=== PATIENT | female | born 1940 | race Caucasian/White ===

== ENCOUNTER → 2018-03-08 12:08 | Outpatient (CLI) | payer MEDICARE, SELFPAY | PROVIDERS: PCP Physician Assistant; Visit Provider Nurse Practitioner Gerontology | DX: M81.0 Age-related osteoporosis without current pathological fracture (principal); Z78.0 Asymptomatic menopausal state; Z85.3 Personal history of malignant neoplasm of breast; R29.890 Loss of height; E11.9 Type 2 diabetes mellitus without complications; Z82.62 Family history of osteoporosis | CPT/HCPCS: 77080 ==

== ENCOUNTER → 2018-06-15 10:08 | Outpatient (CLI) | payer MEDICARE, SELFPAY ==
--- NOTE | 2018-06-15 | DI.RAD.S_ITS ---
PROCEDURE: XR SHOULDER LT MIN 2V INDICATIONS: pain in left shoulder TECHNIQUE: 3 views of the shoulder were acquired. COMPARISON: [facility], CR, CHEST 2 VIEW, 08/28/2015, 9:47. [facility], CR, XR CHEST 2VW, 01/21/2016, 10:22. FINDINGS: Bones: No fractures or dislocations but there is a moderate degree of degenerative osteoporosis degree of such degeneration at the glenohumeral joint.at the acromioclavicular joint and a moderately severe degree of degeneration by chronic osteoarthritis at the glenohumeral joint. No suspicious bony lesions. Visualized ribs appear intact. Soft tissues: No suspicious soft tissue calcifications. IMPRESSION: No acute disease found. 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 No effusion or loose body is seen. 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 Dictated by: Davi Hu M.D. on 06/15/2018 at 11:08 Approved by: Davi Hu M.D. on 06/15/2018 at 11:10
== END ==
PROVIDERS: PCP Physician Assistant; Visit Provider Physician Assistant
DX: M25.512 Pain in left shoulder (principal); M19.012 Primary osteoarthritis, left shoulder
CPT/HCPCS: 73030

== ENCOUNTER → 2018-09-15 10:20 | Outpatient (CLI) | payer MEDICARE, SELFPAY ==
[2018-09-15 11:01] LABS: Add Manual Diff / Slide Review NO; Basophils Percent Auto 0.9 % (0-2); Eosinophils Percent Auto 4.2 % (2-4); Hematocrit 38.9 % (36-46); Hemoglobin 13.5 g/dL (12.0-16.0); Lymphocytes Percent Auto 12.2 % (25-40); Mean Corpuscular HGB Conc 34.6 % (30-36); Mean Corpuscular Hemoglobin 31.4 PG (26-34); Mean Corpuscular Volume 90.7 fL (80-100); Neutrophils Absolute Auto 5500 /uL (1500-7000); Neutrophils Percent Auto 74.7 % (50-75); Platelet Count 147 X10^3/uL (150-400); Red Blood Cell Count 4.29 X10^6/uL (4.0-5.2); Red Cell Distribution Width 14.6 % (11.6-14.8); White Blood Cell Count 7.3 X10^3/uL (4.5-11.0)
[2018-09-15 11:12] LABS: Alanine Aminotransferase 29 IU/L (9-52); Albumin 4.8 g/dL (3.5-5.0); Albumin Globulin Ratio 1.7 (1.0-2.8); Alkaline Phosphatase 69 U/L (38-126); Aspartate Aminotransferase 28 IU/L (14-36); BUN Creatinine Ratio 31.1 (6-22); Bilirubin Total 0.8 mg/dL (0.2-1.3); Blood Urea Nitrogen 28 mg/dL (7-17); Calcium 10.1 mg/dL (8.4-10.2); Carbon Dioxide 26 mmol/L (22-32); Chloride 98 mmol/L (98-107); Estimated Glomerular Filt Rate > 60.0 mL/min (>60); Globulin 2.9 g/dL (1.7-4.1); Glucose 256 mg/dL (80-110); HEMOLYSIS < 15 (0-50); Potassium 4.6 mmol/L (3.4-5.1); Sodium 138 mmol/L (137-145); Total Protein 7.7 g/dL (6.3-8.2)
== END ==
PROVIDERS: PCP Physician Assistant; Visit Provider Nurse Practitioner Gerontology
DX: C50.911 Malignant neoplasm of unspecified site of right female breast (principal); C50.912 Malignant neoplasm of unspecified site of left female breast
CPT/HCPCS: 36415; 80053; 85025

== ENCOUNTER → 2018-09-23 07:45 | Outpatient (CLI) | payer MEDICARE, SELFPAY ==
[2018-09-23 09:37] LABS: Alanine Aminotransferase 34 IU/L (9-52); Albumin 4.6 g/dL (3.5-5.0); Albumin Globulin Ratio 1.9 (1.0-2.8); Alkaline Phosphatase 52 U/L (38-126); Aspartate Aminotransferase 29 IU/L (14-36); BUN Creatinine Ratio 26.7 (6-22); Bilirubin Total 1.1 mg/dL (0.2-1.3); Blood Urea Nitrogen 24 mg/dL (7-17); Calcium 9.9 mg/dL (8.4-10.2); Carbon Dioxide 28 mmol/L (22-32); Chloride 102 mmol/L (98-107); Estimated Glomerular Filt Rate > 60.0 mL/min (>60); Globulin 2.4 g/dL (1.7-4.1); Glucose 183 mg/dL (80-110); HEMOLYSIS < 15 (0-50); Magnesium 1.8 mg/dL (1.6-2.3); Potassium 4.4 mmol/L (3.4-5.1); Sodium 141 mmol/L (137-145)
[2018-09-27 14:32] LABS: Lipoprofile NMR SEE SEPERATE REPORT
== END ==
PROVIDERS: Family Provider Physician Assistant; PCP Physician Assistant; Visit Provider Specialist
DX: I48.2 Chronic atrial fibrillation (principal); E78.5 Hyperlipidemia, unspecified
CPT/HCPCS: 36415; 80053; 83704; 83735

== ENCOUNTER → 2019-10-04 09:34 | Outpatient (CLI) | payer MEDICARE, SELFPAY ==
[2019-10-04 10:21] LABS: Add Manual Diff / Slide Review NO; Basophils Absolute Auto 100 /uL (0-100); Basophils Percent Auto 1.3 % (0-2); Eosinophils Absolute Auto 400 /uL (0-450); Eosinophils Percent Auto 7.9 % (2-4); Hematocrit 36.4 % (36-46); Hemoglobin 12.1 g/dL (12.0-16.0); Lymphocytes Absolute Auto 800 /uL (1100-4500); Lymphocytes Percent Auto 16.5 % (25-40); Mean Corpuscular HGB Conc 33.4 % (30-36); Mean Corpuscular Hemoglobin 29.5 PG (26-34); Mean Corpuscular Volume 88.4 fL (80-100); Monocytes Absolute Auto 400 /uL (0-900); Monocytes Percent Auto 9.3 % (3-14); Neutrophils Absolute Auto 3100 /uL (1500-7000); Platelet Count 134 X10^3/uL (150-400); Red Blood Cell Count 4.11 X10^6/uL (4.0-5.2); White Blood Cell Count 4.8 X10^3/uL (4.5-11.0)
[2019-10-04 10:33] LABS: Alanine Aminotransferase 19 IU/L (<35); Albumin 4.6 g/dL (3.5-5.0); Albumin Globulin Ratio 1.6 (1.0-2.8); Alkaline Phosphatase 82 U/L (38-126); Aspartate Aminotransferase 29 IU/L (14-36); Bilirubin Total 0.7 mg/dL (0.2-1.3); Blood Urea Nitrogen 28 mg/dL (7-17); Carbon Dioxide 24 mmol/L (22-32); Chloride 100 mmol/L (98-107); Estimated Glomerular Filt Rate > 60.0 mL/min (>60); Globulin 2.8 g/dL (1.7-4.1); Glucose 293 mg/dL (80-110); HEMOLYSIS < 15 (0-50); Potassium 4.4 mmol/L (3.4-5.1); Sodium 138 mmol/L (137-145); Total Protein 7.4 g/dL (6.3-8.2)
== END ==
PROVIDERS: Internal Medicine Hematology & Oncology; PCP Internal Medicine; Visit Provider Internal Medicine
DX: C50.919 Malignant neoplasm of unspecified site of unspecified female breast (principal)
CPT/HCPCS: 36415; 80053; 85025

== ENCOUNTER → 2019-11-06 07:18 | Outpatient (CLI) | payer MEDICARE, SELFPAY ==
[2019-11-06 08:41] LABS: Alanine Aminotransferase 21 IU/L (<35); Albumin 4.6 g/dL (3.5-5.0); Albumin Globulin Ratio 1.6 (1.0-2.8); Alkaline Phosphatase 80 U/L (38-126); Aspartate Aminotransferase 30 IU/L (14-36); BUN Creatinine Ratio 27.8 (6-22); Bilirubin Total 0.7 mg/dL (0.2-1.3); Blood Urea Nitrogen 25 mg/dL (7-17); Carbon Dioxide 27 mmol/L (22-32); Chloride 104 mmol/L (98-107); Estimated Glomerular Filt Rate > 60.0 mL/min (>60); Globulin 2.8 g/dL (1.7-4.1); Glucose 169 mg/dL (80-110); HEMOLYSIS < 15 (0-50); Magnesium 1.7 mg/dL (1.6-2.3); Potassium 4.5 mmol/L (3.4-5.1); Sodium 142 mmol/L (137-145); Total Protein 7.4 g/dL (6.3-8.2)
[2019-11-08 10:06] LABS: Lipoprofile NMR SEE SEPERATE REPORT
== END ==
PROVIDERS: PCP Internal Medicine; Referring Provider Specialist; Visit Provider Specialist
DX: E78.2 Mixed hyperlipidemia (principal); I48.20 Chronic atrial fibrillation, unspecified
CPT/HCPCS: 36415; 80053; 83704; 83735

== ENCOUNTER → 2020-03-21 09:22 | Outpatient (CLI) | payer MEDICARE, SELFPAY ==
[2020-03-21 09:39] LABS: Add Manual Diff / Slide Review NO; Basophils Absolute Auto 100 /uL (0-100); Basophils Percent Auto 1.2 % (0-2); Eosinophils Absolute Auto 400 /uL (0-450); Eosinophils Percent Auto 7.4 % (2-4); Hematocrit 37.3 % (36-46); Hemoglobin 12.6 g/dL (12.0-16.0); Lymphocytes Absolute Auto 1000 /uL (1100-4500); Mean Corpuscular HGB Conc 33.6 % (30-36); Mean Corpuscular Hemoglobin 31.4 PG (26-34); Mean Corpuscular Volume 93.2 fL (80-100); Monocytes Absolute Auto 500 /uL (0-900); Neutrophils Absolute Auto 3700 /uL (1500-7000); Neutrophils Percent Auto 65.4 % (50-75); Platelet Count 151 X10^3/uL (150-400); Red Blood Cell Count 4.01 X10^6/uL (4.0-5.2); Red Cell Distribution Width 13.9 % (11.6-14.8); White Blood Cell Count 5.7 X10^3/uL (4.5-11.0)
[2020-03-21 10:05] LABS: Alanine Aminotransferase 25 IU/L (<35); Albumin 4.7 g/dL (3.5-5.0); Albumin Globulin Ratio 1.9 (1.0-2.8); Alkaline Phosphatase 82 U/L (38-126); Aspartate Aminotransferase 36 IU/L (14-36); BUN Creatinine Ratio 24.7 (6-22); Bilirubin Total 0.9 mg/dL (0.2-1.3); Blood Urea Nitrogen 22 mg/dL (7-17); Calcium 10.4 mg/dL (8.4-10.2); Carbon Dioxide 27 mmol/L (22-32); Chloride 99 mmol/L (98-107); Estimated Glomerular Filt Rate > 60.0 mL/min (>60); Globulin 2.5 g/dL (1.7-4.1); Glucose 286 mg/dL (80-110); HEMOLYSIS < 15 (0-50); Sodium 136 mmol/L (137-145); Total Protein 7.2 g/dL (6.3-8.2)
== END ==
PROVIDERS: PCP Internal Medicine; Referring Provider Internal Medicine Hematology & Oncology; Visit Provider Internal Medicine Hematology & Oncology
DX: C50.919 Malignant neoplasm of unspecified site of unspecified female breast (principal)
CPT/HCPCS: 36415; 80053; 85025

== ENCOUNTER → 2020-08-12 07:48 | Outpatient (CLI) | payer MEDICARE, SELFPAY ==
[2020-08-12 09:08] LABS: Alanine Aminotransferase 19 IU/L (<35); Albumin 4.1 g/dL (3.5-5.0); Albumin Globulin Ratio 1.6 (1.0-2.8); Alkaline Phosphatase 70 U/L (38-126); Aspartate Aminotransferase 29 IU/L (14-36); BUN Creatinine Ratio 28.1 (6-22); Bilirubin Total 0.8 mg/dL (0.2-1.3); Blood Urea Nitrogen 25 mg/dL (7-17); Calcium 9.5 mg/dL (8.4-10.2); Carbon Dioxide 28 mmol/L (22-32); Chloride 103 mmol/L (98-107); Estimated Glomerular Filt Rate > 60.0 mL/min (>60); Globulin 2.5 g/dL (1.7-4.1); Glucose 151 mg/dL (80-110); HEMOLYSIS < 15 (0-50); Magnesium 1.9 mg/dL (1.6-2.3); Potassium 4.2 mmol/L (3.4-5.1); Sodium 135 mmol/L (137-145); Total Protein 6.6 g/dL (6.3-8.2)
[2020-08-20 14:01] LABS: LDL Particle 1154
[2020-08-20 14:02] LABS: LDL-Cholsterol 82
[2020-08-20 14:03] LABS: Cholesterol, Total 148; HDL-Cholesterol 48; Triglycerides 98
[2020-08-20 14:04] LABS: HDL-Particle (Total) 25.9
[2020-08-20 14:05] LABS: LDL Size 21.1; Small LDL- Particle 482
== END ==
PROVIDERS: PCP Internal Medicine; Referring Provider Specialist; Visit Provider Specialist
DX: E78.2 Mixed hyperlipidemia (principal); I48.20 Chronic atrial fibrillation, unspecified; I10 Essential (primary) hypertension
CPT/HCPCS: 36415; 80053; 80061; 83704; 83735

== ENCOUNTER → 2020-09-04 10:32 | Outpatient (CLI) | payer MEDICARE, SELFPAY ==
[2020-09-04 11:17] LABS: Add Manual Diff / Slide Review NO; Basophils Absolute Auto 100 /uL (0-100); Basophils Percent Auto 1.2 % (0-2); Eosinophils Absolute Auto 500 /uL (0-450); Eosinophils Percent Auto 9.1 % (2-4); Hematocrit 36.2 % (36-46); Lymphocytes Absolute Auto 1000 /uL (1100-4500); Lymphocytes Percent Auto 17.6 % (25-40); Mean Corpuscular HGB Conc 33.3 % (30-36); Mean Corpuscular Hemoglobin 30.1 PG (26-34); Mean Corpuscular Volume 90.4 fL (80-100); Monocytes Absolute Auto 600 /uL (0-900); Monocytes Percent Auto 11.1 % (3-14); Neutrophils Absolute Auto 3300 /uL (1500-7000); Platelet Count 160 X10^3/uL (150-400); White Blood Cell Count 5.5 X10^3/uL (4.5-11.0)
[2020-09-04 12:21] LABS: Alanine Aminotransferase 17 IU/L (<35); Albumin 4.3 g/dL (3.5-5.0); Albumin Globulin Ratio 1.8 (1.0-2.8); Alkaline Phosphatase 80 U/L (38-126); Aspartate Aminotransferase 27 IU/L (14-36); BUN Creatinine Ratio 33.7 (6-22); Bilirubin Total 0.6 mg/dL (0.2-1.3); Blood Urea Nitrogen 31 mg/dL (7-17); Calcium 9.8 mg/dL (8.4-10.2); Carbon Dioxide 30 mmol/L (22-32); Chloride 99 mmol/L (98-107); Estimated Glomerular Filt Rate 58.7 mL/min (>60); Globulin 2.4 g/dL (1.7-4.1); Glucose 260 mg/dL (80-110); HEMOLYSIS < 15 (0-50); Potassium 4.5 mmol/L (3.4-5.1); Sodium 135 mmol/L (137-145); Total Protein 6.7 g/dL (6.3-8.2)
[2020-09-04 12:22] LABS: BUN Creatinine Ratio 34.8 (6-22); Blood Urea Nitrogen 31 mg/dL (7-17); Calcium 9.7 mg/dL (8.4-10.2); Carbon Dioxide 29 mmol/L (22-32); Chloride 99 mmol/L (98-107); Estimated Glomerular Filt Rate > 60.0 mL/min (>60); Glucose 258 mg/dL (80-110); HEMOLYSIS < 15 (0-50); Magnesium 1.7 mg/dL (1.6-2.3); Potassium 4.5 mmol/L (3.4-5.1); Sodium 135 mmol/L (137-145)
== END ==
PROVIDERS: Internal Medicine; PCP Internal Medicine; Referring Provider Specialist; Visit Provider Specialist
DX: I10 Essential (primary) hypertension (principal); E78.00 Pure hypercholesterolemia, unspecified; I48.21 Permanent atrial fibrillation; C50.911 Malignant neoplasm of unspecified site of right female breast; C50.912 Malignant neoplasm of unspecified site of left female breast
CPT/HCPCS: 36415; 80048; 80053; 83735; 85025

== ENCOUNTER → 2020-12-06 13:03 | Outpatient (ROUT) | payer MEDICARE, SELFPAY ==
[2020-12-06 13:27] LABS: PTT Partial Thromboplastin Tim 64 SECONDS (26.4-36.2)
[2020-12-06 13:42] LABS: Prothrombin Time 104.6 SECONDS (10.1-12.7)
[2020-12-06 13:58] LABS: INR 9.3 (0.9-1.3)
== END ==
PROVIDERS: PCP Internal Medicine; Visit Provider Student in an Organized Health Care Education/Training Program
DX: I48.20 Chronic atrial fibrillation, unspecified (principal)
CPT/HCPCS: 85610; 85730

== ENCOUNTER → 2020-12-27 15:05 | Outpatient (ROUT) | payer MEDICARE, SELFPAY ==
[2020-12-27 15:36] LABS: Prothrombin Time 124.3 SECONDS (10.1-12.7)
[2020-12-27 15:48] LABS: INR 11.1 (0.9-1.3)
== END ==
PROVIDERS: PCP Internal Medicine; Visit Provider Student in an Organized Health Care Education/Training Program
DX: I48.20 Chronic atrial fibrillation, unspecified (principal)
CPT/HCPCS: 85610

== ENCOUNTER 2020-12-27 16:48 | Observation (INO) | payer MEDICARE, SELFPAY ==
[2020-12-27 16:54] VITALS: BP 168/74; PULSE 60; RESP 17; TEMP 36.7; O2SAT 95
--- NOTE | 2020-12-27 17:07 | DI.CT.S_ITS ---
PROCEDURE: CT HEAD/BRAIN WO CON INDICATIONS: INR 11 TECHNIQUE: Noncontrast 4.5 mm thick angled axial sections acquired from the foramen magnum to the vertex, with coronal and sagittal reformats. For radiation dose reduction, the following was used: automated exposure control, adjustment of mA and/or kV according to patient size. COMPARISON: None. FINDINGS: Image quality: Excellent. CSF spaces: Basal cisterns are patent. No extra-axial fluid collections. The ventricles are symmetric in size and shape. Brain: No intracranial bleeds or masses. There is cerebral volume loss for age, with resultant ventricular and sulcal prominence. There are periventricular and deep white matter chronic small vessel ischemic changes. There is intracranial internal carotid artery atherosclerosis. Skull and face: Calvarium and visualized facial bones appear intact, without suspicious lesions. Sinuses: Visualized sinuses and mastoids are clear. IMPRESSION: No acute intracranial process. Dictated by: Jaswinder Jones M.D. on 12/27/2020 at 17:55 Approved by: Jaswinder Jones M.D. on 12/27/2020 at 17:57
[2020-12-27 17:27] LABS: Add Manual Diff / Slide Review NO; Basophils Absolute Auto 100 /uL (0-100); Basophils Percent Auto 1.2 % (0-2); Eosinophils Absolute Auto 300 /uL (0-450); Eosinophils Percent Auto 4.2 % (2-4); Hematocrit 29.6 % (36-46); Hemoglobin 9.9 g/dL (12.0-16.0); Lymphocytes Absolute Auto 1000 /uL (1100-4500); Lymphocytes Percent Auto 14.1 % (25-40); Mean Corpuscular HGB Conc 33.3 % (30-36); Mean Corpuscular Hemoglobin 29.5 PG (26-34); Mean Corpuscular Volume 88.5 fL (80-100); Monocytes Absolute Auto 600 /uL (0-900); Monocytes Percent Auto 8.2 % (3-14); Neutrophils Absolute Auto 5000 /uL (1500-7000); Neutrophils Percent Auto 72.3 % (50-75); Platelet Count 192 X10^3/uL (150-400); Red Blood Cell Count 3.34 X10^6/uL (4.0-5.2); Red Cell Distribution Width 16.1 % (11.6-14.8); White Blood Cell Count 6.9 X10^3/uL (4.5-11.0)
--- NOTE | 2020-12-27 17:35 | ED.RECABL ---
HPI - Recheck/Abnormal Lab/Rx General Chief Complaint: Recheck/Abnormal Lab/Rx Stated Complaint: INR NUMBERS ARE HIGH Time Seen by Provider: 12/27/20 17:35 Source: patient Mode of arrival: Ambulatory Limitations: no limitations History of Present Illness HPI narrative: This is an 80 year female who is sent to the emergency department for elevated INR. Patient takes warfarin for atrial fibrillation she has a pacemaker but does not have any artificial valves. Patient had an INR checked lately beginning of December, they were told to take more dark leafy greens but unclear if they were instructed to stop her warfarin. She was hospitalized recently for acute hypoxic respiratory failure and is currently using 2 L nasal cannula intermittently. She does have a history of atrial fibrillation, hypertension, dyslipidemia, diabetes and uses insulin as well as chronic memory issues which have been slowly progressive. Patient does not have any headache, no altered mental status today, no chest pain, no shortness of breath, no spontaneous bleeding, and no abdominal pain, no black or bloody stools, no hematuria or spontaneous bruising or petechiae that the patient or have noted. They had a regular follow-up today with their primary care physician it was noted there INR was 8, they were sent home and told to stop there Coumadin for the next 2 days and rhythm re-contacted and told it was higher than 8 and to come to the emergency department. Related Data Home Medications Medication Instructions Recorded Confirmed Januvia 100 mg PO DAILY #0 08/20/16 12/27/20 furosemide 20 mg PO DAILY #0 08/20/16 12/27/20 warfarin [Jantoven] 5 mg PO QDAY #0 08/20/16 12/27/20 amlodipine [Norvasc] 10 mg PO QDAY #1 02/17/17 12/27/20 atorvastatin [Lipitor] 20 mg PO QDAY #0 02/17/17 12/27/20 insulin glargine [Lantus U-100 63 unit SUB-Q BID 03/18/18 12/27/20 Insulin] metformin 500 mg PO BID 03/18/18 12/27/20 doxylamine succinate 25 mg PO PRN PRN 12/27/20 12/27/20 losartan 50 mg PO BID 12/27/20 12/27/20 magnesium oxide-Mg AA chelate 400 cap PO BID 12/27/20 12/27/20 [Magnesium (oxide/AA chelate)] metoprolol succinate 50 mg PO DAILY 12/27/20 12/27/20 sennosides [senna] 8.6 mg PO BEDTIME 12/27/20 12/27/20 sertraline 50 mg PO DAILY 12/27/20 12/27/20 spironolactone 25 mg PO DAILY 12/27/20 12/27/20 Previous Rx's Medication Instructions Recorded alendronate [Fosamax] 70 mg PO QWEEK #12 tab 07/17/20 anastrozole 1 mg PO DAILY #30 tab 07/17/20 Allergies Allergy/AdvReac Type Severity Reaction Status Date / Time MYESHA Inhibitors Allergy Unknown UNK. Verified 12/27/20 16:56 [MYESHA INHIBITORS] Review of Systems Review of Systems ROS Unobtainable: All systems reviewed & are unremarkable except as noted in HPI and below Patient History Social History Smoking Status: Never smoker Smoking Status: Never smoker alcohol intake frequency: other Substance Use Type: does not use Exam Narrative Exam Narrative: GEN: well nourished, well appearing female, alert and oriented x 3, patient appears to be in mild distress. HEENT: Atraumatic, pupils are equal round reactive to light, extraocular movements are intact, nares are clear. HEART: Regular rate and rhythm without murmur, clicks, rubs. LUNGS:Lungs clear to auscultation, no wheezes, rales, crackles, chest moves symmetrically ABD:bowel sounds normal, soft, non-tender, no guarding, rebound, rigidity, no masses noted, no hepatosplenomegaly :No CVA tenderness MSCL: Non-tender, full range of motion NEURO:CN 2-12 intact, sensation normal SKIN: No rash, erythema, ecchymosis or petechiae noted. Initial Vital Signs Initial Vital Signs: Vital Signs Temperature 98.1 F 12/27/20 16:54 Pulse Rate 60 12/27/20 16:54 Respiratory Rate 17 12/27/20 16:54 Blood Pressure 168/74 H 12/27/20 16:54 Pulse Oximetry 95 12/27/20 16:54 Course Orders Ordered: ED Orders 12/27/20 17:07 CT head/brain wo con Stat 12/27/20 17:18 Complete Blood Count AUTO DIFF Stat Comprehensive Metabolic Panel Stat Partial Thromboplastin Time Stat Prothrombin Time INR Stat 12/27/20 18:27 COVID19 -Nasal swab/Pre-Proc Stat Discontinued Medications Phytonadione 10 mg/ Dextrose 51 mls @ 102 mls/hr IV NOW ONE Stop: 12/27/20 17:55 Last Admin: 12/27/20 18:07 Dose: 102 mls/hr Documented by: Vital Signs Vital signs: Vital Signs - 8 hr 12/27/20 16:54 Temperature 98.1 F Pulse Rate 60 Respiratory Rate 17 Blood Pressure 168/74 H Pulse Oximetry 95 MDM - Recheck/Abnormal Lab/Rx Lab Data Attestation: I reviewed the patient's lab results. Result diagrams: 12/27/20 17:18 12/27/20 17:18 Labs: Lab Results 12/27/20 12/27/20 12/27/20 Range/Units 17:18 17:18 17:18 WBC 6.9 (4.5-11.0) X10^3/uL RBC 3.34 L (4.0-5.2) X10^6/uL Hgb 9.9 L (12.0-16.0) g/dL Hct 29.6 L (36-46) % MCV 88.5 (80-100) fL MCH 29.5 (26-34) PG MCHC 33.3 (30-36) % RDW 16.1 H (11.6-14.8) % Plt Count 192 (150-400) X10^3/uL Neut % (Auto) 72.3 (50-75) % Lymph % (Auto) 14.1 L (25-40) % White % (Auto) 8.2 (3-14) % Eos % (Auto) 4.2 H (2-4) % Baso % (Auto) 1.2 (0-2) % Neut # (Auto) 5000 (4911-3888) /uL Lymph # (Auto) 1000 L (5100-1801) /uL White # (Auto) 600 (0-900) /uL Eos # (Auto) 300 (0-450) /uL Baso # (Auto) 100 (0-100) /uL PT 134.2 H D (10.1-12.7) SECONDS INR 12.0 H* (0.9-1.3) APTT 77 H* D (26.4-36.2) SECONDS Sodium 136 L (137-145) mmol/L Potassium 4.7 (3.4-5.1) mmol/L Chloride 100 (98-107) mmol/L Carbon Dioxide 25 (22-32) mmol/L BUN 26 H (7-17) mg/dL Creatinine 1.14 H (0.52-1.04) mg/dL Estimated GFR 45.9 L (>60) mL/min BUN/Creatinine Ratio 22.8 H (6-22) Glucose 175 H (80-110) mg/dL Calcium 9.3 (8.4-10.2) mg/dL Total Bilirubin 0.7 (0.2-1.3) mg/dL AST 35 (14-36) IU/L ALT 23 (<35) IU/L Alkaline Phosphatase 135 H (38-126) U/L Total Protein 6.8 (6.3-8.2) g/dL Albumin 4.3 (3.5-5.0) g/dL Globulin 2.5 (1.7-4.1) g/dL Albumin/Globulin Ratio 1.7 (1.0-2.8) Imaging Data CT scan - head: Radiologist's Impression: Rhoda Davidson 80 F [address] Scan ReportSigned Patient: Rhoda Davidson AMR#: [id number]: 1940Acct:[id number]/Sex: 80 / FDate of Service: 12/27/20Loc: EDAccession Number: [id number] Procedure: CT head/brain wo con Ordering Provider: Tran Nowak D.O. PROCEDURE: CT HEAD/BRAIN WO CON INDICATIONS: INR 11 TECHNIQUE: Noncontrast 4.5 mm thick angled axial sections acquired from the foramen magnum to the vertex, with coronal and sagittal reformats. For radiation dose reduction, the following was used: automated exposure control, adjustment of mA and/or kV according to patient size. COMPARISON: None. FINDINGS: Image quality: Excellent. CSF spaces: Basal cisterns are patent. No extra-axial fluid collections. The ventricles are symmetric in size and shape. Brain: No intracranial bleeds or masses. There is cerebral volume loss for age, with resultant ventricular and sulcal prominence. There are periventricular and deep white matter chronic small vessel ischemic changes. There is intracranial internal carotid artery atherosclerosis. Skull and face: Calvarium and visualized facial bones appear intact, without suspicious lesions. Sinuses: Visualized sinuses and mastoids are clear. IMPRESSION: No acute intracranial process. Dictated by: Jaswinder Jones M.D. on 12/27/2020 at 17:55 Approved by: Jaswinder Jones M.D. on 12/27/2020 at 17:57 [facility] Narrative Medical decision making narrative: This is a pleasant 80-year-old female who comes in for elevated INR. On repeat here in the department it is 12. Her hemoglobin is 9.9 she has a prior from August of 2020 which is dropped but unclear if this is a acute change or chronic. Patient has not appreciated any changes with her stool. Patient labs otherwise show a mild bump in her creatinine from August of 2020 and she has a negative head CT which was obtained due to her elevated INR although she has not had any recent trauma but is high risk for spontaneous bleed. Patient does have some chronic memory issues she has not had any acute changes in her mental status no obvious signs of spontaneous bleeding. Patient accepted by Dr. Iniguez who kindly accepts for observation. Patient has had 10mg Vitamin K in the department. Will hold on FFP and Kcentra only if patient develops life threatening bleeding. Discharge Plan Departure Patient Disposition: Home Clinical Impression: Elevated INR, History of atrial fibrillation Prescriptions: No Action warfarin [Jantoven] 10 MG tablet 5 mg PO QDAY Qty: 0 RF: 0 Januvia 100 mg tablet 100 mg PO DAILY Qty: 0 RF: 0 furosemide 20 MG tablet 20 mg PO DAILY Qty: 0 RF: 0 amlodipine [Norvasc] 5 MG tablet 10 mg PO QDAY Qty: 1 RF: 0 atorvastatin [Lipitor] 20 MG tablet 20 mg PO QDAY Qty: 0 RF: 0 Lantus U-100 Insulin 100 unit/mL Solution 63 unit SUB-Q BID RF: 0 metformin 1,000 mg Tablet 500 mg PO BID RF: 0 anastrozole 1 mg Tablet 1 mg PO DAILY Qty: 30 RF: 2 alendronate [Fosamax] 70 mg Tablet 70 mg PO QWEEK Qty: 12 RF: 2 losartan 50 mg Tablet 50 mg PO BID RF: 0 metoprolol succinate 50 mg tablet extended release 24 hr 50 mg PO DAILY RF: 0 spironolactone 25 mg tablet 25 mg PO DAILY RF: 0 doxylamine succinate 25 mg Tablet 25 mg PO PRN PRN (Reason: Sleep) RF: 0 sertraline 50 mg Tablet 50 mg PO DAILY RF: 0 Magnesium (oxide/AA chelate) 300 mg Capsule 400 cap PO BID RF: 0 senna 8.6 mg Capsule 8.6 mg PO BEDTIME RF: 0 Referrals: Ting Moya MD [Primary Care Provider] -
[2020-12-27 17:41] LABS: Alanine Aminotransferase 23 IU/L (<35); Albumin 4.3 g/dL (3.5-5.0); Albumin Globulin Ratio 1.7 (1.0-2.8); Alkaline Phosphatase 135 U/L (38-126); Aspartate Aminotransferase 35 IU/L (14-36); BUN Creatinine Ratio 22.8 (6-22); Bilirubin Total 0.7 mg/dL (0.2-1.3); Blood Urea Nitrogen 26 mg/dL (7-17); Calcium 9.3 mg/dL (8.4-10.2); Carbon Dioxide 25 mmol/L (22-32); Chloride 100 mmol/L (98-107); Estimated Glomerular Filt Rate 45.9 mL/min (>60); Globulin 2.5 g/dL (1.7-4.1); Glucose 175 mg/dL (80-110); HEMOLYSIS 20 (0-50); Potassium 4.7 mmol/L (3.4-5.1); Sodium 136 mmol/L (137-145); Total Protein 6.8 g/dL (6.3-8.2)
[2020-12-27 17:42] LABS: Prothrombin Time 134.2 SECONDS (10.1-12.7)
[2020-12-27 17:47] LABS: PTT Partial Thromboplastin Tim 77 SECONDS (26.4-36.2)
[2020-12-27] MEDS: PHYTONADIONE (VIT K1) 10 MG in DEXTROSE 5 % IN WATER 50 ML 102 ML IV (18:07)
--- NOTE | 2020-12-27 18:53 | P.HP_ITS ---
History of Present Illness History of Present Illness Date Patient Seen: 12/27/20 Time Patient Seen: 18:21 Chief complaint: INR NUMBERS ARE HIGH Narrative: Ms. Davidson is a 80W PMH of pulmonary hypertension with chronic respiratory failure on 2L, CHF, breast cancer, diabetes on insulin, hypertension who comes in today because of an elevated INR. Patient is with her and slightly unsure about timeline of events. But as best as they can recall she was recently hospitalized for CHF exacerbation and discharged on 12/16/20. Prior to this she believes she had a high INR. She can not recall the level or what was done, she believes no changes to her medications were made. Looking in our system she had an INR of 9.3 on 12/06/20. After being discharge she continued to take her normal amount of coumadin which is 5mg five days a week, and 7.5 mg two days a week. Today she had an INR scheduled and it was elevated so she was sent to the hospital. She does not believe she has mistaken any doses. She does not have any noted bleeding, no vomiting, bloody or black stools, headaches, hematuria, bruising. In the ER, workup was done and her vitals were normal aside from hypertension. Labs notable for hemoglobin 9.9. INR 12. Sodium 136, creatinine 1.14. She was given a dose of IV vitamin K and admitted for observation and further treatment. Patient History Family & Social History Safety & Behavioral: Feels Safe in Current Yes Environment Been Physically Hurt or No Threatened By a Person Tobacco & Substance use: Smoking Status Never smoker alcohol intake frequency other Substance Use Type does not use Meds Home Medications and Allergies Home Medications Medication Instructions Recorded Confirmed Type Januvia 100 mg PO DAILY #0 08/20/16 12/27/20 History furosemide 20 mg PO DAILY #0 08/20/16 12/27/20 History warfarin [Jantoven] 5 mg PO QDAY #0 08/20/16 12/27/20 History amlodipine [Norvasc] 10 mg PO QDAY #1 02/17/17 12/27/20 History atorvastatin [Lipitor] 20 mg PO QDAY #0 02/17/17 12/27/20 History insulin glargine [Lantus U-100 63 unit SUB-Q BID 03/18/18 12/27/20 History Insulin] metformin 500 mg PO BID 03/18/18 12/27/20 History alendronate [Fosamax] 70 mg PO QWEEK #12 tab 07/17/20 12/27/20 Rx anastrozole 1 mg PO DAILY #30 tab 07/17/20 12/27/20 Rx doxylamine succinate 25 mg PO PRN PRN 12/27/20 12/27/20 History losartan 50 mg PO BID 12/27/20 12/27/20 History magnesium oxide-Mg AA chelate 400 cap PO BID 12/27/20 12/27/20 History [Magnesium (oxide/AA chelate)] metoprolol succinate 50 mg PO DAILY 12/27/20 12/27/20 History sennosides [senna] 8.6 mg PO BEDTIME 12/27/20 12/27/20 History sertraline 50 mg PO DAILY 12/27/20 12/27/20 History spironolactone 25 mg PO DAILY 12/27/20 12/27/20 History Allergies Allergy/AdvReac Type Severity Reaction Status Date / Time MYESHA Inhibitors Allergy Unknown UNK. Verified 12/27/20 16:56 [MYESHA INHIBITORS] Review of Systems Review of Systems Narrative: 14 systems reviewed and negative aside from what is noted in HPI Exam Vital Signs (past 8 hours): - 12/27/20 16:54 Temperature 98.1 F Pulse Rate 60 Respiratory Rate 17 Blood Pressure 168/74 H Pulse Oximetry 95 Oxygen Delivery Method Room Air Narrative Exam Narrative: GEN: no acute distress HEENT: moist mucous membranes, no JVD CV: irregular, normal rate, no murmurs appreciated PULM: clear bilaterally ABD: soft, nontender, no organomegaly, nondistended EXT: 1+ pitting edema NEURO: AAOx3, moving all extremities PSYCH: pleasant mood Objective Labs Result Diagrams: 12/27/20 17:18 12/27/20 17:18 Labs: Laboratory Results - last 24 hr 12/27/20 12/27/20 12/27/20 17:18 17:18 17:18 WBC 6.9 RBC 3.34 L Hgb 9.9 L Hct 29.6 L MCV 88.5 MCH 29.5 MCHC 33.3 RDW 16.1 H Plt Count 192 Neut % (Auto) 72.3 Lymph % (Auto) 14.1 L [place] % (Auto) 8.2 Eos % (Auto) 4.2 H Baso % (Auto) 1.2 Neut # (Auto) 5000 Lymph # (Auto) 1000 L [place] # (Auto) 600 Eos # (Auto) 300 Baso # (Auto) 100 PT 134.2 H D INR 12.0 H* APTT 77 H* D Sodium 136 L Potassium 4.7 Chloride 100 Carbon Dioxide 25 BUN 26 H Creatinine 1.14 H Estimated GFR 45.9 L BUN/Creatinine Ratio 22.8 H Glucose 175 H Calcium 9.3 Total Bilirubin 0.7 AST 35 ALT 23 Alkaline Phosphatase 135 H Total Protein 6.8 Albumin 4.3 Globulin 2.5 Albumin/Globulin Ratio 1.7 Assessment & Plan Assessment & Plan narrative: Ms. Davidson is a 80W with PMH of pulmonary hypertension with chronic respiratory failure on 2L, CHF, breast cancer, diabetes on insulin, hypertension who comes in today because of an elevated INR 1. Coagulopathy, acute -patient is confused as to what dose of coumadin she's taking -should have had adjustment earlier this month with elevated level -unclear why she is so high now -given multiple elevations, likely would benefit from DOAC -reversing INR with vitamin K 10mg IV tonight -monitor for any evidence of bleeding, at that point may need K-centra 2. Anemia, mild -last hemoglobin from 4 months ago was 12, today 9.9 -no evidence of any bleed -low suspiscion for bleed, more likely has depressed hemoglobin production from recent illness -trend hemoglobin closely 3. DUANE, mild -baseline creatinine appears 0.89, today at 1.14 -will trend closely -possibly in setting of overdiuresis or in setting of recent illness -hold diuretics tonight as patient appears respiratory comfortable 2. Pulmonary Hypertension with CHF with chronic respiratory failure on home O2 -not in acute respiratory failure currently -will hold on diuresis tonight -likely can restart tomorrow 3. Atrial fibrillation, chronic -currently rate controlled -can continue metoprolol at home dose -reversing coumadin 4. Breast cancer, chronic -continue anastrazole 5. Type 2 Diabetes on insulin, chronic -continue on ACHS dosing tonight -restart home dose long acting in AM 6. Hypertension -continue home medications of losartan and amlodipine 7. Depression -continue sertraline IVF: none DVT ppx: none, patient coagulopathic Diet: Diabetic Code status, Full proxy is partner Adelfo Time Spent With Patient Time with patient: 15-24 minutes Quality MIPS - Admit I confirm the patient?s Advance Care Plan is present, Code status is documented, Surrogate decision maker is in patient?s record [If Yes, STOP here]: Yes
[2020-12-27 19:03] VITALS: BMI 23.3
[2020-12-27 19:05] VITALS: BP 120/53; PULSE 60; RESP 18; TEMP 36.4; O2SAT 91
[2020-12-27 19:31] LABS: COVID19 -Nasal RAPID Negative (Negative)
[2020-12-27] MEDS: diphenhydrAMINE 25 MG TABLET PO (21:13)
[2020-12-27] MEDS: ACETAMINOPHEN 325 MG TABLET 650 MG PO (22:05)
[2020-12-27 23:00] VITALS: O2SAT 98
[2020-12-27 23:50] VITALS: BP 130/57; PULSE 60; RESP 14; TEMP 37; O2SAT 98
[2020-12-28 03:45] VITALS: BP 143/75; PULSE 62; RESP 18; TEMP 36.4; O2SAT 94
[2020-12-28 06:43] LABS: Add Manual Diff / Slide Review NO; Basophils Absolute Auto 100 /uL (0-100); Eosinophils Absolute Auto 200 /uL (0-450); Eosinophils Percent Auto 3.4 % (2-4); Hematocrit 27.8 % (36-46); Hemoglobin 9.2 g/dL (12.0-16.0); Lymphocytes Absolute Auto 800 /uL (1100-4500); Lymphocytes Percent Auto 14.2 % (25-40); Mean Corpuscular HGB Conc 32.9 % (30-36); Mean Corpuscular Hemoglobin 29.3 PG (26-34); Monocytes Absolute Auto 500 /uL (0-900); Neutrophils Absolute Auto 4000 /uL (1500-7000); Neutrophils Percent Auto 72.4 % (50-75); Platelet Count 160 X10^3/uL (150-400); Red Blood Cell Count 3.13 X10^6/uL (4.0-5.2); Red Cell Distribution Width 15.9 % (11.6-14.8); White Blood Cell Count 5.6 X10^3/uL (4.5-11.0)
[2020-12-28 06:47] LABS: INR 1.7 (0.9-1.3); Prothrombin Time 19.5 SECONDS (10.1-12.7)
[2020-12-28 06:55] LABS: Blood Urea Nitrogen 21 mg/dL (7-17); Calcium 8.9 mg/dL (8.4-10.2); Carbon Dioxide 26 mmol/L (22-32); Chloride 102 mmol/L (98-107); Estimated Glomerular Filt Rate 53.3 mL/min (>60); Glucose 157 mg/dL (80-110); HEMOLYSIS < 15 (0-50); Potassium 4.6 mmol/L (3.4-5.1); Sodium 134 mmol/L (137-145)
[2020-12-28 07:00] VITALS: O2SAT 93
[2020-12-28 08:00] VITALS: BP 144/64; PULSE 61; RESP 18; TEMP 36.4; O2SAT 93
[2020-12-28] MEDS: INSULIN LISPRO 100 UNIT/ML 3ML VIAL SUBCUT (09:05)
[2020-12-28] MEDS: FUROSEMIDE 20 MG TABLET PO (09:08)
[2020-12-28] MEDS: SPIRONOLACTONE 25 MG TABLET PO (09:08)
[2020-12-28] MEDS: SERTRALINE 50 MG TABLET PO (09:08)
[2020-12-28 09:09] VITALS: BP 144/64; PULSE 61
[2020-12-28] MEDS: AMLODIPINE 5 MG TABLET 10 MG PO (09:09)
[2020-12-28] MEDS: LOSARTAN 50 MG TABLET PO (09:09)
[2020-12-28] MEDS: ATORVASTATIN 20 MG TABLET PO (09:09)
[2020-12-28] MEDS: METOPROLOL ER 50 MG TABLET PO (09:09)
[2020-12-28] MEDS: APIXABAN 5 MG TABLET PO (09:09)
[2020-12-28] MEDS: ANASTROZOLE 1 MG TABLET PO (09:10)
[2020-12-28] MEDS: SODIUM CHLORIDE 0.9% FLUSH 10 ML IV (09:10)
--- NOTE | 2020-12-28 10:28 | CM.DANOTE ---
Patient is an 80 year old female who was admitted on 12/27/20 for INR high. Pt has MCR and AARP for insurance and her PCP is Dr. Tign Moya in [place] and her Oncologist is Dr. Kam. EMR was reviewed. Per MD, pt with hx of breast cancer, diabetes, hypertension and has oxygen at home at baseline. Per RN, pt's INR levels have stabilized. Per MD, pt's sig other to bring in home med list and MD will help clarify the medication recommendation as seems some confusion for pt and Sig Other on medications which likely contributed to pt's admission. Pt likely stable for d/c home later today and no identified barriers to discharge. SW met bedside with pt and explained role and she confirms that she lives in [place] with her Sig Other/Life Partner who is quite supportive and involved and available to assist at d/c. Pt is quite active at baseline and has home oxygen through [facility] but currently tolerating room air and only uses oxygen occasionally since her cardiology needs recently at [facility]. Pt confirms that her son is now her DPOA Dashawn and he lives in [place]. Pt's adult Dtr Manisha recently and pt has struggled some with her grief and feels that her Dtr's contributed some to her recent cardiology issues. SW discussed the range of grief and the way that it can impact a person medically and emotionally. Pt denies any need for outpt resources for grief at this time. Pt denies any hx of HH or SNF and preference is home with Sig Other when stable. Plan: SW to follow for likely plan of pt d/c home later today via Sig Other POV and outpt follow up. MANE Colvin Discharge Planning/Care Management CM Discharge Assessment Start: 12/28/20 10:26 Freq: Status: Active Protocol: Document 12/28/20 10:26 BF (Rec: 12/28/20 10:28 BF [id number]) Discharge Planning Assessment Assigned Business Executive MANE Roger DPOA/Assigned Designee Name son Dashawn in [place] Contact Information [phone] Advance Directives? Yes: POLST Advance Directives on File No History Provided By Patient,Medical Record Has Patient been admitted in last 30 No days? Prior Living Arrangements House Household Members significant other Type of transporation used prior to Drives own vehicle admit Independent with ADL's Yes Is patient alert and oriented? Yes Caregiver for Another No Barriers to Discharge No Discharge Plan Home Community Services Oxygen Therapy Transportation Arrangement Sig Other is available to provide transport at d/c Referrals Initiated None needed Whiteboard Updated in Patient Room with Yes name and ext. # of Business Executive Review Status In Process Please Provide Date Initial DC 12/28/20 Assessment Was Performed Next Review Type Continued Stay Review
--- NOTE | 2020-12-28 10:59 | PC.NURSE ---
Patient discharge teaching done. Patient was educated about new medication Eliquis, diet, follow up w/ primary care provider, ss of adverse reaction. Patient was also educated about new dose of Lantus per Dr. Iniguez's provider order. Patient and acknowledged understanding of all discharge teaching. Patient's belongings retrieved from the safe, all belongings were intact. Patient left facility with all belongings. Patient's prescriptions were e-sent to pharmacy.
--- NOTE | 2020-12-28 15:43 | P.DS_ITS ---
History of Present Illness History of Present Illness Chief complaint: INR NUMBERS ARE HIGH Narrative: Ms. Davidson is a 80W PMH of pulmonary hypertension with chronic respiratory failure on 2L, CHF, breast cancer, diabetes on insulin, hypertension who comes in today because of an elevated INR. Patient is with her and slightly unsure about timeline of events. But as best as they can recall she was recently hospitalized for CHF exacerbation and discharged on 12/16/20. Prior to this she believes she had a high INR. She can not recall the level or what was done, she believes no changes to her medications were made. Looking in our system she had an INR of 9.3 on 12/06/20. After being discharge she continued to take her normal amount of coumadin which is 5mg five days a week, and 7.5 mg two days a week. Today she had an INR scheduled and it was elevated so she was sent to the hospital. She does not believe she has mistaken any doses. She does not have any noted bleeding, no vomiting, bloody or black stools, headaches, hematuria, bruising. In the ER, workup was done and her vitals were normal aside from hypertension. Labs notable for hemoglobin 9.9. INR 12. Sodium 136, creatinine 1.14. She was given a dose of IV vitamin K and admitted for observation and further treatment. Discharge Providers Provider Date of admission: 12/27/20 18:44 Discharge Date: 12/28/20 Primary care physician: Ting Moya MD Discharge provider: Judah Iniguez MD Summary Hospital Course Discharge Diagnosis: 1. Acute coagulopathy 2. Mild anemia 3. DUANE 4. Pulmonary hypertension with CHF with chronic respiratory failure on home O2 5. Atrial fibrillation 6. Breast cancer 7. Type 2 Diabetes on insulin 8. Hypertension 9. Depression Hospital Course: Ms. Davidson presented initially after being recommended to come into the emergency room for an INR of 12.0. She had previously had elevated INR over 9, 3 weeks ago, but according to her no changes were made to her medications. She was noted initially to have a mild DUANE with creatinine of 1.14 from baseline of 0.89, she was mildly anemic with hemoglobin of 9.9 from last noted of 12. She was monitored due to concern for possible bleed; however she had no evidence of any bleed here in the hospital. Her creatinine improved to 1.00 on discharge. She did get vitamin K and INR improved to 1.7. She was rec ommended to start on apixaban instead of warfarin given multiple recent extremely elevated INRs. The rest of her medical issues in the hospital were stable. Code status: Full. proxy is partner Adelfo Status at Discharge Cognitive/behavioral status at discharge: oriented Functional status at discharge: independent ambulation Overall status at discharge: patient is back to baseline Time Spent with Patient Time spent: Less than 30 minutes Exam Vital Signs (past 8 hours): - 12/28/20 08:00 12/28/20 09:09 Temperature 97.6 F Pulse Rate 61 61 Respiratory Rate 18 Blood Pressure 144/64 H 144/64 H Pulse Oximetry 93 Oxygen Delivery Method Room Air Oxygen Flow Rate 0 Narrative Exam Narrative: GEN: no acute distress HEENT: moist mucous membranes, no JVD CV: irregular, normal rate, no murmurs appreciated PULM: clear bilaterally ABD: soft, nontender, no organomegaly, nondistended EXT: 1+ pitting edema NEURO: AAOx3, moving all extremities PSYCH: pleasant mood Objective Labs Result Diagrams: 12/28/20 06:15 12/28/20 06:15 Labs: Laboratory Results - last 24 hr 12/27/20 12/27/20 12/27/20 17:18 17:18 17:18 WBC 6.9 RBC 3.34 L Hgb 9.9 L Hct 29.6 L MCV 88.5 MCH 29.5 MCHC 33.3 RDW 16.1 H Plt Count 192 Neut % (Auto) 72.3 Lymph % (Auto) 14.1 L [place] % (Auto) 8.2 Eos % (Auto) 4.2 H Baso % (Auto) 1.2 Neut # (Auto) 5000 Lymph # (Auto) 1000 L [place] # (Auto) 600 Eos # (Auto) 300 Baso # (Auto) 100 PT 134.2 H D INR 12.0 H* APTT 77 H* D Sodium 136 L Potassium 4.7 Chloride 100 Carbon Dioxide 25 BUN 26 H Creatinine 1.14 H Estimated GFR 45.9 L BUN/Creatinine Ratio 22.8 H Glucose 175 H Calcium 9.3 Total Bilirubin 0.7 AST 35 ALT 23 Alkaline Phosphatase 135 H Total Protein 6.8 Albumin 4.3 Globulin 2.5 Albumin/Globulin Ratio 1.7 SARS-CoV-2 (PCR) 12/27/20 12/28/20 12/28/20 18:48 06:15 06:15 WBC 5.6 RBC 3.13 L Hgb 9.2 L Hct 27.8 L MCV 89.0 MCH 29.3 MCHC 32.9 RDW 15.9 H Plt Count 160 Neut % (Auto) 72.4 Lymph % (Auto) 14.2 L [place] % (Auto) 9.0 Eos % (Auto) 3.4 Baso % (Auto) 1.0 Neut # (Auto) 4000 Lymph # (Auto) 800 L [place] # (Auto) 500 Eos # (Auto) 200 Baso # (Auto) 100 PT 19.5 H D INR 1.7 H APTT Sodium Potassium Chloride Carbon Dioxide BUN Creatinine Estimated GFR BUN/Creatinine Ratio Glucose Calcium Total Bilirubin AST ALT Alkaline Phosphatase Total Protein Albumin Globulin Albumin/Globulin Ratio SARS-CoV-2 (PCR) Negative 12/28/20 06:15 WBC RBC Hgb Hct MCV MCH MCHC RDW Plt Count Neut % (Auto) Lymph % (Auto) [place] % (Auto) Eos % (Auto) Baso % (Auto) Neut # (Auto) Lymph # (Auto) [place] # (Auto) Eos # (Auto) Baso # (Auto) PT INR APTT Sodium 134 L Potassium 4.6 Chloride 102 Carbon Dioxide 26 BUN 21 H Creatinine 1.00 Estimated GFR 53.3 L BUN/Creatinine Ratio 21.0 Glucose 157 H Calcium 8.9 Total Bilirubin AST ALT Alkaline Phosphatase Total Protein Albumin Globulin Albumin/Globulin Ratio SARS-CoV-2 (PCR) [facility] Social History household members: significant other Smoking Status: Never smoker Discharge Plan Discharge Plan Patient Disposition: Home Provider Discharge Comment: Ms. Davidson came in with very high INR at 12. She had no bleeding. She had her INR reversed with vitamin K, and on discharge it was 1.7. She has had high INR in the past. Because of this she was recommended to start on eliquis as a blood thinner instead and she agreed. Discharge orders & Medications Prescriptions: New Eliquis 5 mg Tablet 5 mg PO BID Qty: 60 RF: 0 Lantus Solostar U-100 Insulin 100 unit/mL (3 mL) insulin pen 7 unit SUBCUT QAM Qty: 3 RF: 0 Continued Januvia 100 mg tablet 100 mg PO DAILY Qty: 0 RF: 0 furosemide 20 MG tablet 20 mg PO DAILY Qty: 0 RF: 0 amlodipine [Norvasc] 5 MG tablet 10 mg PO QDAY Qty: 1 RF: 0 atorvastatin [Lipitor] 20 MG tablet 20 mg PO QDAY Qty: 0 RF: 0 metformin 1,000 mg Tablet 500 mg PO BID RF: 0 anastrozole 1 mg Tablet 1 mg PO DAILY Qty: 30 RF: 2 alendronate [Fosamax] 70 mg Tablet 70 mg PO QWEEK Qty: 12 RF: 2 losartan 50 mg Tablet 50 mg PO BID RF: 0 metoprolol succinate 50 mg tablet extended release 24 hr 50 mg PO DAILY RF: 0 spironolactone 25 mg tablet 25 mg PO DAILY RF: 0 doxylamine succinate 25 mg Tablet 25 mg PO PRN PRN (Reason: Sleep) RF: 0 sertraline 50 mg Tablet 50 mg PO DAILY RF: 0 Magnesium (oxide/AA chelate) 300 mg Capsule 400 cap PO BID RF: 0 senna 8.6 mg Capsule 8.6 mg PO BEDTIME RF: 0 Discontinued warfarin [Jantoven] 10 MG tablet 5 mg PO QDAY Qty: 0 RF: 0 Lantus U-100 Insulin 100 unit/mL Solution 63 unit SUB-Q BID RF: 0 Follow up/Referrals: Ting Moya MD [Primary Care Provider] - Diet/Activity/Treatments Diet: Diet as Tolerated Visit Report/Discharge Packet Instructions: Apixaban Discharge Data Primary Care Provider: Ting Moya Attending Provider: Judah Iniguez VTE Deep Vein Thrombosis/Pulmonary Embolism Present on Admission: No
== END 2020-12-28 11:05 | disposition home or self-care (01) ==
LOC: ED 18:26 → AC 18:45
PROVIDERS: Admitting Provider Internal Medicine; Emergency Provider Emergency Medicine; PCP Internal Medicine; Referring Provider Emergency Medicine; Visit Provider Internal Medicine
DX: D68.9 Coagulation defect, unspecified (principal); J96.10 Chronic respiratory failure, unspecified whether with hypoxia or hypercapnia; I11.0 Hypertensive heart disease with heart failure; I50.9 Heart failure, unspecified; I27.20 Pulmonary hypertension, unspecified; N17.9 Acute kidney failure, unspecified; D64.9 Anemia, unspecified; I48.20 Chronic atrial fibrillation, unspecified; E11.9 Type 2 diabetes mellitus without complications; E78.5 Hyperlipidemia, unspecified; F32.9 Major depressive disorder, single episode, unspecified; Z79.4 Long term (current) use of insulin; Z95.0 Presence of cardiac pacemaker; Z79.01 Long term (current) use of anticoagulants; Z20.822 Contact with and (suspected) exposure to COVID-19; R41.3 Other amnesia
CPT/HCPCS: 36415; 70450; 80048; 80053; 82962; 85025; 85610; 85730; 87635; 96365; 96372; 99284; C9803; G0378; J1815; J3430

== ENCOUNTER → 2021-01-27 11:28 | Outpatient (CLI) | payer MEDICARE, SELFPAY ==
[2021-01-27 13:02] LABS: Alanine Aminotransferase 16 IU/L (<35); Albumin 4.6 g/dL (3.5-5.0); Albumin Globulin Ratio 1.8 (1.0-2.8); Alkaline Phosphatase 106 U/L (38-126); Aspartate Aminotransferase 29 IU/L (14-36); BUN Creatinine Ratio 28.8 (6-22); Bilirubin Total 0.5 mg/dL (0.2-1.3); Blood Urea Nitrogen 40 mg/dL (7-17); Calcium 10.4 mg/dL (8.4-10.2); Carbon Dioxide 26 mmol/L (22-32); Chloride 95 mmol/L (98-107); Estimated Glomerular Filt Rate 36.5 mL/min (>60); Globulin 2.6 g/dL (1.7-4.1); Glucose 246 mg/dL (80-110); HEMOLYSIS < 15 (0-50); Magnesium 1.9 mg/dL (1.6-2.3); Potassium 5.2 mmol/L (3.4-5.1); Sodium 131 mmol/L (137-145); Total Protein 7.2 g/dL (6.3-8.2)
[2021-01-29 07:51] LABS: Cholesterol, Total 120 mg/dL (100-199); HDL-Cholesterol 37 mg/dL (>39); HDL-Particle (Total) 24.5 umol/L (>=30.5); LDL Particle 769 nmol/L (<1000); LDL Size 20.5 nm (>20.5); LDL-Cholsterol 61 mg/dL (0-99); LP-IR Score 44 (<=45); Small LDL- Particle 333 nmol/L (<=527); Triglycerides 123 mg/dL (0-149)
== END ==
PROVIDERS: PCP Internal Medicine; Referring Provider Specialist; Visit Provider Specialist
DX: E78.2 Mixed hyperlipidemia (principal); I48.20 Chronic atrial fibrillation, unspecified; I10 Essential (primary) hypertension
CPT/HCPCS: 36415; 80053; 80061; 83704; 83735

== ENCOUNTER → 2021-06-03 12:05 | Outpatient (CLI) | payer MEDICARE, SELFPAY ==
--- NOTE | 2021-06-03 | DI.RAD.S_ITS ---
PROCEDURE: XR DEXA AXIAL SKELETON INDICATIONS: Unspecified menopausal and perimenopausal disorder COMPARISON: [facility], CR, XR DEXA AXIAL SKELETON, 03/08/2018, 13:09. FINDINGS: This blank DEXA report has been sent in error by the PACS system. The correct and complete report will be forthcoming in 1-2 days. Thank you for your patience and understanding. Dictated by: Mikaela Bryan MD, PhD on 06/03/2021 at 13:08 Approved by: Mikaela Bryan MD, PhD on 06/03/2021 at 13:08
== END ==
PROVIDERS: PCP Student in an Organized Health Care Education/Training Program; Referring Provider Student in an Organized Health Care Education/Training Program; Visit Provider Student in an Organized Health Care Education/Training Program
DX: M81.0 Age-related osteoporosis without current pathological fracture (principal); Z78.0 Asymptomatic menopausal state; E11.9 Type 2 diabetes mellitus without complications; Z85.3 Personal history of malignant neoplasm of breast; Z82.62 Family history of osteoporosis
CPT/HCPCS: 77080

== ENCOUNTER → 2021-08-15 08:56 | Outpatient (CLI) | payer MEDICARE, SELFPAY ==
[2021-08-15 09:48] LABS: BUN Creatinine Ratio 26.9 (6-22); Blood Urea Nitrogen 29 mg/dL (7-17); Calcium 9.6 mg/dL (8.4-10.2); Carbon Dioxide 27 mmol/L (22-32); Chloride 100 mmol/L (98-107); Cholesterol 125 mg/dL (140-199); Estimated Glomerular Filt Rate 48.7 mL/min (>60); Glucose 189 mg/dL (80-110); HDL Cholesterol 50 mg/dL (40-60); HEMOLYSIS < 15 (0-50); LDL Cholesterol Calculated 56 mg/dL (<100); Magnesium 1.9 mg/dL (1.6-2.3); Potassium 4.5 mmol/L (3.4-5.1); Sodium 138 mmol/L (137-145); Triglycerides 94 mg/dL (35-150)
== END ==
PROVIDERS: PCP Student in an Organized Health Care Education/Training Program; Referring Provider Physician Assistant Medical; Visit Provider Specialist
DX: I10 Essential (primary) hypertension (principal); E78.00 Pure hypercholesterolemia, unspecified
CPT/HCPCS: 36415; 80048; 80061; 83735

== ENCOUNTER → 2021-09-08 11:25 | Outpatient (CLI) | payer MEDICARE, SELFPAY ==
[2021-09-08 13:26] LABS: BUN Creatinine Ratio 19.6 (6-22); Blood Urea Nitrogen 22 mg/dL (7-17); Calcium 9.4 mg/dL (8.4-10.2); Carbon Dioxide 27 mmol/L (22-32); Chloride 101 mmol/L (98-107); Estimated Glomerular Filt Rate 46.7 mL/min (>60); Glucose 269 mg/dL (80-110); HEMOLYSIS < 15 (0-50); Magnesium 1.9 mg/dL (1.6-2.3); Potassium 5.1 mmol/L (3.4-5.1); Sodium 136 mmol/L (137-145)
== END ==
PROVIDERS: PCP Student in an Organized Health Care Education/Training Program; Referring Provider Physician Assistant Medical; Visit Provider Specialist
DX: I10 Essential (primary) hypertension (principal); I48.20 Chronic atrial fibrillation, unspecified
CPT/HCPCS: 36415; 80048; 83735

== ENCOUNTER → 2021-12-12 08:13 | Outpatient (CLI) | payer MEDICARE, SELFPAY ==
[2021-12-12 09:27] LABS: Alanine Aminotransferase 17 IU/L (<35); Albumin 4.6 g/dL (3.5-5.0); Albumin Globulin Ratio 2.1 (1.0-2.8); Alkaline Phosphatase 60 U/L (38-126); Aspartate Aminotransferase 26 IU/L (14-36); BUN Creatinine Ratio 25.4 (6-22); Bilirubin Total 0.8 mg/dL (0.2-1.3); Blood Urea Nitrogen 35 mg/dL (7-17); Calcium 9.9 mg/dL (8.4-10.2); Carbon Dioxide 28 mmol/L (22-32); Chloride 99 mmol/L (98-107); Estimated Glomerular Filt Rate 36.7 mL/min (>60); Globulin 2.2 g/dL (1.7-4.1); Glucose 186 mg/dL (80-110); HEMOLYSIS < 15 (0-50); Magnesium 2.2 mg/dL (1.6-2.3); Potassium 4.6 mmol/L (3.4-5.1); Sodium 138 mmol/L (137-145); Total Protein 6.8 g/dL (6.3-8.2)
== END ==
PROVIDERS: PCP Student in an Organized Health Care Education/Training Program; Referring Provider Specialist; Visit Provider Specialist
DX: I48.20 Chronic atrial fibrillation, unspecified (principal); I50.812 Chronic right heart failure
CPT/HCPCS: 36415; 80053; 83735

== ENCOUNTER → 2022-01-23 08:08 | Outpatient (CLI) | payer MEDICARE, SELFPAY ==
[2022-01-23 09:25] LABS: Alanine Aminotransferase 17 IU/L (<35); Albumin 4.8 g/dL (3.5-5.0); Albumin Globulin Ratio 1.8 (1.0-2.8); Alkaline Phosphatase 63 U/L (38-126); Aspartate Aminotransferase 29 IU/L (14-36); BUN Creatinine Ratio 22.8 (6-22); Bilirubin Total 0.9 mg/dL (0.2-1.3); Blood Urea Nitrogen 31 mg/dL (7-17); Calcium 9.6 mg/dL (8.4-10.2); Carbon Dioxide 31 mmol/L (22-32); Chloride 101 mmol/L (98-107); Estimated Glomerular Filt Rate 39 mL/min (>60); Globulin 2.6 g/dL (1.7-4.1); Glucose 200 mg/dL (80-110); HEMOLYSIS < 15 (0-50); Magnesium 2.2 mg/dL (1.6-2.3); Potassium 4.6 mmol/L (3.4-5.1); Sodium 136 mmol/L (137-145); Total Protein 7.4 g/dL (6.3-8.2)
--- NOTE | 2022-01-23 14:35 | DI.ECHO.S_ITS ---
[facility] +---------+ : : [address] [place] : : : : [id number] : : : : Phone: [phone]+ Echocardiogram Report + + :Name: NELSON TRAMMELL Study Date: 01/23/2022 Height: 66 in : :[facility] ReadingLocation: Weight: 130 lb : : Gender: Female BSA: 1.7 m2 : :: 1940 Age: 81 yrs BP: 147/82 mmHg: :Reason For Study: Pulmonary - Hypertension : :Ordering Physician: HARINDER, : :SAVITA Performed By: Giuseppe Kitchen : :Referring: SAVITA PIZANO : + + Interpretation Summary Left ventricular systolic function remains normal with an estimated ejection fraction of 60 to 70% without any focal wall motion abnormality although there may be very subtle diastolic septal flattening, consistent with a right ventricular overload condition. Left ventricular size and wall thickness remain normal. Diastolic function is unable to be assessed because of the underlying atrial fibrillation. There has been no significant change since the previous study. The right ventricle is mildly enlarged with mildly reduced systolic function but appears slightly smaller and slightly more dynamic compared to the previous study. Right ventricular systolic pressure is estimated at 58 mmHg with a CVP of 8 mmHg, compared to 87 mmHg and 15 mmHg, respectively, on the previous exam. There is severe biatrial enlargement that is likely unchanged from the previous study. There is mild to moderate mitral regurgitation and moderate tricuspid regurgitation that appear less prominent compared to the previous study. There is no other significant valvular abnormality. The patient was in atrial fibrillation at 70 to 100 bpm which is faster compared to the previous exam. Procedure: A two-dimensional transthoracic echocardiogram with color flow and Doppler was performed. The study quality was technically adequate. Comparison is made with the echocardiogram of 12/10/2020. The patient was in atrial fibrillation with heart rates between 70-100 bpm during the exam. Left Ventricle: The left ventricle is normal in size and wall thickness. Left ventricular systolic function appears normal without focal wall motion abnormalities. Left ventricular ejection fraction is estimated to be 60 to 70%. Diastolic function could not be accurately assessed due to unobtainable data. Right Ventricle: The right ventricle is mildly dilated. Right ventricular systolic function is mildly reduced. This is slightly smaller and slightly more dynamic compared to the previous study. Atria: Both atria are severely dilated. This is likely unchanged compared to the previous study. The interatrial septum grossly appears intact with no obvious evidence for an atrial septal defect. Mitral Valve: There is mild mitral annular calcification. The mitral valve leaflets appear mildly thickened, but open well. There is mild to moderate mitral regurgitation. This is less prominent compared to the previous study. Aortic Valve: There is mild aortic valve sclerosis. The aortic valve opens well. There is no aortic valve stenosis. No aortic regurgitation is present. Tricuspid Valve: The tricuspid valve is normal in structure and function. There is moderate tricuspid regurgitation. This is less prominent compared to the previous study. The right ventricular systolic pressure is estimated to be at least 58 mmHg based on an estimated right atrial pressure of 8 mm Hg. Both values are likely lower compared to the previous study. Pulmonic Valve: The pulmonic valve is normal in structure and function. There is no pulmonic valvular regurgitation. Great Vessels: The aortic root is normal size. The dimensions of the ascending aorta are normal. The IVC is dilated (diameter is greater than 2.1 cm) yet it collapses greater than 50% with a sniff. This suggests a right atrial pressure of 8 mm Hg. Pericardium/ Pleura There is no pericardial effusion. There is no pleural effusion. MMode/2D Measurements & Calculations LVIDd: 4.1 cm LVOT diam: 2.0 cm LVIDs: 2.8 cm Ao root diam: 2.9 cm FS: 32.0 % asc Aorta Diam: 3.1 cm IVSd: 1.1 cm LVPWd: 1.3 cm LV kidd. diameter/BSA (cm/m^2): 2.4 LV sys. diameter/BSA (cm/m^2): 1.7 LA A2 area: 32.1 cm2 RA long axis: 7.5 cm LA A4 area: 33.9 cm2 RA area: 36.5 cm2 LA length (vol): 7.6 cm RA vol: 151.9 ml LA vol: 122.0 ml RA : 91.2 ml/m2 LA vol index: 73.2 ml/m2 IVC diam: 2.5 cm TAPSE: 1.7 cm Doppler Measurements & Calculations Ao V2 max: 133.3 cm/sec LVOT Max Leonardo: 77.6 cm/sec Ao V2 mean: 95.3 cm/sec LV V1 max P.4 mmHg Ao max P.1 mmHg LV V1 VTI: 15.3 cm Ao mean P.0 mmHg MATEUSZ(I,D): 2.0 cm2 Ao V2 VTI: 24.5 cm MATEUSZ(V,D): 1.8 cm2 sev ratio: 0.62 MATEUSZ indexed to BSA (cm^2/m^2): 1.2 Lat Peak E' Leonardo: 9.0 cm/sec TR max leonardo: 352.1 cm/sec TR max P.6 mmHg MR VTI: 150.2 cm SV(LVOT): 48.5 ml Reading Physician:01:26 PM
== END ==
PROVIDERS: PCP Student in an Organized Health Care Education/Training Program; Referring Provider Specialist; Visit Provider Specialist
DX: I27.20 Pulmonary hypertension, unspecified (principal); I08.3 Combined rheumatic disorders of mitral, aortic and tricuspid valves; I48.20 Chronic atrial fibrillation, unspecified; I50.812 Chronic right heart failure
CPT/HCPCS: 36415; 80053; 83735; 93306

== ENCOUNTER → 2022-04-24 08:20 | Outpatient (CLI) | payer MEDICARE, SELFPAY ==
[2022-04-24 10:45] LABS: Albumin 4.4 g/dL (3.5-5.0); BUN Creatinine Ratio 27.3 (6-22); Blood Urea Nitrogen 38 mg/dL (7-17); Carbon Dioxide 32 mmol/L (22-32); Chloride 95 mmol/L (98-107); Estimated Glomerular Filt Rate 38 mL/min (>60); Glucose 157 mg/dL (80-110); HEMOLYSIS < 15 (0-50); Phosphorous 4.5 mg/dL (2.8-4.1); Potassium 4.4 mmol/L (3.4-5.1); Sodium 134 mmol/L (137-145)
[2022-04-24 10:59] LABS: Free T4, Direct Thyroxine 1.74 ng/dL (0.78-2.19)
[2022-04-24 11:12] LABS: Thyroid Stimulating Hormone 0.649 uIU/mL (0.47-4.68)
[2022-04-24 13:00] LABS: Creatinine Urine Random 51.2 mg/dL
[2022-04-24 13:01] LABS: Microalbumi Creatinin Ratio Ur 29.2 ug/mg CR (<30); Microalbumin Urine Random 1.5 mg/dL (0-1.6)
== END ==
PROVIDERS: PCP Student in an Organized Health Care Education/Training Program; Referring Provider Student in an Organized Health Care Education/Training Program; Visit Provider Student in an Organized Health Care Education/Training Program
DX: E11.69 Type 2 diabetes mellitus with other specified complication (principal)
CPT/HCPCS: 36415; 80069; 82043; 82570; 84439; 84443

== ENCOUNTER → 2022-08-10 10:54 | Outpatient (CLI) | payer MEDICARE, SELFPAY ==
[2022-08-10 12:16] LABS: Alanine Aminotransferase 18 IU/L (<35); Albumin 4.5 g/dL (3.5-5.0); Albumin Globulin Ratio 1.6 (1.0-2.8); Alkaline Phosphatase 93 U/L (38-126); Aspartate Aminotransferase 19 IU/L (14-36); BUN Creatinine Ratio 19.3 (6-22); Bilirubin Total 0.9 mg/dL (0.2-1.3); Blood Urea Nitrogen 28 mg/dL (7-17); Calcium 9.5 mg/dL (8.4-10.2); Carbon Dioxide 25 mmol/L (22-32); Chloride 96 mmol/L (98-107); Cholesterol 131 mg/dL (140-199); Estimated Glomerular Filt Rate 36 mL/min (>60); Globulin 2.8 g/dL (1.7-4.1); Glucose 374 mg/dL (80-110); HDL Cholesterol 39 mg/dL (40-60); HEMOLYSIS < 15 (0-50); LDL Cholesterol Calculated 58 mg/dL (<100); Magnesium 2.3 mg/dL (1.6-2.3); Potassium 4.4 mmol/L (3.4-5.1); Sodium 133 mmol/L (137-145); Total Protein 7.3 g/dL (6.3-8.2); Triglycerides 170 mg/dL (35-150)
== END ==
PROVIDERS: PCP Student in an Organized Health Care Education/Training Program; Referring Provider Specialist; Visit Provider Specialist
DX: I10 Essential (primary) hypertension (principal); E78.00 Pure hypercholesterolemia, unspecified
CPT/HCPCS: 36415; 80053; 80061; 83735

== ENCOUNTER 2022-09-19 10:23 | Emergency (ER) | payer MEDICARE, SELFPAY ==
[2022-09-19] VITALS (18 sets, daily range): BP systolic 127–185; BP diastolic 62–138; PULSE 60–61; RESP 18; TEMP 36.4; O2SAT 95–99; BMI 22.6
--- NOTE | 2022-09-19 10:54 | DI.CT.S_ITS ---
PROCEDURE: CT CERVICAL SPINE WO CON INDICATIONS: fall with injury TECHNIQUE: Noncontrast 3 mm thick sections acquired from the skull base to the T4 level. Sagittal and coronal reformats were then constructed. For radiation dose reduction, the following was used: automated exposure control, adjustment of mA and/or kV according to patient size. COMPARISON: [facility], CT, CT HEAD/BRAIN WO CON, 09/19/2022, 11:24. [facility], CT, CT LUMBAR SPINE WO CON, 09/19/2022, 11:24. FINDINGS: Image quality: This examination is limited by involuntary motion artifact. Bones: No fractures or dislocations. Visualized superior ribs are intact. Focal degenerative change is seen involving the C1-C2 interface anteriorly. Moderate disc space narrowing can be seen at C4-C5 and C5-C6. At C6-C7, there is moderate to severe disc space narrowing, with associated endplate irregularity and sclerosis. Endplate osteophyte formation can be seen, primarily anteriorly. Soft tissues: Prevertebral soft tissues are normal in thickness. No paravertebral hematomas. No apical pneumothoraces. Dense atherosclerotic calcification can be seen. IMPRESSION: Motion limited study demonstrating no findings of acute fracture. Degenerative changes are seen, which are worst at C6-C7. Dictated by: Mikey Faye M.D. on 09/19/2022 at 11:23 Approved by: Mikey Faye M.D. on 09/19/2022 at 11:24
--- NOTE | 2022-09-19 10:54 | DI.CT.S_ITS ---
PROCEDURE: CT LUMBAR SPINE WO CON INDICATIONS: fall with pain TECHNIQUE: Noncontrast 3 mm thick sections acquired from the T12 level to the sacrum. Sagittal and coronal reformats were constructed. For radiation dose reduction, the following was used: automated exposure control. COMPARISON: [facility], CT, CT CERVICAL SPINE WO CON, 09/19/2022, 11:24. [facility], CT, CT HEAD/BRAIN WO CON, 09/19/2022, 11:24. FINDINGS: Image quality: This examination is limited by involuntary motion artifact. Bones: No acute appearing vertebral body compression fractures. There is a significant fracture of the L3 level, which demonstrates a remote appearance. There is approximately 70% loss of height centrally and on the right side. Posteriorly posterior displacement of fracture fragments can be seen, 5 mm. No suspicious lytic or blastic bony lesions. No pars defects. Moderate dextroconvex lumbar scoliosis is seen. No focal AP alignment abnormality is seen. T12-L1: Vacuum disc phenomenon is seen at this level. No significant neural foraminal or central canal narrowing can be seen. L1-L2: No significant abnormality is seen. L2-L3: There is at least moderate loss of disc height on the left side. Remodeling changes are seen, with partially bridging osteophytes on the left. Moderate disc bulge is seen. At least moderate facet hypertrophy can be seen. There is at least moderate bilateral neural foraminal narrowing seen, left worse than right. Severe central canal narrowing is seen. L3-L4: The disc height is well preserved. Moderate generalized disc bulge is seen. Mild to moderate facet hypertrophy can be seen. At least moderate bilateral neural foraminal narrowing can be seen. Moderate to severe central canal narrowing is seen. L4-L5: At least moderate loss of disc height is seen on the right side. Partially bridging endplate osteophytes are seen on the right. Moderate generalized disc bulge is seen. Moderate central canal narrowing is seen. L5-S1: The disc height is well preserved. Mild to moderate disc bulge is seen. Moderate facet joint hypertrophy is seen. There is at least moderate left-sided and moderate right-sided neural foraminal narrowing. Mild central canal narrowing is seen. Soft tissues: No retroperitoneal masses or hematomas. Visualized aorta is normal in caliber. Dense arterial atherosclerotic calcification can be seen throughout. IMPRESSION: No acute fracture can be seen. There is a remote L3 fracture seen, with approximately 70% loss of height on the right side. Posteriorly directed fracture fragments are seen at L3, with associated severe central canal narrowing. Milder degenerative changes are seen elsewhere. Moderate dextroconvex lumbar scoliosis. Dictated by: Mikey Faye M.D. on 09/19/2022 at 11:15 Approved by: Mikey Faye M.D. on 09/19/2022 at 11:21
--- NOTE | 2022-09-19 10:55 | DI.CT.S_ITS ---
PROCEDURE: CT HEAD/BRAIN WO CON INDICATIONS: fall, distracting injury, eliquis TECHNIQUE: Noncontrast 4.5 mm thick angled axial sections acquired from the foramen magnum to the vertex, with coronal and sagittal reformats. For radiation dose reduction, the following was used: automated exposure control, adjustment of mA and/or kV according to patient size. COMPARISON: [facility], CT, CT CERVICAL SPINE WO CON, 09/19/2022, 11:24. [facility], CT, CT LUMBAR SPINE WO CON, 09/19/2022, 11:24. [facility], CT, CT HEAD/BRAIN WO CON, 12/27/2020, 17:22. FINDINGS: Image quality: Excellent. CSF spaces: Basal cisterns are patent. No extra-axial fluid collections. The ventricles are symmetric in size and shape. Brain: No intracranial bleeds or masses. There is cerebral volume loss for age, with resultant ventricular and sulcal prominence. There are periventricular and deep white matter chronic small vessel ischemic changes. There is intracranial internal carotid artery atherosclerosis. Skull and face: Calvarium and visualized facial bones appear intact, without suspicious lesions. Sinuses: Visualized sinuses and mastoids are clear. IMPRESSION: No acute intracranial hemorrhage is seen. No acute intracranial process is seen. Dictated by: Mikey Faye M.D. on 09/19/2022 at 11:22 Approved by: Mikey Faye M.D. on 09/19/2022 at 11:22
[2022-09-19 11:28] LABS: Add Manual Diff / Slide Review NO; Basophils Absolute Auto 100 /uL (0-100); Eosinophils Absolute Auto 100 /uL (0-450); Eosinophils Percent Auto 1.4 % (2-4); Hematocrit 27.5 % (36-46); Hemoglobin 9.3 g/dL (12.0-16.0); Lymphocytes Absolute Auto 800 /uL (1100-4500); Mean Corpuscular HGB Conc 33.7 % (30-36); Mean Corpuscular Hemoglobin 30.3 PG (26-34); Mean Corpuscular Volume 89.7 fL (80-100); Monocytes Absolute Auto 600 /uL (0-900); Monocytes Percent Auto 7.3 % (3-14); Neutrophils Absolute Auto 6600 /uL (1500-7000); Neutrophils Percent Auto 80.3 % (50-75); Platelet Count 218 X10^3/uL (150-400); Red Blood Cell Count 3.07 X10^6/uL (4.0-5.2); Red Cell Distribution Width 14.7 % (11.6-14.8); White Blood Cell Count 8.2 X10^3/uL (4.5-11.0)
[2022-09-19 11:34] LABS: INR 1.3 (0.9-1.3)
--- NOTE | 2022-09-19 11:37 | ED.FALL ---
HPI - Fall General Chief Complaint: Fall Stated Complaint: fall, low back injury Time Seen by Provider: 09/19/22 10:29 Source: patient and family Mode of arrival: Ambulatory History of Present Illness HPI Narrative: 82-year-old female nonsmoker with history of early dementia, AFib on anticoagulation, osteoporosis and breast cancer presents with her in the chief complaint of a ground level fall resulting in severe back pain. She had been in her normal state of health and frequently gets up to take a shower in the middle of the night to help her sleep. She was doing so this morning and states she had a brief episode of dizziness and fell backwards onto her lower back and has pain in the center of her back. Her pain is worse when she moves and improves with rest. She denies any radiation of the pain, she denies any numbness, tingling or weakness of her lower extremities. She denies any difficulty controlling bowel or bladder. She denies any head neck pain or injury. She has no chest pain or shortness of breath. She is activated as a modified trauma given fall with injury greater than 65 as well as use of anticoagulation. Related Data Home Medications Medication Instructions Recorded Confirmed furosemide 20 mg tablet 20 mg PO DAILY ##0 08/20/16 12/27/20 sitagliptin phosphate 100 mg 100 mg PO DAILY ##0 08/20/16 12/27/20 tablet (Januvia) amlodipine 5 mg tablet (Norvasc) 10 mg PO QDAY ##1 02/17/17 12/27/20 atorvastatin 20 mg tablet (Lipitor) 40 mg PO QDAY ##0 02/17/17 03/26/21 metformin 1,000 mg tablet 500 mg PO BID 03/18/18 12/27/20 doxylamine succinate 25 mg tablet 25 mg PO PRN PRN Sleep 12/27/20 12/27/20 losartan 50 mg tablet 50 mg PO BID 12/27/20 12/27/20 magnesium oxide-magnesium amino 400 cap PO BID 12/27/20 12/27/20 acid chelate 300 mg capsule (Magnesium (oxide/AA chelate)) metoprolol succinate 50 mg 50 mg PO DAILY 12/27/20 12/27/20 tablet,extended release 24 hr sennosides 8.6 mg capsule (senna) 8.6 mg PO BEDTIME 12/27/20 12/27/20 sertraline 50 mg tablet 50 mg PO DAILY 12/27/20 12/27/20 spironolactone 25 mg tablet 25 mg PO DAILY 12/27/20 12/27/20 insulin glargine 100 unit/mL (3 13 unit SUBCUT QAM 03/26/21 mL) subcutaneous pen (Lantus Solostar U-100 Insulin) Previous Rx's Medication Instructions Recorded alendronate 70 mg tablet (Fosamax) 70 mg PO QWEEK osteoporosis #12 07/17/20 tabs anastrozole 1 mg tablet 1 mg PO DAILY breast cancer #30 07/17/20 tabs apixaban 5 mg tablet (Eliquis) 5 mg PO BID #60 tabs 12/28/20 Allergies Allergy/AdvReac Type Severity Reaction Status Date / Time MYESHA Inhibitors Allergy Unknown UNK. Verified 09/19/22 10:47 [MYESHA INHIBITORS] Review of Systems Review of Systems Narrative: GENERAL: Denies chills, fatigue, malaise, fever, sweats. HEENT: Denies sinus pain, ear pain, sore throat, difficulty swallowing, dizziness. RESPIRATORY: Denies dyspnea, cough, wheezing, hemoptysis, sputum. CARDIOVASCULAR: Denies chest pain, palpitations, orthopnea, edema, GASTROINTESTINAL: Denies nausea, vomiting, abdominal pain, diarrhea, constipation, melena. : Denies dysuria, frequency, incontinence, hematuria, urinary retention. MUSCULOSKELETAL: See HPI SKIN: Denies rash, skin lesions, or other NEUROLOGIC: Denies weakness, headache, numbness, change in speech, confusion, seizures, incoordination. PSYCHIATRIC: No concerning psychosocial issues. 12 point review of systems is negative except for those stated above Patient History Social History household members: significant other Smoking Status: Never smoker Smoking Status: Never smoker alcohol intake frequency: a few times a week Alcohol type: hard liquor Substance Use Type: does not use Exam Narrative Exam Narrative: GENERAL: [82] year old patient appears stated age. Well-developed patient, in mild distress. GCS 14 (slight confusion) at baseline per HEAD: Atraumatic. Normocephalic. EYES: Pupils equal round and reactive. Extraocular motions intact. No scleral icterus. No injection or drainage. ENT: Nose without bleeding, purulent drainage. Throat without erythema, tonsillar hypertrophy or exudate. Airway patent. NECK: Trachea midline. Non tender CARDIOVASCULAR: Regular rate and rhythm without murmurs, gallops, or rubs. RESPIRATORY: Clear to auscultation. Breath sounds equal bilaterally. No wheezes, rales, or rhonchi. GASTROINTESTINAL: Abdomen soft, non-tender, nondistended. EXTREMITIES: No edema or joint tenderness. BACK: Low back midline tenderness, no obvious abrasions, contusions or hematoma. No saddle anesthesia. Bilateral lower extremities 5/5 strength, no sensory deficit, reflexes bilaterally 1+ NEURO: Cranial nerves 2-12 grossly intact SKIN: No rash or erythema of visible areas Initial Vital Signs Initial Vital Signs: Vital Signs Temperature 97.6 F 09/19/22 10:47 Pulse Rate 60 09/19/22 10:47 Respiratory Rate 18 09/19/22 10:47 Blood Pressure 136/64 09/19/22 10:47 Pulse Oximetry 97 09/19/22 10:47 Oxygen Delivery Method 09/19/22 10:47 Course Orders Ordered: Discontinued Medications Acetaminophen (Acetaminophen 325 Mg Tablet) 650 mg PO NOW ONE Stop: 09/19/22 12:23 Last Admin: 09/19/22 12:35 Dose: 650 mg Documented By: NR Consultations Consultation #1: Call to on-call Orthopedics to review CT. Recommend discussing with [facility] SPine Time: 12:46 Consultation #2: discussed with [facility] Spine. No obvious neurosurgical indication. Recommends standing L-spine and if stable, referral to local orthopedics for TLSO and ongoing management Vital Signs Vital signs: Vital Signs - 8 hr 09/19/22 10:47 09/19/22 10:50 09/19/22 11:54 Temperature 97.6 F Pulse Rate 60 60 Respiratory Rate 18 Blood Pressure 136/64 130/63 Pulse Oximetry 97 98 Oxygen Delivery Method Room Air 09/19/22 11:54 09/19/22 12:00 09/19/22 12:00 Temperature Pulse Rate 60 60 Respiratory Rate Blood Pressure 127/62 Pulse Oximetry 96 97 Oxygen Delivery Method 09/19/22 12:30 09/19/22 13:00 09/19/22 13:30 Temperature Pulse Rate 60 60 60 Respiratory Rate Blood Pressure Pulse Oximetry 97 98 98 Oxygen Delivery Method 09/19/22 14:00 09/19/22 14:30 09/19/22 15:04 Temperature Pulse Rate 61 60 60 Respiratory Rate Blood Pressure Pulse Oximetry 96 98 98 Oxygen Delivery Method 09/19/22 15:04 Temperature Pulse Rate Respiratory Rate Blood Pressure 185/85 H Pulse Oximetry Oxygen Delivery Method - Fall Lab Data Result diagrams: 09/19/22 11:16 09/19/22 11:16 Labs: Lab Results 09/19/22 09/19/22 09/19/22 Range/Units 11:16 11:16 11:16 WBC 8.2 (4.5-11.0) X10^3/uL RBC 3.07 L (4.0-5.2) X10^6/uL Hgb 9.3 L (12.0-16.0) g/dL Hct 27.5 L (36-46) % MCV 89.7 (80-100) fL MCH 30.3 (26-34) PG MCHC 33.7 (30-36) % RDW 14.7 (11.6-14.8) % Plt Count 218 (150-400) X10^3/uL Neut % (Auto) 80.3 H (50-75) % Lymph % (Auto) 10.0 L (25-40) % [place] % (Auto) 7.3 (3-14) % Eos % (Auto) 1.4 L (2-4) % Baso % (Auto) 1.0 (0-2) % Neut # (Auto) 6600 (5707-8139) /uL Lymph # (Auto) 800 L (3794-3938) /uL [place] # (Auto) 600 (0-900) /uL Eos # (Auto) 100 (0-450) /uL Baso # (Auto) 100 (0-100) /uL PT 15.0 H (10.1-12.7) SECONDS INR 1.3 (0.9-1.3) Sodium 130 L (137-145) mmol/L Potassium 4.6 (3.4-5.1) mmol/L Chloride 96 L (98-107) mmol/L Carbon Dioxide 22 (22-32) mmol/L BUN 36 H (7-17) mg/dL Creatinine 1.24 H (0.52-1.04) mg/dL Estimated GFR 43 L (>60) mL/min BUN/Creatinine Ratio 29.0 H (6-22) Glucose 168 H (80-110) mg/dL Lactate (0.7-2.1) mmol/L Calcium 8.8 (8.4-10.2) mg/dL Magnesium 2.2 (1.6-2.3) mg/dL Total Creatine Kinase 117 (30-135) U/L CK-MB (CK-2) 2.19 (<2.37) ng/mL CK-MB (CK-2) Rel Index 1.9 (1.5-5.0) % Troponin I 0.025 (0.01-0.034) ng/mL NT-Pro-B Natriuret Pep 4380 H (<450) pg/mL Urine RBC (0-5/HPF) Urine WBC (0-5/HPF) Urine Bacteria (None) Ur Culture Indicated? SARS-CoV-2 (PCR) (Negative) 09/19/22 09/19/22 09/19/22 Range/Units 11:16 11:16 15:17 WBC (4.5-11.0) X10^3/uL RBC (4.0-5.2) X10^6/uL Hgb (12.0-16.0) g/dL Hct (36-46) % MCV (80-100) fL MCH (26-34) PG MCHC (30-36) % RDW (11.6-14.8) % Plt Count (150-400) X10^3/uL Neut % (Auto) (50-75) % Lymph % (Auto) (25-40) % [place] % (Auto) (3-14) % Eos % (Auto) (2-4) % Baso % (Auto) (0-2) % Neut # (Auto) (0854-1992) /uL Lymph # (Auto) (0702-9943) /uL [place] # (Auto) (0-900) /uL Eos # (Auto) (0-450) /uL Baso # (Auto) (0-100) /uL PT (10.1-12.7) SECONDS INR (0.9-1.3) Sodium (137-145) mmol/L Potassium (3.4-5.1) mmol/L Chloride (98-107) mmol/L Carbon Dioxide (22-32) mmol/L BUN (7-17) mg/dL Creatinine (0.52-1.04) mg/dL Estimated GFR (>60) mL/min BUN/Creatinine Ratio (6-22) Glucose (80-110) mg/dL Lactate 1.4 (0.7-2.1) mmol/L Calcium (8.4-10.2) mg/dL Magnesium (1.6-2.3) mg/dL Total Creatine Kinase (30-135) U/L CK-MB (CK-2) (<2.37) ng/mL CK-MB (CK-2) Rel Index (1.5-5.0) % Troponin I (0.01-0.034) ng/mL NT-Pro-B Natriuret Pep (<450) pg/mL Urine RBC None seen (0-5/HPF) Urine WBC None seen (0-5/HPF) Urine Bacteria None seen (None) Ur Culture Indicated? Cult not indicated SARS-CoV-2 (PCR) Negative (Negative) Point of Care Testing Glucose POC 145 Urine Dip Bedside Urine Glucose 1000 mg/dl Bedside Urine Bilirubin - Negative Bedside Urine Ketone - Negative Urine Specific [place] 1.015 Bedside Urine Occult Blood +/- Bedside Urine pH 6.0 Bedside Urine Protein - Negative Bedside Urine Urobilinogen - Negative Bedside Urine Nitrite - Negative Bedside Urine Leukocytes - Negative Esterase Imaging Data CT scan - head: Radiologist's Impression: [place] [address] CT Scan Report Signed Patient: Rhoda Davidson MR#: [id number] : 1940 Acct:[id number] Age/Sex: 82 / F Date of Service: 09/19/22 Loc: ED Accession Number: [id number] ?? Procedure: CT head/brain wo con Ordering Provider: Mando Moeller D.O. PROCEDURE:? CT HEAD/BRAIN WO CON ? INDICATIONS:? fall, distracting injury, eliquis ? TECHNIQUE:? Noncontrast 4.5 mm thick angled axial sections acquired from the foramen magnum to the vertex, with coronal and sagittal reformats.? For radiation dose reduction, the following was used:? automated exposure control, adjustment of mA and/or kV according to patient size.? ? COMPARISON:? [facility], CT, CT CERVICAL SPINE WO CON, 09/19/2022, 11:24.? [facility], CT, CT LUMBAR SPINE WO CON, 09/19/2022, 11:24.? [facility], CT, CT HEAD/BRAIN WO CON, 12/27/2020, 17:22. ? FINDINGS:? Image quality:? Excellent.? ? CSF spaces:? Basal cisterns are patent.? No extra-axial fluid collections.? The ventricles are symmetric in size and shape.? ? Brain:? No intracranial bleeds or masses.? There is cerebral volume loss for age, with resultant ventricular and sulcal prominence.? There are periventricular and deep white matter chronic small vessel ischemic changes.? There is intracranial internal carotid artery atherosclerosis.? ? Skull and face:? Calvarium and visualized facial bones appear intact, without suspicious lesions.? ? Sinuses:? Visualized sinuses and mastoids are clear.? ? ? IMPRESSION:? No acute intracranial hemorrhage is seen.? ? No acute intracranial process is seen.? ? ? Dictated by: Mikey Faye M.D. on 09/19/2022 at 11:22 ? ? Approved by: Mikey Faye M.D. on 09/19/2022 at 11:22 ? CT - cervical spine: Radiologist's Impression: [place] [address] CT Scan Report Signed Patient: Rhoda Davidson MR#: [id number] : 1940 Acct:[id number] Age/Sex: 82 / F Date of Service: 09/19/22 Loc: ED Accession Number: [id number] ?? Procedure: CT cervical spine wo con Ordering Provider: Mando Moeller D.O. PROCEDURE:? CT CERVICAL SPINE WO CON ? INDICATIONS:? fall with injury ? TECHNIQUE:? Noncontrast 3 mm thick sections acquired from the skull base to the T4 level.? Sagittal and coronal reformats were then constructed.? For radiation dose reduction, the following was used:? automated exposure control, adjustment of mA and/or kV according to patient size.? ? COMPARISON:? [facility], CT, CT HEAD/BRAIN WO CON, 09/19/2022, 11:24.? [facility], CT, CT LUMBAR SPINE WO CON, 09/19/2022, 11:24. ? FINDINGS:? Image quality:? This examination is limited by involuntary motion artifact.? ? Bones:? No fractures or dislocations.? Visualized superior ribs are intact.? ? Focal degenerative change is seen involving the C1-C2 interface anteriorly.? Moderate disc space narrowing can be seen at C4-C5 and C5-C6. ? At C6-C7, there is moderate to severe disc space narrowing, with associated endplate irregularity and sclerosis.? Endplate osteophyte formation can be seen, primarily anteriorly. ? Soft tissues:? Prevertebral soft tissues are normal in thickness.? No paravertebral hematomas.? No apical pneumothoraces.? Dense atherosclerotic calcification can be seen. ? ? IMPRESSION:? Motion limited study demonstrating no findings of acute fracture. ? Degenerative changes are seen, which are worst at C6-C7. ? ? ? Dictated by: Mikey Faye M.D. on 09/19/2022 at 11:23 ? ? Approved by: Mikey Faye M.D. on 09/19/2022 at 11:24 ? L spine: Radiologist's Impression: [place] [address] CT Scan Report Signed Patient: Rhoda Davidson MR#: [id number] : 1940 Acct:[id number] Age/Sex: 82 / F Date of Service: 09/19/22 Loc: ED Accession Number: [id number] ?? Procedure: CT lumbar spine wo con Ordering Provider: Mando Moeller D.O. PROCEDURE:? CT LUMBAR SPINE WO CON ? INDICATIONS:? fall with pain ? TECHNIQUE:? Noncontrast 3 mm thick sections acquired from the T12 level to the sacrum.? Sagittal and coronal reformats were constructed.? For radiation dose reduction, the following was used:? automated exposure control.? ? COMPARISON:? [facility], CT, CT CERVICAL SPINE WO CON, 09/19/2022, 11:24.? [facility], CT, CT HEAD/BRAIN WO CON, 09/19/2022, 11:24. ? FINDINGS:? Image quality:? This examination is limited by involuntary motion artifact.? ? Bones:? No acute appearing vertebral body compression fractures.? There is a significant fracture of the L3 level, which demonstrates a remote appearance.? There is approximately 70% loss of height centrally and on the right side.? Posteriorly posterior displacement of fracture fragments can be seen, 5 mm. ? No suspicious lytic or blastic bony lesions.? No pars defects.? ? Moderate dextroconvex lumbar scoliosis is seen. No focal AP alignment abnormality is seen.? ? T12-L1:? Vacuum disc phenomenon is seen at this level.? No significant neural foraminal or central canal narrowing can be seen.? ? L1-L2:? No significant abnormality is seen. ? L2-L3:? There is at least moderate loss of disc height on the left side.? Remodeling changes are seen, with partially bridging osteophytes on the left.? Moderate disc bulge is seen.? At least moderate facet hypertrophy can be seen.? There is at least moderate bilateral neural foraminal narrowing seen, left worse than right.? Severe central canal narrowing is seen. ? L3-L4:? The disc height is well preserved. Moderate generalized disc bulge is seen.? Mild to moderate facet hypertrophy can be seen.? At least moderate bilateral neural foraminal narrowing can be seen.? Moderate to severe central canal narrowing is seen. ? L4-L5:? At least moderate loss of disc height is seen on the right side.? Partially bridging endplate osteophytes are seen on the right. Moderate generalized disc bulge is seen. Moderate central canal narrowing is seen.? ? L5-S1:? The disc height is well preserved.? Mild to moderate disc bulge is seen. Moderate facet joint hypertrophy is seen.? There is at least moderate left-sided and moderate right-sided neural foraminal narrowing. Mild central canal narrowing is seen.? ? Soft tissues:? No retroperitoneal masses or hematomas.? Visualized aorta is normal in caliber.? Dense arterial atherosclerotic calcification can be seen throughout. ? ? IMPRESSION:? No acute fracture can be seen. ? There is a remote L3 fracture seen, with approximately 70% loss of height on the right side. ? Posteriorly directed fracture fragments are seen at L3, with associated severe central canal narrowing.? ? Milder degenerative changes are seen elsewhere. ? Moderate dextroconvex lumbar scoliosis.? ? Dictated by: Mikey Faye M.D. on 09/19/2022 at 11:15 ? ? MDM Narrative Medical decision making narrative: [82-year-old female with fall, activated as modified trauma given age greater than 65 with suspected injury, also use of Eliquis though she denies hitting her head] Multiple etiologies for patient's symptoms considered including, but not limited to: [Intracranial hemorrhage, lumbar fracture versus other] Prior Charts reviewed: Multiple prior notes assessed Labs reviewed and interpreted by myself: No significant lab abnormalities noted Imaging reviewed: CTs of head and C-spine as well as L-spine. L-spine findings suggestive of L3 fracture with retropulsion though strong suspicion that these findings are old. Additional upright L-spine obtained which shows no interval change or suspicion of instability Consultations: Local orthopedics has noted above as well as [facility] spine as noted above Patient's symptoms improved over duration of stay with above-stated therapies. Findings and discharge diagnosis discussed with patient/family followed by verbalization of understanding Return precautions discussed with patient/family whom verbalize understanding of diagnosis and plan Discharge Plan Departure Patient Disposition: Home Clinical Impression: Back pain Instructions: How to Prevent Falls Activity Restrictions/Additional Instructions: *You have been diagnosed with [back pain, imaging shows a lumbar fracture that appears to be old.] *What to do: *Please continue to take your regular medications as directed. *Please follow up with [facility]. Please call them Wednesday morning (keeping in mind it is a holiday and they may not be open until Wednesday), let them know you were seen in the emergency department and we would like you to be seen in follow-up *If you do not have a primary care provider please contact the [facility] Resource line at [phone]. They will ask some questions about your medical history and help get you set up with a doctor in the community. *Return to Emergency Department if you should have any new, worsening or concerning symptoms, such as [fever greater than 101 F, shaking chills, worsening pain, persistent vomiting, weakness, trouble controlling bowel or bladder, or other bothersome symptoms] Prescriptions: No Action Januvia 100 mg tablet 100 mg PO DAILY Qty: 0 furosemide 20 MG tablet 20 mg PO DAILY Qty: 0 amlodipine [Norvasc] 5 MG tablet 10 mg PO QDAY Qty: 1 atorvastatin [Lipitor] 20 MG tablet 40 mg PO QDAY Qty: 0 metformin 1,000 mg Tablet 500 mg PO BID anastrozole 1 mg Tablet 1 mg PO DAILY Qty: 30 2RF alendronate [Fosamax] 70 mg Tablet 70 mg PO QWEEK Qty: 12 2RF Rx Instructions: 1 tab by mouth once weekly on empty stomach. Do not sit or lie down for 30 mins after taking. Lantus Solostar U-100 Insulin 100 unit/mL (3 mL) insulin pen 13 unit SUBCUT QAM losartan 50 mg Tablet 50 mg PO BID metoprolol succinate 50 mg tablet extended release 24 hr 50 mg PO DAILY spironolactone 25 mg tablet 25 mg PO DAILY doxylamine succinate 25 mg Tablet 25 mg PO PRN PRN (Reason: Sleep) sertraline 50 mg Tablet 50 mg PO DAILY Magnesium (oxide/AA chelate) 300 mg Capsule 400 cap PO BID senna 8.6 mg Capsule 8.6 mg PO BEDTIME Rx Instructions: every 48 hours Eliquis 5 mg Tablet 5 mg PO BID Qty: 60 0RF Referrals: Zuleima Keating PA-C [Primary Care Provider] - Jaylyn Rader MD [Physician] - Stand Alone Forms: Patient Portal/API
[2022-09-19 11:48] LABS: Blood Urea Nitrogen 36 mg/dL (7-17); Calcium 8.8 mg/dL (8.4-10.2); Carbon Dioxide 22 mmol/L (22-32); Chloride 96 mmol/L (98-107); Creatine Kinase 117 U/L (30-135); Estimated Glomerular Filt Rate 43 mL/min (>60); Glucose 168 mg/dL (80-110); HEMOLYSIS < 15 (0-50); Lactate (Lactic Acid) 1.4 mmol/L (0.7-2.1); Magnesium 2.2 mg/dL (1.6-2.3); Potassium 4.6 mmol/L (3.4-5.1); Sodium 130 mmol/L (137-145)
[2022-09-19 12:00] LABS: NT-proBNP (BNP-Adult 18+) 4380 pg/mL (<450); Troponin I 0.025 ng/mL (0.01-0.034)
[2022-09-19 12:03] LABS: CKMB % Relative Index 1.9 % (1.5-5.0); Creatine Kinase MB 2.19 ng/mL (<2.37)
[2022-09-19 12:19] LABS: Bacteria Urine None Seen; Culture Indicated Urine Cult Not Indicated; RBC Urine None Seen (0-5/HPF); WBC Urine None Seen (0-5/HPF)
[2022-09-19] MEDS: ACETAMINOPHEN 325 MG TABLET 650 MG PO (12:35)
[2022-09-19 15:54] LABS: COVID19 -Nasal RAPID Negative (Negative)
--- NOTE | 2022-09-19 17:26 | DI.RAD.S_ITS ---
PROCEDURE: XR LUMBAR SPINE 2-3V INDICATIONS: standing, per [facility] neurosurgery TECHNIQUE: 3 views of the lumbar spine were acquired. COMPARISON: [facility], CR, XR CHEST 1 VIEW, 12/09/2020, 19:30. [facility], CT, CT ANGIO CHEST PE, 12/13/2020, 13:01. [facility], CT, CT LUMBAR SPINE WO CON, 09/19/2022, 11:24. FINDINGS: Bones: 5 [id number] vertebrae are present. There is mild rightward curvature of upper lumbar spine with apex at L2 level and compensatory leftward curvature of lower lumbar spine with apex at L4 level. Age indeterminate anterior wedge compression deformity at L3 level is again seen with up to 70% loss of L3 vertebral body height on the right side unchanged from earlier CT study. No new lumbar vertebral body compression fractures. Chronic appearing anterior wedge compression deformity at T10 level is seen with up to 50% loss of T10 vertebral body anteriorly. Degenerative endplate changes are noted throughout lumbar spine. No suspicious bony lesions. Soft tissues: Overlying bowel gas pattern is normal. No suspicious soft tissue calcifications. IMPRESSION: 1. Age indeterminate anterior wedge compression deformity at L3 level similar in appearance compared to earlier study. No further loss of disc height. No new lumbar vertebral body compression fracture. Mild scoliosis as above. Degenerative disc disease throughout lumbar spine. 2. Chronic appearing anterior wedge compression deformity at T10 level with up to 50% loss of T10 vertebral body height. Dictated by: Peterson Tong M.D. on 09/19/2022 at 17:57 Approved by: Peterson Tong M.D. on 09/19/2022 at 18:00
== END 2022-09-19 18:38 | disposition home or self-care (01) ==
PROVIDERS: Emergency Provider Emergency Medicine; PCP Student in an Organized Health Care Education/Training Program
DX: M54.50 Low back pain, unspecified (principal); R42 Dizziness and giddiness; W18.30XA Fall on same level, unspecified, initial encounter; Z79.01 Long term (current) use of anticoagulants
CPT/HCPCS: 36415; 70450; 72100; 72125; 72131; 80048; 81003; 81015; 82550; 82553; 82962; 83605; 83735; 83880; 84484; 85025; 85610; 87635; 99284; C9803

== ENCOUNTER 2022-09-23 11:32 | Inpatient (IN) | payer MEDICARE, SELFPAY ==
[2022-09-23] VITALS (12 sets, daily range): BP systolic 131–155; BP diastolic 56–70; PULSE 57–60; RESP 16–26; TEMP 35.6–36.4; O2SAT 94–100; BMI 22.6; BMI 24.0
--- NOTE | 2022-09-23 11:48 | DI.CT.S_ITS ---
PROCEDURE: CT HEAD/BRAIN WO CON INDICATIONS: fall/hit head on thinners TECHNIQUE: Noncontrast 4.5 mm thick angled axial sections acquired from the foramen magnum to the vertex, with coronal and sagittal reformats. For radiation dose reduction, the following was used: automated exposure control, adjustment of mA and/or kV according to patient size. COMPARISON: [facility], CT, CT HEAD/BRAIN WO CON, 09/19/2022, 11:24. FINDINGS: Image quality: Excellent. CSF spaces: Basal cisterns are patent. No extra-axial fluid collections. The ventricles are symmetric in size and shape. Brain: No intracranial bleeds or masses. There is cerebral volume loss for age, with resultant ventricular and sulcal prominence. There are periventricular and deep white matter chronic small vessel ischemic changes. There is intracranial internal carotid artery atherosclerosis. Skull and face: Calvarium and visualized facial bones appear intact, without suspicious lesions. Sinuses: Visualized sinuses and mastoids are clear. IMPRESSION: No evidence of acute intracranial hemorrhage. No evidence of acute intracranial process. Dictated by: Jose Dangelo M.D. on 09/23/2022 at 12:26 Approved by: Jose Dangelo M.D. on 09/23/2022 at 12:29
--- NOTE | 2022-09-23 11:48 | DI.CT.S_ITS ---
PROCEDURE: CT CERVICAL SPINE WO CON INDICATIONS: fall/hit head on thinners TECHNIQUE: Noncontrast 3 mm thick sections acquired from the skull base to the T4 level. Sagittal and coronal reformats were then constructed. For radiation dose reduction, the following was used: automated exposure control, adjustment of mA and/or kV according to patient size. COMPARISON: [facility], CT, CT CERVICAL SPINE WO CON, 09/19/2022, 11:24. FINDINGS: Image quality: Excellent. Bones: Minimally displaced type 2 dens fracture. No other fractures or dislocations cervical spondylitic change. Multilevel facet arthropathy. Severe disc height loss and posterior osteophyte and uncovertebral joint hypertrophy at C6-C7. Visualized superior ribs are intact. Soft tissues: Prevertebral soft tissues are normal in thickness. No paravertebral hematomas. No apical pneumothoraces. IMPRESSION: Minimally displaced oblique type 2 dens fracture, unstable. Comment: Findings were discussed with Dr. Monroy on 09/23/2022 at 1235 hours. Dictated by: Jose Dangelo M.D. on 09/23/2022 at 12:30 Approved by: Jose Dangelo M.D. on 09/23/2022 at 12:42
--- NOTE | 2022-09-23 11:48 | DI.RAD.S_ITS ---
PROCEDURE: XR CHEST 2V INDICATIONS: fall/hit head on thinners TECHNIQUE: 2 views of the chest were acquired. COMPARISON: [facility], CR, XR CHEST 2 VIEWS, 11/16/2020, 8:57. [facility], CR, XR CHEST 1 VIEW, 12/09/2020, 19:30. FINDINGS: Surgical changes and devices: None. Lungs and pleura: Lungs are clear. No pleural effusions or pneumothorax. Mediastinum: Mediastinal contours are normal. Heart size is normal. Bones and chest wall: Lateral view demonstrates new anterior wedging and height loss at what is thought to represent T10 vertebral body. There is also at least 1 displaced rib fracture demonstrated on the lateral view. No pneumothorax or pleural effusion. Cardiomegaly. IMPRESSION: Age-indeterminate lower thoracic vertebral body anterior wedging and age-indeterminate right posterolateral displaced rib fracture. CT chest recommended. Dictated by: David Winston M.D. on 09/23/2022 at 12:41 Approved by: David Winston M.D. on 09/23/2022 at 12:43
[2022-09-23 12:07] LABS: Add Manual Diff / Slide Review NO; Basophils Absolute Auto 100 /uL (0-100); Basophils Percent Auto 0.7 % (0-2); Eosinophils Absolute Auto 0 /uL (0-450); Eosinophils Percent Auto 0.5 % (2-4); Hematocrit 27.9 % (36-46); Hemoglobin 9.3 g/dL (12.0-16.0); Lymphocytes Absolute Auto 600 /uL (1100-4500); Lymphocytes Percent Auto 6.4 % (25-40); Mean Corpuscular HGB Conc 33.4 % (30-36); Mean Corpuscular Hemoglobin 29.5 PG (26-34); Mean Corpuscular Volume 88.4 fL (80-100); Monocytes Absolute Auto 700 /uL (0-900); Monocytes Percent Auto 6.8 % (3-14); Neutrophils Absolute Auto 8100 /uL (1500-7000); Neutrophils Percent Auto 85.6 % (50-75); Platelet Count 258 X10^3/uL (150-400); Red Blood Cell Count 3.16 X10^6/uL (4.0-5.2); Red Cell Distribution Width 14.9 % (11.6-14.8); White Blood Cell Count 9.5 X10^3/uL (4.5-11.0)
--- NOTE | 2022-09-23 12:14 | ED.FALL ---
HPI - Fall General Chief Complaint: Fall Stated Complaint: fell on Wednesday and hit head, dizzy, pain in neck Time Seen by Provider: 09/23/22 12:04 Source: patient and family Mode of arrival: Wheelchair History of Present Illness HPI Narrative: Patient is an 82-year-old female history of early dementia, atrial fibrillation on Eliquis history of osteoporosis and breast cancer presents with life partner after her 2nd fall this week. Partner states that he heard her calling out for help he went in found that she had fallen into the shower. She reports that she was a little dizzy and lightheaded. No loss of consciousness nausea vomiting she did fall and hit her neck. No numbness tingling or weakness. Previously on 09/19/2022 she presented to the ED with similar complaints of dizziness and fall. She currently he denies any other pain or injury from her recent fall. Related Data Home Medications Medication Instructions Recorded Confirmed furosemide 20 mg tablet 20 mg PO DAILY ##0 08/20/16 12/27/20 sitagliptin phosphate 100 mg 100 mg PO DAILY ##0 08/20/16 12/27/20 tablet (Januvia) amlodipine 5 mg tablet (Norvasc) 10 mg PO QDAY ##1 02/17/17 12/27/20 atorvastatin 20 mg tablet (Lipitor) 40 mg PO QDAY ##0 02/17/17 03/26/21 metformin 1,000 mg tablet 500 mg PO BID 03/18/18 12/27/20 doxylamine succinate 25 mg tablet 25 mg PO PRN PRN Sleep 12/27/20 12/27/20 losartan 50 mg tablet 50 mg PO BID 12/27/20 12/27/20 magnesium oxide-magnesium amino 400 cap PO BID 12/27/20 12/27/20 acid chelate 300 mg capsule (Magnesium (oxide/AA chelate)) metoprolol succinate 50 mg 50 mg PO DAILY 12/27/20 12/27/20 tablet,extended release 24 hr sennosides 8.6 mg capsule (senna) 8.6 mg PO BEDTIME 12/27/20 12/27/20 sertraline 50 mg tablet 50 mg PO DAILY 12/27/20 12/27/20 spironolactone 25 mg tablet 25 mg PO DAILY 12/27/20 12/27/20 insulin glargine 100 unit/mL (3 13 unit SUBCUT QAM 03/26/21 mL) subcutaneous pen (Lantus Solostar U-100 Insulin) Previous Rx's Medication Instructions Recorded alendronate 70 mg tablet (Fosamax) 70 mg PO QWEEK osteoporosis #12 07/17/20 tabs anastrozole 1 mg tablet 1 mg PO DAILY breast cancer #30 07/17/20 tabs apixaban 5 mg tablet (Eliquis) 5 mg PO BID #60 tabs 12/28/20 Allergies Allergy/AdvReac Type Severity Reaction Status Date / Time MYESHA Inhibitors Allergy Unknown UNK. Verified 09/23/22 11:37 [MYESHA INHIBITORS] Review of Systems Review of Systems ROS Unobtainable: All systems reviewed & are unremarkable except as noted in HPI and below Patient History Social History household members: significant other Smoking Status: Never smoker Smoking Status: Never smoker alcohol intake frequency: a few times a week Alcohol type: hard liquor Substance Use Type: does not use Exam Initial Vital Signs Initial Vital Signs: Vital Signs Temperature 97.5 F L 09/23/22 11:37 Pulse Rate 60 09/23/22 11:37 Respiratory Rate 16 09/23/22 11:37 Blood Pressure 131/63 09/23/22 11:37 Pulse Oximetry 100 09/23/22 11:37 Oxygen Delivery Method 09/23/22 11:37 GENERAL: Alert pleasant 82-year-old female appears slightly jaundiced HEENT: Head atraumatic,EOMI, pupils reactive, face symmetric, moist mucous membranes NECK: No significant tenderness full range of motion CARDIOVASCULAR: Regular rate and rhythm without murmurs, rubs or gallops. RESPIRATORY: Breath sounds equal bilaterally, no wheezes rales or rhonchi. ABDOMEN: Soft, nontender. Normoactive bowel sounds all 4 quadrants. No guarding or rebound. : No CVA tenderness EXTREMITIES: Normal range of motion, no clubbing. +2 pitting edema. Neurovascularly intact NEUROLOGICAL: Alert and oriented x4.Normal gait and speech. Pulverizer Operator strength equal bilaterally SKIN: Warm, dry, no laceration, no petechiae, no rashes or lesions. Course Orders Ordered: ED Orders 09/23/22 11:48 CT cervical spine wo con Stat CT head/brain wo con Stat Chest [XR chest 2V] Stat 09/23/22 11:49 EKG-12 Lead Stat 09/23/22 11:59 Complete Blood Count AUTO DIFF Stat Comprehensive Metabolic Panel Stat Lipase Stat Magnesium Stat Partial Thromboplastin Time Stat Prothrombin Time INR Stat Troponin & CK Cardiac Panel Stat 09/23/22 13:04 COVID19 -Nasal RAPID/Pre-Proc Stat 09/23/22 15:31 Urinalysis and Microscopic Stat 09/23/22 17:21 Consult to Occupational Therapy Evaluate & Treat Consult to Physical Therapy Evaluate & Treat Education, smoking cessation ONGOING 09/23/22 18:18 Basic Metabolic Panel Q8H 09/24/22 01:21 Basic Metabolic Panel Q8H Acetaminophen (Acetaminophen 325 Mg Tablet) 650 mg PO Q6H [facility] Last Admin: 09/23/22 18:15 Dose: 650 mg Documented By: Admin: 09/23/22 17:43 Dose: 650 mg Documented By: LIZZY Bisacodyl (Bisacodyl 5 Mg Tablet) 10 mg PO DAILY PRN PRN Reason: Constipation Furosemide (Furosemide 40 Mg/4 Ml Vial) 40 mg IV Q12H [facility] Last Admin: 09/23/22 17:43 Dose: 40 mg Documented By: LIZZY Sodium Chloride (Normal Saline 0.9%) 1,000 mls @ 50 mls/hr IV CONT [facility] Last Admin: 09/23/22 18:44 Dose: 50 mls/hr Documented By: LIZZY Naloxone HCl (Naloxone 0.4 Mg/Ml Vial) 0.2 mg IV Q2MIN PRN PRN Reason: Opiate Reversal Sennosides (Sennosides 8.6 Mg Tablet) 17.2 mg PO BEDTIME [facility] Vital Signs Vital signs: Vital Signs - 8 hr 09/23/22 11:37 Temperature 97.5 F L Pulse Rate 60 Respiratory Rate 16 Blood Pressure 131/63 Pulse Oximetry 100 Oxygen Delivery Method Room Air MDM - Fall Lab Data Result diagrams: 09/23/22 11:59 09/23/22 18:18 Labs: Lab Results 09/23/22 09/23/22 09/23/22 Range/Units 11:59 11:59 11:59 WBC 9.5 (4.5-11.0) X10^3/uL RBC 3.16 L (4.0-5.2) X10^6/uL Hgb 9.3 L (12.0-16.0) g/dL Hct 27.9 L (36-46) % MCV 88.4 (80-100) fL MCH 29.5 (26-34) PG MCHC 33.4 (30-36) % RDW 14.9 H (11.6-14.8) % Plt Count 258 (150-400) X10^3/uL Neut % (Auto) 85.6 H (50-75) % Lymph % (Auto) 6.4 L (25-40) % [place] % (Auto) 6.8 (3-14) % Eos % (Auto) 0.5 L (2-4) % Baso % (Auto) 0.7 (0-2) % Neut # (Auto) 8100 H (6287-4367) /uL Lymph # (Auto) 600 L (0946-5370) /uL [place] # (Auto) 700 (0-900) /uL Eos # (Auto) 0 (0-450) /uL Baso # (Auto) 100 (0-100) /uL PT 17.0 H (10.1-12.7) SECONDS INR 1.5 H (0.9-1.3) APTT 35 (26-36) SECONDS Sodium 122 L (137-145) mmol/L Potassium 4.8 (3.4-5.1) mmol/L Chloride 89 L (98-107) mmol/L Carbon Dioxide 19 L (22-32) mmol/L BUN 32 H (7-17) mg/dL Creatinine 1.18 H (0.52-1.04) mg/dL Estimated GFR 46 L (>60) mL/min BUN/Creatinine Ratio 27.1 H (6-22) Glucose 156 H (80-110) mg/dL Calcium 8.3 L (8.4-10.2) mg/dL Magnesium 2.3 (1.6-2.3) mg/dL Total Bilirubin 1.7 H (0.2-1.3) mg/dL AST 48 H (14-36) IU/L ALT 38 H (<35) IU/L Alkaline Phosphatase 111 (38-126) U/L Total Creatine Kinase 268 H (30-135) U/L CK-MB (CK-2) 3.91 H (<2.37) ng/mL CK-MB (CK-2) Rel Index 1.5 (1.5-5.0) % Troponin I 0.013 (0.01-0.034) ng/mL Total Protein 7.4 (6.3-8.2) g/dL Lipase 275 (23-300) U/L SARS-CoV-2 (PCR) (Negative) 09/23/22 Range/Units 13:04 WBC (4.5-11.0) X10^3/uL RBC (4.0-5.2) X10^6/uL Hgb (12.0-16.0) g/dL Hct (36-46) % MCV (80-100) fL MCH (26-34) PG MCHC (30-36) % RDW (11.6-14.8) % Plt Count (150-400) X10^3/uL Neut % (Auto) (50-75) % Lymph % (Auto) (25-40) % [place] % (Auto) (3-14) % Eos % (Auto) (2-4) % Baso % (Auto) (0-2) % Neut # (Auto) (7286-3686) /uL Lymph # (Auto) (6409-8438) /uL [place] # (Auto) (0-900) /uL Eos # (Auto) (0-450) /uL Baso # (Auto) (0-100) /uL PT (10.1-12.7) SECONDS INR (0.9-1.3) APTT (26-36) SECONDS Sodium (137-145) mmol/L Potassium (3.4-5.1) mmol/L Chloride (98-107) mmol/L Carbon Dioxide (22-32) mmol/L BUN (7-17) mg/dL Creatinine (0.52-1.04) mg/dL Estimated GFR (>60) mL/min BUN/Creatinine Ratio (6-22) Glucose (80-110) mg/dL Calcium (8.4-10.2) mg/dL Magnesium (1.6-2.3) mg/dL Total Bilirubin (0.2-1.3) mg/dL AST (14-36) IU/L ALT (<35) IU/L Alkaline Phosphatase (38-126) U/L Total Creatine Kinase (30-135) U/L CK-MB (CK-2) (<2.37) ng/mL CK-MB (CK-2) Rel Index (1.5-5.0) % Troponin I (0.01-0.034) ng/mL Total Protein (6.3-8.2) g/dL Lipase (23-300) U/L SARS-CoV-2 (PCR) Negative (Negative) Imaging Data Chest x-ray: Radiologist's Impression: Age indeterminate lower thoracic vertebral body anterior wedging and age indeterminate right posterolateral displaced rib fracture. CT chest recommended CT scan - head: Radiologist's Impression: No evidence of acute intracranial hemorrhage. No evidence of acute intracranial process CT - cervical spine: Radiologist's Impression: Minimally displaced oblique type 2 dens fracture unstable ECG Data Interpretation: Paced rhythm rate [address] changes significantly improved from previous EKG in 2015 [facility] Narrative Medical decision making narrative: Patient is an 82-year-old female history of atrial fibrillation on Eliquis presenting for the 2nd time this week after ground level fall. She reports that she does not normally fall. Today she is found to be slightly hyponatremic with a sodium of 122 previously it was 130. Other electrolyte show carbon dioxide of 19 previously 22. Creatinine remained stable at 1.18 previously 1.24. Other electrolytes are relatively stable chloride is slightly low at 89. No evidence of sepsis or infection. CT does show unstable dens fracture. Her strength is equal and she is otherwise neurologically intact. Dr. Tong consulted he reviewed CT himself. Agrees with [place] collar and follow-up in 2 weeks follow up Patient has had 2 falls in 1 week on Eliquis. She is not likely a candidate for Eliquis any longer. High-risk of falling and bleeding. Dr. Li hospitalist updated on patient's symptoms test results [facility] * differential diagnosis includes but not limited to: Electrolyte abnormality infection intracranial hemorrhage CVA cervical abnormality * Prior records reviewed: Previous ED visit September 19 * My lab interpretation: Sodium 120 you see above discussion * My imaging interpretation: Positive dens fracture see above * Clinical Decision Rules/Scores evaluated: None * Independent discussions with: Orthopedics and hospitalist * Social Considerations: Early dementia /partner questionable early dementia as well * Shared Decision Making: Partner and patient *Disposition: see below, along with detailed discharge instructions that have been reviewed with patient as well as indications for ED re-evaluation and additional outpatient follow up Discharge Plan Departure Patient Disposition: Admitted as Observation Clinical Impression: Closed dens fracture, Acute hyponatremia Admit Date/Time: 09/23/22 14:42 Admit Provider: Ezra Li
[2022-09-23 12:16] LABS: INR 1.5 (0.9-1.3)
[2022-09-23 12:19] LABS: PTT Partial Thromboplastin Tim 35 SECONDS (26-36)
[2022-09-23 12:22] LABS: Alanine Aminotransferase 38 IU/L (<35); Alkaline Phosphatase 111 U/L (38-126); Aspartate Aminotransferase 48 IU/L (14-36); BUN Creatinine Ratio 27.1 (6-22); Bilirubin Total 1.7 mg/dL (0.2-1.3); Blood Urea Nitrogen 32 mg/dL (7-17); Calcium 8.3 mg/dL (8.4-10.2); Carbon Dioxide 19 mmol/L (22-32); Chloride 89 mmol/L (98-107); Creatine Kinase 268 U/L (30-135); Estimated Glomerular Filt Rate 46 mL/min (>60); Glucose 156 mg/dL (80-110); HEMOLYSIS < 15 (0-50); Lipase 275 U/L (23-300); Magnesium 2.3 mg/dL (1.6-2.3); Potassium 4.8 mmol/L (3.4-5.1); Sodium 122 mmol/L (137-145); Total Protein 7.4 g/dL (6.3-8.2)
[2022-09-23 12:33] LABS: Troponin I 0.013 ng/mL (0.01-0.034)
[2022-09-23 12:37] LABS: CKMB % Relative Index 1.5 % (1.5-5.0); Creatine Kinase MB 3.91 ng/mL (<2.37)
[2022-09-23 13:50] LABS: COVID19 -Nasal RAPID Negative (Negative)
--- NOTE | 2022-09-23 14:14 | PM.HP.1 ---
History of Present Illness History of Present Illness Date Patient Seen: 09/23/22 Time Patient Seen: 15:00 Chief complaint: fell on Wednesday and hit head, dizzy, pain in neck Narrative: The patient is an 82-year-old female with a history of dementia, chronic atrial fibrillation on chronic Eliquis, osteoporosis, and breast cancer. She presents to the emergency department today because of pain that relates to a fall last Wednesday. Patient has had increased frequency of falls, in fact falling last Wednesday and then Wednesday. The patient has had significant pain over the last 3 days acquiring maximum dose Tylenol throughout the day. Because of persistent and worsening pain the patient presented to the emergency department. The patient does have a significant cognitive. She is unable to describe to me exactly where and what has been hurting. I did ask her partner if he had an understanding of where her pain is and has been. He is also struggled understanding what exactly has been hurting. In any case cervical spine was evaluated today and revealed an odontoid fracture which is minimally displaced. The patient also appears to be grossly edematous with a sodium of 120 orthopedic spine surgery who recommended noninvasive approach with an [place] cervical collar and close outpatient follow-up with Orthopedics. The patient denies a history of low-sodium, or chronic marked edema. There is also no clear history of heart failure, renal failure or liver disease. The patient is followed for left-sided stage I invasive carcinoma and right-sided stage III invasive ductal carcinoma. The patient has a history of post resection radiation therapy in 2016. The patient denies any orthopnea,, hemoptysis, chest pain, pleuritic chest pain. He also denies fevers, chills. Patient History Comment: Past medical history is notable for: -permanent atrial fibrillation -bilateral breast cancer -dementia -osteoporosis Family & Social History Social History: household members significant other Safety & Behavioral: Feels Safe in Current Yes Environment Been Physically Hurt or No Threatened By a Person Tobacco & Substance use: Smoking Status Never smoker alcohol intake frequency a few times a week Substance Use Type does not use Meds Home Medications and Allergies Home Medications Medication Instructions Recorded Confirmed Type furosemide 20 mg tablet 20 mg PO DAILY ##0 08/20/16 12/27/20 History sitagliptin phosphate 100 mg 100 mg PO DAILY ##0 08/20/16 12/27/20 History tablet (Januvia) amlodipine 5 mg tablet (Norvasc) 10 mg PO QDAY ##1 02/17/17 12/27/20 History atorvastatin 20 mg tablet (Lipitor) 40 mg PO QDAY ##0 02/17/17 03/26/21 History metformin 1,000 mg tablet 500 mg PO BID 03/18/18 12/27/20 History alendronate 70 mg tablet (Fosamax) 70 mg PO QWEEK osteoporosis #12 07/17/20 12/27/20 Rx tabs anastrozole 1 mg tablet 1 mg PO DAILY breast cancer #30 07/17/20 12/27/20 Rx tabs doxylamine succinate 25 mg tablet 25 mg PO PRN PRN Sleep 12/27/20 12/27/20 History losartan 50 mg tablet 50 mg PO BID 12/27/20 12/27/20 History magnesium oxide-magnesium amino 400 cap PO BID 12/27/20 12/27/20 History acid chelate 300 mg capsule (Magnesium (oxide/AA chelate)) metoprolol succinate 50 mg 50 mg PO DAILY 12/27/20 12/27/20 History tablet,extended release 24 hr sennosides 8.6 mg capsule (senna) 8.6 mg PO BEDTIME 12/27/20 12/27/20 History sertraline 50 mg tablet 50 mg PO DAILY 12/27/20 12/27/20 History spironolactone 25 mg tablet 25 mg PO DAILY 12/27/20 12/27/20 History apixaban 5 mg tablet (Eliquis) 5 mg PO BID #60 tabs 12/28/20 Rx insulin glargine 100 unit/mL (3 13 unit SUBCUT QAM 03/26/21 History mL) subcutaneous pen (Lantus Solostar U-100 Insulin) Allergies Allergy/AdvReac Type Severity Reaction Status Date / Time MYESHA Inhibitors Allergy Unknown UNK. Verified 09/23/22 11:37 [MYESHA INHIBITORS] Review of Systems Review of Systems Narrative: The patient denies recent diarrhea or some blood per rectum or melena. Today she denies any chest pain, pain with deep inspiration, abdominal pain, nausea, or headache. He also does not specifically endorse midline. Eyes Comments: No visual changes Exam Vital Signs (past 8 hours): - 09/23/22 11:37 Temperature 97.5 F L Pulse Rate 60 Respiratory Rate 16 Blood Pressure 131/63 Pulse Oximetry 100 Oxygen Delivery Method Room Air Oxygen Delivery Method Room Air Const General: cooperative, healthy appearing and comfortable Nutritional Appearance: average body habitus Orientation: alert, awake and not oriented x3 Limitations: mental status not altered Other: She has an [place] cervical collar in place. [facility] Head: normal to inspection, normocephalic and atraumatic Ears: hearing grossly normal bilaterally Nose: external nose normal Face and sinus: normal facial exam Mouth: oral mucosae normal Eyes General: appearance normal, both eyes and all related structures Alignment and Position: alignment normal and position normal Conjunctivae: conjunctivae normal Sclera: sclerae normal Neck Neck: normal visual inspection, No full ROM and No midline deformity Chest Chest: normal inspection of the chest Resp Effort & Inspection: normal respiratory effort and able to speak in complete sentences Auscultation: clear to auscultation bilaterally Cardio Rate: regular rate Rhythm: abnormal rhythm Heart Sounds: S1 normal and S2 normal Pulses: radial pulses present GI Inspection: normal to inspection Palpation: soft and no hepatosplenomegaly Auscultation: normal bowel sounds Skin General: no rashes or lesions noted Neuro General: patient alert, patient awake, not oriented x3, oriented (person and place) and CN's II-XI intact bilaterally Cognition: abnormal cognition Speech: speech normal Extrem General: normal to inspection and full ROM Right upper extremity: normal to inspection and full ROM Left upper extremity: normal to inspection and full ROM Right lower extremity: normal to inspection and full ROM Left lower extremity: normal to inspection and full ROM Psych Appearance: grossly normal and well kempt Speech and Movement: speech and movement normal Mood: congruent mood Attitude: cooperative Objective Labs Result Diagrams: 09/23/22 11:59 09/23/22 11:59 Labs: Laboratory Results - last 24 hr 09/23/22 09/23/22 09/23/22 11:59 11:59 11:59 WBC 9.5 RBC 3.16 L Hgb 9.3 L Hct 27.9 L MCV 88.4 MCH 29.5 MCHC 33.4 RDW 14.9 H Plt Count 258 Neut % (Auto) 85.6 H Lymph % (Auto) 6.4 L [place] % (Auto) 6.8 Eos % (Auto) 0.5 L Baso % (Auto) 0.7 Neut # (Auto) 8100 H Lymph # (Auto) 600 L [place] # (Auto) 700 Eos # (Auto) 0 Baso # (Auto) 100 PT 17.0 H INR 1.5 H APTT 35 Sodium 122 L Potassium 4.8 Chloride 89 L Carbon Dioxide 19 L BUN 32 H Creatinine 1.18 H Estimated GFR 46 L BUN/Creatinine Ratio 27.1 H Glucose 156 H Calcium 8.3 L Magnesium 2.3 Total Bilirubin 1.7 H AST 48 H ALT 38 H Alkaline Phosphatase 111 Total Creatine Kinase 268 H CK-MB (CK-2) 3.91 H CK-MB (CK-2) Rel Index 1.5 Troponin I 0.013 Total Protein 7.4 Lipase 275 SARS-CoV-2 (PCR) 09/23/22 13:04 WBC RBC Hgb Hct MCV MCH MCHC RDW Plt Count Neut % (Auto) Lymph % (Auto) [place] % (Auto) Eos % (Auto) Baso % (Auto) Neut # (Auto) Lymph # (Auto) [place] # (Auto) Eos # (Auto) Baso # (Auto) PT INR APTT Sodium Potassium Chloride Carbon Dioxide BUN Creatinine Estimated GFR BUN/Creatinine Ratio Glucose Calcium Magnesium Total Bilirubin AST ALT Alkaline Phosphatase Total Creatine Kinase CK-MB (CK-2) CK-MB (CK-2) Rel Index Troponin I Total Protein Lipase SARS-CoV-2 (PCR) Negative Assessment & Plan Assessment and plan (1) Closed dens fracture: Status: Acute (2) Back pain: Status: Acute (3) History of atrial fibrillation: Status: Acute (4) Elevated INR: Status: Acute (5) Osteoporosis: Status: Acute (6) Bilateral breast cancer: Status: Acute Assessment & Plan narrative: This patient was admitted after 2 ground level falls over the last several days. She is on chronic anticoagulation that was probably not a great candidate for anticoagulation with increased frequency of falls. Problems: 1. Hyponatremia, hypervolemic. Present on admission and active -diurese and follow Na. Also obtain a cardiac echo to assess LV function. 2. Anasarca, present on admission and active -plan as above 3. Odontoid fracture, present on admission and active -case was discussed with Dr. Tong of Orthopedics and emergency physician. Recommendations were for and a nonoperative approach with an [place] brace. Will arrange for outpatient follow-up 1-2 weeks after initially read. 4. Chronic atrial fibrillation which is rate controlled since on admission and stable -continue current medic tapped well. Anticoagulation at this time. Chronic stable medical problems include: -bilateral breast cancer with a history of dissection and radiation therapy. -dementia The patient is full resuscitation, did her significant other. The patient's son is power of ip technology transactions attorney for healthcare decisions. Rupture further clarify level of care questions. Patient will have mechanical device, risk score is 1. New inpatient status with an anticipated length of stay of over 2 midnights for correction of anasarca and severe hyponatremia. Time Spent With Patient Critical Care time: I spent a total of [] minutes of critical care time on this patient's care today; this time is exclusive of procedural time.
[2022-09-23] MEDS: FUROSEMIDE 40 MG/4 ML VIAL IV (17:43)
[2022-09-23] MEDS: ACETAMINOPHEN 325 MG TABLET 650 MG PO ×2 (17:43→23:37)
[2022-09-23 18:39] LABS: BUN Creatinine Ratio 27.3 (6-22); Blood Urea Nitrogen 30 mg/dL (7-17); Calcium 8.5 mg/dL (8.4-10.2); Carbon Dioxide 18 mmol/L (22-32); Chloride 89 mmol/L (98-107); Estimated Glomerular Filt Rate 50 mL/min (>60); Glucose 87 mg/dL (80-110); HEMOLYSIS < 15 (0-50); Potassium 4.4 mmol/L (3.4-5.1); Sodium 123 mmol/L (137-145)
[2022-09-23] MEDS: SODIUM CHLORIDE 0.9% 1,000 ML 50 ML IV (18:44)
--- NOTE | 2022-09-23 19:52 | PC.NURSE ---
Pt arrived to room 217 at 1715, A&OX3, settled and oriented to room. Admission assessment completed. She is able to eat 50% of dinner. She is placed on telemetry.NS running at 50ml/hr. Call light in place, bed alarm on
[2022-09-23] MEDS: MELATONIN 3 MG TABLET PO (20:32)
[2022-09-23 22:43] LABS: Appearance Urine UA CLEAR; Bilirubin Urine UA NEGATIVE (NEGATIVE); Color Urine UA YELLOW; Glucose Urine UA 1+ g/dL (Negative); Ketones Urine UA NEGATIVE (NEGATIVE); Leukocyte Esterase Urine UA TRACE (NEGATIVE); Nitrite Urine UA NEGATIVE (Negative); Occult Blood Urine UA NEGATIVE (Negative); Protein Urine UA NEGATIVE (Negative); Urobilinogen Urine UA 0.2 E.U./dL (0.2)
[2022-09-23 22:57] LABS: RBC Urine None Seen (0-5/HPF); Squamous Epithelial Cell Urine 0-1 /HPF (0-5/HPF); WBC Urine 0-1/HPF (0-5/HPF)
[2022-09-23 22:58] LABS: Bacteria Urine None Seen; Culture Indicated Urine Specimen Cultured
[2022-09-24 01:38] LABS: BUN Creatinine Ratio 25.7 (6-22); Blood Urea Nitrogen 28 mg/dL (7-17); Calcium 7.7 mg/dL (8.4-10.2); Carbon Dioxide 17 mmol/L (22-32); Chloride 89 mmol/L (98-107); Estimated Glomerular Filt Rate 51 mL/min (>60); Glucose 119 mg/dL (80-110); HEMOLYSIS < 15 (0-50); Potassium 4.3 mmol/L (3.4-5.1)
[2022-09-24 02:06] LABS: Sodium 119 mmol/L (137-145)
--- NOTE | 2022-09-24 02:11 | DI.ECHO.S_ITS ---
[facility] +[facility]+ : : [address] [place] : : : : [id number] : : : : Phone: [phone] Echocardiogram Report + + :Name: NELSON TRAMMELL Study Date: 09/24/2022 Height: 66 in : :[facility] ReadingLocation: Weight: 148 lb : : Gender: Female BSA: 1.8 m2 : :: 1940 Age: 82 yrs BP: 140/67 mmHg: :Reason For Study: CONGESTIVE HEART FAILURE : :Ordering Physician: JOHNNY, : :GABRIEL Performed By: Soo Dickens : :Referring: GABRIEL TURNER : + + Interpretation Summary 1) Mildly increased left ventricular thickness (concentric) with normal size, and normal systolic function (EF 60-65%). 2) The interventricular septum is flattened, consistent with a right ventricular pressure/volume condition. 3) Moderately enlarged right ventricle with moderately reduced function. 4) There is severe biatrial enlargement with interatrial septum bowing to the left, suggesting elevated right atrial pressures. 5) There is moderate tricuspid regurgitation. 6) The right ventricular systolic pressure is estimated to be at least 73 mmHg based on an estimated right atrial pressure of 15 mm Hg. 7) There is a trivial pericardial effusion noted. 8) Compared to the Echo done 01/23/2022, systolic pulmonary artery pressure has increased from 58mmHg to 73mmHg on this study. Procedure: A two-dimensional transthoracic echocardiogram with color flow and Doppler was performed. The study quality was technically adequate. Comparison is made with the echocardiogram of 01/23/2022. The patient was in atrial fibrillation with heart rates between 82-96 bpm during the exam. Left Ventricle: The left ventricle is normal in size. There is mild concentric left ventricular hypertrophy. The ejection fraction is estimated to be 60-65%. The interventricular septum is flattened, consistent with a right ventricular pressure/volume condition. Diastolic function could not be accurately assessed due to atrial fibrillation. Right Ventricle: The right ventricle is moderately dilated. Right ventricular systolic function is moderately reduced. Atria: There is severe biatrial enlargement. There is no Doppler evidence for an interatrial shunt. Mitral Valve: There is mild mitral annular calcification. There is a flat closure plane of the the mitral valve leaflets. The mitral valve leaflets appear moderately thickened, but open well. There is mild to moderate mitral regurgitation. Aortic Valve: The aortic valve is trileaflet. The aortic valve opens well. There is no aortic valve stenosis. No aortic regurgitation is present. Tricuspid Valve: The tricuspid valve leaflets are thin and pliable. There is moderate tricuspid regurgitation. The right ventricular systolic pressure is estimated to be at least 73 mmHg based on an estimated right atrial pressure of 15 mm Hg. Pulmonic Valve: The pulmonic valve leaflets are thin and pliable; valve motion is normal. There is trace pulmonic regurgitation. Great Vessels: The aortic root is normal size. The dimensions of the ascending aorta are normal. The IVC is dilated (diameter is greater than 2.1 cm) and it collapses less than 50% with a sniff. This suggests a high right atrial pressure of 15 mm Hg. Pericardium/ Pleura There is a trivial pericardial effusion noted. There is no pleural effusion. MMode/2D Measurements & Calculations LVIDd: 4.1 cm LVOT diam: 2.0 cm LVIDs: 2.6 cm Ao root diam: 3.0 cm FS: 36.0 % asc Aorta Diam: 3.1 cm EPSS: 1.2 cm IVSd: 1.2 cm LVPWd: 1.2 cm LV kidd. diameter/BSA (cm/m^2): 2.3 LV sys. diameter/BSA (cm/m^2): 1.5 LA A2 area: 38.5 cm2 RA long axis: 8.1 cm LA A4 area: 31.5 cm2 RA area: 39.4 cm2 LA length (vol): 8.0 cm RA vol: 162.7 ml LA vol: 128.3 ml RA : 92.5 ml/m2 LA vol index: 72.9 ml/m2 IVC diam: 2.5 cm RVD1 (basal): 4.0 cm RVD2 (mid): 3.5 cm TAPSE: 1.3 cm Doppler Measurements & Calculations Ao V2 max: 149.1 cm/sec LVOT Max Leonardo: 90.1 cm/sec Ao V2 mean: 106.4 cm/sec LV V1 max P.3 mmHg Ao max P.0 mmHg LV V1 VTI: 15.3 cm Ao mean P.1 mmHg MATEUSZ(I,D): 1.9 cm2 Ao V2 VTI: 26.4 cm MATEUSZ(V,D): 2.0 cm2 sev ratio: 0.58 MATEUSZ indexed to BSA (cm^2/m^2): 1.1 MV E max leonardo: 143.7 cm/sec TR max leonardo: 400.3 cm/sec MV A max leonardo: 2.6 cm/sec TR max P.9 mmHg MV E/A: 54.5 PA V2 max: 87.9 cm/sec Med Peak E' Leonardo: 6.0 cm/sec PA V2 mean: 62.9 cm/sec E/E' med: 23.9 PA mean P.7 mmHg Lat Peak E' Leonardo: 8.3 cm/sec PA pr(Accel): 59.7 mmHg E/E' lat: 17.3 E/e' average: 20.6 MV dec time: 0.17 sec SV(LVOT): 50.1 ml Reading Physician:01:42 PM
[2022-09-24 03:22] VITALS: BP 140/67; PULSE 60; RESP 17; TEMP 35.9; O2SAT 95
[2022-09-24 05:20] LABS: BUN Creatinine Ratio 26.2 (6-22); Blood Urea Nitrogen 27 mg/dL (7-17); Calcium 7.6 mg/dL (8.4-10.2); Carbon Dioxide 19 mmol/L (22-32); Chloride 88 mmol/L (98-107); Estimated Glomerular Filt Rate 54 mL/min (>60); Glucose 101 mg/dL (80-110); HEMOLYSIS < 15 (0-50); Sodium 120 mmol/L (137-145)
[2022-09-24] MEDS: ACETAMINOPHEN 325 MG TABLET 650 MG PO ×3 (05:28→17:42)
[2022-09-24] MEDS: FUROSEMIDE 60 MG in SODIUM CHLORIDE 0.9% 50 ML 112 MG IV ×2 (06:26→18:30)
[2022-09-24 07:00] VITALS: BP 137/59; PULSE 61; RESP 17; TEMP 35.9; O2SAT 92
--- NOTE | 2022-09-24 07:11 | PM.PN.1 ---
Subjective Subjective Interval history: No new complaints. Denies neck pain, arm or leg weakness. No chest pain or dyspnea. Exam Vital Signs (past 8 hours): - 09/23/22 23:30 09/24/22 03:22 Temperature 97.3 F L 96.7 F L Pulse Rate 60 60 Respiratory Rate 16 17 Blood Pressure 144/66 H 140/67 Pulse Oximetry 95 95 Oxygen Flow Rate 0 0 Oxygen Delivery Method Room Air Oxygen Flow Rate 0 Const General: cooperative, healthy appearing and comfortable Orientation: alert and awake [facility] Head: normal to inspection Ears: hearing grossly normal bilaterally Eyes General: appearance normal, both eyes and all related structures Neck Neck: normal visual inspection, No midline deformity and No JVD Resp Effort & Inspection: normal respiratory effort Auscultation: clear to auscultation bilaterally Cardio Rate: regular rate Rhythm: regular rhythm Heart Sounds: S1 normal and S2 normal Pulses: radial pulses present GI Palpation: soft, no hepatosplenomegaly, No guarding and No hepatomegaly Skin General: no rashes or lesions noted Neuro Cranial Nerves: CN's II-XI intact bilaterally Cognition: abnormal cognition Speech: speech normal Motor: strength 5/5 throughout Extrem Other: Bilateral leg edema, 2+ Psych Appearance: well kempt Speech and Movement: speech and movement normal Mood: anxious mood Thought Process: other (chronically impaired) Objective Labs Result Diagrams: 09/23/22 11:59 09/24/22 04:35 Labs: Laboratory Results - last 24 hr 09/23/22 09/23/22 09/23/22 11:59 11:59 11:59 WBC 9.5 RBC 3.16 L Hgb 9.3 L Hct 27.9 L MCV 88.4 MCH 29.5 MCHC 33.4 RDW 14.9 H Plt Count 258 Neut % (Auto) 85.6 H Lymph % (Auto) 6.4 L [place] % (Auto) 6.8 Eos % (Auto) 0.5 L Baso % (Auto) 0.7 Neut # (Auto) 8100 H Lymph # (Auto) 600 L [place] # (Auto) 700 Eos # (Auto) 0 Baso # (Auto) 100 PT 17.0 H INR 1.5 H APTT 35 Sodium 122 L Potassium 4.8 Chloride 89 L Carbon Dioxide 19 L BUN 32 H Creatinine 1.18 H Estimated GFR 46 L BUN/Creatinine Ratio 27.1 H Glucose 156 H Calcium 8.3 L Magnesium 2.3 Total Bilirubin 1.7 H AST 48 H ALT 38 H Alkaline Phosphatase 111 Total Creatine Kinase 268 H CK-MB (CK-2) 3.91 H CK-MB (CK-2) Rel Index 1.5 Troponin I 0.013 Total Protein 7.4 Lipase 275 Urine Color Urine Appearance Urine pH Ur Specific [place] Urine Protein Urine Glucose (UA) Urine Ketones Urine Occult Blood Urine Nitrate Urine Bilirubin Urine Urobilinogen Ur Leukocyte Esterase Urine RBC Urine WBC Ur Squamous Epith Cells Urine Bacteria Ur Culture Indicated? SARS-CoV-2 (PCR) 09/23/22 09/23/22 09/23/22 13:04 18:18 21:40 WBC RBC Hgb Hct MCV MCH MCHC RDW Plt Count Neut % (Auto) Lymph % (Auto) [place] % (Auto) Eos % (Auto) Baso % (Auto) Neut # (Auto) Lymph # (Auto) [place] # (Auto) Eos # (Auto) Baso # (Auto) PT INR APTT Sodium 123 L Potassium 4.4 Chloride 89 L Carbon Dioxide 18 L BUN 30 H Creatinine 1.10 H Estimated GFR 50 L BUN/Creatinine Ratio 27.3 H Glucose 87 Calcium 8.5 Magnesium Total Bilirubin AST ALT Alkaline Phosphatase Total Creatine Kinase CK-MB (CK-2) CK-MB (CK-2) Rel Index Troponin I Total Protein Lipase Urine Color Yellow Urine Appearance Clear Urine pH 6.0 Ur Specific [place] 1.010 Urine Protein Negative Urine Glucose (UA) 1+ H Urine Ketones Negative Urine Occult Blood Negative Urine Nitrate Negative Urine Bilirubin Negative Urine Urobilinogen 0.2 Ur Leukocyte Esterase Trace H Urine RBC None seen Urine WBC 0-1/hpf Ur Squamous Epith Cells 0-1 /hpf Urine Bacteria None seen Ur Culture Indicated? Specimen cultured SARS-CoV-2 (PCR) Negative 09/24/22 09/24/22 01:18 04:35 WBC RBC Hgb Hct MCV MCH MCHC RDW Plt Count Neut % (Auto) Lymph % (Auto) [place] % (Auto) Eos % (Auto) Baso % (Auto) Neut # (Auto) Lymph # (Auto) [place] # (Auto) Eos # (Auto) Baso # (Auto) PT INR APTT Sodium 119 L* 120 L Potassium 4.3 4.0 Chloride 89 L 88 L Carbon Dioxide 17 L 19 L BUN 28 H 27 H Creatinine 1.09 H 1.03 Estimated GFR 51 L 54 L BUN/Creatinine Ratio 25.7 H 26.2 H Glucose 119 H 101 Calcium 7.7 L 7.6 L Magnesium Total Bilirubin AST ALT Alkaline Phosphatase Total Creatine Kinase CK-MB (CK-2) CK-MB (CK-2) Rel Index Troponin I Total Protein Lipase Urine Color Urine Appearance Urine pH Ur Specific [place] Urine Protein Urine Glucose (UA) Urine Ketones Urine Occult Blood Urine Nitrate Urine Bilirubin Urine Urobilinogen Ur Leukocyte Esterase Urine RBC Urine WBC Ur Squamous Epith Cells Urine Bacteria Ur Culture Indicated? SARS-CoV-2 (PCR) [facility] Social History household members: significant other Smoking Status: Never smoker alcohol intake: current Assessment & Plan Assessment & Plan narrative: 1. Hyponatremia, hypervolemic.? Present on admission and active -Sodium worse over 12 hours, increased dose of lasix and follow. -diurese and follow Na.? Also obtain a cardiac echo to assess LV function. -add Ur Na and Osm 2. Anasarca, present on admission and active -plan as above, diuresis. 3. Odontoid fracture, present on admission and active -case was discussed with Dr. Tong of Orthopedics and emergency physician.? Recommendations were for and a nonoperative approach with an [place] brace.? Will arrange for outpatient follow-up 1-2 weeks after initially read. 4. Chronic atrial fibrillation which is rate controlled since on admission and stable -continue current medic tapped well.? Anticoagulation resumed at this time. 5. DM2, present on admission and active. -SSI. Chronic stable medical problems include (present on admission): -bilateral breast cancer with a history of resection and radiation therapy. -dementia The patient is full resuscitation, did her significant other.? The patient's son is power of fruit pitter for healthcare decisions.? Rupture further clarify level of care questions. Patient will have mechanical device, risk score is 1.
[2022-09-24 09:50] VITALS: BP 137/59; PULSE 61
[2022-09-24] MEDS: SERTRALINE 50 MG TABLET PO (09:50)
[2022-09-24] MEDS: METOPROLOL ER 50 MG TABLET PO (09:50)
--- NOTE | 2022-09-24 10:21 | PM.CN ---
History of Present Illness Consult details Date Patient Seen: 09/24/22 Time Patient Seen: 13:47 Chief complaint: fell on Wednesday and hit head, dizzy, pain in neck Narrative: 82 yo female w/ h/o atrial fibrillation on chronic anticoagulation, s/p multiple falls this week. H/o dementia, osteoporosis, breast cancer. Dr Fischer consulted d/t odontoid dens fracture seen on CT yesterday; pt placed in [place] collar. On my visit today, she had just finished urinating and reports no trouble with voiding. Pain well-controlled. Answers questions and follows commands appropriately. Meds Home Medications and Allergies Home Medications Medication Instructions Recorded Confirmed Type furosemide 20 mg tablet 20 mg PO DAILY ##0 08/20/16 12/27/20 History sitagliptin phosphate 100 mg 100 mg PO DAILY ##0 08/20/16 12/27/20 History tablet (Januvia) amlodipine 5 mg tablet (Norvasc) 10 mg PO QDAY ##1 02/17/17 12/27/20 History atorvastatin 20 mg tablet (Lipitor) 40 mg PO QDAY ##0 02/17/17 03/26/21 History metformin 1,000 mg tablet 500 mg PO BID 03/18/18 12/27/20 History alendronate 70 mg tablet (Fosamax) 70 mg PO QWEEK osteoporosis #12 07/17/20 12/27/20 Rx tabs anastrozole 1 mg tablet 1 mg PO DAILY breast cancer #30 07/17/20 12/27/20 Rx tabs doxylamine succinate 25 mg tablet 25 mg PO PRN PRN Sleep 12/27/20 12/27/20 History losartan 50 mg tablet 50 mg PO BID 12/27/20 12/27/20 History magnesium oxide-magnesium amino 400 cap PO BID 12/27/20 12/27/20 History acid chelate 300 mg capsule (Magnesium (oxide/AA chelate)) metoprolol succinate 50 mg 50 mg PO DAILY 12/27/20 12/27/20 History tablet,extended release 24 hr sennosides 8.6 mg capsule (senna) 8.6 mg PO BEDTIME 12/27/20 12/27/20 History sertraline 50 mg tablet 50 mg PO DAILY 12/27/20 12/27/20 History spironolactone 25 mg tablet 25 mg PO DAILY 12/27/20 12/27/20 History apixaban 5 mg tablet (Eliquis) 5 mg PO BID #60 tabs 12/28/20 Rx insulin glargine 100 unit/mL (3 13 unit SUBCUT QAM 03/26/21 History mL) subcutaneous pen (Lantus Solostar U-100 Insulin) Allergies Allergy/AdvReac Type Severity Reaction Status Date / Time MYESHA Inhibitors Allergy Unknown UNK. Verified 09/23/22 11:37 [MYESHA INHIBITORS] Exam Vital Signs (past 8 hours): - 09/24/22 03:22 09/24/22 07:00 Temperature 96.7 F L 96.7 F L Pulse Rate 60 61 Respiratory Rate 17 17 Blood Pressure 140/67 137/59 L Pulse Oximetry 95 92 Oxygen Flow Rate 0 0 Oxygen Delivery Method Room Air Oxygen Flow Rate 0 Narrative Exam Narrative: Pt comfortable on room air. 5/5 strength in upper and lower extremities, sensation to light touch intact. [place] collar in place and appears to be fitting appropriately. Dens fracture read on 09/23/2022 CT is also visible on 09/19/2022 CT; there does not appear to be any significant shift between images. Objective Labs Result Diagrams: 09/23/22 11:59 09/24/22 04:35 Labs: Laboratory Results - last 24 hr 09/23/22 09/23/22 09/23/22 11:59 11:59 11:59 WBC 9.5 RBC 3.16 L Hgb 9.3 L Hct 27.9 L MCV 88.4 MCH 29.5 MCHC 33.4 RDW 14.9 H Plt Count 258 Neut % (Auto) 85.6 H Lymph % (Auto) 6.4 L [place] % (Auto) 6.8 Eos % (Auto) 0.5 L Baso % (Auto) 0.7 Neut # (Auto) 8100 H Lymph # (Auto) 600 L [place] # (Auto) 700 Eos # (Auto) 0 Baso # (Auto) 100 PT 17.0 H INR 1.5 H APTT 35 Sodium 122 L Potassium 4.8 Chloride 89 L Carbon Dioxide 19 L BUN 32 H Creatinine 1.18 H Estimated GFR 46 L BUN/Creatinine Ratio 27.1 H Glucose 156 H Calcium 8.3 L Magnesium 2.3 Total Bilirubin 1.7 H AST 48 H ALT 38 H Alkaline Phosphatase 111 Total Creatine Kinase 268 H CK-MB (CK-2) 3.91 H CK-MB (CK-2) Rel Index 1.5 Troponin I 0.013 Total Protein 7.4 Lipase 275 Urine Color Urine Appearance Urine pH Ur Specific [place] Urine Protein Urine Glucose (UA) Urine Ketones Urine Occult Blood Urine Nitrate Urine Bilirubin Urine Urobilinogen Ur Leukocyte Esterase Urine RBC Urine WBC Ur Squamous Epith Cells Urine Bacteria Ur Culture Indicated? SARS-CoV-2 (PCR) 09/23/22 09/23/22 09/23/22 13:04 18:18 21:40 WBC RBC Hgb Hct MCV MCH MCHC RDW Plt Count Neut % (Auto) Lymph % (Auto) [place] % (Auto) Eos % (Auto) Baso % (Auto) Neut # (Auto) Lymph # (Auto) [place] # (Auto) Eos # (Auto) Baso # (Auto) PT INR APTT Sodium 123 L Potassium 4.4 Chloride 89 L Carbon Dioxide 18 L BUN 30 H Creatinine 1.10 H Estimated GFR 50 L BUN/Creatinine Ratio 27.3 H Glucose 87 Calcium 8.5 Magnesium Total Bilirubin AST ALT Alkaline Phosphatase Total Creatine Kinase CK-MB (CK-2) CK-MB (CK-2) Rel Index Troponin I Total Protein Lipase Urine Color Yellow Urine Appearance Clear Urine pH 6.0 Ur Specific [place] 1.010 Urine Protein Negative Urine Glucose (UA) 1+ H Urine Ketones Negative Urine Occult Blood Negative Urine Nitrate Negative Urine Bilirubin Negative Urine Urobilinogen 0.2 Ur Leukocyte Esterase Trace H Urine RBC None seen Urine WBC 0-1/hpf Ur Squamous Epith Cells 0-1 /hpf Urine Bacteria None seen Ur Culture Indicated? Specimen cultured SARS-CoV-2 (PCR) Negative 09/24/22 09/24/22 01:18 04:35 WBC RBC Hgb Hct MCV MCH MCHC RDW Plt Count Neut % (Auto) Lymph % (Auto) [place] % (Auto) Eos % (Auto) Baso % (Auto) Neut # (Auto) Lymph # (Auto) [place] # (Auto) Eos # (Auto) Baso # (Auto) PT INR APTT Sodium 119 L* 120 L Potassium 4.3 4.0 Chloride 89 L 88 L Carbon Dioxide 17 L 19 L BUN 28 H 27 H Creatinine 1.09 H 1.03 Estimated GFR 51 L 54 L BUN/Creatinine Ratio 25.7 H 26.2 H Glucose 119 H 101 Calcium 7.7 L 7.6 L Magnesium Total Bilirubin AST ALT Alkaline Phosphatase Total Creatine Kinase CK-MB (CK-2) CK-MB (CK-2) Rel Index Troponin I Total Protein Lipase Urine Color Urine Appearance Urine pH Ur Specific [place] Urine Protein Urine Glucose (UA) Urine Ketones Urine Occult Blood Urine Nitrate Urine Bilirubin Urine Urobilinogen Ur Leukocyte Esterase Urine RBC Urine WBC Ur Squamous Epith Cells Urine Bacteria Ur Culture Indicated? SARS-CoV-2 (PCR) PFSH Social History household members: significant other Tobacco & Substance Use Smoking Status: Never smoker alcohol intake: current Assessment & Plan Assessment and plan (1) Closed dens fracture: Status: Acute Plan: Case reviewed w/ Dr Fischer; he recommends keeping pt in [place] collar at all times (including sleeping and bathing) and following up in ortho clinic for repeat imaging. Anticipate 12 weeks total in hard cervical collar with follow up imaging at regular intervals. If there is significant shift of the fracture or inadequate healing, she may require referral to neurosurgery for surgical fixation. Will follow up as outpatient; please reconsult orthopedic surgery as needed. Time Spent With Patient Critical Care time: I spent a total of [] minutes of critical care time on this patient's care today; this time is exclusive of procedural time.
--- NOTE | 2022-09-24 10:22 | OT.IP.EVAL ---
Current Diagnoses Malignant neoplasm of unspecified site of right female breast (09/23/22) Malignant neoplasm of unspecified site of left female breast (09/23/22) Dorsalgia, unspecified (09/23/22) Age-related osteoporosis without current pathological fracture (09/23/22) Abnormal coagulation profile (09/23/22) Unspecified displaced fracture of second cervical vertebra, initial encounter for closed fracture (09/23/22) Personal history of other diseases of the circulatory system (09/23/22) Occupational Therapy Inpatient Evaluation/Re-Eval M1 PT/OT-IP Prior Functional Status Start: 09/24/22 14:12 Freq: NEEDED Status: Active Protocol: Document 09/24/22 11:25 AB (Rec: 09/24/22 14:25 [id number]) Medical Review Prior Functional Status Medical History Reviewed Yes Communication able to answer questions but usually asks her partner for information Mobility and Gait pt's partner stated that pt was independent with all mobilities and ambulation without AD but uses a SPC for outdoor mobility. Pt since her fall has had to help lift the pt up to stand. Social History Household Members significant other Living Arrangements House Number of Floors (Floors) One Floor Number of Stairs To Enter/Railing? no steps to enter Home Environment High Toilet,Walk in Shower Home Equipment Front Wheel Walker,Four Wheel Walker,Straight Cane,Shower Seat without Backrest,Hand Held Shower,Grab Bars Near Toilet,Grab Bars In Shower M2 OT-IP Current Condition Start: 09/24/22 14:20 Freq: Status: Active Protocol: Document 09/24/22 09:48 [facility] (Rec: 09/24/22 18:14 [facility] [id number]) Occupational Therapy Current Condition Current Condition Evaluation Date 09/24/22 Treatment Diagnosis Closed dens FX Diagnosis Onset Date 09/23/22 Post Operative Precautions Cervical Spine Precautions Rigid Collar,No Heavy Lifting, Log Roll Other Precautions Pt to have the [place] collar for 2 weeks. M3 OT- IP Subjective and Pain Start: 09/24/22 14:20 Freq: Status: Active Protocol: Document 09/24/22 09:48 [facility] (Rec: 09/24/22 18:14 [facility] [id number]) OT- Subjective Occupational Therapy Visit Type Type Initial Evaluation Visit Start Time 09:48 Visit Stop Time 10:22 Total Visit Minutes 34 Occupational Therapy Visit Comments Patient Comments Pt sitting at the edge of the bed and wanting to use the BSC . Patient/Caregiver Goals To go home, but pt's Life Partner realizes that may be best to go to skilled rehab first. M4 OT- IP ADL's Start: 09/24/22 14:20 Freq: Status: Active Protocol: Document 09/24/22 09:48 [facility] (Rec: 09/24/22 18:14 [facility] [id number]) OT [id number] Comments OT Self-Feeding Comments Not at meal time. OT ADL-Grooming Comments OT Grooming Comments Not performed. OT ADL-Oral Care Comments Oral Care Comments NOt performed. OT ADL-Dressing General Eval Lower Body Dressing Ability Maximum Assistance OT ADL-Toileting General Evaluation Toileting Ability Maximum Assistance Areas Needing Assistance Manage Clothing Comments OT Toileting Comments Pt needing assist to help stand to FWW and to [place]/doff her brief over her hips. OT ADL-Bathing Comments OT Bathing Comments Sponge bathing more appropriate at this time. M5 OT- IP IADL's Start: 09/24/22 14:20 Freq: Status: Active Protocol: Document 09/24/22 09:48 [facility] (Rec: 09/24/22 18:14 [facility] [id number]) OT-Instrumental Activities of Daily Living Deficits IADL Deficits Identified Deficits Home Safety Awareness Home Safety Comments Pt decreased safety awareness and if going home will need 24 /7 assist for all needs. Pt having difficulty with her STM as well. Medication Management Medication Management Comments Pt will need assist. Money Management Money Management Comments Pt will need assist. Meal Preparation Meal Preparation Comments Pt will need assist. Personal Insurance Advisor Personal Insurance Advisor Comments Pt will need assist. 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 Pt is a bit impulsive at times due to being forgetful. OT- Vision and Hearing OT- Vision Assessment Visual Acuity Glasses All The Time M7 OT- IP Mobility and Balance Start: 09/24/22 14:20 Freq: Status: Active Protocol: Document 09/24/22 09:48 [facility] (Rec: 09/24/22 18:14 [facility] [id number]) OT- Bed Mobility Assessment Sit to Supine Sit to Supine Assist Maximum Assistance OT-Transfer Assessment Sit to and From Stand Sit to and from Stand Maximum Assistance Transfers Transfer Ability Maximum Assistance Technique Transfer Destination Bed,Bedside Commode Devices Transfer Assistive Devices Gait Belt,Front Wheeled Walker Comments Mobility Comments MAX A x1 to stand to FWW and assist for balance and to help guide the FWW for the transfer as pt very unsteady on her feet. OT- Gait Assessment Comments Gait Ability Comments Transfer only at this time. OT- Balance Assessment Sitting Balance and Reactions Static Sitting Balance Ability Good Dynamic Sitting Balance Ability Fair Standing Balance and Reactions Static Standing Balance Ability Poor Dynamic Standing Balance Ability Poor M8 OT- IP Objective Assessments Start: 09/24/22 14:20 Freq: Status: Active Protocol: Document 09/24/22 09:48 [facility] (Rec: 09/24/22 18:14 [facility] [id number]) OT Gross Range of Motion Upper Extremity Range of Motion Assessment Bilaterally Impaired OT Strength Upper Extremity Strength Assessment Bilaterally Impaired Shoulder 3- Elbow 4- OT- Coordination Assessment Comments Coordination Comments Increased time for finger to nose M9 OT- IP Assessment and Plan Start: 09/24/22 14:20 Freq: Status: Active Protocol: Document 09/24/22 09:48 [facility] (Rec: 09/24/22 18:14 [facility] [id number]) OT Summary Assessment and Plan Potential Rehabilitation Potential Good Analytic Complexity at Evaluation Moderate Summary OT Impairments Pain,Strength,Balance, Functional Cognition, Functional Mobility,Self- Feeding,Grooming,Dressing, Toileting,Bathing,Toilet Transfers,Shower Transfers, Activity Tolerance Progress Towards Goals Slow Progress due to Pain,Slow Progress due to Medical Issues,Slow Progress due to Activity Tolerance,Slow Progress due to Cognition Assessment Summary Pt MOD complexity and main barriers are decreased balance ,strength and needing extensive assist for ADL and mobility needs as very unsteady on her feet and has history of rotator cuff issues for her arms and not able to lift her arm up functionally for ADl needs above her head. Pt will greatly benefit from skilled rehab when medically stable. Goals Self-Feeding Goal Independent Grooming Goal Independent Dressing Goal Minimal Assistance Toileting Goal Minimal Assistance Bathing Goal Minimal Assistance Toilet Transfer Goal Standby Assistance Shower Transfer Goal Minimal Assistance Days to Meet Goals 15 Frequency of Treatment Frequency Of Treatment Once a Day Treatment Plan OT Treatment Plan ADL Training,Functional Cognition Training,Functional Mobility,Patient/Family Education,Discharge Planning Other Treatment Recommendations and Next LB dressing equipment Treatment Focus Discharge Recommendations OT Discharge Recommendations SNF Rehab Transportation Needs at Discharge Wheelchair/Cabulance
[2022-09-24 11:00] VITALS: BP 145/73; PULSE 75; RESP 16; TEMP 36.2; O2SAT 96
--- NOTE | 2022-09-24 11:25 | PT.IIE ---
Current Diagnoses Malignant neoplasm of unspecified site of right female breast (09/23/22) Malignant neoplasm of unspecified site of left female breast (09/23/22) Dorsalgia, unspecified (09/23/22) Age-related osteoporosis without current pathological fracture (09/23/22) Abnormal coagulation profile (09/23/22) Unspecified displaced fracture of second cervical vertebra, initial encounter for closed fracture (09/23/22) Personal history of other diseases of the circulatory system (09/23/22) Physical Therapy Inpatient Evaluation/Re-Eval M1 PT/OT-IP Prior Functional Status Start: 09/24/22 14:12 Freq: NEEDED Status: Active Protocol: Document 09/24/22 11:25 AB (Rec: 09/24/22 14:25 AB [id number]) Medical Review Prior Functional Status Medical History Reviewed Yes Communication able to answer questions but usually asks her partner for information Mobility and Gait pt's partner stated that pt was independent with all mobilities and ambualtion without AD but uses a SPC for outdoor mobility Social History Household Members significant other Living Arrangements House Number of Floors (Floors) One Floor Number of Stairs To Enter/Railing? no steps to enter Home Environment High Toilet,Walk in Shower Home Equipment Front Wheel Walker,Four Wheel Walker,Straight Cane,Shower Seat without Backrest,Hand Held Shower,Grab Bars Near Toilet,Grab Bars In Shower M2 PT-IP Current Condition Start: 09/24/22 14:12 Freq: NEEDED Status: Active Protocol: Document 09/24/22 11:25 AB (Rec: 09/24/22 14:25 AB [id number]) Physical Therapy Current Condition Current Condition Evaluation Date 09/24/22 Treatment Diagnosis s/p fall; Dens fx; hyponatremia; difficulty in walking Onset Date 09/23/22 M3 PT-IP Subjective Start: 09/24/22 14:12 Freq: NEEDED Status: Active Protocol: Document 09/24/22 11:25 AB (Rec: 09/24/22 14:25 AB [id number]) Subjective Physical Therapy Visit Type Type Initial Evaluation Visit Start Time 11:25 Visit Stop Time 12:05 Total Visit Minutes 40 Number of GRATING MACHINE OPERATOR Visits 0 Physical Therapy Visit Comments Patient Comments agreeable to do PT M4 PT-IP Mobility and Gait Start: 09/24/22 14:12 Freq: NEEDED Status: Active Protocol: Document 09/24/22 11:25 AB (Rec: 09/24/22 14:25 AB [id number]) PT-Bed Mobility Assessment Rolling Level of Assist Maximal Assistance Supine to Sit Supine to Sit Maximum Assistance Sit to Supine Sit to Supine Maximum Assistance PT-Transfer Assessment Sit to and From Stand Sit to and from Stand Maximum Assistance,1 Person Assistance,Use of Upper Extremities Equipment Transfer Assistive Device Gait Belt,Front Wheeled Walker Orthotic/Prosthetic Devices or Brace: Yes Comments Mobility Comments pt with [place]pen collar on. educated on cervical precautions. pt's partner in room with pt. BP ins upine: 145/73. pt completed log roll supine to sit max A and max cues. able to sit on EOB CGA. c/o dizziness and LE spasms/cramps . BP in sittin/88. checked again: 140/63. completed sit to stand max A and max cues. BP in standin/64. continues to c/o dizziness. BP checked after ~ 1 min standin/62. pt able to take a few steps using FWW max A ~ 1-2 steps forward max A and max cues with unsteady shuffling gait. instructed pt to step backwards to the bed and completed max A and max cues. completed log roll sit to supine max A and max cues. positioned pt in bed. call light and table placed within reach. BP in supine: 128/67. Gait Assessment Gait Distance (Feet) 2 Able to Maintain Weight Bearing Status Yes During Gait Assistive Devices Assistive Device Gait Belt,Front Wheeled Walker Orthotic/Prosthetic Devices or Brace: Yes Gait Deviations General Gait Pattern Decreased Stride Length, Decreased Feet Clearance, Flexed Trunk,Step-to Gait Factors Limiting Gait Function Factors Limiting Gait Function Decreased Activity Tolerance, Decreased Sensation,Decreased Strength,Difficulty Following Directions,Incoordination, Limited Range of Motion,Pain, Poor Balance,Poor Safety Awareness,Respiratory Distress PT-Balance Assessment Sitting Balance and Reactions Static Sitting Balance Ability Fair Dynamic Sitting Balance Ability Fair Standing Balance and Reactions Static Standing Balance Ability Poor Dynamic Standing Balance Ability Poor Device Used FWW M5 PT-IP Objective Assessments Start: 09/24/22 14:12 Freq: NEEDED Status: Active Protocol: Document 09/24/22 11:25 AB (Rec: 09/24/22 14:25 AB [id number]) Orientation Orientation/Cognition Level of Alertness Alert Orientation Name,Place,Situation Language Function Ability Hard of Hearing Safety Awareness Decreased Safety Awareness Memory Description 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,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 Gross Range of Motion Lower Extremity ROM Assessment Within Functional Limits Strength Lower Extremity Strength Assessment Bilaterally Impaired Hip 3+/5 Knee 3+/5 Sensation Assessment Sensation Sensation Description Numbness Comments Sensation Comments B feet neuropathy Muscle Tone Muscle Tone WNL Yes M6 PT-IP Treatment Start: 09/24/22 14:12 Freq: NEEDED Status: Active Protocol: Document 09/24/22 11:25 AB (Rec: 09/24/22 14:25 AB [id number]) Physical Therapy Treatment Education Education Provided Precautions,Safety M7 PT-IP Assessment and Plan Start: 09/24/22 14:12 Freq: NEEDED Status: Active Protocol: Document 09/24/22 11:25 AB (Rec: 09/24/22 14:25 AB [id number]) PT Summary Assessment and Plan Potential Rehabilitation Potential Fair Status of Condition at Evaluation Evolving Summary Impairments Pain,ROM,Strength,Balance, Coordination,Sensation,Tone, Cognition,Bed Mobility, Transfers,Gait,Activity Tolerance Assessment Summary pt requiring max A with mobility using FWW and only able to take a few steps. pt with c/o dizziness with upright activities affecting mobility. pt needs to be more independent than current level to safety go home. pt will require SNF rehab to improve strength and function. Goals Bed Mobility Goal Minimal Assistance Transfer Goal Minimal Assistance,Front Wheeled Walker Gait Goal Minimal Assistance,Front Wheel Walker Gait Distance 50 Days to Meet Goals 10 Frequency of Treatment Frequency Of Treatment Once a Day Treatment Plan Physical Therapy Treatment Plan Bed Mobility Training,Transfer Training,Gait Training, Therapeutic Exercise,Balance Retraining,Post Op Education, Discharge Planning,Hot or Cold Pack,Neuromuscular Re-ed, Coordination Retraining,Manual Therapy Precautions Cervical Spine Precautions Rigid Collar,No Heavy Lifting, Log Roll Other Precautions falls Recommendations To Nursing Amount of Assist Needed 1 Person Assist Discharge Recommendations PT Discharge Recommendations SNF Rehab Transportation Needs at Discharge Wheelchair/Cabulance
[2022-09-24] MEDS: INSULIN LISPRO 100 UNIT/ML 3ML VIAL SUBCUT ×2 (12:43→17:41)
[2022-09-24] MEDS: SODIUM CHLORIDE 0.9% 1,000 ML 50 ML IV (17:40)
[2022-09-24] MEDS: OXYCODONE IR 5 MG TABLET PO (19:02)
[2022-09-24 19:56] LABS: BUN Creatinine Ratio 22.9 (6-22); Blood Urea Nitrogen 24 mg/dL (7-17); Calcium 8.1 mg/dL (8.4-10.2); Carbon Dioxide 19 mmol/L (22-32); Chloride 86 mmol/L (98-107); Estimated Glomerular Filt Rate 53 mL/min (>60); Glucose 200 mg/dL (80-110); HEMOLYSIS < 15 (0-50); Potassium 4.2 mmol/L (3.4-5.1)
[2022-09-24 20:03] LABS: Sodium 117 mmol/L (137-145)
[2022-09-24] MEDS: MELATONIN 3 MG TABLET PO (21:14)
[2022-09-24] MEDS: ATORVASTATIN 20 MG TABLET 40 MG PO (21:14)
[2022-09-24] MEDS: SENNOSIDES 8.6 MG TABLET 17.2 MG PO (21:14)
[2022-09-24] MEDS: SODIUM CHLORIDE 0.9% 1,000 ML 100 ML IV (21:14)
[2022-09-24 21:29] VITALS: BP 135/61; PULSE 60; RESP 17; TEMP 36.3; O2SAT 93
[2022-09-24 21:46] LABS: Sodium Urine Random 33 mmol/L (30-90)
[2022-09-25] VITALS (8 sets, daily range): BP systolic 120–157; BP diastolic 66–79; PULSE 60–83; RESP 15–18; TEMP 35.9–37; O2SAT 94–96
[2022-09-25] MEDS: ACETAMINOPHEN 325 MG TABLET 650 MG PO ×4 (04:26→23:40)
[2022-09-25 05:41] LABS: BUN Creatinine Ratio 24.4 (6-22); Blood Urea Nitrogen 22 mg/dL (7-17); Calcium 7.8 mg/dL (8.4-10.2); Carbon Dioxide 19 mmol/L (22-32); Chloride 85 mmol/L (98-107); Estimated Glomerular Filt Rate > 60 mL/min (>60); Glucose 157 mg/dL (80-110); HEMOLYSIS < 15 (0-50); Potassium 3.7 mmol/L (3.4-5.1)
[2022-09-25] MEDS: FUROSEMIDE 60 MG in SODIUM CHLORIDE 0.9% 50 ML 112 MG IV (05:45)
[2022-09-25 06:01] LABS: Sodium 118 mmol/L (137-145)
[2022-09-25] MEDS: METOPROLOL ER 50 MG TABLET PO (09:32)
[2022-09-25] MEDS: SERTRALINE 50 MG TABLET PO (09:32)
[2022-09-25] MEDS: SODIUM CHLORIDE 0.9% 1,000 ML 100 ML IV (09:38)
[2022-09-25] MEDS: INSULIN LISPRO 100 UNIT/ML 3ML VIAL SUBCUT ×3 (09:39→21:58)
--- NOTE | 2022-09-25 13:50 | OT.IP.TRT ---
Current Diagnoses Malignant neoplasm of unspecified site of right female breast (09/23/22) Malignant neoplasm of unspecified site of left female breast (09/23/22) Dorsalgia, unspecified (09/23/22) Age-related osteoporosis without current pathological fracture (09/23/22) Abnormal coagulation profile (09/23/22) Unspecified displaced fracture of second cervical vertebra, initial encounter for closed fracture (09/23/22) Personal history of other diseases of the circulatory system (09/23/22) Occupational Therapy Treatment Note M2 OT-IP Current Condition Start: 09/24/22 14:20 Freq: Status: Active Protocol: Document 09/24/22 09:48 [facility] (Rec: 09/24/22 18:14 [facility] [id number]) Occupational Therapy Current Condition Current Condition Evaluation Date 09/24/22 Treatment Diagnosis Closed dens FX Diagnosis Onset Date 09/23/22 Post Operative Precautions Cervical Spine Precautions Rigid Collar,No Heavy Lifting, Log Roll Other Precautions Pt to have the [place] collar for 2 weeks. M3 OT- IP Subjective and Pain Start: 09/24/22 14:20 Freq: Status: Active Protocol: Document 09/25/22 08:47 [facility] (Rec: 09/25/22 13:50 [facility] [id number]) OT- Subjective Occupational Therapy Visit Type Type Treatment Note Visit Start Time 08:47 Visit Stop Time 09:20 Total Visit Minutes 33 Notes Ortho notes now states [place] collar on at all times including sleeping and showering x 12 wks. Occupational Therapy Visit Comments Patient Comments Pt willing to get to the recliner to eat. Patient/Caregiver Goals TO go home. OT Pain Assessment Pain When Pain Assessed At Rest Pain Present Pain Present Denied Pain M4 OT- IP ADL's Start: 09/24/22 14:20 Freq: Status: Active Protocol: Document 09/25/22 08:47 [facility] (Rec: 09/25/22 13:50 [facility] [id number]) OT [id number]-Xhilarc General Evaluation Self-Feeding Ability Independent Areas Needing Assistance Cutting Food,Opening Containers Comments OT Self-Feeding Comments Educated pt to be sure to eat when upright. Pt needing some assist to cut the food into smaller pieces. OT ADL-Grooming Comments OT Grooming Comments Pt able to wash her face and hands after set-up. OT ADL-Oral Care Comments Oral Care Comments NOt performed. OT ADL-Dressing General Eval Lower Body Dressing Ability Maximum Assistance OT ADL-Toileting Comments OT Toileting Comments Not performed. OT ADL-Bathing Comments OT Bathing Comments If willing pt can try to get to the shower with FWW as now moving much better today. M5 OT- IP IADL's Start: 09/24/22 14:20 Freq: Status: Active Protocol: Document 09/24/22 09:48 [facility] (Rec: 09/24/22 18:14 [facility] [id number]) OT-Instrumental Activities of Daily Living Deficits IADL Deficits Identified Deficits Home Safety Awareness Home Safety Comments Pt decreased safety awareness and if going home will need / asisst for all needs. Pt having difficulty with her STM as well. Medication Management Medication Management Comments Pt will need assist. Money Management Money Management Comments Pt will need assist. Meal Preparation Meal Preparation Comments Pt will need assist. Jukebox Route Driver Jukebox Route Driver Comments Pt will need assist. M6 OT- IP Functional Cognition Start: 09/24/22 14:20 Freq: Status: Active Protocol: Document 09/25/22 08:47 [facility] (Rec: 09/25/22 13:50 [facility] [id number]) Cognitive Factors Limiting Selfcare Function Cognitive Comments Cognitive Assessment Comments Pt able to follow conversation much better today , but still having difficulty with short term memory. Emphasized for pt to follow log rolling, but pt does not remember. M7 OT- IP Mobility and Balance Start: 09/24/22 14:20 Freq: Status: Active Protocol: Document 09/25/22 08:47 [facility] (Rec: 09/25/22 13:50 [facility] [id number]) OT- Bed Mobility Assessment Supine to Sit Supine to Sit Assist Moderate Assistance OT-Transfer Assessment Sit to and From Stand Sit to and from Stand Contact Guard Assistance Transfers Transfer Ability Contact Guard Assistance Technique Transfer Destination Bed,Chair Devices Transfer Assistive Devices Gait Belt,Front Wheeled Walker Comments Mobility Comments MODA to help get her trunk upright and CGA to stand to FWW and walk to the recliner. Much improved today and more stable on her feet. OT- Balance Assessment Sitting Balance and Reactions Static Sitting Balance Ability Normal Dynamic Sitting Balance Ability Good Standing Balance and Reactions Static Standing Balance Ability Good Dynamic Standing Balance Ability Fair M8 OT- IP Objective Assessments Start: 09/24/22 14:20 Freq: Status: Active Protocol: Document 09/24/22 09:48 [facility] (Rec: 09/24/22 18:14 [facility] [id number]) OT Gross Range of Motion Upper Extremity Range of Motion Assessment Bilaterally Impaired OT Strength Upper Extremity Strength Assessment Bilaterally Impaired Shoulder 3- Elbow 4- OT- Coordination Assessment Comments Coordination Comments Increased time for finger to nose M9 OT- IP Assessment and Plan Start: 09/24/22 14:20 Freq: Status: Active Protocol: Document 09/25/22 08:47 [facility] (Rec: 09/25/22 13:50 [facility] [id number]) OT Summary Assessment and Plan Potential Rehabilitation Potential Good Analytic Complexity at Evaluation Moderate Summary OT Impairments Pain,Strength,Balance, Functional Cognition, Functional Mobility,Self- Feeding,Grooming,Dressing, Toileting,Bathing,Toilet Transfers,Shower Transfers, Activity Tolerance Progress Towards Goals Progressing Toward Goals,Slow Progress due to Cognition Assessment Summary Pt much improved today and able to stand with CGA versus MAX A yesterday. Pt still needing cues for safety to do log rolling for bed mobility needs and that she is suppose to wear the [place] collar at all times. Pending her Life Partner's ability to assist, pt to go home when medically stable with 24/7 assist and home health. Goals Self-Feeding Goal Independent Grooming Goal Independent Toileting Goal Minimal Assistance Bathing Goal Minimal Assistance Toilet Transfer Goal Standby Assistance Shower Transfer Goal Minimal Assistance Days to Meet Goals 5 Frequency of Treatment Frequency Of Treatment Once a Day Treatment Plan OT Treatment Plan ADL Training,Functional Cognition Training,Functional Mobility,Patient/Family Education,Discharge Planning Other Treatment Recommendations and Next LB dressing/shower Treatment Focus Discharge Recommendations OT Discharge Recommendations Home with 24/7 Assist Available,Home Health Transportation Needs at Discharge Private Vehicle
--- NOTE | 2022-09-25 14:13 | CM.DANOTE ---
Initial DCP Assessment Note Pt is a 82 yo female, resident of [place] [facility]: history of dementia, chronic atrial fibrillation on chronic Eliquis, osteoporosis, and breast cancer. She presents to the emergency department today because of pain that relates to a fall last Wednesday. Patient has had increased frequency of falls, in fact falling last Wednesday and then Wednesday. Ortho consulted and patient placed in a hard cervical collar which has been recommended for a total of 12 weeks. PCP: Zuleima Keating Payer: MCR/AARP Met w/patient and SO yesterday and today, introduced self and role. Patient lives w/ SO and can complete most ADLs indp at her baseline. Patient's son Dashawn lives near and can assist as needed per SO. Therapies initially recommending SNF however patient appears to be much improved today so discussed home w/ HH at bedside and both patient and SO agreeable to plan, discharge earliest tomorrow . Reviewed [facility] choice list for agencies serving [place] and patient/SO request [facility] and order completed and SAVANNA Stiles, [facility] kindly agreed [facility] Plan: Anticipate DC home w/ SO and real mello services, close outpatient follow up RN/PT/OT/STEEL ERECTING PUSHER/MANE ordered MANE Montelongo Discharge Planning/Care Management Discharge Assessment Start: 09/24/22 12:16 Freq: Status: Active Protocol: Document 09/25/22 13:55 SOHAM (Rec: 09/25/22 14:13 SOHAM [id number]) Discharge Planning Assessment Assigned Clean In Places Operator MANE Rodriges DPOA/Assigned Designee Name Darrell Callaway Contact Information [phone] Advance Directives? Yes: POLST Advance Directives on File No History Provided By Patient,Significant Other, Medical Record Prior Living Arrangements House Household Members significant other Type of transporation used prior to Relies on Others admit Independent with ADL's Yes: Cane for outdoor mobility Is patient alert and oriented? Yes: Mild dementia Needs Assistance With Bathing,Managing Medications, Home Chores / Shopping Patient/Family Preference Home with Home Health Barriers to Discharge No Comment Anticipate return home w/S.O., son and real services Discharge Plan Home with Home Health Community Services Home Health Nurse Transportation Arrangement Sig Other is available to provide transport at d/c Referrals Initiated Home Health Additional Comment [facility] Medicare Choice List Provided Yes Medicare choice list reviewed on patient,family electronic tablet with SNF/HH Preference [facility] Has Agency SNF been contacted Yes Comment SAVANNA Stiles, has kindly agreed to fax this referral to [facility] today, discharge likely in the next 24-48 hrs Whiteboard Updated in Patient Room with Yes name and ext. # of Clean In Places Operator
--- NOTE | 2022-09-25 15:19 | PT.IPTN ---
Current Diagnoses Malignant neoplasm of unspecified site of right female breast (09/23/22) Malignant neoplasm of unspecified site of left female breast (09/23/22) Dorsalgia, unspecified (09/23/22) Age-related osteoporosis without current pathological fracture (09/23/22) Abnormal coagulation profile (09/23/22) Unspecified displaced fracture of second cervical vertebra, initial encounter for closed fracture (09/23/22) Personal history of other diseases of the circulatory system (09/23/22) Physical Therapy Treatment Note M2 PT-IP Current Condition Start: 09/24/22 14:12 Freq: NEEDED Status: Active Protocol: Document 09/24/22 11:25 AB (Rec: 09/24/22 14:25 AB [id number]) Physical Therapy Current Condition Current Condition Evaluation Date 09/24/22 Treatment Diagnosis s/p fall; Dens fx; hyponatremia; difficulty in walking Onset Date 09/23/22 M3 PT-IP Subjective Start: 09/24/22 14:12 Freq: NEEDED Status: Active Protocol: Document 09/25/22 14:46 MICHI (Rec: 09/25/22 15:19 MICHI [id number]) Subjective Physical Therapy Visit Type Type Treatment Note Visit Start Time 13:44 Visit Stop Time 14:08 Total Visit Minutes 24 Notes Pts in room watching treatment. Pt sitting on BS. Number of MECHANICAL SYSTEMS ENGINEER Visits 1 Physical Therapy Visit Comments Patient Comments agreeable to do PT M4 PT-IP Mobility and Gait Start: 09/24/22 14:12 Freq: NEEDED Status: Active Protocol: Document 09/25/22 14:46 MICHI (Rec: 09/25/22 15:19 MICHI [id number]) PT-Bed Mobility Assessment Rolling Type of Rolling Bilateral Sit to Supine Sit to Supine Standby Assistance,Head of Bed Elevated PT-Transfer Assessment Sit to and From Stand Sit to and from Stand Contact Guard Assistance,1 Person Assistance,Use of Upper Extremities Equipment Transfer Assistive Device Gait Belt,Front Wheeled Walker Orthotic/Prosthetic Devices or Brace: Yes Transfers Transfer Destination Bed Transfer Technique Stand Step Pivot Transfer Ability Level of Assist Contact Guard Assistance,1 Person Assistance,Use of Upper Extremities Comments Mobility Comments Reminded pt of cervical precautions and she stated she understood. Pt was assisted by nursing to [facility]. When finished, pt performed independent pericare. Stood from [facility] pushing with UEs to standing in front of FWW CGA. Pt instructed to stand closer to FWW. She did not want to attempt to ambulate in the room but agreed to do standing marching. Pt completed 4x 30 marching/standing rest break. Pt able to lift knees to top of FWW throughout marching sets. No aparant fatigue. Pt then stated it was enough then requested to go back to bed. Pt step-pivot to bed and able to sit>sidelying keeping neck in neutral and properly aligning torso with LEs while swinging them onto the bed. Pt needed no assist with getting back into bed. Once lying semi-reclined, bed was lowered to ~15 degrees of incline and pt completed bed exercises as stated below. Pt states she does these exercises every night before she goes to bed. Once exercises were completed HOB was elevated more and pt was left in room with all needs within reach and in room. Gait Assessment Gait Distance (Feet) 2 Able to Maintain Weight Bearing Status Yes During Gait Assistive Devices Assistive Device Gait Belt,Front Wheeled Walker Orthotic/Prosthetic Devices or Brace: Yes Gait Deviations General Gait Pattern Decreased Stride Length, Decreased Feet Clearance, Flexed Trunk,Step-to Gait Factors Limiting Gait Function Factors Limiting Gait Function Decreased Activity Tolerance, Decreased Sensation,Decreased Strength,Difficulty Following Directions,Incoordination, Limited Range of Motion,Pain, Poor Balance,Poor Safety Awareness Comments Gait Comments see above PT-Balance Assessment Sitting Balance and Reactions Static Sitting Balance Ability Good Dynamic Sitting Balance Ability Good Standing Balance and Reactions Static Standing Balance Ability Fair Dynamic Standing Balance Ability Fair M5 PT-IP Objective Assessments Start: 09/24/22 14:12 Freq: NEEDED Status: Active Protocol: Document 09/24/22 11:25 AB (Rec: 09/24/22 14:25 AB [id number]) Orientation Orientation/Cognition Level of Alertness Alert Orientation Name,Place,Situation Language Function Ability Hard of Hearing Safety Awareness Decreased Safety Awareness Memory Description 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,Information Assurance Analyst Impaired Gross Range of Motion Lower Extremity ROM Assessment Within Functional Limits Strength Lower Extremity Strength Assessment Bilaterally Impaired Hip 3+/5 Knee 3+/5 Sensation Assessment Sensation Sensation Description Numbness Comments Sensation Comments B feet neuropathy Muscle Tone Muscle Tone WNL Yes M6 PT-IP Treatment Start: 09/24/22 14:12 Freq: NEEDED Status: Active Protocol: Document 09/25/22 14:46 LJ (Rec: 09/25/22 15:19 MICHI [id number]) Physical Therapy Treatment Exercises Exercises Gluteal Sets,Heel Slides, Straight Leg Raises,Supine Hip Abduction Education Education Provided Precautions,Safety Other Treatments Other Treatment Performed bridges x10 clamshell x10 B above exercises x10 each M7 PT-IP Assessment and Plan Start: 09/24/22 14:12 Freq: NEEDED Status: Active Protocol: Document 09/25/22 14:46 MICHI (Rec: 09/25/22 15:19 [id number]) PT Summary Assessment and Plan Potential Rehabilitation Potential Fair Status of Condition at Evaluation Evolving Summary Impairments Pain,ROM,Strength,Balance, Coordination,Sensation,Tone, Cognition,Bed Mobility, Transfers,Gait,Activity Tolerance Assessment Summary Pt requiring less assist with standing balance and exercises as well as bed mobility. She showed no increased respiratory rate with exercises and most likely would have been able to complete more. observing exercises and encouraging to continue. Continue to assess progress to determine DC plan. Goals Bed Mobility Goal Minimal Assistance Transfer Goal Minimal Assistance,Front Wheeled Walker Gait Goal Minimal Assistance,Front Wheel Walker Gait Distance 50 Days to Meet Goals 10 Frequency of Treatment Frequency Of Treatment Once a Day Treatment Plan Physical Therapy Treatment Plan Bed Mobility Training,Transfer Training,Gait Training, Therapeutic Exercise,Balance Retraining,Post Op Education, Discharge Planning,Hot or Cold Pack,Neuromuscular Re-ed, Coordination Retraining,Manual Therapy Precautions Cervical Spine Precautions Rigid Collar,No Heavy Lifting, Log Roll Other Precautions falls Recommendations To Nursing Amount of Assist Needed 1 Person Assist Discharge Recommendations PT Discharge Recommendations Home with 29/03 Assist Available,Home Health,SNF Rehab Transportation Needs at Discharge Wheelchair/Cabulance
--- NOTE | 2022-09-25 15:48 | PM.PN.1 ---
Subjective Subjective Date Patient Seen: 09/25/22 Interval history: No new complaints. Denies neck pain, arm or leg weakness. No chest pain or dyspnea. Exam Vital Signs (past 8 hours): - 09/25/22 09:32 09/25/22 10:00 09/25/22 14:00 Temperature 96.6 F L 96.6 F L Pulse Rate 61 70 60 Respiratory Rate 18 16 Blood Pressure 131/73 151/68 H 120/69 Pulse Oximetry 94 94 Oxygen Flow Rate 0 0 Oxygen Delivery Method Room Air Oxygen Flow Rate 0 Narrative Exam Narrative: GEN: no acute distress HEENT: moist mucous membranes, no JVD. Cervical collar in place. CV: RRR PULM: clear bilaterally ABD: soft, nontender, no organomegaly, nondistended EXT: trace bilateral LE edema NEURO: AAOx3, moving all extremities PSYCH: pleasant mood Objective Labs Result Diagrams: 09/23/22 11:59 09/25/22 05:02 Labs: Laboratory Results - last 24 hr 09/24/22 09/24/22 09/25/22 18:10 19:20 05:02 Sodium 117 L* 118 L* Potassium 4.2 3.7 Chloride 86 L 85 L Carbon Dioxide 19 L 19 L BUN 24 H 22 H Creatinine 1.05 H 0.90 Estimated GFR 53 L > 60 BUN/Creatinine Ratio 22.9 H 24.4 H Glucose 200 H 157 H Calcium 8.1 L 7.8 L Ur Random Sodium 33 PFSH Social History household members: significant other Smoking Status: Never smoker alcohol intake: current Assessment & Plan Assessment & Plan narrative: 1. Hyponatremia, hypervolemic or possibly mixed volume status.? Present on admission and active -Sodium remains worse, diuresis was increased yesterday without significant improvement. -will hold lasix tonight, continue to follow sodium. She is asymptomatic despite Na of 118, though a bit weak. -reassess with urine sodium tomorrow AM depending on sodium trend. -her current volume status after diuresis is currently unclear. 2. Anasarca, present on admission and improved - diuresis as noted above, will hold given improvement on exam. 3. Odontoid fracture, present on admission and active -case was discussed with orthopedics, whom have signed off at this time.? Recommendations were for and a nonoperative approach with an [place] brace.? Outpatient follow up recommended. 4. Chronic atrial fibrillation which is rate controlled since on admission and stable -continue current medications.? Anticoagulation resumed at this time. 5. DM2, present on admission and active. -Scontinue sliding scale insulin . Chronic stable medical problems include (present on admission): -bilateral breast cancer with a history of resection and radiation therapy. -dementia The patient is full resuscitation, surrogate is her her significant other However, The patient's son is power of biomass technician for healthcare decisions. DVT: on AC Time Spent With Patient Critical Care time: I spent a total of [] minutes of critical care time on this patient's care today; this time is exclusive of procedural time.
[2022-09-25 16:38] LABS: Albumin 4.4 g/dL (3.5-5.0); Albumin Globulin Ratio 1.5 (1.0-2.8)
[2022-09-25 19:26] LABS: BUN Creatinine Ratio 28.7 (6-22); Blood Urea Nitrogen 25 mg/dL (7-17); Calcium 7.9 mg/dL (8.4-10.2); Carbon Dioxide 20 mmol/L (22-32); Chloride 84 mmol/L (98-107); Estimated Glomerular Filt Rate > 60 mL/min (>60); Glucose 176 mg/dL (80-110); HEMOLYSIS < 15 (0-50)
[2022-09-25 19:38] LABS: Sodium 118 mmol/L (137-145)
[2022-09-25] MEDS: MELATONIN 3 MG TABLET PO (21:58)
[2022-09-25] MEDS: SENNOSIDES 8.6 MG TABLET 17.2 MG PO (21:58)
[2022-09-25] MEDS: APIXABAN 5 MG TABLET PO (21:58)
[2022-09-25] MEDS: ATORVASTATIN 20 MG TABLET 40 MG PO (21:58)
[2022-09-26] MEDS: OXYCODONE IR 5 MG TABLET PO (02:16)
[2022-09-26 04:43] LABS: Add Manual Diff / Slide Review NO; Basophils Absolute Auto 0 /uL (0-100); Basophils Percent Auto 0.4 % (0-2); Eosinophils Absolute Auto 100 /uL (0-450); Eosinophils Percent Auto 1.3 % (2-4); Hematocrit 26.1 % (36-46); Hemoglobin 8.8 g/dL (12.0-16.0); Lymphocytes Absolute Auto 800 /uL (1100-4500); Lymphocytes Percent Auto 8.4 % (25-40); Mean Corpuscular HGB Conc 33.6 % (30-36); Mean Corpuscular Hemoglobin 29.2 PG (26-34); Mean Corpuscular Volume 86.8 fL (80-100); Monocytes Absolute Auto 800 /uL (0-900); Monocytes Percent Auto 8.9 % (3-14); Neutrophils Absolute Auto 7600 /uL (1500-7000); Platelet Count 204 X10^3/uL (150-400); Red Cell Distribution Width 14.9 % (11.6-14.8); White Blood Cell Count 9.3 X10^3/uL (4.5-11.0)
[2022-09-26 04:54] LABS: BUN Creatinine Ratio 29.7 (6-22); Blood Urea Nitrogen 22 mg/dL (7-17); Calcium 7.7 mg/dL (8.4-10.2); Carbon Dioxide 22 mmol/L (22-32); Chloride 86 mmol/L (98-107); Estimated Glomerular Filt Rate > 60 mL/min (>60); Glucose 115 mg/dL (80-110); HEMOLYSIS < 15 (0-50); Magnesium 1.8 mg/dL (1.6-2.3); Potassium 3.5 mmol/L (3.4-5.1)
[2022-09-26 05:00] LABS: Sodium 119 mmol/L (137-145)
[2022-09-26 07:00] VITALS: BP 165/55; PULSE 62; RESP 17; TEMP 36.1; O2SAT 93
[2022-09-26] MEDS: SERTRALINE 50 MG TABLET PO (10:00)
[2022-09-26] MEDS: POTASSIUM CHLORIDE 20 MEQ TAB PO (10:00)
[2022-09-26] MEDS: METOPROLOL ER 50 MG TABLET PO (10:00)
[2022-09-26] MEDS: APIXABAN 5 MG TABLET PO ×2 (10:00→20:27)
[2022-09-26 11:00] VITALS: BP 121/56; PULSE 59; RESP 16; TEMP 36.6; O2SAT 98
[2022-09-26 11:13] LABS: BUN Creatinine Ratio 29.3 (6-22); Blood Urea Nitrogen 22 mg/dL (7-17); Calcium 8.3 mg/dL (8.4-10.2); Carbon Dioxide 21 mmol/L (22-32); Chloride 86 mmol/L (98-107); Estimated Glomerular Filt Rate > 60 mL/min (>60); Glucose 127 mg/dL (80-110); HEMOLYSIS < 15 (0-50); Potassium 3.9 mmol/L (3.4-5.1); Sodium 121 mmol/L (137-145)
--- NOTE | 2022-09-26 11:15 | PT.IPTN ---
Current Diagnoses Malignant neoplasm of unspecified site of right female breast (09/23/22) Malignant neoplasm of unspecified site of left female breast (09/23/22) Dorsalgia, unspecified (09/23/22) Age-related osteoporosis without current pathological fracture (09/23/22) Abnormal coagulation profile (09/23/22) Unspecified displaced fracture of second cervical vertebra, initial encounter for closed fracture (09/23/22) Personal history of other diseases of the circulatory system (09/23/22) Physical Therapy Treatment Note M2 PT-IP Current Condition Start: 09/24/22 14:12 Freq: NEEDED Status: Active Protocol: Document 09/24/22 11:25 AB (Rec: 09/24/22 14:25 AB [id number]) Physical Therapy Current Condition Current Condition Evaluation Date 09/24/22 Treatment Diagnosis s/p fall; Dens fx; hyponatremia; difficulty in walking Onset Date 09/23/22 M3 PT-IP Subjective Start: 09/24/22 14:12 Freq: NEEDED Status: Active Protocol: Document 09/26/22 11:15 AB (Rec: 09/26/22 12:46 AB [id number]) Subjective Physical Therapy Visit Type Type Treatment Note Visit Start Time 11:15 Visit Stop Time 11:41 Total Visit Minutes 26 Number of DRILL PRESS OPERATOR HELPER Visits 0 Physical Therapy Visit Comments Patient Comments agreeable to do PT M4 PT-IP Mobility and Gait Start: 09/24/22 14:12 Freq: NEEDED Status: Active Protocol: Document 09/26/22 11:15 AB (Rec: 09/26/22 12:46 AB [id number]) PT-Bed Mobility Assessment Rolling Level of Assist Minimal Assistance,1 Person Assistance Supine to Sit Supine to Sit Minimal Assistance,Bedrails PT-Transfer Assessment Sit to and From Stand Sit to and from Stand Moderate Assistance,1 Person Assistance,Use of Upper Extremities Equipment Transfer Assistive Device Gait Belt,Front Wheeled Walker Orthotic/Prosthetic Devices or Brace: Yes Transfers Transfer Destination Bedside Commode Transfer Technique Stand Step Pivot Transfer Ability Level of Assist Moderate Assistance,1 Person Assistance,Use of Upper Extremities Comments Mobility Comments pt requesting to use the toilet. completed log roll supine to sit Fan and max cues. able to sit on EOB CGA. completed sit to stand mod A and cues and step transfer to bedside commode using FWW mod . pt able to maintain standing mod A while assisted with brief management. pt ambulated towars the chair ~ 12 ft using FWW mod A and cues. presents with unsteady gait with decrease LE elevation and step length. pt agreed to sit up on the chair and requested to wash up a little. NAC informed. set up table for pt to wash up. call light placed next to pt to call for assistance when ready. Left pt in room with spouse. Gait Assessment Gait Gait Assistance Required: Moderate Assistance Distance (Feet) 12 Able to Maintain Weight Bearing Status Yes During Gait Assistive Devices Assistive Device Gait Belt,Front Wheeled Walker Gait Deviations General Gait Pattern Ataxic,Decreased Stride Length ,Decreased Feet Clearance,Step -to Gait Factors Limiting Gait Function Factors Limiting Gait Function Decreased Activity Tolerance, Decreased Strength,Limited Range of Motion,Poor Balance, Poor Safety Awareness M5 PT-IP Objective Assessments Start: 09/24/22 14:12 Freq: NEEDED Status: Active Protocol: Document 09/24/22 11:25 AB (Rec: 09/24/22 14:25 AB [id number]) Orientation Orientation/Cognition Level of Alertness Alert Orientation Name,Place,Situation Language Function Ability Hard of Hearing Safety Awareness Decreased Safety Awareness Memory Description 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,Halfway Impaired Gross Range of Motion Lower Extremity ROM Assessment Within Functional Limits Strength Lower Extremity Strength Assessment Bilaterally Impaired Hip 3+/5 Knee 3+/5 Sensation Assessment Sensation Sensation Description Numbness Comments Sensation Comments B feet neuropathy Muscle Tone Muscle Tone WNL Yes M6 PT-IP Treatment Start: 09/24/22 14:12 Freq: NEEDED Status: Active Protocol: Document 09/26/22 11:15 AB (Rec: 09/26/22 12:46 AB [id number]) Physical Therapy Treatment Education Education Provided Precautions,Safety M7 PT-IP Assessment and Plan Start: 09/24/22 14:12 Freq: NEEDED Status: Active Protocol: Document 09/26/22 11:15 AB (Rec: 09/26/22 12:46 AB [id number]) PT Summary Assessment and Plan Potential Rehabilitation Potential Good Summary Impairments Pain,ROM,Strength,Balance, Coordination,Sensation,Tone, Cognition,Bed Mobility, Transfers,Gait,Activity Tolerance Progress Towards Goals Slow Progress due to Medical Issues,Slow Progress due to Activity Tolerance,Slow Progress - Other Assessment Summary pt requiring mod A for ambulation using FWW mod a and cues. pt continues to present with decrease activity tolerance affecting functional independence. pt will benefit from SNF rehab. Goals Bed Mobility Goal Standby Assistance Transfer Goal Standby Assistance,Front Wheeled Walker Gait Goal Standby Assistance,Front Wheel Walker Gait Distance 100 Days to Meet Goals 10 Frequency of Treatment Frequency Of Treatment Once a Day Treatment Plan Physical Therapy Treatment Plan Bed Mobility Training,Transfer Training,Gait Training, Therapeutic Exercise,Balance Retraining,Post Op Education, Discharge Planning,Hot or Cold Pack,Neuromuscular Re-ed, Coordination Retraining,Manual Therapy Precautions Cervical Spine Precautions Rigid Collar,No Heavy Lifting, Log Roll Other Precautions falls Recommendations To Nursing Amount of Assist Needed 1 Person Assist Discharge Recommendations PT Discharge Recommendations Home with 29/03 Assist Available,Home Health,SNF Rehab,Home vs SNF Transportation Needs at Discharge Wheelchair/Cabulance
--- NOTE | 2022-09-26 11:36 | PC.NURSE ---
Addendum entered by Shawna Robins R.N. 09/26/22 15:43: Patient on contact precautions for gram + cocci in her urine. Addendum entered by Shawna Robins R.N. 09/26/22 14:52: Patient had a bed bath, and is now back to bed. She gets up with one person assist to use the bathroom or the bsc. S.O.in room and visiting. Patients blood sugar 126,127. Denies pain when asked. Original Note: Assess- Patient is awake and more alert. She knows that she is in the hospital and that she has fallen twice at home. She has a neck brace on as she fx her C2. This does not seem to be any issue for her and she denies pain. Up to the commode with 1pa, she has voided twice and we will be collecting a urine specimen. Significant other in the room and visiting.
[2022-09-26 12:04] LABS: Appearance Urine UA SL CLOUDY; Bilirubin Urine UA NEGATIVE (NEGATIVE); Color Urine UA LT. YELLOW; Glucose Urine UA 3+ g/dL (Negative); Ketones Urine UA 1+ (NEGATIVE); Leukocyte Esterase Urine UA NEGATIVE (NEGATIVE); Nitrite Urine UA NEGATIVE (Negative); Occult Blood Urine UA 2+ (Negative); Protein Urine UA NEGATIVE (Negative); Urobilinogen Urine UA 0.2 E.U./dL (0.2)
[2022-09-26 12:15] LABS: Bacteria Urine Many (>30); Culture Indicated Urine Specimen Cultured; RBC Urine 10-30/HPF (0-5/HPF); Squamous Epithelial Cell Urine 0-1 /HPF (0-5/HPF); WBC Urine 10-30/HPF (0-5/HPF)
--- NOTE | 2022-09-26 12:15 | P.PN_ITS ---
Subjective Subjective Date Patient Seen: 09/26/22 Interval history: No new complaints. Denies neck pain, arm or leg weakness. No chest pain or dyspnea. Exam Vital Signs (past 8 hours): - 09/26/22 07:00 Temperature 97 F L Pulse Rate 62 Respiratory Rate 17 Blood Pressure 165/55 H Pulse Oximetry 93 Oxygen Flow Rate 0 Oxygen Delivery Method Room Air Oxygen Flow Rate 0 Narrative Exam Narrative: GEN: no acute distress HEENT: moist mucous membranes, no JVD. Cervical collar in place. CV: RRR PULM: clear bilaterally ABD: soft, nontender, no organomegaly, nondistended EXT: trace bilateral LE edema NEURO: AAOx3, moving all extremities PSYCH: pleasant mood Objective Labs Result Diagrams: 09/26/22 04:30 09/26/22 10:51 Labs: Laboratory Results - last 24 hr 09/23/22 09/25/22 09/26/22 11:59 19:00 04:30 WBC 9.3 RBC 3.00 L Hgb 8.8 L Hct 26.1 L MCV 86.8 MCH 29.2 MCHC 33.6 RDW 14.9 H Plt Count 204 Neut % (Auto) 81.0 H Lymph % (Auto) 8.4 L [place] % (Auto) 8.9 Eos % (Auto) 1.3 L Baso % (Auto) 0.4 Neut # (Auto) 7600 H Lymph # (Auto) 800 L [place] # (Auto) 800 Eos # (Auto) 100 Baso # (Auto) 0 Sodium 118 L* Potassium 4.0 Chloride 84 L Carbon Dioxide 20 L BUN 25 H Creatinine 0.87 Estimated GFR > 60 BUN/Creatinine Ratio 28.7 H Glucose 176 H Calcium 7.9 L Magnesium Albumin 4.4 Globulin 3.0 Albumin/Globulin Ratio 1.5 Urine Color Urine Appearance Urine pH Ur Specific [place] Urine Protein Urine Glucose (UA) Urine Ketones Urine Occult Blood Urine Nitrate Urine Bilirubin Urine Urobilinogen Ur Leukocyte Esterase 09/26/22 09/26/22 09/26/22 04:30 10:51 12:01 WBC RBC Hgb Hct MCV MCH MCHC RDW Plt Count Neut % (Auto) Lymph % (Auto) [place] % (Auto) Eos % (Auto) Baso % (Auto) Neut # (Auto) Lymph # (Auto) [place] # (Auto) Eos # (Auto) Baso # (Auto) Sodium 119 L* 121 L Potassium 3.5 3.9 Chloride 86 L 86 L Carbon Dioxide 22 21 L BUN 22 H 22 H Creatinine 0.74 0.75 Estimated GFR > 60 > 60 BUN/Creatinine Ratio 29.7 H 29.3 H Glucose 115 H 127 H Calcium 7.7 L 8.3 L Magnesium 1.8 Albumin Globulin Albumin/Globulin Ratio Urine Color Lt. yellow Urine Appearance Sl cloudy Urine pH 8.0 Ur Specific [place] 1.010 Urine Protein Negative Urine Glucose (UA) 3+ H Urine Ketones 1+ H Urine Occult Blood 2+ H Urine Nitrate Negative Urine Bilirubin Negative Urine Urobilinogen 0.2 Ur Leukocyte Esterase Negative [facility] Social History household members: significant other Smoking Status: Never smoker alcohol intake: current Assessment & Plan Assessment & Plan narrative: 1. Hyponatremia, hypervolemic or possibly mixed volume status.? Present on admission and active -Sodium improving today after stopping diuresis and fluid administation. diuresis was increased without significant improvement. Fluids had no significant improvement. Stopped both therapies yesterday to reassess volume status. Repeat evaluation with urine sodium pending. UA with normal specific gravity. -sodium up to 121 after stopping fluids and diuretics. Favor possible SIADH, pending urine sodium at this time. -her current volume status after diuresis is currently unclear. 2. Anasarca, present on admission and improved - improved appearance after initial diuresis. Etiology unclear. 3. Odontoid fracture, present on admission and active -case was discussed with orthopedics, whom have signed off at this time.? Recommendations were for and a nonoperative approach with an [place] brace.? Out patient follow up recommended. 4. Chronic atrial fibrillation which is rate controlled since on admission and stable -continue current medications.? Anticoagulation resumed at this time. 5. DM2, present on admission and active. -Scontinue sliding scale insulin . 6. Asymptomatic bacteuria - follow up reflexed urine culture. Chronic stable medical problems include (present on admission): -bilateral breast cancer with a history of resection and radiation therapy. -dementia The patient is full resuscitation, surrogate is her her significant other However, The patient's son is power of managing attorney for healthcare decisions. Patient continues to require frequent monitoring of her BMP with hyponatremia. Continue telemetry as well. Probably will discharge home, timing in the next 2-3 days depending on progress with her hyponatremia. Patients updated labs, imaging, and documentation were reviewed. Discussed care and management with the patient and significant other at bedside today given mary lou cheatham's underlying cognitive impairment. DVT: on AC Time Spent With Patient Critical Care time: I spent a total of [] minutes of critical care time on this patient's care today; this time is exclusive of procedural time.
[2022-09-26 13:07] LABS: Sodium Urine Random 28 mmol/L (30-90)
[2022-09-26] MEDS: INSULIN LISPRO 100 UNIT/ML 3ML VIAL SUBCUT (17:09)
[2022-09-26 18:00] VITALS: BP 142/55; PULSE 62; RESP 16; TEMP 36; O2SAT 95
[2022-09-26] MEDS: ACETAMINOPHEN 325 MG TABLET 650 MG PO (18:03)
[2022-09-26 19:21] LABS: BUN Creatinine Ratio 25.3 (6-22); Blood Urea Nitrogen 23 mg/dL (7-17); Calcium 8.3 mg/dL (8.4-10.2); Carbon Dioxide 21 mmol/L (22-32); Chloride 87 mmol/L (98-107); Estimated Glomerular Filt Rate > 60 mL/min (>60); Glucose 168 mg/dL (80-110); HEMOLYSIS < 15 (0-50); Potassium 4.2 mmol/L (3.4-5.1)
[2022-09-26 19:25] LABS: Sodium 118 mmol/L (137-145)
[2022-09-26 19:30] VITALS: BP 127/52; PULSE 60; RESP 18; TEMP 36.5; O2SAT 95
[2022-09-26] MEDS: SENNOSIDES 8.6 MG TABLET 17.2 MG PO (20:27)
[2022-09-26] MEDS: MELATONIN 3 MG TABLET PO (20:27)
[2022-09-26] MEDS: ATORVASTATIN 20 MG TABLET 40 MG PO (20:27)
[2022-09-26] MEDS: SODIUM CHLORIDE 1,000 MG TABLET 1000 MG PO (20:27)
[2022-09-27] VITALS (7 sets, daily range): BP systolic 132–154; BP diastolic 57–75; PULSE 60–66; RESP 15–18; TEMP 35.9–36.7; O2SAT 93–96
[2022-09-27] MEDS: ACETAMINOPHEN 325 MG TABLET 650 MG PO ×4 (05:10→23:54)
[2022-09-27 05:59] LABS: Add Manual Diff / Slide Review NO; Basophils Absolute Auto 0 /uL (0-100); Basophils Percent Auto 0.4 % (0-2); Eosinophils Absolute Auto 200 /uL (0-450); Eosinophils Percent Auto 1.8 % (2-4); Hemoglobin 9.2 g/dL (12.0-16.0); Lymphocytes Absolute Auto 800 /uL (1100-4500); Lymphocytes Percent Auto 8.4 % (25-40); Mean Corpuscular HGB Conc 34.1 % (30-36); Mean Corpuscular Hemoglobin 29.4 PG (26-34); Mean Corpuscular Volume 86.1 fL (80-100); Monocytes Absolute Auto 700 /uL (0-900); Monocytes Percent Auto 7.4 % (3-14); Neutrophils Absolute Auto 8100 /uL (1500-7000); Platelet Count 231 X10^3/uL (150-400); Red Blood Cell Count 3.14 X10^6/uL (4.0-5.2); White Blood Cell Count 9.9 X10^3/uL (4.5-11.0)
[2022-09-27 06:03] LABS: BUN Creatinine Ratio 28.8 (6-22); Blood Urea Nitrogen 23 mg/dL (7-17); Calcium 8.6 mg/dL (8.4-10.2); Carbon Dioxide 21 mmol/L (22-32); Chloride 88 mmol/L (98-107); Estimated Glomerular Filt Rate > 60 mL/min (>60); Glucose 137 mg/dL (80-110); HEMOLYSIS < 15 (0-50); Potassium 4.2 mmol/L (3.4-5.1); Sodium 121 mmol/L (137-145)
[2022-09-27] MEDS: INSULIN LISPRO 100 UNIT/ML 3ML VIAL SUBCUT ×3 (08:25→17:14)
[2022-09-27] MEDS: SERTRALINE 50 MG TABLET PO (08:56)
[2022-09-27] MEDS: SODIUM CHLORIDE 1,000 MG TABLET 1000 MG PO ×3 (08:56→21:36)
[2022-09-27] MEDS: METOPROLOL ER 50 MG TABLET PO (08:56)
[2022-09-27] MEDS: APIXABAN 5 MG TABLET PO ×2 (08:57→21:36)
--- NOTE | 2022-09-27 11:46 | PT.IPTN ---
Current Diagnoses Malignant neoplasm of unspecified site of right female breast (09/23/22) Malignant neoplasm of unspecified site of left female breast (09/23/22) Dorsalgia, unspecified (09/23/22) Age-related osteoporosis without current pathological fracture (09/23/22) Abnormal coagulation profile (09/23/22) Unspecified displaced fracture of second cervical vertebra, initial encounter for closed fracture (09/23/22) Personal history of other diseases of the circulatory system (09/23/22) Physical Therapy Treatment Note M2 PT-IP Current Condition Start: 09/24/22 14:12 Freq: NEEDED Status: Active Protocol: Document 09/24/22 11:25 AB (Rec: 09/24/22 14:25 AB [id number]) Physical Therapy Current Condition Current Condition Evaluation Date 09/24/22 Treatment Diagnosis s/p fall; Dens fx; hyponatremia; difficulty in walking Onset Date 09/23/22 M3 PT-IP Subjective Start: 09/24/22 14:12 Freq: NEEDED Status: Active Protocol: Document 09/27/22 11:46 AW (Rec: 09/27/22 11:57 AW [id number]) Subjective Physical Therapy Visit Type Type Treatment Note Visit Start Time 11:17 Visit Stop Time 11:46 Total Visit Minutes 29 Notes Pt's spouse was present throughout. States he thinks he will be able to help pt at home as long as she is walking functional distances Number of [employer] PROFESSIONAL Visits 0 Physical Therapy Visit Comments Patient Comments agreeable to do PT Therapy Pain Assessment Pain When Pain Assessed During Mobility Pain Present Pain Present Denied Pain M4 PT-IP Mobility and Gait Start: 09/24/22 14:12 Freq: NEEDED Status: Active Protocol: Document 09/27/22 11:46 AW (Rec: 09/27/22 11:57 AW [id number]) PT-Bed Mobility Assessment Rolling Level of Assist Standby Assistance Supine to Sit Supine to Sit Minimal Assistance,Bedrails PT-Transfer Assessment Sit to and From Stand Sit to and from Stand Contact Guard Assistance, Minimal Assistance,1 Person Assistance,Use of Upper Extremities Equipment Transfer Assistive Device Gait Belt,Front Wheeled Walker Orthotic/Prosthetic Devices or Brace: Yes Transfers Transfer Destination Chair,Toilet Transfer Technique ambulated with FWW Transfer Ability Level of Assist Minimal Assistance,1 Person Assistance,Use of Upper Extremities Comments Mobility Comments Pt was lying in bed as PT arrived. She rolled to her left SBA and needed min A for SL to sit. She sat EOB with UE support and needed CGA to stand. She walked 15 feet into the bathroom and needed min A and cues for safe transfer to the toilet. She needed assist to manage her briefs but performed pericare independently. Min A to stand from the toilet with cues to use the grab bar. Pt had lateral LOB in initial standing. Min A to recover. Pt verbalized awareness that she is having balance problems. She walked with FWW to the sink CGA. She stood with CGA balance support for oral care and washing her face with washcloth (setup assist required). Pt agreed to walk further. She needed assist and cues to back up from the sink with FWW and then CGA to walk 100 feet with FWW. On return to the room, she sat on the chair where she was left with call light and tray table in reach. Her spouse remained in [facility] Gait Assessment Gait Gait Assistance Required: Contact Guard Assist,Minimum Assistance,1 Person Assist Distance (Feet) 100 Assistive Devices Assistive Device Gait Belt,Front Wheeled Walker Orthotic/Prosthetic Devices or Brace: Yes Gait Deviations General Gait Pattern Decreased Stride Length, Decreased Feet Clearance, Flexed Trunk Factors Limiting Gait Function Factors Limiting Gait Function Decreased Activity Tolerance, Decreased Strength,Limited Range of Motion,Poor Balance, Poor Safety Awareness Comments Gait Comments See mobility comments. PT-Balance Assessment Sitting Balance and Reactions Static Sitting Balance Ability Good Dynamic Sitting Balance Ability Good Standing Balance and Reactions Static Standing Balance Ability Fair Dynamic Standing Balance Ability Fair Device Used FWW M5 PT-IP Objective Assessments Start: 09/24/22 14:12 Freq: NEEDED Status: Active Protocol: Document 09/24/22 11:25 AB (Rec: 09/24/22 14:25 AB [id number]) Orientation Orientation/Cognition Level of Alertness Alert Orientation Name,Place,Situation Language Function Ability Hard of Hearing Safety Awareness Decreased Safety Awareness Memory Description 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,Mcc Impaired Gross Range of Motion Lower Extremity ROM Assessment Within Functional Limits Strength Lower Extremity Strength Assessment Bilaterally Impaired Hip 3+/5 Knee 3+/5 Sensation Assessment Sensation Sensation Description Numbness Comments Sensation Comments B feet neuropathy Muscle Tone Muscle Tone WNL Yes M6 PT-IP Treatment Start: 09/24/22 14:12 Freq: NEEDED Status: Active Protocol: Document 09/27/22 11:46 AW (Rec: 09/27/22 11:57 AW [id number]) Physical Therapy Treatment Education Education Provided Precautions,Safety Other Treatments Other Treatment Performed Educated pt and her spouse on need for CGA during mobility at all times. Spouse understood and agreed. M7 PT-IP Assessment and Plan Start: 09/24/22 14:12 Freq: NEEDED Status: Active Protocol: Document 09/27/22 11:46 AW (Rec: 09/27/22 11:57 AW [id number]) PT Summary Assessment and Plan Potential Rehabilitation Potential Good Summary Impairments Pain,ROM,Strength,Balance, Coordination,Sensation,Tone, Cognition,Bed Mobility, Transfers,Gait,Activity Tolerance Progress Towards Goals Progressing Toward Goals,Slow Progress due to Medical Issues ,Slow Progress - Other Assessment Summary Ca has improved activity tolerance today. She was able to ambulate 100 feet with FWW but did require CGA/min A at all times due to balance impairment. Discussed with pt' s spouse who feels he can provide appropriate level of assist at home as long as pt able to ambulate household distances. Will further train spouse at next session. Goals Bed Mobility Goal Standby Assistance Transfer Goal Standby Assistance,Front Wheeled Walker Gait Goal Standby Assistance,Front Wheel Walker Gait Distance 100 Days to Meet Goals 10 Frequency of Treatment Frequency Of Treatment Once a Day Treatment Plan Physical Therapy Treatment Plan Bed Mobility Training,Transfer Training,Gait Training, Therapeutic Exercise,Balance Retraining,Post Op Education, Discharge Planning,Hot or Cold Pack,Neuromuscular Re-ed, Coordination Retraining,Manual Therapy Precautions Cervical Spine Precautions Rigid Collar,No Heavy Lifting, Log Roll Other Precautions falls Recommendations To Nursing Amount of Assist Needed Standby Assistance Discharge Recommendations PT Discharge Recommendations Home with 29/03 Assist Available,Home Health,SNF Rehab,Home vs SNF Transportation Needs at Discharge Private Vehicle,Wheelchair/ Cabulance
--- NOTE | 2022-09-27 12:23 | P.PN_ITS ---
Subjective Subjective Date Patient Seen: 09/27/22 Interval history: No new complaints. Denies neck pain, arm or leg weakness. No chest pain or dyspnea. No fever chills nausea vomiting or diaphoresis. However generally the patient says that she does not feel like herself. She feels ill. Exam Vital Signs (past 8 hours): - 09/27/22 05:39 09/27/22 08:43 09/27/22 08:56 Temperature 97.6 F 96.8 F L Pulse Rate 60 60 60 Respiratory Rate 17 16 Blood Pressure 148/74 H 142/61 H 142/61 H Pulse Oximetry 96 96 Oxygen Delivery Method Oxygen Flow Rate 0 0 09/27/22 07:45 Temperature Pulse Rate Respiratory Rate Blood Pressure Pulse Oximetry Oxygen Delivery Method Room Air Oxygen Flow Rate Oxygen Delivery Method Room Air Oxygen Flow Rate 0 Narrative Exam Narrative: GEN: no acute distress HEENT: moist mucous membranes, no JVD. Cervical collar in place. CV: RRR PULM: clear bilaterally ABD: soft, nontender, no organomegaly, nondistended EXT: trace bilateral LE edema NEURO: AAOx3, moving all extremities PSYCH: pleasant mood Objective Labs Result Diagrams: 09/27/22 04:49 09/27/22 04:49 Labs: Laboratory Results - last 24 hr 09/26/22 09/26/22 09/27/22 12:01 17:00 04:49 WBC 9.9 RBC 3.14 L Hgb 9.2 L Hct 27.0 L MCV 86.1 MCH 29.4 MCHC 34.1 RDW 15.0 H Plt Count 231 Neut % (Auto) 82.0 H Lymph % (Auto) 8.4 L [place] % (Auto) 7.4 Eos % (Auto) 1.8 L Baso % (Auto) 0.4 Neut # (Auto) 8100 H Lymph # (Auto) 800 L [place] # (Auto) 700 Eos # (Auto) 200 Baso # (Auto) 0 Sodium 118 L* Potassium 4.2 Chloride 87 L Carbon Dioxide 21 L BUN 23 H Creatinine 0.91 Estimated GFR > 60 BUN/Creatinine Ratio 25.3 H Glucose 168 H Calcium 8.3 L Magnesium Ur Random Sodium 28 L 09/27/22 04:49 WBC RBC Hgb Hct MCV MCH MCHC RDW Plt Count Neut % (Auto) Lymph % (Auto) [place] % (Auto) Eos % (Auto) Baso % (Auto) Neut # (Auto) Lymph # (Auto) [place] # (Auto) Eos # (Auto) Baso # (Auto) Sodium 121 L Potassium 4.2 Chloride 88 L Carbon Dioxide 21 L BUN 23 H Creatinine 0.80 Estimated GFR > 60 BUN/Creatinine Ratio 28.8 H Glucose 137 H Calcium 8.6 Magnesium 2.0 Ur Random Sodium [facility] Social History household members: significant other Smoking Status: Never smoker alcohol intake: current Assessment & Plan Assessment & Plan narrative: 1. Hyponatremia, hypervolemic or possibly mixed volume status.? Present on admission and active -Sodium improving today after stopping diuresis and fluid administation. diuresis was increased without significant improvement. Fluids had no significant improvement. Stopped both therapies yesterday to reassess volume status. Repeat evaluation with urine sodium pending. UA with normal specific gravity. -sodium up to 121 after stopping fluids and diuretics. Favor possible SIADH, pending urine sodium at this time. Sodium dipped last night to 118 but backup 121 this morning, continue to follow -her current volume status after diuresis is currently unclear. Elevated BUN consistent with mild dehydration 2. Anasarca, present on admission and improved ?- improved appearance after initial diuresis. Etiology unclear. Will assess albumin. 3. Odontoid fracture, present on admission and active - orthopedics have signed off at this time.? Recommendations were for an nonoperative approach with an [place] brace.? Outpatient follow up recommended. 4. Chronic atrial fibrillation which is rate controlled since on admission and stable -continue current medications.? Anticoagulation resumed at this time. 5. DM2, present on admission and active. -Scontinue sliding scale insulin . 6. Bacteuria with now positive urine culture. ?- Positive for Streptococcus viridans. Ceftriaxone. Follow patient clinical ly. Chronic stable medical problems include (present on admission): -bilateral breast cancer with a history of resection and radiation therapy. -dementia The patient is full resuscitation, surrogate is her her significant other However, The patient's son is power of erisa attorney for healthcare decisions. Patient continues to require frequent monitoring of her BMP with hyponatremia. Continue telemetry as well. Probably will discharge home, timing in the next 2-3 days depending on progress with her hyponatremia and treatment of urinary tract infection. Patients updated labs, imaging, and documentation were reviewed. Discussed care and management with the patient and significant other at bedside today given patient's underlying cognitive impairment. DVT: on AC -apixaban. Code status:The patient is full resuscitation, has significant other.? The patient's son is power of erisa attorney for healthcare decisions. Time Spent With Patient Critical Care time: I spent a total of [] minutes of critical care time on this patient's care today; this time is exclusive of procedural time.
[2022-09-27] MEDS: cefTRIAXone 1,000 MG in SODIUM CHLORIDE 0.9% 100 ML 200 MG IV (14:49)
[2022-09-27] MEDS: BISACODYL 5 MG TABLET 10 MG PO (15:54)
[2022-09-27] MEDS: MELATONIN 3 MG TABLET PO (21:36)
[2022-09-27] MEDS: ATORVASTATIN 20 MG TABLET 40 MG PO (21:36)
[2022-09-27] MEDS: SENNOSIDES 8.6 MG TABLET 17.2 MG PO (21:36)
[2022-09-27] MEDS: SODIUM CHLORIDE 0.9% FLUSH 10 ML IV (21:37)
[2022-09-28] VITALS (8 sets, daily range): BP systolic 146–158; BP diastolic 59–67; PULSE 60–64; RESP 16–18; TEMP 35.9–36.6; O2SAT 94–99
[2022-09-28 05:49] LABS: Add Manual Diff / Slide Review NO; Basophils Absolute Auto 100 /uL (0-100); Basophils Percent Auto 0.6 % (0-2); Eosinophils Absolute Auto 200 /uL (0-450); Eosinophils Percent Auto 2.3 % (2-4); Hematocrit 28.1 % (36-46); Hemoglobin 9.7 g/dL (12.0-16.0); Lymphocytes Absolute Auto 800 /uL (1100-4500); Lymphocytes Percent Auto 9.4 % (25-40); Mean Corpuscular HGB Conc 34.6 % (30-36); Mean Corpuscular Hemoglobin 29.8 PG (26-34); Mean Corpuscular Volume 86.3 fL (80-100); Monocytes Absolute Auto 600 /uL (0-900); Monocytes Percent Auto 6.8 % (3-14); Neutrophils Absolute Auto 7100 /uL (1500-7000); Neutrophils Percent Auto 80.9 % (50-75); Platelet Count 224 X10^3/uL (150-400); Red Blood Cell Count 3.26 X10^6/uL (4.0-5.2); Red Cell Distribution Width 15.1 % (11.6-14.8); White Blood Cell Count 8.8 X10^3/uL (4.5-11.0)
[2022-09-28 06:01] LABS: Alanine Aminotransferase 44 IU/L (<35); Albumin 3.8 g/dL (3.5-5.0); Albumin Globulin Ratio 1.4 (1.0-2.8); Alkaline Phosphatase 136 U/L (38-126); Aspartate Aminotransferase 61 IU/L (14-36); BUN Creatinine Ratio 30.4 (6-22); Bilirubin Total 1.4 mg/dL (0.2-1.3); Blood Urea Nitrogen 21 mg/dL (7-17); C-Reactive Protein Quant 1.7 mg/dL (<1.0); Calcium 8.5 mg/dL (8.4-10.2); Carbon Dioxide 18 mmol/L (22-32); Chloride 88 mmol/L (98-107); Estimated Glomerular Filt Rate > 60 mL/min (>60); Globulin 2.8 g/dL (1.7-4.1); Glucose 117 mg/dL (80-110); HEMOLYSIS < 15 (0-50); Potassium 4.1 mmol/L (3.4-5.1); Total Protein 6.6 g/dL (6.3-8.2)
[2022-09-28 06:07] LABS: Sodium 118 mmol/L (137-145)
[2022-09-28 06:11] LABS: Magnesium 1.9 mg/dL (1.6-2.3)
[2022-09-28] MEDS: METOPROLOL ER 50 MG TABLET PO (09:36)
[2022-09-28] MEDS: APIXABAN 5 MG TABLET PO ×2 (09:36→20:26)
[2022-09-28] MEDS: SODIUM CHLORIDE 0.9% FLUSH 10 ML IV ×2 (09:37→20:28)
[2022-09-28] MEDS: SODIUM CHLORIDE 1,000 MG TABLET 2000 MG PO ×3 (09:37→20:26)
[2022-09-28] MEDS: SERTRALINE 50 MG TABLET PO (09:37)
[2022-09-28] MEDS: ACETAMINOPHEN 325 MG TABLET 650 MG PO ×2 (11:12→18:35)
--- NOTE | 2022-09-28 12:01 | OT.IPNOTE ---
Attempted to see pt for OT services. Pt just returned to bed after being up in the chair this AM. Pt requesting help with repositioning. Assisted with turning onto her side and pillow placement. Pt left supine in bed. Will check back to see if pt is up for therapy later.
[2022-09-28] MEDS: cefTRIAXone 1,000 MG in SODIUM CHLORIDE 0.9% 100 ML 200 MG IV (12:23)
[2022-09-28] MEDS: INSULIN LISPRO 100 UNIT/ML 3ML VIAL SUBCUT ×3 (12:26→20:37)
--- NOTE | 2022-09-28 12:39 | OT.IP.TRT ---
Current Diagnoses Malignant neoplasm of unspecified site of right female breast (09/23/22) Malignant neoplasm of unspecified site of left female breast (09/23/22) Dorsalgia, unspecified (09/23/22) Age-related osteoporosis without current pathological fracture (09/23/22) Abnormal coagulation profile (09/23/22) Unspecified displaced fracture of second cervical vertebra, initial encounter for closed fracture (09/23/22) Personal history of other diseases of the circulatory system (09/23/22) Occupational Therapy Treatment Note M2 OT-IP Current Condition Start: 09/24/22 14:20 Freq: Status: Active Protocol: Document 09/24/22 09:48 CCC (Rec: 09/24/22 18:14 CCC [id number]) Occupational Therapy Current Condition Current Condition Evaluation Date 09/24/22 Treatment Diagnosis Closed dens FX Diagnosis Onset Date 09/23/22 Post Operative Precautions Cervical Spine Precautions Rigid Collar,No Heavy Lifting, Log Roll Other Precautions Pt to have the [place] collar for 2 weeks. M3 OT- IP Subjective and Pain Start: 09/24/22 14:20 Freq: Status: Active Protocol: Document 09/28/22 12:39 CGR (Rec: 09/28/22 12:51 CGR [id number]) OT- Subjective Occupational Therapy Visit Type Type Progress Note Visit Start Time 12:27 Visit Stop Time 12:39 Total Visit Minutes 12 Notes Pt sitting on BSC when OT entered OT Pain Assessment Pain When Pain Assessed At Rest Pain Present Pain Present Pain Reported Location low back Intensity 7 Scale Used Numeric (0 - 10) Management Techniques Distraction,Modification of Treatment,Re-positioning, Timing of Activity with Medications M4 OT- IP ADL's Start: 09/24/22 14:20 Freq: Status: Active Protocol: Document 09/28/22 12:39 CGR (Rec: 09/28/22 12:51 CGR [id number]) OT [id number] General Evaluation Self-Feeding Ability Minimal Assistance Areas Needing Assistance Cutting Food Comments OT Self-Feeding Comments This insurance underwriter assisted pt with cutting up chicken. OT ADL-Grooming Comments OT Grooming Comments pt declined OT ADL-Oral Care Comments Oral Care Comments pt declined OT ADL-Dressing Comments OT Dressing Comments not performed OT ADL-Toileting General Evaluation Toileting Ability Maximum Assistance Areas Needing Assistance Manage Clothing,Perform Perineal Hygiene Comments OT Toileting Comments Pt performed front pericare and initially told this insurance underwriter that she had only urinated. However, upon standing pt had had a BM and needed assist with back pericare and pulling up breif. OT ADL-Bathing Comments OT Bathing Comments not performed. M5 OT- IP IADL's Start: 09/24/22 14:20 Freq: Status: Active Protocol: Document 09/24/22 09:48 [facility] (Rec: 09/24/22 18:14 [facility] [id number]) OT-Instrumental Activities of Daily Living Deficits IADL Deficits Identified Deficits Home Safety Awareness Home Safety Comments Pt decreased safety awareness and if going home will need 24 /7 asisst for all needs. Pt having difficulty with her STM as well. Medication Management Medication Management Comments Pt will need assist. Money Management Money Management Comments Pt will need assist. Meal Preparation Meal Preparation Comments Pt will need assist. Lens Edge Grinder Machine Lens Edge Grinder Machine Comments Pt will need assist. M6 OT- IP Functional Cognition Start: 09/24/22 14:20 Freq: Status: Active Protocol: Document 09/28/22 12:39 CGR (Rec: 09/28/22 12:51 CGR [id number]) Cognitive Factors Limiting Selfcare Function Cognitive Ability Level of Alertness Alert,Confusional State Patient Orientation Name Attention Span Ability Unable to Sustain Attention Ability to Follow Commands Able to Follow One Step Commands with Increased Time, Able to Follow One Step Commands with Repetition Cognitive Comments Cognitive Assessment Comments Pt appears to by slightly confused. Pt would benefit from formal cog assessment. M7 OT- IP Mobility and Balance Start: 09/24/22 14:20 Freq: Status: Active Protocol: Document 09/28/22 12:39 CGR (Rec: 09/28/22 12:51 CGR [id number]) OT-Transfer Assessment Sit to and From Stand Sit to and from Stand Minimal Assistance Transfers Transfer Ability Minimal Assistance Technique Transfer Destination Bedside Commode,Chair Transfer Technique Stand Step Pivot Devices Transfer Assistive Devices Gait Belt,Front Wheeled Walker Comments Mobility Comments Pt ambulated ~3 feet to the chair. Pt declined other activity as her lunch was present. OT- Balance Assessment Sitting Balance and Reactions Static Sitting Balance Ability Good M8 OT- IP Objective Assessments Start: 09/24/22 14:20 Freq: Status: Active Protocol: Document 09/24/22 09:48 [facility] (Rec: 09/24/22 18:14 CCC [id number]) OT Gross Range of Motion Upper Extremity Range of Motion Assessment Bilaterally Impaired OT Strength Upper Extremity Strength Assessment Bilaterally Impaired Shoulder 3- Elbow 4- OT- Coordination Assessment Comments Coordination Comments Increased time for finger to nose M9 OT- IP Assessment and Plan Start: 09/24/22 14:20 Freq: Status: Active Protocol: Document 09/28/22 12:39 CGR (Rec: 09/28/22 12:51 CGR [id number]) OT Summary Assessment and Plan Potential Rehabilitation Potential Good Analytic Complexity at Evaluation Moderate Summary OT Impairments Pain,Strength,Balance, Functional Cognition, Functional Mobility,Self- Feeding,Grooming,Dressing, Toileting,Bathing,Toilet Transfers,Shower Transfers, Activity Tolerance Progress Towards Goals Progressing Toward Goals,Slow Progress due to Cognition Assessment Summary Pt appears confused in todays session but performs all mobility with min a. Pt needed assist with toileting and then was set up for lunch. Pt left sitting up in chair, call button within reach and all needs at time met. Chair fall alarm armed. Goals Self-Feeding Goal Independent Grooming Goal Independent Toileting Goal Minimal Assistance Bathing Goal Minimal Assistance Toilet Transfer Goal Standby Assistance Shower Transfer Goal Minimal Assistance Days to Meet Goals 5 Frequency of Treatment Frequency Of Treatment Once a Day Treatment Plan OT Treatment Plan ADL Training,Functional Cognition Training,Functional Mobility,Patient/Family Education,Discharge Planning Other Treatment Recommendations and Next LB dressing/shower Treatment Focus Discharge Recommendations OT Discharge Recommendations Home with 29/03 Assist Available,Home Health Transportation Needs at Discharge Private Vehicle
[2022-09-28] MEDS: LIDOCAINE PATCH 1 EACH ADH..PATCH TOP (15:40)
--- NOTE | 2022-09-28 15:48 | PM.PN.1 ---
Subjective Subjective Date Patient Seen: 09/28/22 Interval history: No new complaints. Denies neck pain, arm or leg weakness. No chest pain or dyspnea.? No fever chills nausea vomiting or diaphoresis.? Patient feels better than yesterday and is eager to set up an Ensure and watch TV. Exam Vital Signs (past 8 hours): - 09/28/22 08:00 09/28/22 09:36 09/28/22 12:00 Temperature 96.8 F L 97 F L Pulse Rate 61 61 60 Respiratory Rate 16 16 Blood Pressure 149/59 H 149/59 H 149/59 H Pulse Oximetry 97 96 Oxygen Flow Rate 0 0 09/28/22 11:00 Temperature Pulse Rate 60 Respiratory Rate Blood Pressure 149/59 H Pulse Oximetry Oxygen Flow Rate Oxygen Delivery Method Room Air Oxygen Flow Rate 0 Narrative Exam Narrative: GEN: no acute distress HEENT: moist mucous membranes, no JVD. Cervical collar in place. Neck: Wearing hard collar CV: RRR PULM: clear bilaterally ABD: soft, nontender, no organomegaly, nondistended EXT: trace bilateral LE edema NEURO: AAOx3, moving all extremities PSYCH: pleasant mood Objective Labs Result Diagrams: 09/28/22 04:52 09/28/22 04:52 Labs: Laboratory Results - last 24 hr 09/28/22 09/28/22 09/28/22 04:52 04:52 04:52 WBC 8.8 RBC 3.26 L Hgb 9.7 L Hct 28.1 L MCV 86.3 MCH 29.8 MCHC 34.6 RDW 15.1 H Plt Count 224 Neut % (Auto) 80.9 H Lymph % (Auto) 9.4 L [place] % (Auto) 6.8 Eos % (Auto) 2.3 Baso % (Auto) 0.6 Neut # (Auto) 7100 H Lymph # (Auto) 800 L [place] # (Auto) 600 Eos # (Auto) 200 Baso # (Auto) 100 Sodium Cancelled 118 L* Potassium Cancelled 4.1 Chloride Cancelled 88 L Carbon Dioxide Cancelled 18 L BUN Cancelled 21 H Creatinine Cancelled 0.69 Estimated GFR Cancelled > 60 BUN/Creatinine Ratio Cancelled 30.4 H Glucose Cancelled 117 H Calcium Cancelled 8.5 Magnesium 1.9 Total Bilirubin 1.4 H AST 61 H ALT 44 H Alkaline Phosphatase 136 H C-Reactive Protein 1.7 H Total Protein 6.6 Albumin 3.8 Globulin 2.8 Albumin/Globulin Ratio 1.4 [facility] Social History household members: significant other Smoking Status: Never smoker alcohol intake: current Assessment & Plan Assessment & Plan narrative: 1. Hyponatremia, hypervolemic or possibly mixed volume status.? Present on admission and active -Fluids had no significant improvement. Repeat evaluation with urine sodium random was low at 28. UA with normal specific gravity. 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 Sodium seems to isolate between 118 and 121. We will increase the sodium chloride replacement to 2 g p.o. t.i.d. with meals. Continue to monitor sodium. - Elevated BUN consistent with mild dehydration which basically means that she is consistent with fluid restrictions. 2. Anasarca, present on admission and improved ?- improved appearance after initial diuresis. Etiology unclear.? Albumin is normal. 3. Odontoid fracture, present on admission and active - orthopedics have signed off at this time.? Recommendations were for an nonoperative approach with an [place] brace.? Outpatient follow up recommended. 4. Chronic atrial fibrillation which is rate controlled since on admission and stable -continue current medications.? Anticoagulation resumed at this time. 5. DM2, present on admission and active. -continue sliding scale insulin . 6. Bacteuria with now positive urine culture. ?- Positive for Streptococcus viridans.? Ceftriaxone.? Follow patient clinically. 7. Chronic stable medical problems include (present on admission): -bilateral breast cancer with a history of resection and radiation therapy. -dementia The patient is full resuscitation, surrogate is her her significant other However, The patient's son is power of trade mark attorney for healthcare decisions. Patient continues to require frequent monitoring of her BMP with hyponatremia. Continue telemetry as well. Probably will discharge home, timing in the next 2-3 days depending on progress with her hyponatremia and treatment of urinary tract infection. Patients updated labs, imaging, and documentation were reviewed. Discussed care and management with the patient and significant other at bedside today given patient's underlying cognitive impairment. DVT: on AC -apixaban. Code status:The patient is full resuscitation, has significant other.? The patient's son is power of trade mark attorney for healthcare decisions. Time Spent With Patient Critical Care time: I spent a total of [] minutes of critical care time on this patient's care today; this time is exclusive of procedural time.
--- NOTE | 2022-09-28 16:08 | PT-IP ANOTE ---
Checked on pt this afternoon. She was just returning from the toilet with RN. Pt politely refused further mobility, stating she was too fatigued for more activity. She agreed for PT to check again in the morning.
[2022-09-28 16:18] LABS: Osmolality Urine 480 mOsmol/kg (.)
[2022-09-28] MEDS: MELATONIN 3 MG TABLET PO (20:25)
[2022-09-28] MEDS: ATORVASTATIN 20 MG TABLET 40 MG PO (20:26)
[2022-09-28] MEDS: SENNOSIDES 8.6 MG TABLET 17.2 MG PO (20:26)
[2022-09-28] MEDS: OXYCODONE IR 5 MG TABLET PO (20:47)
[2022-09-29 00:29] VITALS: BP 135/65; PULSE 61; RESP 18; TEMP 36.3; O2SAT 97
[2022-09-29 04:36] VITALS: BP 133/61; PULSE 60; RESP 18; TEMP 36.4; O2SAT 95
[2022-09-29 05:33] LABS: Add Manual Diff / Slide Review NO; Basophils Absolute Auto 100 /uL (0-100); Basophils Percent Auto 0.7 % (0-2); Eosinophils Absolute Auto 200 /uL (0-450); Eosinophils Percent Auto 2.3 % (2-4); Hemoglobin 9.1 g/dL (12.0-16.0); Lymphocytes Absolute Auto 900 /uL (1100-4500); Lymphocytes Percent Auto 11.6 % (25-40); Mean Corpuscular Hemoglobin 30.1 PG (26-34); Monocytes Absolute Auto 700 /uL (0-900); Monocytes Percent Auto 8.5 % (3-14); Neutrophils Absolute Auto 6000 /uL (1500-7000); Neutrophils Percent Auto 76.9 % (50-75); Platelet Count 217 X10^3/uL (150-400); Red Blood Cell Count 3.03 X10^6/uL (4.0-5.2); Red Cell Distribution Width 15.7 % (11.6-14.8); White Blood Cell Count 7.8 X10^3/uL (4.5-11.0)
[2022-09-29 05:43] LABS: BUN Creatinine Ratio 26.5 (6-22); Blood Urea Nitrogen 18 mg/dL (7-17); Calcium 8.4 mg/dL (8.4-10.2); Carbon Dioxide 21 mmol/L (22-32); Chloride 91 mmol/L (98-107); Estimated Glomerular Filt Rate > 60 mL/min (>60); Glucose 128 mg/dL (80-110); HEMOLYSIS < 15 (0-50); Potassium 4.1 mmol/L (3.4-5.1); Sodium 122 mmol/L (137-145)
[2022-09-29 08:40] VITALS: BP 123/52; PULSE 60; RESP 16; TEMP 36.4; O2SAT 95
[2022-09-29] MEDS: METOPROLOL ER 50 MG TABLET PO (09:14)
[2022-09-29] MEDS: LIDOCAINE PATCH 1 EACH ADH..PATCH TOP (09:14)
[2022-09-29] MEDS: SODIUM CHLORIDE 1,000 MG TABLET 2000 MG PO ×3 (09:14→21:08)
[2022-09-29] MEDS: SERTRALINE 50 MG TABLET PO (09:14)
[2022-09-29] MEDS: APIXABAN 5 MG TABLET PO ×2 (09:14→21:05)
[2022-09-29] MEDS: OXYCODONE IR 5 MG TABLET PO ×2 (09:19→13:27)
[2022-09-29] MEDS: SODIUM CHLORIDE 0.9% FLUSH 10 ML IV ×2 (09:21→21:07)
--- NOTE | 2022-09-29 11:31 | PT.IPTN ---
Current Diagnoses Malignant neoplasm of unspecified site of right female breast (09/23/22) Malignant neoplasm of unspecified site of left female breast (09/23/22) Dorsalgia, unspecified (09/23/22) Age-related osteoporosis without current pathological fracture (09/23/22) Abnormal coagulation profile (09/23/22) Unspecified displaced fracture of second cervical vertebra, initial encounter for closed fracture (09/23/22) Personal history of other diseases of the circulatory system (09/23/22) Physical Therapy Treatment Note M2 PT-IP Current Condition Start: 09/24/22 14:12 Freq: NEEDED Status: Active Protocol: Document 09/24/22 11:25 AB (Rec: 09/24/22 14:25 AB [id number]) Physical Therapy Current Condition Current Condition Evaluation Date 09/24/22 Treatment Diagnosis s/p fall; Dens fx; hyponatremia; difficulty in walking Onset Date 09/23/22 M3 PT-IP Subjective Start: 09/24/22 14:12 Freq: NEEDED Status: Active Protocol: Document 09/29/22 11:31 AB (Rec: 09/29/22 13:12 AB [id number]) Subjective Physical Therapy Visit Type Type Treatment Note Visit Start Time 11:31 Visit Stop Time 11:55 Total Visit Minutes 24 Number of RESIDENTIAL HOUSEKEEPER Visits 0 Physical Therapy Visit Comments Patient Comments requested to use the toilet M4 PT-IP Mobility and Gait Start: 09/24/22 14:12 Freq: NEEDED Status: Active Protocol: Document 09/29/22 11:31 AB (Rec: 09/29/22 13:12 AB [id number]) PT-Transfer Assessment Sit to and From Stand Sit to and from Stand Maximum Assistance,1 Person Assistance,Use of Upper Extremities Equipment Transfer Assistive Device Gait Belt,Front Wheeled Walker Orthotic/Prosthetic Devices or Brace: Yes Transfers Transfer Destination Toilet Transfer Technique ambulated Transfer Ability Level of Assist Maximum Assistance,1 Person Assistance,Use of Upper Extremities Comments Mobility Comments Checked on pt x2. first attempt, pt unable to wake up. checked back on pt on 2nd attempt and able to open her eyes but with difficulty following directions. spouse in room with pt and stated that pt has to use the toilet and pt nodded her head. pt sitting on the chair. and completed sit to stand x 3 attempts requiring max A and max cues. ambulated to the toilet using FWW max A and max cues. mod to max A for standing balance using FWW while assisted with hygiene care and brief management. completed sit to stand from the toilet using grab bar max A and ambulated out of the toilet using FWW max A 30 ft and sat back on the chair. positioned on the chair. call light and table placed within reach. Gait Assessment Gait Gait Assistance Required: Maximum Assistance,1 Person Assist Distance (Feet) 30 Able to Maintain Weight Bearing Status Yes During Gait Assistive Devices Assistive Device Gait Belt,Front Wheeled Walker Orthotic/Prosthetic Devices or Brace: Yes Gait Deviations General Gait Pattern Ataxic,Decreased Stride Length ,Decreased Feet Clearance,Step -to Gait M5 PT-IP Objective Assessments Start: 09/24/22 14:12 Freq: NEEDED Status: Active Protocol: Document 09/24/22 11:25 AB (Rec: 09/24/22 14:25 AB [id number]) Orientation Orientation/Cognition Level of Alertness Alert Orientation Name,Place,Situation Language Function Ability Hard of Hearing Safety Awareness Decreased Safety Awareness Memory Description 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,Luster Applicator Impaired Gross Range of Motion Lower Extremity ROM Assessment Within Functional Limits Strength Lower Extremity Strength Assessment Bilaterally Impaired Hip 3+/5 Knee 3+/5 Sensation Assessment Sensation Sensation Description Numbness Comments Sensation Comments B feet neuropathy Muscle Tone Muscle Tone WNL Yes M6 PT-IP Treatment Start: 09/24/22 14:12 Freq: NEEDED Status: Active Protocol: Document 09/29/22 11:31 AB (Rec: 09/29/22 13:12 AB [id number]) Physical Therapy Treatment Education Education Provided Precautions,Safety M7 PT-IP Assessment and Plan Start: 09/24/22 14:12 Freq: NEEDED Status: Active Protocol: Document 09/29/22 11:31 AB (Rec: 09/29/22 13:12 AB [id number]) PT Summary Assessment and Plan Potential Rehabilitation Potential Fair Summary Impairments Pain,ROM,Strength,Balance, Coordination,Sensation,Tone, Cognition,Bed Mobility, Transfers,Gait,Activity Tolerance Progress Towards Goals Slow Progress due to Medical Issues,Slow Progress due to Activity Tolerance,Slow Progress - Other Assessment Summary pt requiring max A and max cues with all tasks today. pt is drowsy and needing max cues for directions and afety. pt was improving with mobility but today, needing more assistance likely due to level of alertness. pt continues to have decrease sodium level also affecting endurance. will continue to assess progress but at this time, pt will require SNF rehab to improve stregnth and functional independence. Goals Bed Mobility Goal Standby Assistance Transfer Goal Standby Assistance,Front Wheeled Walker Gait Goal Standby Assistance,Front Wheel Walker Gait Distance 100 Days to Meet Goals 10 Frequency of Treatment Frequency Of Treatment Once a Day Treatment Plan Physical Therapy Treatment Plan Bed Mobility Training,Transfer Training,Gait Training, Therapeutic Exercise,Balance Retraining,Discharge Planning, Hot or Cold Pack,Neuromuscular Re-ed,Coordination Retraining ,Manual Therapy Precautions Cervical Spine Precautions Rigid Collar,No Heavy Lifting, Log Roll Other Precautions falls Recommendations To Nursing Amount of Assist Needed 1 Person Assist Discharge Recommendations PT Discharge Recommendations Home with 29/03 Assist Available,Home Health,SNF Rehab,Home vs SNF Transportation Needs at Discharge Private Vehicle,Wheelchair/ Cabulance
[2022-09-29 12:01] VITALS: BP 124/56; PULSE 60; RESP 16; TEMP 35.9; O2SAT 98
--- NOTE | 2022-09-29 12:45 | OT.IP.TRT ---
Current Diagnoses Malignant neoplasm of unspecified site of right female breast (09/23/22) Malignant neoplasm of unspecified site of left female breast (09/23/22) Dorsalgia, unspecified (09/23/22) Age-related osteoporosis without current pathological fracture (09/23/22) Abnormal coagulation profile (09/23/22) Unspecified displaced fracture of second cervical vertebra, initial encounter for closed fracture (09/23/22) Personal history of other diseases of the circulatory system (09/23/22) Occupational Therapy Treatment Note M2 OT-IP Current Condition Start: 09/24/22 14:20 Freq: Status: Active Protocol: Document 09/24/22 09:48 [facility] (Rec: 09/24/22 18:14 [facility] [id number]) Occupational Therapy Current Condition Current Condition Evaluation Date 09/24/22 Treatment Diagnosis Closed dens FX Diagnosis Onset Date 09/23/22 Post Operative Precautions Cervical Spine Precautions Rigid Collar,No Heavy Lifting, Log Roll Other Precautions Pt to have the [place] collar for 2 weeks. M3 OT- IP Subjective and Pain Start: 09/24/22 14:20 Freq: Status: Active Protocol: Document 09/29/22 12:51 [facility] (Rec: 09/29/22 13:01 [facility] [id number]) OT- Subjective Occupational Therapy Visit Type Type Treatment Note Visit Start Time 12:01 Visit Stop Time 12:45 Total Visit Minutes 44 Occupational Therapy Visit Comments Patient Comments Pt needing encouragement and then agreed to get up for brush her teeth and use the bathroom. Pt's Life partner , Adelfo present for caregiver training. Patient/Caregiver Goals TO go home. OT Pain Assessment Pain When Pain Assessed At Rest Pain Present Pain Present Denied Pain M4 OT- IP ADL's Start: 09/24/22 14:20 Freq: Status: Active Protocol: Document 09/29/22 12:51 [facility] (Rec: 09/29/22 13:01 [facility] [id number]) OT [id number] Comments OT Self-Feeding Comments Not at meal time. OT ADL-Grooming General Evaluation Grooming Ability Standby Assistance Areas Needing Assistance Retrieving/Set-up of Grooming Items Comments OT Grooming Comments Able to so while standing at the sink with FWW. OT ADL-Oral Care General Eval Oral Care Ability Independent OT ADL-Dressing Comments OT Dressing Comments not performed OT ADL-Toileting General Evaluation Toileting Ability Maximum Assistance Areas Needing Assistance Manage Clothing,Perform Perineal Hygiene Comments OT Toileting Comments Pt needing assist for completeness to wipe and to help [place]/doff the brief. BSC recommended to help pt come to stand easier. OT ADL-Bathing Comments OT Bathing Comments not performed. Pt will benefit from a shower chair with armrests and home health bath aid. M5 OT- IP IADL's Start: 09/24/22 14:20 Freq: Status: Active Protocol: Document 09/24/22 09:48 [facility] (Rec: 09/24/22 18:14 [facility] [id number]) OT-Instrumental Activities of Daily Living Deficits IADL Deficits Identified Deficits Home Safety Awareness Home Safety Comments Pt decreased safety awareness and if going home will need assist for all needs. Pt having difficulty with her STM as well. Medication Management Medication Management Comments Pt will need assist. Money Management Money Management Comments Pt will need assist. Meal Preparation Meal Preparation Comments Pt will need assist. Meter Attendant Meter Attendant Comments Pt will need assist. M6 OT- IP Functional Cognition Start: 09/24/22 14:20 Freq: Status: Active Protocol: Document 09/29/22 12:51 [facility] (Rec: 09/29/22 13:01 [facility] [id number]) Cognitive Factors Limiting Selfcare Function Cognitive Ability Level of Alertness Alert,Confusional State Patient Orientation Name Attention Span Ability Capable of Focused Attention, Capable of Sustained Attention Ability to Follow Commands Able to Follow One Step Commands with Increased Time, Able to Follow One Step Commands with Repetition Memory Description 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 Cognitive Comments Cognitive Assessment Comments Pt able to follow commands and needing prompts to sequence through ADl needs. VC for hand placement to push up from seated surface when coming to stand. M7 OT- IP Mobility and Balance Start: 09/24/22 14:20 Freq: Status: Active Protocol: Document 09/29/22 12:51 [facility] (Rec: 09/29/22 13:01 [facility] [id number]) OT-Transfer Assessment Sit to and From Stand Sit to and from Stand Moderate Assistance,Maximum Assistance Transfers Transfer Ability Contact Guard Assistance Technique Transfer Destination Chair,Toilet Devices Transfer Assistive Devices Gait Belt,Front Wheeled Walker Comments Mobility Comments MOD/MAXA to stand from lower surfaces and Adelfo able to assist. Suggested to have higher surfaces at home so easier to come to stand. OT- Balance Assessment Sitting Balance and Reactions Static Sitting Balance Ability Good Dynamic Sitting Balance Ability Fair Standing Balance and Reactions Static Standing Balance Ability Fair Dynamic Standing Balance Ability Fair M8 OT- IP Objective Assessments Start: 09/24/22 14:20 Freq: Status: Active Protocol: Document 09/24/22 09:48 [facility] (Rec: 09/24/22 18:14 [facility] [id number]) OT Gross Range of Motion Upper Extremity Range of Motion Assessment Bilaterally Impaired OT Strength Upper Extremity Strength Assessment Bilaterally Impaired Shoulder 3- Elbow 4- OT- Coordination Assessment Comments Coordination Comments Increased time for finger to nose M9 OT- IP Assessment and Plan Start: 09/24/22 14:20 Freq: Status: Active Protocol: Document 09/29/22 12:51 [facility] (Rec: 09/29/22 13:01 [facility] [id number]) OT Summary Assessment and Plan Potential Rehabilitation Potential Good Analytic Complexity at Evaluation Moderate Summary OT Impairments Pain,Strength,Balance, Functional Cognition, Functional Mobility,Self- Feeding,Grooming,Dressing, Toileting,Bathing,Toilet Transfers,Shower Transfers, Activity Tolerance Progress Towards Goals Progressing Toward Goals,Slow Progress due to Cognition Assessment Summary Pt's LIfe Partner able to partake in Caregiver training for transfers and ADl needs. Pt will benefit from getting a wc, BSC, and shower chair with arms for home use. When medically stable pt to go home with 24/7 assist and home health. Goals Self-Feeding Goal Independent Dressing Goal Standby Assistance Toileting Goal Minimal Assistance Bathing Goal Moderate Assistance Toilet Transfer Goal Standby Assistance Shower Transfer Goal Minimal Assistance Days to Meet Goals 5 Frequency of Treatment Frequency Of Treatment Once a Day Treatment Plan OT Treatment Plan ADL Training,Functional Cognition Training,Functional Mobility,Patient/Family Education,Discharge Planning Other Treatment Recommendations and Next LB dressing/shower Treatment Focus Discharge Recommendations OT Discharge Recommendations Home with 24/7 Assist Available,Home Health Transportation Needs at Discharge Private Vehicle
[2022-09-29] MEDS: INSULIN LISPRO 100 UNIT/ML 3ML VIAL SUBCUT ×3 (13:24→21:06)
[2022-09-29] MEDS: cefTRIAXone 1,000 MG in SODIUM CHLORIDE 0.9% 100 ML 200 MG IV (13:26)
[2022-09-29] MEDS: ACETAMINOPHEN 325 MG TABLET 650 MG PO ×2 (13:27→17:23)
--- NOTE | 2022-09-29 14:03 | P.PN_ITS ---
Subjective Subjective Interval history: Patient feeling better and has not had have any new symptoms. Informed her that her urine is positive for bacteria and that we can transition her over to oral medication. Also informed her that her sodium level is increasing and that is something that still needs to be followed. To ensure stability, it would be reasonable that the patient stays in the hospital 1 more day to ensure her sodium either stays stable or increases on her current regimen. Exam Vital Signs (past 8 hours): - 09/29/22 08:40 09/29/22 07:45 09/29/22 12:01 Temperature 97.5 F L 96.7 F L Pulse Rate 60 60 Respiratory Rate 16 16 Blood Pressure 123/52 L 124/56 L Pulse Oximetry 95 98 Oxygen Delivery Method Room Air Oxygen Flow Rate 0 0 Oxygen Delivery Method Room Air Oxygen Flow Rate 0 Narrative Exam Narrative: GEN: no acute distress HEENT: moist mucous membranes, no JVD. Cervical collar in place. Neck:? Wearing hard collar CV: RRR PULM: clear bilaterally ABD: soft, nontender, no organomegaly, nondistended EXT: trace bilateral LE edema NEURO: AAOx3, moving all extremities PSYCH: pleasant mood Objective Labs 09/29/22 05:14 09/29/22 05:14 Labs: Laboratory Results - last 24 hr 09/27/22 09/29/22 09/29/22 08:30 05:14 05:14 WBC 7.8 RBC 3.03 L Hgb 9.1 L Hct 26.0 L MCV 86.0 MCH 30.1 MCHC 35.0 RDW 15.7 H Plt Count 217 Neut % (Auto) 76.9 H Lymph % (Auto) 11.6 L [place] % (Auto) 8.5 Eos % (Auto) 2.3 Baso % (Auto) 0.7 Neut # (Auto) 6000 Lymph # (Auto) 900 L [place] # (Auto) 700 Eos # (Auto) 200 Baso # (Auto) 100 Sodium 122 L Potassium 4.1 Chloride 91 L Carbon Dioxide 21 L BUN 18 H Creatinine 0.68 Estimated GFR > 60 BUN/Creatinine Ratio 26.5 H Glucose 128 H Calcium 8.4 Urine Osmolality 480 PFSH Social History household members: significant other Smoking Status: Never smoker alcohol intake: current Assessment & Plan Assessment & Plan narrative: 1. Hyponatremia, hypervolemic or possibly mixed volume status.? Present on admission and active -Fluids had no significant improvement. Repeat evaluation with urine sodium random was low at 28. UA with normal specific gravity. 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 Sodium seems to isolate between 118 and 121 initially.? With increase the sodium chloride replacement to 2 g p.o. t.i.d. with meals this has benefitted her sodium level.? Today is 122 however it was too low for discharge. Continue current replacement. Continue to monitor sodium. - Elevated BUN consistent with mild dehydration which basically means that she is consistent with fluid restrictions. 2. Anasarca, present on admission and improved ?- improved appearance after diuresis. Etiology unclear.? Albumin is normal. 3. Odontoid fracture, present on admission and active - orthopedics have signed off at this time.? Recommendations were for an nonoperative approach with an [place] brace.? Outpatient follow up recommended. 4. Chronic atrial fibrillation which is rate controlled since on admission and stable -continue current medications.? Anticoagulation resumed at this time. 5. DM2, present on admission and active. -continue sliding scale insulin . 6. Bacteuria with now positive urine culture. ?- Positive for Streptococcus viridans.? Ceftriaxone initially for 3 days and now has been transitioned to amoxicillin. Follow patient clinically. 7. Chronic stable medical problems include (present on admission): -bilateral breast cancer with a history of resection and radiation therapy. -dementia The patient is full resuscitation, surrogate is her her significant other However, The patient's son is power of manager of transportation for healthcare decisions. Patient continues to require frequent monitoring of her BMP with hyponatremia. Probably will discharge home, timing in the next day or so depending on progress with her hyponatremia and treatment of urinary tract infection. Patients updated labs, imaging, and documentation were reviewed. Discussed care and management with the patient and significant other at bedside today given patient's underlying cognitive impairment. DVT: on AC -apixaban. Code status:The patient is full resuscitation, has significant other.? The patient's son is power of manager of transportation for healthcare decisions. Time Spent With Patient Critical Care time: I spent a total of [] minutes of critical care time on this patient's care today; this time is exclusive of procedural time.
--- NOTE | 2022-09-29 15:28 | CM.DPC ---
CM Discharge Plan Continued 09/29/2022 Case discussed in rounds and per MD the patient is not medically stable for discharge at this time. [facility] staff called for update and informed that pt does not have an identified discharge date at this time. Plan: CM continues to follow closely. Angelika Solorzano, MANE, DIRECTOR OF OUTSIDE SALES
[2022-09-29 16:00] VITALS: BP 115/53; PULSE 60; RESP 17; TEMP 36.1; O2SAT 97
[2022-09-29 20:00] VITALS: BP 129/56; PULSE 60; RESP 17; TEMP 36.4; O2SAT 98
[2022-09-29] MEDS: ATORVASTATIN 20 MG TABLET 40 MG PO (21:05)
[2022-09-29] MEDS: MELATONIN 3 MG TABLET PO (21:06)
[2022-09-30] VITALS (7 sets, daily range): BP systolic 128–155; BP diastolic 49–68; PULSE 60–100; RESP 14–18; TEMP 35.7–36.7; O2SAT 95–98
--- NOTE | 2022-09-30 08:45 | DIET.CONS ---
Dietary Consultation Note Admission Date: 09/23/2022 14:42 Assessment: RD consulted to provide Fluid Restriction diet education for 82y pt with short term memory loss and hyponatremia (118). RD met with pt and spouse at bedside, pt unable to meaningfully participate. Provided education and worksheet on Fluid Restriction Diet at 1500mL level per hospitalist. Reviewed spacing fluids throughout day, measuring fluids and what foods also count as fluids. Pt spouse appreciative of education. All questions answered. Ht: 167.64 cm Wt: 67.5 kg BMI: 24.0 Last BM: 09/28/22 (09/28/22 19:15) MNA: 12 Gigi Score: 18 Diet: 09/23/22 Dinner Carbohydrate Consistent Diet Diet Modifications: Carbohydrate level: Medium (3 CHO) Bedtime snack: No Nutrition Percent Meal Consumed 100% 09/29/22 18:00 Percent Meal Consumed 50% 09/29/22 14:06 Percent Meal Consumed 75% 09/29/22 09:26 Labs: RBC 3.03 X10^6/uL (4.0-5.2) L 09/29/22 05:14 Hgb 9.1 g/dL (12.0-16.0) L 09/29/22 05:14 Hct 26.0 % (36-46) L 09/29/22 05:14 Creatinine 0.68 mg/dL (0.52-1.04) 09/29/22 05:14 Electronically Signed by: Bettye Smith 09/30/22 08:45 Clinical Dietitian [address] [address]
--- NOTE | 2022-09-30 09:06 | PM.PN.1 ---
Subjective Subjective Date Patient Seen: 09/30/22 Interval history: Patient sleepy today. Otherwise has no complaints. Requesting something less strong than oxycodone. at bedside and questions were answered. Exam Vital Signs (past 8 hours): - 09/30/22 05:38 09/30/22 08:02 Temperature 97.3 F L 97.7 F Pulse Rate 60 60 Respiratory Rate 18 16 Blood Pressure 155/60 H 155/68 H Pulse Oximetry 97 97 Oxygen Flow Rate 0 0 Oxygen Delivery Method Room Air Oxygen Flow Rate 0 Narrative Exam Narrative: GEN: no acute distress, sleepy HEENT: moist mucous membranes, no JVD. Cervical collar in place. Neck:? Wearing hard collar CV: RRR PULM: clear bilaterally ABD: soft, nontender, no organomegaly, nondistended EXT: trace bilateral LE edema NEURO: AAOx3, moving all extremities PSYCH: pleasant mood Objective Labs 09/29/22 05:14 09/29/22 05:14 [facility] Social History household members: significant other Smoking Status: Never smoker alcohol intake: current Assessment & Plan Assessment & Plan narrative: 1. Hyponatremia, hypervolemic or possibly mixed volume status.? Present on admission and active -Fluids had no significant improvement. Repeat evaluation with urine sodium random was low at 28. UA with normal specific gravity. 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 Sodium seems to isolate between 118 and 121 initially.? With increase the sodium chloride replacement to 2 g p.o. t.i.d. with meals this has benefitted her sodium level.? Today is 122 however it was too low for discharge. Continue current replacement. Continue to monitor sodium. - Elevated BUN consistent with mild dehydration which basically means that she is consistent with fluid restrictions. -still at 122 on 09/30 2. Anasarca, present on admission and improved ?- improved appearance after diuresis. Etiology unclear.? Albumin is normal. 3. Odontoid fracture, present on admission and active - orthopedics have signed off at this time.? Recommendations were for an nonoperative approach with an [place] brace for 3 months.? Outpatient follow up recommended. 4. Chronic atrial fibrillation which is rate controlled since on admission and stable -continue current medications.? Anticoagulation resumed at this time. 5. DM2, present on admission and active. -continue sliding scale insulin . 6. Bacteuria with now positive urine culture. ?- Positive for Streptococcus viridans.? Ceftriaxone initially for 3 days and now has been transitioned to amoxicillin. Follow patient clinically. 7. Chronic stable medical problems include (present on admission): -bilateral breast cancer with a history of resection and radiation therapy. -dementia DVT: on AC -apixaban. Code status:The patient is full resuscitation, has significant other.? The patient's son is power of marketing finance manager for healthcare decisions. Dispo: Home once sodium >125. Time Spent With Patient Critical Care time: I spent a total of [] minutes of critical care time on this patient's care today; this time is exclusive of procedural time.
[2022-09-30] MEDS: INSULIN LISPRO 100 UNIT/ML 3ML VIAL SUBCUT ×3 (09:14→16:55)
[2022-09-30] MEDS: AMOXICILLIN 250 MG CAPSULE 500 MG PO ×3 (09:15→21:32)
[2022-09-30] MEDS: LIDOCAINE PATCH 1 EACH ADH..PATCH TOP (09:15)
[2022-09-30] MEDS: SODIUM CHLORIDE 1,000 MG TABLET 2000 MG PO ×3 (09:15→21:30)
[2022-09-30] MEDS: METOPROLOL ER 50 MG TABLET PO (09:15)
[2022-09-30] MEDS: APIXABAN 5 MG TABLET PO ×2 (09:15→21:32)
[2022-09-30] MEDS: SERTRALINE 50 MG TABLET PO (09:15)
[2022-09-30] MEDS: SODIUM CHLORIDE 0.9% FLUSH 10 ML IV ×2 (09:16→21:43)
[2022-09-30 10:01] LABS: BUN Creatinine Ratio 18.8 (6-22); Blood Urea Nitrogen 15 mg/dL (7-17); Calcium 8.3 mg/dL (8.4-10.2); Carbon Dioxide 22 mmol/L (22-32); Chloride 91 mmol/L (98-107); Estimated Glomerular Filt Rate > 60 mL/min (>60); Glucose 180 mg/dL (80-110); HEMOLYSIS < 15 (0-50); Potassium 4.7 mmol/L (3.4-5.1); Sodium 122 mmol/L (137-145)
[2022-09-30] MEDS: AMLODIPINE 5 MG TABLET 10 MG PO (10:57)
[2022-09-30] MEDS: FUROSEMIDE 20 MG TABLET PO (10:58)
[2022-09-30] MEDS: SPIRONOLACTONE 25 MG TABLET PO (10:58)
[2022-09-30] MEDS: LOSARTAN 50 MG TABLET PO (10:58)
[2022-09-30] MEDS: INSULIN GLARGINE 100 UNIT/ML 3ML PEN 13 UNIT SUBCUT (11:00)
--- NOTE | 2022-09-30 11:31 | CM.DPNOTE ---
Discharge Planning Note: Met with patient in room, sitting up in bed with neck brace on. A/O, pleasant with some dementia. Noted that sodium this morning is still low which is a barrier for discharge. Plan: When medically cleared, return home with significant Other Adelfo and Usha JARQUIN. When discharge summary available, fax to Usha. Patricia Galindo RN/RYANP
--- NOTE | 2022-09-30 11:40 | PT.IPTN ---
Current Diagnoses Malignant neoplasm of unspecified site of right female breast (09/23/22) Malignant neoplasm of unspecified site of left female breast (09/23/22) Dorsalgia, unspecified (09/23/22) Age-related osteoporosis without current pathological fracture (09/23/22) Abnormal coagulation profile (09/23/22) Unspecified displaced fracture of second cervical vertebra, initial encounter for closed fracture (09/23/22) Personal history of other diseases of the circulatory system (09/23/22) Physical Therapy Treatment Note M2 PT-IP Current Condition Start: 09/24/22 14:12 Freq: NEEDED Status: Active Protocol: Document 09/24/22 11:25 AB (Rec: 09/24/22 14:25 AB [id number]) Physical Therapy Current Condition Current Condition Evaluation Date 09/24/22 Treatment Diagnosis s/p fall; Dens fx; hyponatremia; difficulty in walking Onset Date 09/23/22 M3 PT-IP Subjective Start: 09/24/22 14:12 Freq: NEEDED Status: Active Protocol: Document 09/30/22 11:17 MICHI (Rec: 09/30/22 11:40 LJ [id number]) Subjective Physical Therapy Visit Type Type Treatment Note Visit Start Time 10:45 Visit Stop Time 11:17 Total Visit Minutes 32 Notes Pt sitting on BSC with nursing in atttendance Number of LEAD PROJECT MANAGER Visits 1 Physical Therapy Visit Comments Patient Comments agreeable to do PT Therapy Pain Assessment Pain When Pain Assessed During Mobility Pain Present Pain Present Denied Pain M4 PT-IP Mobility and Gait Start: 09/24/22 14:12 Freq: NEEDED Status: Active Protocol: Document 09/30/22 11:17 MICHI (Rec: 09/30/22 11:40 LJ [id number]) PT-Transfer Assessment Sit to and From Stand Sit to and from Stand Minimal Assistance,1 Person Assistance,Use of Upper Extremities Equipment Transfer Assistive Device Gait Belt,Front Wheeled Walker Orthotic/Prosthetic Devices or Brace: Yes Transfers Transfer Destination Chair Transfer Technique ambulated Transfer Ability Level of Assist Minimal Assistance,1 Person Assistance,Use of Upper Extremities Comments Mobility Comments Pt sitting on BSC upon arrival . After nursing performed pericare, pt cued to push from arm rests on commode to assist in standing. Pt moves slowly and needs cueing for standing fully upright. Pt stood for several seconds due to reporting dizziness upon standing. Once pt stated she wasn't feeling dizzy anymore she ambulated to the sink and requested to brush her teeth. She was able to stand unassisted for several minutes brushing her teeth and not leaning on or holding onto the sink. No LOB or swaying. Pt then ambulated in the hallway ~100' CGA provided by with cues for posture and proximity to the FWW. Pt returned to room and sat in chair with cues to reach back to lower self down. Pt insttructed to scoot back in chair by lifting her bottom. She had difficulty pushing off chair but was able to lift bottom enough to scoot back. Unable to come to complete standing. Pt was given all needs within reach and chair alarm was placed on her. , Adelfo was in room with pt. Gait Assessment Gait Gait Assistance Required: Contact Guard Assist,1 Person Assist Distance (Feet) 100 Able to Maintain Weight Bearing Status Yes During Gait Assistive Devices Assistive Device Gait Belt,Front Wheeled Walker Orthotic/Prosthetic Devices or Brace: Yes Gait Deviations General Gait Pattern Decreased Stride Length, Decreased Feet Clearance, Flexed Trunk Factors Limiting Gait Function Factors Limiting Gait Function Decreased Activity Tolerance, Decreased Strength,Limited Range of Motion,Poor Balance, Poor Safety Awareness Comments Gait Comments See mobility comments. M5 PT-IP Objective Assessments Start: 09/24/22 14:12 Freq: NEEDED Status: Active Protocol: Document 09/24/22 11:25 AB (Rec: 09/24/22 14:25 AB [id number]) Orientation Orientation/Cognition Level of Alertness Alert Orientation Name,Place,Situation Language Function Ability Hard of Hearing Safety Awareness Decreased Safety Awareness Memory Description 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,Finisher Hand Impaired Gross Range of Motion Lower Extremity ROM Assessment Within Functional Limits Strength Lower Extremity Strength Assessment Bilaterally Impaired Hip 3+/5 Knee 3+/5 Sensation Assessment Sensation Sensation Description Numbness Comments Sensation Comments B feet neuropathy Muscle Tone Muscle Tone WNL Yes M6 PT-IP Treatment Start: 09/24/22 14:12 Freq: NEEDED Status: Active Protocol: Document 09/30/22 11:17 LJ (Rec: 09/30/22 11:40 LJ [id number]) Physical Therapy Treatment Education Education Provided Precautions,Safety M7 PT-IP Assessment and Plan Start: 09/24/22 14:12 Freq: NEEDED Status: Active Protocol: Document 09/30/22 11:17 LJ (Rec: 09/30/22 11:40 LJ [id number]) PT Summary Assessment and Plan Potential Rehabilitation Potential Fair Summary Impairments Pain,ROM,Strength,Balance, Coordination,Sensation,Tone, Cognition,Bed Mobility, Transfers,Gait,Activity Tolerance Progress Towards Goals Progressing Toward Goals Assessment Summary Pts mobility improved as demonstrated by less assist needed for transfers and gait training. Static standing balance at sink showed improvement with no assistance required for several minutes. Spouse is able to assist pt with ambulation providing CGA at all times. Pt is returning to baseline other than using FFWW according to . Will continue to assess but recomment home with 24/7 assist vs SNF at this time if medically stable. Goals Bed Mobility Goal Standby Assistance Transfer Goal Standby Assistance,Front Wheeled Walker Gait Goal Standby Assistance,Front Wheel Walker Gait Distance 100 Days to Meet Goals 10 Frequency of Treatment Frequency Of Treatment Once a Day Treatment Plan Physical Therapy Treatment Plan Bed Mobility Training,Transfer Training,Gait Training, Therapeutic Exercise,Balance Retraining,Discharge Planning, Hot or Cold Pack,Neuromuscular Re-ed,Coordination Retraining ,Manual Therapy Other Recommendations and Next Treatment progress gait distance as Focus tolerated Precautions Cervical Spine Precautions Rigid Collar,No Heavy Lifting, Log Roll Other Precautions falls Recommendations To Nursing Amount of Assist Needed 1 Person Assist Discharge Recommendations PT Discharge Recommendations Home with 24/7 Assist Available,Home Health,Home vs SNF Transportation Needs at Discharge Private Vehicle,Wheelchair/ Cabulance
[2022-09-30] MEDS: ACETAMINOPHEN 325 MG TABLET 650 MG PO ×2 (13:07→16:55)
--- NOTE | 2022-09-30 14:32 | OT.IP.TRT ---
Current Diagnoses Malignant neoplasm of unspecified site of right female breast (09/23/22) Malignant neoplasm of unspecified site of left female breast (09/23/22) Dorsalgia, unspecified (09/23/22) Age-related osteoporosis without current pathological fracture (09/23/22) Abnormal coagulation profile (09/23/22) Unspecified displaced fracture of second cervical vertebra, initial encounter for closed fracture (09/23/22) Personal history of other diseases of the circulatory system (09/23/22) Occupational Therapy Treatment Note M2 OT-IP Current Condition Start: 09/24/22 14:20 Freq: Status: Active Protocol: Document 09/24/22 09:48 [facility] (Rec: 09/24/22 18:14 [facility] [id number]) Occupational Therapy Current Condition Current Condition Evaluation Date 09/24/22 Treatment Diagnosis Closed dens FX Diagnosis Onset Date 09/23/22 Post Operative Precautions Cervical Spine Precautions Rigid Collar,No Heavy Lifting, Log Roll Other Precautions Pt to have the [place] collar for 2 weeks. M3 OT- IP Subjective and Pain Start: 09/24/22 14:20 Freq: Status: Active Protocol: Document 09/30/22 14:31 [facility] (Rec: 09/30/22 14:38 [facility] [id number]) OT- Subjective Occupational Therapy Visit Type Type Treatment Note Visit Start Time 14:03 Visit Stop Time 14:32 Total Visit Minutes 29 Occupational Therapy Visit Comments Patient Comments Pt wanting to use the bathroom but not wanting to shower today. Patient/Caregiver Goals TO go home. OT Pain Assessment Pain When Pain Assessed At Rest Pain Present Pain Present Denied Pain M4 OT- IP ADL's Start: 09/24/22 14:20 Freq: Status: Active Protocol: Document 09/30/22 14:31 [facility] (Rec: 09/30/22 14:38 [facility] [id number]) OT [id number] Comments OT Self-Feeding Comments Not at meal time. OT ADL-Grooming Comments OT Grooming Comments Able to so while standing at the sink with FWW. OT ADL-Dressing General Eval Lower Body Dressing Ability Moderate Assistance Comments OT Dressing Comments Pt's Life Partner able to assist pt for brief management needs. OT ADL-Toileting General Evaluation Toileting Ability Maximum Assistance Areas Needing Assistance Manage Clothing Comments OT Toileting Comments Pt able to wipe after unrinating and needing assist for brief management needs. OT ADL-Bathing Comments OT Bathing Comments Pt promised to shower tomorrow during OT session tomorrow. M5 OT- IP IADL's Start: 09/24/22 14:20 Freq: Status: Active Protocol: Document 09/24/22 09:48 [facility] (Rec: 09/24/22 18:14 [facility] [id number]) OT-Instrumental Activities of Daily Living Deficits IADL Deficits Identified Deficits Home Safety Awareness Home Safety Comments Pt decreased safety awareness and if going home will need 24 /7 asisst for all needs. Pt having difficulty with her STM as well. Medication Management Medication Management Comments Pt will need assist. Money Management Money Management Comments Pt will need assist. Meal Preparation Meal Preparation Comments Pt will need assist. Garment Sorter Garment Sorter Comments Pt will need assist. M6 OT- IP Functional Cognition Start: 09/24/22 14:20 Freq: Status: Active Protocol: Document 09/30/22 14:31 [facility] (Rec: 09/30/22 14:38 [facility] [id number]) Cognitive Factors Limiting Selfcare Function Cognitive Comments Cognitive Assessment Comments Pt needing safety cue to had the FWW in front of her and to make sure to push up with her hands on surfaces when coming to stand. M7 OT- IP Mobility and Balance Start: 09/24/22 14:20 Freq: Status: Active Protocol: Document 09/30/22 14:31 [facility] (Rec: 09/30/22 14:38 [facility] [id number]) OT-Transfer Assessment Sit to and From Stand Sit to and from Stand Moderate Assistance,Maximum Assistance Transfers Transfer Ability Contact Guard Assistance Technique Transfer Destination Chair,Toilet Devices Transfer Assistive Devices Gait Belt,Front Wheeled Walker Comments Mobility Comments Adelfo able to assist pt from BERRY to MAX A to stand and CGA with FWW. Adelfo able to show good safety for transfer needs . OT- Balance Assessment Sitting Balance and Reactions Static Sitting Balance Ability Good Dynamic Sitting Balance Ability Fair Standing Balance and Reactions Static Standing Balance Ability Fair Dynamic Standing Balance Ability Fair M8 OT- IP Objective Assessments Start: 09/24/22 14:20 Freq: Status: Active Protocol: Document 09/24/22 09:48 [facility] (Rec: 09/24/22 18:14 [facility] [id number]) OT Gross Range of Motion Upper Extremity Range of Motion Assessment Bilaterally Impaired OT Strength Upper Extremity Strength Assessment Bilaterally Impaired Shoulder 3- Elbow 4- OT- Coordination Assessment Comments Coordination Comments Increased time for finger to nose M9 OT- IP Assessment and Plan Start: 09/24/22 14:20 Freq: Status: Active Protocol: Document 09/30/22 14:31 [facility] (Rec: 09/30/22 14:38 [facility] [id number]) OT Summary Assessment and Plan Potential Rehabilitation Potential Good Analytic Complexity at Evaluation Moderate Summary OT Impairments Pain,Strength,Balance, Functional Cognition, Functional Mobility,Self- Feeding,Grooming,Dressing, Toileting,Bathing,Toilet Transfers,Shower Transfers, Activity Tolerance Progress Towards Goals Progressing Toward Goals,Slow Progress due to Cognition Assessment Summary Pt's caregiver able to assist pt to the toilet, sink and back to the recliner with FWW with good safety and understanding. Pt to go home with 24/7 assist and home health when medically stable. Goals Self-Feeding Goal Independent Dressing Goal Standby Assistance Toileting Goal Minimal Assistance Bathing Goal Moderate Assistance Toilet Transfer Goal Standby Assistance Shower Transfer Goal Minimal Assistance Days to Meet Goals 7 Frequency of Treatment Frequency Of Treatment Once a Day Treatment Plan OT Treatment Plan ADL Training,Functional Cognition Training,Functional Mobility,Patient/Family Education,Discharge Planning Other Treatment Recommendations and Next LB dressing/shower Treatment Focus Discharge Recommendations OT Discharge Recommendations Home with 24/7 Assist Available,Home Health Transportation Needs at Discharge Private Vehicle
[2022-09-30] MEDS: ATORVASTATIN 20 MG TABLET 40 MG PO (21:30)
[2022-09-30] MEDS: SENNOSIDES 8.6 MG TABLET 17.2 MG PO (21:31)
[2022-09-30] MEDS: MELATONIN 3 MG TABLET PO (21:31)
[2022-10-01 00:09] VITALS: BP 148/61; PULSE 60; RESP 14; TEMP 36; O2SAT 94
[2022-10-01 04:05] VITALS: BP 149/60; PULSE 63; RESP 17; TEMP 35.8; O2SAT 96
[2022-10-01 06:37] LABS: BUN Creatinine Ratio 21.4 (6-22); Blood Urea Nitrogen 15 mg/dL (7-17); Calcium 8.4 mg/dL (8.4-10.2); Carbon Dioxide 24 mmol/L (22-32); Chloride 94 mmol/L (98-107); Estimated Glomerular Filt Rate > 60 mL/min (>60); Glucose 130 mg/dL (80-110); HEMOLYSIS < 15 (0-50); Potassium 4.3 mmol/L (3.4-5.1); Sodium 124 mmol/L (137-145)
[2022-10-01 08:00] VITALS: BP 142/67; PULSE 55; RESP 16; TEMP 36.1; O2SAT 96
[2022-10-01] MEDS: INSULIN LISPRO 100 UNIT/ML 3ML VIAL SUBCUT ×2 (08:13→12:03)
--- NOTE | 2022-10-01 08:37 | PM.PN.1 ---
Exam Vital Signs (past 8 hours): - 10/01/22 04:05 10/01/22 08:00 Temperature 96.5 F L 96.9 F L Pulse Rate 63 55 L Respiratory Rate 17 16 Blood Pressure 149/60 H 142/67 H Pulse Oximetry 96 96 Oxygen Flow Rate 0 0 Oxygen Delivery Method Room Air Oxygen Flow Rate 0 Narrative Exam Narrative: GEN: no acute distress, sleepy HEENT: moist mucous membranes, no JVD. Cervical collar in place. Neck:? Wearing hard collar CV: RRR PULM: clear bilaterally ABD: soft, nontender, no organomegaly, nondistended EXT: trace bilateral LE edema NEURO: AAOx3, moving all extremities PSYCH: pleasant mood Objective Labs 09/29/22 05:14 10/01/22 06:11 Labs: Laboratory Results - last 24 hr 09/30/22 09/30/22 10/01/22 09:40 09:40 06:11 Sodium 122 L 124 L Potassium 4.7 4.3 Chloride 91 L 94 L Carbon Dioxide 22 24 BUN 15 15 Creatinine 0.80 0.70 Estimated GFR > 60 > 60 BUN/Creatinine Ratio 18.8 21.4 Glucose 180 H 130 H Hemoglobin A1c 8.0 H Calcium 8.3 L 8.4 PFSH Social History household members: significant other Smoking Status: Never smoker alcohol intake: current Assessment & Plan Assessment & Plan narrative: 1. Hyponatremia, hypervolemic or possibly mixed volume status.? Present on admission and active -Fluids had no significant improvement. Repeat evaluation with urine sodium random was low at 28. UA with normal specific gravity. 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 Sodium seems to isolate between 118 and 121 initially.? With increase the sodium chloride replacement to 2 g p.o. t.i.d. with meals this has benefitted her sodium level.? Today is 122 however it was too low for discharge. Continue current replacement. Continue to monitor sodium. - Elevated BUN consistent with mild dehydration which basically means that she is consistent with fluid restrictions. -still at 122 on 09/30 2. Anasarca, present on admission and improved ?- improved appearance after diuresis. Etiology unclear.? Albumin is normal. 3. Odontoid fracture, present on admission and active - orthopedics have signed off at this time.? Recommendations were for an nonoperative approach with an [place] brace for 3 months.? Outpatient follow up recommended. 4. Chronic atrial fibrillation which is rate controlled since on admission and stable -continue current medications.? Anticoagulation resumed at this time. 5. DM2, present on admission and active. -continue sliding scale insulin . 6. Bacteuria with now positive urine culture. ?- Positive for Streptococcus viridans.? Ceftriaxone initially for 3 days and now has been transitioned to amoxicillin. Follow patient clinically. 7. Chronic stable medical problems include (present on admission): -bilateral breast cancer with a history of resection and radiation therapy. -dementia DVT: on AC -apixaban. Code status:The patient is full resuscitation, has significant other.? The patient's son is power of traffic law attorney for healthcare decisions. Dispo: Home once sodium >125. Time Spent With Patient Critical Care time: I spent a total of [] minutes of critical care time on this patient's care today; this time is exclusive of procedural time.
--- NOTE | 2022-10-01 09:44 | PT.IPTN ---
Current Diagnoses Malignant neoplasm of unspecified site of right female breast (09/23/22) Malignant neoplasm of unspecified site of left female breast (09/23/22) Hypo-osmolality and hyponatremia (09/23/22) Dorsalgia, unspecified (09/23/22) Age-related osteoporosis without current pathological fracture (09/23/22) Abnormal coagulation profile (09/23/22) Unspecified displaced fracture of second cervical vertebra, initial encounter for closed fracture (09/23/22) Personal history of other diseases of the circulatory system (09/23/22) Physical Therapy Treatment Note M2 PT-IP Current Condition Start: 09/24/22 14:12 Freq: NEEDED Status: Discharge Protocol: Document 10/01/22 09:05 SP (Rec: 10/01/22 13:54 SP [id number]) Physical Therapy Current Condition Current Condition Evaluation Date 09/24/22 Treatment Diagnosis s/p fall; Dens fx; hyponatremia; difficulty in walking Onset Date 09/23/22 M3 PT-IP Subjective Start: 09/24/22 14:12 Freq: NEEDED Status: Discharge Protocol: Document 10/01/22 09:05 SP (Rec: 10/01/22 13:54 SP [id number]) Subjective Physical Therapy Visit Type Type Treatment Note Visit Start Time 09:05 Visit Stop Time 09:44 Total Visit Minutes 38 Notes Vitals: elevated supine: 135/69 HR 60 SaO2 98% on RA. Number of BUCKET WASH OPERATOR Visits 2 Physical Therapy Visit Comments Patient Comments Pt agreeable to do PT, has her hard collar donned. Therapy Pain Assessment Pain When Pain Assessed At Rest Pain Present Pain Present Denied Pain M4 PT-IP Mobility and Gait Start: 09/24/22 14:12 Freq: NEEDED Status: Discharge Protocol: Document 10/01/22 09:05 SP (Rec: 10/01/22 13:54 SP [id number]) PT-Bed Mobility Assessment Rolling Type of Rolling Log Rolling,Roll to Right Level of Assist Minimal Assistance,1 Person Assistance Supine to Sit Supine to Sit Minimal Assistance,1 Person Assistance,Bedrails Scooting Scooting to Edge of Bed Standby Assistance PT-Transfer Assessment Sit to and From Stand Sit to and from Stand Contact Guard Assistance,Use of Upper Extremities Equipment Transfer Assistive Device Gait Belt,Front Wheeled Walker Orthotic/Prosthetic Devices or Brace: Yes Transfers Transfer Destination Chair,Toilet Transfer Technique ambulated w/ FWW Transfer Ability Level of Assist Standby Assistance,Contact Guard Assistance,Use of Upper Extremities Comments Mobility Comments BUCKET WASH OPERATOR provided more pillow support under posterior head, education of Log roll to support neck and TA, understood. Pt completed LR R with cues for neck/TA and added trunk suport, R SL>sit Min A (pt states SO can provide her), scoot to EOB SBA . STS cued push from bed and downward pressure FWW CGA. Gait 3 laps in room 100 ft then returned to chair w/ FWW CG/close SBA, cued reach back and slow descent sit in chair safety CGA. Pt had call light and all needs in reach. Pt is ok to return home with SO to assist her. Recommending HHPT to progress strength and funcitonal endurance in standing mobility, agreeable. Gait Assessment Gait Gait Assistance Required: Standby Assistance,Contact Guard Assist Distance (Feet) 100 Able to Maintain Weight Bearing Status Yes During Gait Assistive Devices Assistive Device Gait Belt,Front Wheeled Walker Orthotic/Prosthetic Devices or Brace: Yes Gait Deviations General Gait Pattern Decreased Stride Length, Decreased Feet Clearance, Flexed Trunk Factors Limiting Gait Function Factors Limiting Gait Function Decreased Activity Tolerance, Decreased Strength,Limited Range of Motion,Pain,Poor Balance,Poor Safety Awareness Comments Gait Comments Occasional cues for proximity to FWW, tall posture, lessen UE WB on FWW needed. Stair Climbing Assessment Comments Stair Climbing Comments no stairs need to assess PT-Balance Assessment Sitting Balance and Reactions Static Sitting Balance Ability Normal Dynamic Sitting Balance Ability Good Standing Balance and Reactions Static Standing Balance Ability Good Dynamic Standing Balance Ability Fair Device Used FWW M5 PT-IP Objective Assessments Start: 09/24/22 14:12 Freq: NEEDED Status: Discharge Protocol: Document 09/24/22 11:25 AB (Rec: 09/24/22 14:25 AB [id number]) Orientation Orientation/Cognition Level of Alertness Alert Orientation Name,Place,Situation Language Function Ability Hard of Hearing Safety Awareness Decreased Safety Awareness Memory Description 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,Mcfp Impaired Gross Range of Motion Lower Extremity ROM Assessment Within Functional Limits Strength Lower Extremity Strength Assessment Bilaterally Impaired Hip 3+/5 Knee 3+/5 Sensation Assessment Sensation Sensation Description Numbness Comments Sensation Comments B feet neuropathy Muscle Tone Muscle Tone WNL Yes M6 PT-IP Treatment Start: 09/24/22 14:12 Freq: NEEDED Status: Discharge Protocol: Document 10/01/22 09:05 SP (Rec: 10/01/22 13:54 SP [id number]) Physical Therapy Treatment Exercises Exercises Ankle Pumps,Heel Slides Education Education Provided Precautions,Safety M7 PT-IP Assessment and Plan Start: 09/24/22 14:12 Freq: NEEDED Status: Discharge Protocol: Document 10/01/22 09:05 SP (Rec: 10/01/22 13:54 SP [id number]) PT Summary Assessment and Plan Potential Rehabilitation Potential Fair Status of Condition at Evaluation Evolving Summary Impairments Pain,ROM,Strength,Balance, Coordination,Sensation,Tone, Cognition,Bed Mobility, Transfers,Gait,Activity Tolerance Progress Towards Goals Progressing Toward Goals,Slow Progress due to Activity Tolerance Assessment Summary Pt required Min A for bed mobility, CG/SBA using fWW during transfers/gait, cues for taller posturing decrease posterior stress on back/neck. Recommending sBA of which SO can provided needed at home when medically cleared. HHPT for progress strength mobilitiy to PLOF. Goals Bed Mobility Goal Standby Assistance Transfer Goal Standby Assistance,Front Wheeled Walker Gait Goal Standby Assistance,Front Wheel Walker Gait Distance 100 Days to Meet Goals 10 Frequency of Treatment Frequency Of Treatment Once a Day Treatment Plan Physical Therapy Treatment Plan Bed Mobility Training,Transfer Training,Gait Training, Therapeutic Exercise,Balance Retraining,Discharge Planning, Hot or Cold Pack,Neuromuscular Re-ed,Coordination Retraining ,Manual Therapy Other Recommendations and Next Treatment progress gait distance w/ FWW/ Focus LRAD. Precautions Cervical Spine Precautions Rigid Collar,No Heavy Lifting, Log Roll Other Precautions falls Recommendations To Nursing Amount of Assist Needed Standby Assistance Discharge Recommendations PT Discharge Recommendations Home with Assistance,Home with 24/7 Assist Available,Home Health Transportation Needs at Discharge Private Vehicle
[2022-10-01 09:51] VITALS: BP 139/59; PULSE 60
[2022-10-01] MEDS: AMLODIPINE 5 MG TABLET 10 MG PO (09:51)
[2022-10-01] MEDS: AMOXICILLIN 250 MG CAPSULE 500 MG PO (09:51)
[2022-10-01] MEDS: SODIUM CHLORIDE 1,000 MG TABLET 2000 MG PO (09:51)
[2022-10-01] MEDS: FUROSEMIDE 20 MG TABLET PO (09:51)
[2022-10-01] MEDS: LOSARTAN 50 MG TABLET PO (09:51)
[2022-10-01 09:52] VITALS: BP 139/59; PULSE 60
[2022-10-01] MEDS: METOPROLOL ER 50 MG TABLET PO (09:52)
[2022-10-01] MEDS: SODIUM CHLORIDE 0.9% FLUSH 10 ML IV (09:53)
[2022-10-01] MEDS: SPIRONOLACTONE 25 MG TABLET PO (09:53)
[2022-10-01] MEDS: LIDOCAINE PATCH 1 EACH ADH..PATCH TOP (09:53)
[2022-10-01] MEDS: SERTRALINE 50 MG TABLET PO (09:53)
[2022-10-01] MEDS: APIXABAN 5 MG TABLET PO (09:53)
[2022-10-01] MEDS: INSULIN GLARGINE 100 UNIT/ML 3ML PEN 13 UNIT SUBCUT (09:54)
[2022-10-01 11:08] VITALS: BP 148/63; PULSE 62; RESP 16; TEMP 36.2; O2SAT 97
[2022-10-01] MEDS: ACETAMINOPHEN 325 MG TABLET 650 MG PO (12:00)
--- NOTE | 2022-10-01 15:47 | P.DS_ITS ---
History of Present Illness History of Present Illness Date Patient Seen: 10/01/22 Time Patient Seen: 15:00 Chief complaint: fell on Wednesday and hit head, dizzy, pain in neck Narrative: The patient is an 82-year-old female with a history of dementia, chronic atrial fibrillation on chronic Eliquis, osteoporosis, and breast cancer. She presents to the emergency department today because of pain that relates to a fall last Wednesday. Patient has had increased frequency of falls, in fact falling last Wednesday and then Wednesday. The patient has had significant pain over the last 3 days acquiring maximum dose Tylenol throughout the day. Because of persistent and worsening pain the patient presented to the emergency department. The patient does have a significant cognitive. She is unable to describe to me exactly where and what has been hurting. I did ask her partner if he had an understanding of where her pain is and has been. He is also struggled understan ding what exactly has been hurting. In any case cervical spine was evaluated today and revealed an odontoid fracture which is minimally displaced. The patient also appears to be grossly edematous with a sodium of 120 orthopedic spine surgery who recommended noninvasive approach with an [place] cervical collar and close outpatient follow-up with Orthopedics. The patient denies a history of low-sodium, or chronic marked edema. There is also no clear history of heart failure, renal failure or liver disease. The patient is followed for left-sided stage I invasive carcinoma and right-sided stage III invasive ductal carcinoma. The patient has a history of post resection radiation therapy in 2016. The patient denies any orthopnea,, hemoptysis, chest pain, pleuritic chest pain. He also denies fevers, chills. Discharge Providers Provider Date of admission: 09/23/22 14:42 Discharge Date: 10/01/22 Primary care physician: Zuleima Keating PA-C Consults: 09/23/22 17:21 Consult to Occupational Therapy Evaluate & Treat Comment: Physician Instructions: Evaluate and treat Consult to Physical Therapy Evaluate & Treat Comment: Physician Instructions: Evaluate and Treat 09/24/22 09:01 Consult to Physical Therapy Evaluate & Treat Comment: Physician Instructions: Evaluate and Treat 09/25/22 14:10 Consult to Home Health Routine Comment: Reason For Exam: Home health services upon discharge 09/29/22 10:21 Consult to Dietitian, Adult Routine Comment: Reason For Exam: Education- Fluid Restriction Discharge provider: Sourav Finney DO Summary Hospital Course Discharge Diagnosis: 1. Hyponatremia, hypervolemic or possibly mixed volume status.? Present on admission and active -Fluids had no significant improvement. Repeat evaluation with urine sodium random was low at 28. UA with normal specific gravity. 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 Sodium seems to isolate between 118 and 121 initially.? With increase the sodium chloride replacement to 2 g p.o. t.i.d. with meals this has benefitted her sodium level.? Today is 122 however it was too low for discharge. Continue current replacement. Continue to monitor sodium. - Elevated BUN consistent with mild dehydration which basically means that she is consistent with fluid restrictions. -still at 122 on 09/30 2. Anasarca, present on admission and improved ?- improved appearance after diuresis. Etiology unclear.? Albumin is normal. 3. Odontoid fracture, present on admission and active - orthopedics have signed off at this time.? Recommendations were for an nonoperative approach with an [place] brace for 3 months.? Outpatient follow up recommended. 4. Chronic atrial fibrillation which is rate controlled since on admission and stable -continue current medications.? Anticoagulation resumed at this time. 5. DM2, present on admission and active. -continue sliding scale insulin . 6. Bacteuria with now positive urine culture. ?- Positive for Streptococcus viridans.? Ceftriaxone initially for 3 days and now has been transitioned to amoxicillin. Follow patient clinically. 7. Chronic stable medical problems include (present on admission): -bilateral breast cancer with a history of resection and radiation therapy. -dementia Hospital Course: Admitted for hyponatremia down to 118 due to SIADH. Placed on water restriction and salt tabs with improvement to 124. Time Recorder educated patient on continued fluid restriction and salt tabs were prescribed and she will have outpatient BMP in a few days to assess for continued sodium improvement. Also had UTI and placed on amoxicillin which she finished course of. She will f/u with PCP for ongoing sodium management. Time Spent with Patient Time spent: Greater than 30 minutes Exam Vital Signs (past 8 hours): - 10/01/22 08:00 10/01/22 09:51 10/01/22 09:52 Temperature 96.9 F L Pulse Rate 55 L 60 60 Respiratory Rate 16 Blood Pressure 142/67 H 139/59 L 139/59 L Pulse Oximetry 96 Oxygen Flow Rate 0 10/01/22 11:08 Temperature 97.1 F L Pulse Rate 62 Respiratory Rate 16 Blood Pressure 148/63 H Pulse Oximetry 97 Oxygen Flow Rate 0 Oxygen Delivery Method Room Air Oxygen Flow Rate 0 Narrative Exam Narrative: GEN: no acute distress, sleepy HEENT: moist mucous membranes, no JVD. Cervical collar in place. Neck:? Wearing hard collar CV: RRR PULM: clear bilaterally ABD: soft, nontender, no organomegaly, nondistended EXT: trace bilateral LE edema NEURO: AAOx3, moving all extremities PSYCH: pleasant mood Objective Labs 09/29/22 05:14 10/01/22 06:11 Labs: Laboratory Results - last 24 hr 10/01/22 06:11 Sodium 124 L Potassium 4.3 Chloride 94 L Carbon Dioxide 24 BUN 15 Creatinine 0.70 Estimated GFR > 60 BUN/Creatinine Ratio 21.4 Glucose 130 H Calcium 8.4 PFSH Social History household members: significant other Smoking Status: Never smoker alcohol intake: current Discharge Plan Discharge Plan Patient Disposition: Home Health Service Provider Discharge Comment: You were admitted for low sodium of 118. This improved with water restriction and salt tablets to 124. Please continue the fluid restriction and salt tabs at home and get a blood test on 10/02 for your PCP to review for your appointment on 10/05. I've also stopped your lasix as this can worsen your low sodium. Discharge orders & Medications Prescriptions: New sodium chloride 1,000 mg Tablet,Soluble 2,000 mg PO TID 7 Days Qty: 42 0RF Continued Januvia 100 mg tablet 100 mg PO DAILY Qty: 0 amlodipine [Norvasc] 5 MG tablet 10 mg PO QDAY Qty: 1 atorvastatin [Lipitor] 20 MG tablet 40 mg PO QDAY Qty: 0 metformin 1,000 mg Tablet 500 mg PO BID anastrozole 1 mg Tablet 1 mg PO DAILY Qty: 30 2RF alendronate [Fosamax] 70 mg Tablet 70 mg PO QWEEK Qty: 12 2RF Rx Instructions: 1 tab by mouth once weekly on empty stomach. Do not sit or lie down for 30 mins after taking. insulin glargine [Lantus Solostar U-100 Insulin] 100 unit/mL (3 mL) insulin pen 13 unit SUBCUT QAM losartan 50 mg Tablet 50 mg PO BID metoprolol succinate 50 mg tablet extended release 24 hr 50 mg PO DAILY spironolactone 25 mg tablet 25 mg PO DAILY doxylamine succinate 25 mg Tablet 25 mg PO PRN PRN (Reason: Sleep) sertraline 50 mg Tablet 50 mg PO DAILY Magnesium (oxide/AA chelate) 300 mg Capsule 400 cap PO BID senna 8.6 mg Capsule 8.6 mg PO BEDTIME Rx Instructions: every 48 hours Eliquis 5 mg Tablet 5 mg PO BID Qty: 60 0RF Discontinued furosemide 20 MG tablet 20 mg PO DAILY Qty: 0 Follow up/Referrals: Zuleima Keating PA-C [Primary Care Provider] - 10/05/22 3:00 pm (Appt:10/05 @ 3:00 with Ryan santiago in [facility] please bring photo id ) Cristo Fischer MD [Physician] - (Please call to schedule a follow up appointment and XRs in 2 weeks) Diet/Activity/Treatments Other treatments: -[place] collar at all times (including sleeping and bathing) -Anticipate 12 weeks total in hard cervical collar with follow up imaging at regular intervals. If there is significant shift of the fracture or inadequate healing, she may require referral to neurosurgery for surgical fixation. -following up in ortho clinic for repeat imaging in 2 weeks. Visit Report/Discharge Packet Instructions: Neck Fracture, DI for Urinary Tract Infection (UTI), How to Prevent Falls Stand Alone Forms: Patient Portal/API, Stroke Signs & Symptoms Discharge Data Primary Care Provider: Zuleima Keating
--- NOTE | 2022-10-02 09:00 | CM.DPNOTE ---
Late entry: Lacey from [facility] requested DC summary. DC summary was still in draft on Monday 10/02. I faxed her most recent PN from 09/30. Lacey said this was sufficient since DC sum not available and they would be able to see the patient. Linsey Mcclure, SHAYLA Manager Science.
--- NOTE | 2022-10-02 09:14 | CM.DPNOTE ---
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 Therapy team had cleared patient for this plan yesterday No DC Summary available and Dr Finney not here today so last medical prog note was faxed. [facility] confirms w/Linsey Ricketts CMA that they have what they need from this prog note to begin services for patient. Plan: Discharge home w/[facility] and [facility] services through [facility] JW
== END 2022-10-01 13:00 | disposition home health service (06) | DRG 641 ==
LOC: ED 13:30 → AC 14:58
PROVIDERS: Internal Medicine; Neuromusculoskeletal Medicine, Sports Medicine; Student in an Organized Health Care Education/Training Program; Admitting Provider Hospitalist; Emergency Provider Emergency Medicine; PCP Student in an Organized Health Care Education/Training Program; Referring Provider Emergency Medicine; Visit Provider Hospitalist
DX: E87.1 Hypo-osmolality and hyponatremia (principal); S12.112A Nondisplaced Type II dens fracture, initial encounter for closed fracture; I48.20 Chronic atrial fibrillation, unspecified; R60.1 Generalized edema; R29.6 Repeated falls; F03.90 Unspecified dementia, unspecified severity, without behavioral disturbance, psychotic disturbance, mood disturbance, and anxiety; E11.9 Type 2 diabetes mellitus without complications; E87.70 Fluid overload, unspecified; R82.71 Bacteriuria; B95.4 Other streptococcus as the cause of diseases classified elsewhere; W18.30XA Fall on same level, unspecified, initial encounter; Z79.84 Long term (current) use of oral hypoglycemic drugs; Z85.3 Personal history of malignant neoplasm of breast; Z79.01 Long term (current) use of anticoagulants
CPT/HCPCS: 36415; 70450; 71046; 72125; 80048; 80053; 81001; 81003; 82550; 82553; 82962; 83036; 83690; 83735; 83935; 84300; 84484; 85025; 85610; 85730; 86140; 87077; 87086; 87635; 93005; 93306; 97110; 97116; 97163; 97166; 97530; 97535; 99284; C9803; J0696; J1815; J1940

== ENCOUNTER → 2022-10-03 11:07 | Outpatient (CLI) | payer MEDICARE, SELFPAY ==
[2022-09-23 18:46] VITALS: BMI 24.0
[2022-10-03 12:28] LABS: BUN Creatinine Ratio 20.8 (6-22); Blood Urea Nitrogen 15 mg/dL (7-17); Calcium 8.4 mg/dL (8.4-10.2); Carbon Dioxide 23 mmol/L (22-32); Chloride 91 mmol/L (98-107); Estimated Glomerular Filt Rate > 60 mL/min (>60); Glucose 139 mg/dL (80-110); HEMOLYSIS 31 (0-50); Sodium 124 mmol/L (137-145)
== END ==
PROVIDERS: PCP Student in an Organized Health Care Education/Training Program; Referring Provider Student in an Organized Health Care Education/Training Program; Visit Provider Student in an Organized Health Care Education/Training Program
DX: E87.1 Hypo-osmolality and hyponatremia (principal)
CPT/HCPCS: 36415; 80048

== ENCOUNTER 2022-10-17 15:46 | Inpatient (IN) | payer MEDICARE, SELFPAY ==
[2022-09-23 18:46] VITALS: BMI 24.0
[2022-10-17] VITALS (23 sets, daily range): BP systolic 127–149; BP diastolic 59–73; PULSE 59–61; RESP 16–64; TEMP 36.6–37.2; O2SAT 89–100; BMI 22.4
--- NOTE | 2022-10-17 16:00 | DI.RAD.S_ITS ---
PROCEDURE: XR CHEST 1V INDICATIONS: chest pain TECHNIQUE: One view of the chest was acquired. COMPARISON: [facility], CT, CT ANGIO CHEST PE, 12/13/2020, 13:01. [facility], CR, XR CHEST 2V, 09/23/2022, 12:14. FINDINGS: Surgical changes and devices: A leadless pacer can be seen. Right axillary clips are seen. Lungs and pleura: There is a moderate right-sided pleural effusion, with overlying opacity. No pneumothorax can be seen this semiupright study. Mediastinum: The cardiac contours are within normal limits. The aorta demonstrates calcification and tortuosity. Bones and chest wall: No suspicious bony lesions. Age-appropriate bony degenerative changes are seen. Overlying soft tissues appear unremarkable. IMPRESSION: Moderate right-sided pleural effusion with overlying atelectasis versus infiltrate. Postoperative and degenerative changes are seen. Dictated by: Mikey Faye M.D. on 10/17/2022 at 15:30 Approved by: Mikey Faye M.D. on 10/17/2022 at 15:32
--- NOTE | 2022-10-17 16:08 | PC.NURSE ---
EMS report pt has been in to see the doctor multiple times in last few days for lower back pain. reports change in mental status, pt is very confused. just started on oral sodium for low sodium
[2022-10-17 16:14] LABS: Add Manual Diff / Slide Review NO; Basophils Absolute Auto 100 /uL (0-100); Eosinophils Absolute Auto 100 /uL (0-450); Eosinophils Percent Auto 1.2 % (2-4); Hematocrit 26.7 % (36-46); Hemoglobin 8.8 g/dL (12.0-16.0); Lymphocytes Absolute Auto 700 /uL (1100-4500); Mean Corpuscular HGB Conc 32.8 % (30-36); Mean Corpuscular Hemoglobin 28.4 PG (26-34); Mean Corpuscular Volume 86.6 fL (80-100); Monocytes Absolute Auto 600 /uL (0-900); Monocytes Percent Auto 8.2 % (3-14); Neutrophils Absolute Auto 5600 /uL (1500-7000); Neutrophils Percent Auto 79.6 % (50-75); Platelet Count 257 X10^3/uL (150-400); Red Blood Cell Count 3.09 X10^6/uL (4.0-5.2); Red Cell Distribution Width 16.4 % (11.6-14.8)
[2022-10-17 16:18] LABS: INR 1.6 (0.9-1.3); Prothrombin Time 18.4 SECONDS (10.1-12.7)
[2022-10-17 16:20] LABS: PTT Partial Thromboplastin Tim 35 SECONDS (26-36)
[2022-10-17 16:22] LABS: Alanine Aminotransferase 21 IU/L (<35); Albumin 4.3 g/dL (3.5-5.0); Albumin Globulin Ratio 1.5 (1.0-2.8); Alkaline Phosphatase 147 U/L (38-126); Aspartate Aminotransferase 31 IU/L (14-36); Bilirubin Total 1.1 mg/dL (0.2-1.3); Blood Urea Nitrogen 18 mg/dL (7-17); Calcium 8.7 mg/dL (8.4-10.2); Carbon Dioxide 24 mmol/L (22-32); Chloride 93 mmol/L (98-107); Creatine Kinase 64 U/L (30-135); Estimated Glomerular Filt Rate 52 mL/min (>60); Globulin 2.8 g/dL (1.7-4.1); Glucose 128 mg/dL (80-110); HEMOLYSIS < 15 (0-50); Lipase 69 U/L (23-300); Magnesium 2.3 mg/dL (1.6-2.3); Sodium 130 mmol/L (137-145); Total Protein 7.1 g/dL (6.3-8.2)
[2022-10-17 16:34] LABS: Troponin I 0.019 ng/mL (0.01-0.034)
--- NOTE | 2022-10-17 16:54 | PC.NURSE ---
pt oxygen dropped to 88% during xray exam, pt placed on 2L NC
[2022-10-17] MEDS: SODIUM CHLORIDE 0.9% 1,000 ML 500 ML IV (17:21)
--- NOTE | 2022-10-17 17:50 | PC.NURSE ---
pt up to wheel chair with minimal assist. while sitting on toilet, pt suddenly began to c/o severe sharp pain in her right lower back. pt states it is not just when she urinates but it just hurts.
[2022-10-17 18:19] LABS: Amorphous Sediment Urine 1+; Bacteria Urine Few (2-10); Culture Indicated Urine Specimen Cultured; RBC Urine None Seen (0-5/HPF); Squamous Epithelial Cell Urine 5-10 /HPF (0-5/HPF); WBC Urine 5-10/HPF (0-5/HPF)
--- NOTE | 2022-10-17 18:48 | DI.CT.S_ITS ---
PROCEDURE: CT ANGIO CHEST ABDOMEN PELVIS INDICATIONS: hypoxia right arm swelling TECHNIQUE: Precontrast 5 mm thick sections acquired from the lung apices to the iliac crests. After the administration of intravenous contrast, 2.5 mm thick sections again acquired from the lung apices to the iliac crests. Maximum intensity projection (MIP) oblique sagittal and coronal reformats were then acquired. For radiation dose reduction, the following was used: automated exposure control. COMPARISON: [facility], CT, CT CERVICAL SPINE WO CON, 09/23/2022, 12:18. [facility], CT, CT LUMBAR SPINE WO CON, 09/19/2022, 11:24. [facility], CT, CT ANGIO CHEST PE, 12/13/2020, 13:01. FINDINGS: Image quality: Excellent. AORTA: No aortic dissection. No acute aortic syndrome. No aneurysm. Moderate to severe calcified atherosclerotic plaque. No central pulmonary embolism. CHEST: Lungs and pleura: Right lung is collapsed. Streaky consolidation in the right middle lobe likely atelectasis. Central airways are clear. Minimal opacity in the anterior right upper lobe. Large right pleural effusion. Trace left pleural effusion. No pneumothorax. Mediastinum: Heart size is enlarged. Right ventricular device. Three-vessel coronary artery calcifications. No pericardial effusion. [place] mediastinal lymph nodes are similar to 202. Central pulmonary arteries are normal in size. Esophagus is normal in caliber. No hiatal hernias. Bones and chest wall: 9th through 12th rib fractures with mild displacement. Sternal fracture. Minimal displacement. Not seen in 2020. No axillary adenopathy by size criteria. Thyroid gland is unremarkable . No suspicious bony lesions. ABDOMEN: Vasculature: Extensive plaque in the aorta. Celiac trunk and mesenteric arteries are patent. Renal arteries are also patent. Solid organs: Liver is normal in size and enhancement. Gallbladder is within normal limits. Biliary system is non dilated. Pancreas enhances normally. Spleen is normal in size and enhancement. No adrenal nodules. Both kidneys are normal in size and enhancement, without hydronephrosis. Small low-density left renal cysts. Peritoneum and bowel: No free fluid or air. Bowel loops are normal in caliber and wall thickness. Diverticulosis. The appendix is not dilated. Nodes and vessels: No retroperitoneal or mesenteric adenopathy by size criteria. Inferior vena cava is normal in morphology. Miscellaneous: No ventral hernias. Anasarca. PELVIS: Genitourinary: Bladder wall thickness is normal. Anteverted uterus. Miscellaneous: No inguinal hernias or adenopathy. No ventral hernias. Bones: No suspicious bony lesions. Severe shoulder DJD bilaterally. Fluid density near the glenohumeral joints is similar. This most likely represent bursal collections. L3 compression fracture. Minimal deformity of T10 and T12, new. Mild scoliosis. Bones appear osteopenic. IMPRESSION: 1. Large right pleural effusion. Right lower lobe is collapsed. Suspect atelectasis in the right middle lobe. No pneumothorax. 2. Cardiomegaly. 3. No aortic dissection. No central pulmonary embolism. 4. Sternal fracture. Right 9-12th rib fractures. T12 and T11 new compression fractures. Stable L3 compression fracture. 5. No free fluid in the abdomen or pelvis is seen. No pneumoperitoneum. Anasarca. Dictated by: Jam Chaudhry M.D. on 10/17/2022 at 19:40 Approved by: Jam Chaudhry M.D. on 10/17/2022 at 19:59
--- NOTE | 2022-10-17 18:48 | PC.NURSE ---
went in to evaluate patient and noticed that patient's left arm appeared bigger than right. asked pt and if her arm always is bigger or if this is new. both were unsure of when this started. pt undressed and placed in pt gown, arm is swollen all the way up to shoulder/axilla. right arm is warm to touch. bilateral lower edema notified provider immediately
[2022-10-17 18:57] LABS: D Dimer 1244 ng/ml (<500)
[2022-10-17 19:01] LABS: Lactate (Lactic Acid) 2.1 mmol/L (0.7-2.1)
[2022-10-17 19:10] LABS: NT-proBNP (BNP-Adult 18+) 6550 pg/mL (<450)
[2022-10-17 19:19] LABS: Procalcitonin 0.08 ng/mL (<0.5)
--- NOTE | 2022-10-17 19:20 | ED.AMS ---
HPI - Altered Mental Status General Chief Complaint: Altered Mental Status Stated Complaint: Fall Time Seen by Provider: 10/17/22 17:59 Source: patient and family Mode of arrival: EMS History of Present Illness HPI narrative: Patient is 82-year-old female history of dementia, atrial fibrillation not on Eliquis, osteoporosis presenting today with some decreasing mental status and right hip pain. She was admitted to the hospital September 23 through with hyponatremia sodium of 120 and dens fracture. She is home with her since the home health care. He noticed slight decline in mental status today. And then when she was on the commode he briefly and lightly touched her right lower lumbar back and she jumped it was quite painful. She has not had any further falls according to him, but she reports falling. She declines any further pain. She is having some shortness of breath. She denies nausea or vomiting. She denies any chest pain no abdominal pain. She is noted to be more swollen in her right arm and right leg but does have bilateral lower pitting edema which she says has been there. Related Data Home Medications Medication Instructions Recorded Confirmed sitagliptin phosphate 100 mg 100 mg PO DAILY ##0 08/20/16 10/17/22 tablet (Januvia) amlodipine 5 mg tablet (Norvasc) 10 mg PO QDAY ##1 02/17/17 10/17/22 atorvastatin 20 mg tablet (Lipitor) 40 mg PO QDAY ##0 02/17/17 10/17/22 metformin 1,000 mg tablet 500 mg PO BID 03/18/18 10/17/22 losartan 50 mg tablet 50 mg PO BID 12/27/20 10/17/22 magnesium oxide-magnesium amino 400 cap PO BID 12/27/20 10/17/22 acid chelate 300 mg capsule (Magnesium (oxide/AA chelate)) metoprolol succinate 50 mg 50 mg PO DAILY 12/27/20 10/17/22 tablet,extended release 24 hr sennosides 8.6 mg capsule (senna) 8.6 mg PO BEDTIME 12/27/20 10/17/22 sertraline 50 mg tablet 50 mg PO DAILY 12/27/20 10/17/22 spironolactone 25 mg tablet 25 mg PO DAILY 12/27/20 10/17/22 insulin glargine 100 unit/mL (3 13 unit SUBCUT QAM 03/26/21 10/17/22 mL) subcutaneous pen (Lantus Solostar U-100 Insulin) doxylamine succinate 25 mg tablet 25 mg PO BEDTIME PRN Sleep 10/17/22 10/17/22 ferrous sulfate 325 mg (65 mg 325 mg PO DAILY 10/17/22 10/17/22 iron) tablet (FeroSul) tramadol 50 mg tablet 50 mg PO BID PRN Back Pain 10/17/22 10/17/22 Previous Rx's Medication Instructions Recorded alendronate 70 mg tablet (Fosamax) 70 mg PO QWEEK osteoporosis #12 07/17/20 tabs Allergies Allergy/AdvReac Type Severity Reaction Status Date / Time MYESHA Inhibitors Allergy Unknown UNK. Verified 10/17/22 16:10 [MYESHA INHIBITORS] Review of Systems Review of Systems ROS Unobtainable: All systems reviewed & are unremarkable except as noted in HPI and below Patient History Medical History (Updated 10/17/22 @ 23:25 by DIRK Hayes) Chronic anticoagulation Chronic atrial fibrillation Chronic hyponatremia Chronic respiratory failure Dementia Depression Insulin dependent type 2 diabetes mellitus Iron deficiency anemia Pacemaker Pulmonary hypertension Surgical History (Updated 10/17/22 @ 23:25 by DIRK Hayes) History of permanent cardiac pacemaker placement Social History household members: significant other Smoking Status: Never smoker alcohol intake: current Smoking Status: Never smoker alcohol intake frequency: a few times a week Alcohol type: hard liquor Substance Use Type: does not use Exam Initial Vital Signs Initial Vital Signs: Vital Signs Pulse Rate 61 10/17/22 15:54 Pulse Oximetry 92 10/17/22 15:54 GENERAL: Alert pleasant mildly confused 82-year-old female and in no acute distress. HEENT: Head atraumatic,EOMI, pupils reactive, face symmetric, moist mucous membranes CARDIOVASCULAR: Regular rate and rhythm without murmurs, rubs or gallops. no sternal pain or contusion RESPIRATORY: Decreased breath sounds on right. no contusion pain or paradoxical movement ABDOMEN: Soft, nontender. Normoactive bowel sounds all 4 quadrants. No guarding or rebound. EXTREMITIES: Normal range of motion, no clubbing. Right leg significant swelling right arm has some swelling as well Neurovascularly intact. Pelvis is stable no iliac crest pain. Able to lift right leg up without any difficulty and left leg NEUROLOGICAL: Alert and oriented x4.Normal gait and speech. SKIN: Warm, dry, no laceration, no petechiae, no rashes or lesions. Course Orders Ordered: ED Orders 10/17/22 16:00 XR chest 1V Stat 10/17/22 16:03 BNP [NT-proBNP (BNP-Adult 18+)] Stat Complete Blood Count AUTO DIFF Stat Comprehensive Metabolic Panel Stat D Dimer Stat Lactate (Lactic Acid) Stat Lipase Stat Magnesium Stat Partial Thromboplastin Time Stat Procalcitonin Stat Prothrombin Time INR Stat Troponin & CK Cardiac Panel Stat 10/17/22 17:14 EKG-12 Lead Stat 10/17/22 17:51 Urine Culture Stat Urine Microscopic Stat 10/17/22 18:48 CT angio chest abdomen pelvis Stat 10/17/22 19:35 Respiratory Panel (Film Array) Stat 10/17/22 20:18 XR shoulder RT min 2V Stat 10/17/22 21:03 Education, smoking cessation ONGOING 10/18/22 05:00 Complete Blood Count AUTO DIFF DAILY 10/19/22 05:00 Complete Blood Count AUTO DIFF DAILY 10/20/22 05:00 Complete Blood Count AUTO DIFF DAILY 10/21/22 05:00 Complete Blood Count AUTO DIFF DAILY Acetaminophen (Acetaminophen 325 Mg Tablet) 650 mg PO Q6H PRN PRN Reason: Fever/Mild Pain (1-3) Albuterol/Ipratropium (Albuterol/Ipratropium 3 Ml Ampul) 3 ml INH [id number] PRN PRN Reason: Cough Amlodipine Besylate (Amlodipine 5 Mg Tablet) 10 mg PO DAILY [facility] Last Admin: 10/17/22 23:10 Dose: 10 mg Documented By: CT Anastrozole (Anastrozole 1 Mg Tablet) 1 mg PO DAILY [facility] Atorvastatin Calcium (Atorvastatin 20 Mg Tablet) 40 mg PO DAILY [facility] Last Admin: 10/17/22 23:11 Dose: 40 mg Documented By: CT Calcium Carbonate (Calcium Carbonate 500 Mg Tab) 1,000 mg PO Q4HR PRN PRN Reason: Dyspepsia Dextrose (Dextrose 50 % In Water 25 Gm/50 Ml Syringe) 25 gm IV PRN PRN PRN Reason: Hypoglycemia Diclofenac Sodium (Diclofenac 1% Gel 100 Gm) 1 applic TOP TID PRN PRN Reason: Pain, Mild (1-10 Ferrous Sulfate (Ferrous Sulfate 325 Mg Tablet) 325 mg PO DAILY [facility] Furosemide (Furosemide 20 Mg/2 Ml Vial) 20 mg IV DAILY [facility] Sodium Chloride (Normal Saline 0.9%) 1,000 mls @ 60 mls/hr IV CONT [facility] Last Admin: 10/17/22 23:10 Dose: 60 mls/hr Documented By: CT Ceftriaxone Sodium 2,000 mg/ (Sodium Chloride) 100 mls @ 200 mls/hr IV Q24H [facility] Insulin Glargine (Insulin Glargine 100 Unit/Ml 3ml Pen) 13 unit SUBCUT 0800 [facility] Insulin Human Lispro (Insulin Lispro 100 Unit/Ml 3ml Vial) 0 unit SUBCUT ACHS STARR; Protocol Lidocaine (Lidocaine Patch 1 Each Adh..Patch) 1 each TOP DAILY PRN PRN Reason: Pain, Mild (1-10 Losartan Potassium (Losartan 50 Mg Tablet) 50 mg PO BID [facility] Last Admin: 10/17/22 23:11 Dose: 50 mg Documented By: CT Metoprolol Succinate (Metoprolol Er 50 Mg Tablet) 50 mg PO DAILY [facility] Naloxone HCl (Naloxone 0.4 Mg/Ml Vial) 0.2 mg IV Q2MIN PRN PRN Reason: Opiate Reversal Non-Formulary Medication (Magnesium Oxide-Mg Aa Chelate [Magnesium (Oxide/Aa Chelate)]) 400 cap PO BID [facility] Last Admin: 10/17/22 23:15 Dose: Not Given Documented By: CT Non-Formulary Medication (Doxylamine Succinate) 25 mg PO BEDTIME PRN PRN Reason: Sleep Ondansetron HCl (Ondansetron 4 Mg/2 Ml Inj) 4 mg IV Q4HR PRN PRN Reason: Nausea And Vomiting Sennosides (Sennosides 8.6 Mg Tablet) 17.2 mg PO BEDTIME [facility] Sertraline HCl (Sertraline 50 Mg Tablet) 50 mg PO DAILY [facility] Tramadol HCl (Tramadol 50 Mg Tablet) 50 mg PO BID PRN PRN Reason: Back Pain Last Admin: 10/17/22 23:12 Dose: 50 mg Documented By: CT Discontinued Medications Ferrous Sulfate (Ferrous Sulfate 325 Mg Tablet) 325 mg PO DAILY [facility] Furosemide (Furosemide 40 Mg/4 Ml Vial) 40 mg IV NOW ONE Stop: 10/17/22 20:20 Last Admin: 10/17/22 20:59 Dose: 40 mg Documented By: ADOLFO Sodium Chloride (Normal Saline 0.9%) 1,000 mls @ 500 mls/hr IV BOLUS ONE Stop: 10/17/22 18:55 Last Infusion: 10/17/22 20:16 Dose: 0 mls/hr Documented By: Infusion: 10/17/22 20:02 Dose: 500 mls/hr Documented By: Infusion: 10/17/22 18:30 Dose: 0 mls/hr Documented By: Admin: 10/17/22 17:21 Dose: 500 mls/hr Documented By: PAULO Ceftriaxone Sodium 2,000 mg/ (Sodium Chloride) 100 mls @ 200 mls/hr IV NOW ONE Stop: 10/17/22 21:23 Last Admin: 10/17/22 23:10 Dose: 200 mls/hr Documented By: NETO Non-Formulary Medication (Doxylamine Succinate) 25 mg PO PRN PRN PRN Reason: Sleep Oxycodone HCl (Oxycodone Ir 5 Mg Tablet) 5 mg PO Q3H PRN PRN Reason: Pain, Moderate (4-6) Vital Signs Vital signs: Vital Signs - 8 hr 10/17/22 15:56 10/17/22 15:54 10/17/22 16:00 Temperature 98.9 F Pulse Rate 60 61 60 Respiratory Rate 18 Blood Pressure 138/65 Pulse Oximetry 99 92 93 Oxygen Delivery Method Room Air Oxygen Flow Rate 10/17/22 16:23 10/17/22 16:23 10/17/22 16:30 Temperature Pulse Rate 60 Respiratory Rate 35 H Blood Pressure 132/60 127/60 Pulse Oximetry 92 Oxygen Delivery Method Oxygen Flow Rate 10/17/22 16:30 10/17/22 17:00 10/17/22 17:00 Temperature Pulse Rate 60 60 Respiratory Rate 30 H 48 H Blood Pressure 141/67 H Pulse Oximetry 97 96 Oxygen Delivery Method Oxygen Flow Rate 10/17/22 17:30 10/17/22 17:30 10/17/22 17:48 Temperature Pulse Rate 60 61 Respiratory Rate 64 H Blood Pressure 146/73 H Pulse Oximetry 95 92 Oxygen Delivery Method Oxygen Flow Rate 10/17/22 17:49 10/17/22 17:49 10/17/22 18:00 Temperature Pulse Rate 60 Respiratory Rate 26 H Blood Pressure 140/67 148/60 H Pulse Oximetry 90 L Oxygen Delivery Method Oxygen Flow Rate 10/17/22 18:00 10/17/22 18:30 10/17/22 18:30 Temperature Pulse Rate 60 60 Respiratory Rate 44 H 44 H Blood Pressure 140/65 Pulse Oximetry 92 89 L Oxygen Delivery Method Oxygen Flow Rate 10/17/22 19:14 10/17/22 19:30 10/17/22 19:35 Temperature Pulse Rate 59 L 60 Respiratory Rate 20 16 Blood Pressure 148/69 H Pulse Oximetry 95 96 Oxygen Delivery Method Nasal Cannula Oxygen Flow Rate 2 10/17/22 19:35 10/17/22 20:00 10/17/22 20:01 Temperature Pulse Rate 60 60 Respiratory Rate 24 20 Blood Pressure 136/62 Pulse Oximetry 95 93 Oxygen Delivery Method Nasal Cannula Nasal Cannula Oxygen Flow Rate 1 1 10/17/22 20:01 10/17/22 20:30 10/17/22 20:30 Temperature Pulse Rate 60 60 Respiratory Rate 20 20 Blood Pressure 147/67 H Pulse Oximetry 93 95 Oxygen Delivery Method Nasal Cannula Nasal Cannula Oxygen Flow Rate 1 1 10/17/22 21:00 10/17/22 21:00 Temperature Pulse Rate 60 Respiratory Rate 18 Blood Pressure 148/68 H Pulse Oximetry 97 Oxygen Delivery Method Nasal Cannula Oxygen Flow Rate 1 MDM - Altered Mental Status Lab Data 10/17/22 16:03 10/17/22 16:03 Labs: Lab Results 10/17/22 10/17/22 10/17/22 Range/Units 16:03 16:03 16:03 WBC 7.0 (4.5-11.0) X10^3/uL RBC 3.09 L (4.0-5.2) X10^6/uL Hgb 8.8 L (12.0-16.0) g/dL Hct 26.7 L (36-46) % MCV 86.6 (80-100) fL MCH 28.4 (26-34) PG MCHC 32.8 (30-36) % RDW 16.4 H (11.6-14.8) % Plt Count 257 (150-400) X10^3/uL Neut % (Auto) 79.6 H (50-75) % Lymph % (Auto) 10.0 L (25-40) % [place] % (Auto) 8.2 (3-14) % Eos % (Auto) 1.2 L (2-4) % Baso % (Auto) 1.0 (0-2) % Neut # (Auto) 5600 (7778-9929) /uL Lymph # (Auto) 700 L (2312-6349) /uL [place] # (Auto) 600 (0-900) /uL Eos # (Auto) 100 (0-450) /uL Baso # (Auto) 100 (0-100) /uL PT 18.4 H (10.1-12.7) SECONDS INR 1.6 H (0.9-1.3) APTT 35 (26-36) SECONDS D-Dimer (<500) ng/ml Sodium 130 L (137-145) mmol/L Potassium 5.0 (3.4-5.1) mmol/L Chloride 93 L (98-107) mmol/L Carbon Dioxide 24 (22-32) mmol/L BUN 18 H (7-17) mg/dL Creatinine 1.06 H (0.52-1.04) mg/dL Estimated GFR 52 L (>60) mL/min BUN/Creatinine Ratio 17.0 (6-22) Glucose 128 H (80-110) mg/dL Lactate (0.7-2.1) mmol/L Calcium 8.7 (8.4-10.2) mg/dL Magnesium 2.3 (1.6-2.3) mg/dL Total Bilirubin 1.1 (0.2-1.3) mg/dL AST 31 (14-36) IU/L ALT 21 (<35) IU/L Alkaline Phosphatase 147 H (38-126) U/L Total Creatine Kinase 64 (30-135) U/L CK-MB (CK-2) TNP CK-MB (CK-2) Rel Index TNP Troponin I 0.019 (0.01-0.034) ng/mL NT-Pro-B Natriuret Pep (<450) pg/mL Total Protein 7.1 (6.3-8.2) g/dL Albumin 4.3 (3.5-5.0) g/dL Globulin 2.8 (1.7-4.1) g/dL Albumin/Globulin Ratio 1.5 (1.0-2.8) Lipase 69 (23-300) U/L Procalcitonin (<0.5) ng/mL TSH (0.47-4.68) uIU/mL Urine RBC (0-5/HPF) Urine WBC (0-5/HPF) Ur Squamous Epith Cells (0-5/HPF) Amorphous Sediment Urine Bacteria (None) Ur Culture Indicated? Chlamy pneumoniae PCR (Not Detect) Adenovirus (PCR) (Not Detect) B. pertussis DNA (PCR) (Not Detecte) B.parapertussis DNA PCR (Not Detecte) Coronavirus OC43 (PCR) (Not Detect) Coronavirus HKU1 (PCR) (Not Detect) Coronavirus 229E (PCR) (Not Detect) SARS-CoV-2 (PCR) (Not Detecte) Coronavirus NL63 (PCR) (Not Detect) Human Metapneumovir PCR (Not Detect) Influenza Type A (PCR) (Not Detect) Influenza Type B (PCR) (Not Detect) M. pneumoniae (PCR) (Not Detect) Parainfluenza 1 (PCR) (Not Detect) Parainfluenza 2 (PCR) (Not Detect) Parainfluenza 3 (PCR) (Not Detect) Parainfluenza 4 (PCR) (Not Detect) RSV (PCR) (Not Detect) Entero/Rhino (PCR) (Not Detect) 10/17/22 10/17/22 10/17/22 Range/Units 16:03 16:03 16:03 WBC (4.5-11.0) X10^3/uL RBC (4.0-5.2) X10^6/uL Hgb (12.0-16.0) g/dL Hct (36-46) % MCV (80-100) fL MCH (26-34) PG MCHC (30-36) % RDW (11.6-14.8) % Plt Count (150-400) X10^3/uL Neut % (Auto) (50-75) % Lymph % (Auto) (25-40) % [place] % (Auto) (3-14) % Eos % (Auto) (2-4) % Baso % (Auto) (0-2) % Neut # (Auto) (8432-3868) /uL Lymph # (Auto) (6637-7213) /uL [place] # (Auto) (0-900) /uL Eos # (Auto) (0-450) /uL Baso # (Auto) (0-100) /uL PT (10.1-12.7) SECONDS INR (0.9-1.3) APTT (26-36) SECONDS D-Dimer 1244 H (<500) ng/ml Sodium (137-145) mmol/L Potassium (3.4-5.1) mmol/L Chloride (98-107) mmol/L Carbon Dioxide (22-32) mmol/L BUN (7-17) mg/dL Creatinine (0.52-1.04) mg/dL Estimated GFR (>60) mL/min BUN/Creatinine Ratio (6-22) Glucose (80-110) mg/dL Lactate 2.1 (0.7-2.1) mmol/L Calcium (8.4-10.2) mg/dL Magnesium (1.6-2.3) mg/dL Total Bilirubin (0.2-1.3) mg/dL AST (14-36) IU/L ALT (<35) IU/L Alkaline Phosphatase (38-126) U/L Total Creatine Kinase (30-135) U/L CK-MB (CK-2) CK-MB (CK-2) Rel Index Troponin I (0.01-0.034) ng/mL NT-Pro-B Natriuret Pep 6550 H (<450) pg/mL Total Protein (6.3-8.2) g/dL Albumin (3.5-5.0) g/dL Globulin (1.7-4.1) g/dL Albumin/Globulin Ratio (1.0-2.8) Lipase (23-300) U/L Procalcitonin (<0.5) ng/mL TSH (0.47-4.68) uIU/mL Urine RBC (0-5/HPF) Urine WBC (0-5/HPF) Ur Squamous Epith Cells (0-5/HPF) Amorphous Sediment Urine Bacteria (None) Ur Culture Indicated? Chlamy pneumoniae PCR (Not Detect) Adenovirus (PCR) (Not Detect) B. pertussis DNA (PCR) (Not Detecte) B.parapertussis DNA PCR (Not Detecte) Coronavirus OC43 (PCR) (Not Detect) Coronavirus HKU1 (PCR) (Not Detect) Coronavirus 229E (PCR) (Not Detect) SARS-CoV-2 (PCR) (Not Detecte) Coronavirus NL63 (PCR) (Not Detect) Human Metapneumovir PCR (Not Detect) Influenza Type A (PCR) (Not Detect) Influenza Type B (PCR) (Not Detect) M. pneumoniae (PCR) (Not Detect) Parainfluenza 1 (PCR) (Not Detect) Parainfluenza 2 (PCR) (Not Detect) Parainfluenza 3 (PCR) (Not Detect) Parainfluenza 4 (PCR) (Not Detect) RSV (PCR) (Not Detect) Entero/Rhino (PCR) (Not Detect) 10/17/22 10/17/22 10/17/22 Range/Units 16:03 16:03 17:51 WBC (4.5-11.0) X10^3/uL RBC (4.0-5.2) X10^6/uL Hgb (12.0-16.0) g/dL Hct (36-46) % MCV (80-100) fL MCH (26-34) PG MCHC (30-36) % RDW (11.6-14.8) % Plt Count (150-400) X10^3/uL Neut % (Auto) (50-75) % Lymph % (Auto) (25-40) % [place] % (Auto) (3-14) % Eos % (Auto) (2-4) % Baso % (Auto) (0-2) % Neut # (Auto) (2217-0043) /uL Lymph # (Auto) (9815-0912) /uL [place] # (Auto) (0-900) /uL Eos # (Auto) (0-450) /uL Baso # (Auto) (0-100) /uL PT (10.1-12.7) SECONDS INR (0.9-1.3) APTT (26-36) SECONDS D-Dimer (<500) ng/ml Sodium (137-145) mmol/L Potassium (3.4-5.1) mmol/L Chloride (98-107) mmol/L Carbon Dioxide (22-32) mmol/L BUN (7-17) mg/dL Creatinine (0.52-1.04) mg/dL Estimated GFR (>60) mL/min BUN/Creatinine Ratio (6-22) Glucose (80-110) mg/dL Lactate (0.7-2.1) mmol/L Calcium (8.4-10.2) mg/dL Magnesium (1.6-2.3) mg/dL Total Bilirubin (0.2-1.3) mg/dL AST (14-36) IU/L ALT (<35) IU/L Alkaline Phosphatase (38-126) U/L Total Creatine Kinase (30-135) U/L CK-MB (CK-2) CK-MB (CK-2) Rel Index Troponin I (0.01-0.034) ng/mL NT-Pro-B Natriuret Pep (<450) pg/mL Total Protein (6.3-8.2) g/dL Albumin (3.5-5.0) g/dL Globulin (1.7-4.1) g/dL Albumin/Globulin Ratio (1.0-2.8) Lipase (23-300) U/L Procalcitonin 0.08 (<0.5) ng/mL TSH 1.72 (0.47-4.68) uIU/mL Urine RBC None seen (0-5/HPF) Urine WBC 5-10/hpf H (0-5/HPF) Ur Squamous Epith Cells 5-10 /hpf H (0-5/HPF) Amorphous Sediment 1+ Urine Bacteria Few (2-10) H (None) Ur Culture Indicated? Specimen cultured Chlamy pneumoniae PCR (Not Detect) Adenovirus (PCR) (Not Detect) B. pertussis DNA (PCR) (Not Detecte) B.parapertussis DNA PCR (Not Detecte) Coronavirus OC43 (PCR) (Not Detect) Coronavirus HKU1 (PCR) (Not Detect) Coronavirus 229E (PCR) (Not Detect) SARS-CoV-2 (PCR) (Not Detecte) Coronavirus NL63 (PCR) (Not Detect) Human Metapneumovir PCR (Not Detect) Influenza Type A (PCR) (Not Detect) Influenza Type B (PCR) (Not Detect) M. pneumoniae (PCR) (Not Detect) Parainfluenza 1 (PCR) (Not Detect) Parainfluenza 2 (PCR) (Not Detect) Parainfluenza 3 (PCR) (Not Detect) Parainfluenza 4 (PCR) (Not Detect) RSV (PCR) (Not Detect) Entero/Rhino (PCR) (Not Detect) 10/17/22 10/17/22 Range/Units 19:35 21:01 WBC (4.5-11.0) X10^3/uL RBC (4.0-5.2) X10^6/uL Hgb (12.0-16.0) g/dL Hct (36-46) % MCV (80-100) fL MCH (26-34) PG MCHC (30-36) % RDW (11.6-14.8) % Plt Count (150-400) X10^3/uL Neut % (Auto) (50-75) % Lymph % (Auto) (25-40) % [place] % (Auto) (3-14) % Eos % (Auto) (2-4) % Baso % (Auto) (0-2) % Neut # (Auto) (5556-8485) /uL Lymph # (Auto) (5811-2200) /uL [place] # (Auto) (0-900) /uL Eos # (Auto) (0-450) /uL Baso # (Auto) (0-100) /uL PT (10.1-12.7) SECONDS INR (0.9-1.3) APTT (26-36) SECONDS D-Dimer (<500) ng/ml Sodium (137-145) mmol/L Potassium (3.4-5.1) mmol/L Chloride (98-107) mmol/L Carbon Dioxide (22-32) mmol/L BUN (7-17) mg/dL Creatinine (0.52-1.04) mg/dL Estimated GFR (>60) mL/min BUN/Creatinine Ratio (6-22) Glucose (80-110) mg/dL Lactate 1.2 (0.7-2.1) mmol/L Calcium (8.4-10.2) mg/dL Magnesium (1.6-2.3) mg/dL Total Bilirubin (0.2-1.3) mg/dL AST (14-36) IU/L ALT (<35) IU/L Alkaline Phosphatase (38-126) U/L Total Creatine Kinase (30-135) U/L CK-MB (CK-2) CK-MB (CK-2) Rel Index Troponin I (0.01-0.034) ng/mL NT-Pro-B Natriuret Pep (<450) pg/mL Total Protein (6.3-8.2) g/dL Albumin (3.5-5.0) g/dL Globulin (1.7-4.1) g/dL Albumin/Globulin Ratio (1.0-2.8) Lipase (23-300) U/L Procalcitonin (<0.5) ng/mL TSH (0.47-4.68) uIU/mL Urine RBC (0-5/HPF) Urine WBC (0-5/HPF) Ur Squamous Epith Cells (0-5/HPF) Amorphous Sediment Urine Bacteria (None) Ur Culture Indicated? Chlamy pneumoniae PCR Not detected (Not Detect) Adenovirus (PCR) Not detected (Not Detect) B. pertussis DNA (PCR) Not detected (Not Detecte) B.parapertussis DNA PCR Not detected (Not Detecte) Coronavirus OC43 (PCR) Not detected (Not Detect) Coronavirus HKU1 (PCR) Not detected (Not Detect) Coronavirus 229E (PCR) Not detected (Not Detect) SARS-CoV-2 (PCR) Not detected (Not Detecte) Coronavirus NL63 (PCR) Not detected (Not Detect) Human Metapneumovir PCR Not detected (Not Detect) Influenza Type A (PCR) Not detected (Not Detect) Influenza Type B (PCR) Not detected (Not Detect) M. pneumoniae (PCR) Not detected (Not Detect) Parainfluenza 1 (PCR) Not detected (Not Detect) Parainfluenza 2 (PCR) Not detected (Not Detect) Parainfluenza 3 (PCR) Not detected (Not Detect) Parainfluenza 4 (PCR) Not detected (Not Detect) RSV (PCR) Not detected (Not Detect) Entero/Rhino (PCR) Not detected (Not Detect) Point of Care Testing Glucose POC 129 Urine Dip Bedside Urine Glucose 250 mg/dl Bedside Urine Bilirubin - Negative Bedside Urine Ketone - Negative Urine Specific [place] 1.015 Bedside Urine Occult Blood - Negative Bedside Urine pH 6.0 Bedside Urine Protein + 30 Bedside Urine Urobilinogen - Negative Bedside Urine Nitrite - Negative Bedside Urine Leukocytes - Negative Esterase Imaging Data Chest x-ray: Radiologist's Impression: nt: LetyRhoda Jennifer MR#: [id number] : 1940 Acct:[id number] Age/Sex: 82 / F Date of Service: 10/17/22 Loc: ED Accession Number: [id number] ?? Procedure: XR chest 1V Ordering Provider: Tran Nowak D.O. PROCEDURE:? XR CHEST 1V ? INDICATIONS:? chest pain ? TECHNIQUE:? One view of the chest was acquired.? ? COMPARISON:? [facility], CT, CT ANGIO CHEST PE, 12/13/2020, 13:01.? [facility], CR, XR CHEST 2V, 09/23/2022, 12:14. ? FINDINGS:? ? Surgical changes and devices:? A leadless pacer can be seen.? Right axillary clips are seen. ? Lungs and pleura:? There is a moderate right-sided pleural effusion, with overlying opacity.? No pneumothorax can be seen this semiupright study. ? Mediastinum:? The cardiac contours are within normal limits. The aorta demonstrates calcification and tortuosity. ? Bones and chest wall:? No suspicious bony lesions.? Age-appropriate bony degenerative changes are seen.? Overlying soft tissues appear unremarkable.? IMPRESSION:? Moderate right-sided pleural effusion with overlying atelectasis versus infiltrate. ? Postoperative and degenerative changes are seen.? ? ? Dictated by: Mikey Faye M.D. on 10/17/2022 at 15:30 ? ? Approved by: Mikey Faye M.D. on 10/17/2022 at 15:32 ? Extremity x-ray #1: Radiologist's Impression: Signed Patient: Rhoda Davidson MR#: [id number] : 1940 Acct:[id number] Age/Sex: 82 / F Date of Service: 10/17/22 Loc: ED Accession Number: [id number] ?? Procedure: XR shoulder RT min 2V Ordering Provider: Zuly Monroy D.O. PROCEDURE:? XR SHOULDER RT MIN 2V ? INDICATIONS:? pain fall ? TECHNIQUE:? 4 views of the shoulder were acquired.? ? COMPARISON:? [facility], CR, XR SHOULDER LT MIN 2V, 06/15/2018, 10:13. ? FINDINGS:? ? Bones:? 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 No suspicious bony lesions.? Visualized ribs appear intact.? ? Soft tissues:? No suspicious soft tissue calcifications.? Note is made of what appears to be a pleural effusion and compressive atelectasis right lower lobe. ? IMPRESSION:? No definite acute trauma at the right shoulder but there is degenerative osteoarthritic change that could obscure clear visualization of a small nondisplaced fracture.? Pleural effusion and atelectasis noted right mid and lower lung. ? ? Dictated by: Davi Hu M.D. on 10/17/2022 at 20:53 ? ? ECG Data Interpretation: Paced rhythm rate [address] changes similar to previous EKGs MDM Narrative Medical decision making narrative: Patient 82-year-old female presents today with right hip pain although she has not fallen not significantly tender she moves her leg very well. She is actually noted to be hypoxic with decreased breath sounds on right side. Chest x-ray does show significant lesion. BNP is elevated at 6500 along with D-dimer 1200. CT angio was ordered to rule out pulmonary embolism. CT does not show pulmonary embolism but shows significant pleural effusion with right-sided rib fractures 9 through 12 and sternal fracture. Patient shows no sign of fall or trauma to her thoracic area. She is not tender over her sternum or her ribs questionable if these are new or old although 1 CT they look fairly new. Was new onset rib fractures and large amount of fluid questionable pleural effusion versus hemothorax. She is anemic with a hemoglobin of 8.8 previously 9.1 and hematocrit of 26. This appears relatively stable. No active bleeding or blush seen on CT. She is no previous imaging she would a chest x-ray in July which did not show any abnormality. She has ongoing thoracic wedge fractures, which appear stable. She also has significant swelling in her right upper extremity which may be edema versus upper extremity DVT. Blood work is surprisingly reassuring. Sodium is better than it has been previously today it is 130. Potassium mildly elevated at 5.0 but this is stable from previous on October 01. Creatinine 1.0 previously 0.72. Will catheter placed in Lasix given for BNP greater than 6500. He is requiring longitude L of oxygen hemodynamically she is stable he is mildly confused but overall no respiratory distress. Patient has no leukocytosis elevated lactate fever procalcitonin or signs and symptoms consistent with an infectious process. Dr. Sifuentes surgery consulted for possible trauma. Patient multiple rib fractures and sternal fracture with questionable hemothorax. At this time she is happy to consult no emergent interventions Gwen Guzmán in ED to see and evaluate patient and accepts Discharge Plan Departure Patient Disposition: Admitted As Inpatient Clinical Impression: Multiple rib fractures, Sternal fracture, Pleural effusion, Congestive heart failure Admit Date/Time: 10/17/22 21:01 Admit Provider: Gwen Guzmán
--- NOTE | 2022-10-17 20:18 | DI.RAD.S_ITS ---
PROCEDURE: XR SHOULDER RT MIN 2V INDICATIONS: pain fall TECHNIQUE: 4 views of the shoulder were acquired. COMPARISON: [facility], CR, XR SHOULDER LT MIN 2V, 06/15/2018, 10:13. FINDINGS: Bones: No fractures or dislocations but there is degenerative osteoarthritic change at the AC joint and glenohumeral joints to the degree that a nondisplaced fracture might not be accurately detected. No suspicious bony lesions. Visualized ribs appear intact. Soft tissues: No suspicious soft tissue calcifications. Note is made of what appears to be a pleural effusion and compressive atelectasis right lower lobe. IMPRESSION: No definite acute trauma at the right shoulder but there is degenerative osteoarthritic change that could obscure clear visualization of a small nondisplaced fracture. Pleural effusion and atelectasis noted right mid and lower lung. Dictated by: Davi Hu M.D. on 10/17/2022 at 20:53 Approved by: Davi Hu M.D. on 10/17/2022 at 20:55
[2022-10-17 20:30] LABS: Adenovirus Not Detected (Not Detect); B. parapertussis Not Detected (Not Detecte); Bordetella pertussis Not Detected (Not Detecte); Chlamydophila pneumoniae Not Detected (Not Detect); Coronavirus 229E Not Detected (Not Detect); Coronavirus HKU1 Not Detected (Not Detect); Coronavirus NL 63 Not Detected (Not Detect); Coronavirus OC43 Not Detected (Not Detect); Human Metapneumovirus Not Detected (Not Detect); Human Rhinovirus/Enterovirus Not Detected (Not Detect); Influenza A Not Detected (Not Detect); Influenza B Not Detected (Not Detect); Mycoplasma pneumoniae Not Detected (Not Detect); Parainfluenza Virus 1 Not Detected (Not Detect); Parainfluenza Virus 2 Not Detected (Not Detect); Parainfluenza Virus 3 Not Detected (Not Detect); Parainfluenza Virus 4 Not Detected (Not Detect); Respiratory Syncytial Virus Not Detected (Not Detect); SARS- CoV-2 Not Detected (Not Detecte)
[2022-10-17 20:51] LABS: Reflexed Lactate in 2 Hours Y
[2022-10-17] MEDS: FUROSEMIDE 40 MG/4 ML VIAL IV (20:59)
[2022-10-17 21:20] LABS: Lactate 2HR (Lactic Acid Rflx) 1.2 mmol/L (0.7-2.1)
[2022-10-17 22:15] LABS: Thyroid Stimulating Hormone 1.72 uIU/mL (0.47-4.68)
[2022-10-17 22:24] LABS: Troponin I 0.022 ng/mL (0.01-0.034)
--- NOTE | 2022-10-17 22:45 | P.HP_ITS ---
History of Present Illness History of Present Illness Date Patient Seen: 10/17/22 Time Patient Seen: 21:30 Chief complaint: Fall Narrative: Rhoda Davidson is a 82-year-old female PMH of pulmonary hypertension with chronic respiratory failure on 2L home 02, CHF, breast cancer, osteoporosis, chronic hyponatremia, dementia, anemia, chronic atrial fibrillation, pacer on Eliquis, IDDM depression and insomnia who presented to the ED with spouse complaining of decreasing mental status, patient c/o acute lumbar pain at home to her spouse and right hip pain.? She was admitted to the hospital September 23- with Fall, Na+ 120, supratherapeutic INR, and dens fracture.? The spouse provided much of the HPI in the ED but Dr. Monroy found the spouse to be a poor historian and possibly cognitively impaired as he verbalized that the patient is not on home oxygen, unclear as to whether she is taking Eliquis was unable to reconcile any of her medications, and firmly stated that she had had no falls. When I interviewed patient for ED department she seemed equally confused disorientated unable to follow direction reflexion of her dementia, it is unclear if this is her baseline or altered mental status. upon physical exam the patient she denied any pain or discomfort, the patient was even being moved about and repositioned as x-ray was removing boards from underneath her and she verbalized no pain or discomfort. Neither the ED nor myself are able to obtain accurate HPI, ROS, medical hx/family hx, accurate medication reconciliation due to altered mental status/cognitive impairment/dementia of both the patient and her spouse. On admit 98.9, 140/65, 60, 16, 96% on 2l/NC-again from September adm it is documented patient has chronic respiratory failure and is on 2L/NC at home. Patient's Eliquis had been stopped initially on previous admit due to her frequent falls and injury but then had been restarted, patient's spouse was unclear as to whether she was still taking Eliquis. H&H 8.8/26.7 (last-Hgb 8.8- 9.7), no WBC or left shift, initial lactate 2.1, procalcitonin is negative, respiratory panel is negative. Sodium 130, chloride 93 BUN 18, creatinine 1.06, glucose 128, GFR 52, (last: Na+ 118-121, BIOMETRICS EXPERIMENTALIST 0.68-0.90, GFR>60). Initial troponin 0.019, EKG paced at a rate of 60 or T-wave. PT 18.4, INR 1.6, dimer 1244, C/Abd/P-CTA is negative for PE, Positive Large right pleural effusion.? Right lower lobe is collapsed, possible atelectasis in the right middle lobe.? Sternal fracture.? Right 9-12th rib fractures.? T12 and T11 new compression fractures. Stable L3 compression fracture. Rt Shoulder Xray:No definite acute trauma at the right shoulder but there is degenerative osteoarthritic change that could obscure clear visualization of a small nondisplaced fracture. Patient admitted for ground level fall, resulting in pathological sternum fracture, multiple rib fractures, and thoracic lumbar fractures, altered mental status versus dementia, DUANE. Patient History Medical History (Updated 10/17/22 @ 23:25 by LEIGH Hayes-JULIET) Chronic anticoagulation Chronic atrial fibrillation Chronic hyponatremia Chronic respiratory failure Dementia Depression Insulin dependent type 2 diabetes mellitus Iron deficiency anemia Pacemaker Pulmonary hypertension Surgical History (Updated 10/17/22 @ 23:25 by LEIGH Hayes-BC) History of permanent cardiac pacemaker placement Family & Social History Social History: household members significant other Prior Living Arrangements House Safety & Behavioral: Feels Safe in Current Yes Environment Been Physically Hurt or No Threatened By a Person Tobacco & Substance use: Smoking Status Never smoker alcohol intake current alcohol intake frequency a few times a week Substance Use Type does not use Meds Home Medications and Allergies Home Medications Medication Instructions Recorded Confirmed Type sitagliptin phosphate 100 mg 100 mg PO DAILY ##0 08/20/16 10/17/22 History tablet (Januvia) amlodipine 5 mg tablet (Norvasc) 10 mg PO QDAY ##1 02/17/17 10/17/22 History atorvastatin 20 mg tablet (Lipitor) 40 mg PO QDAY ##0 02/17/17 10/17/22 History metformin 1,000 mg tablet 500 mg PO BID 03/18/18 10/17/22 History alendronate 70 mg tablet (Fosamax) 70 mg PO QWEEK osteoporosis #12 07/17/20 10/17/22 Rx tabs losartan 50 mg tablet 50 mg PO BID 12/27/20 10/17/22 History magnesium oxide-magnesium amino 400 cap PO BID 12/27/20 10/17/22 History acid chelate 300 mg capsule (Magnesium (oxide/AA chelate)) metoprolol succinate 50 mg 50 mg PO DAILY 12/27/20 10/17/22 History tablet,extended release 24 hr sennosides 8.6 mg capsule (senna) 8.6 mg PO BEDTIME 12/27/20 10/17/22 History sertraline 50 mg tablet 50 mg PO DAILY 12/27/20 10/17/22 History spironolactone 25 mg tablet 25 mg PO DAILY 12/27/20 10/17/22 History insulin glargine 100 unit/mL (3 13 unit SUBCUT QAM 03/26/21 10/17/22 History mL) subcutaneous pen (Lantus Solostar U-100 Insulin) doxylamine succinate 25 mg tablet 25 mg PO BEDTIME PRN Sleep 10/17/22 10/17/22 History ferrous sulfate 325 mg (65 mg 325 mg PO DAILY 10/17/22 10/17/22 History iron) tablet (FeroSul) tramadol 50 mg tablet 50 mg PO BID PRN Back Pain 10/17/22 10/17/22 History Allergies Allergy/AdvReac Type Severity Reaction Status Date / Time MYESHA Inhibitors Allergy Unknown UNK. Verified 10/17/22 16:10 [MYESHA INHIBITORS] Review of Systems Review of Systems Narrative: Unable to obtain accurate ROS. Exam Vital Signs (past 8 hours): - 10/17/22 15:56 10/17/22 15:54 10/17/22 16:00 Temperature 98.9 F Pulse Rate 60 61 60 Respiratory Rate 18 Blood Pressure 138/65 Pulse Oximetry 99 92 93 Oxygen Delivery Method Room Air Oxygen Flow Rate 10/17/22 16:23 10/17/22 16:23 10/17/22 16:30 Temperature Pulse Rate 60 Respiratory Rate 35 H Blood Pressure 132/60 127/60 Pulse Oximetry 92 Oxygen Delivery Method Oxygen Flow Rate 10/17/22 16:30 10/17/22 17:00 10/17/22 17:00 Temperature Pulse Rate 60 60 Respiratory Rate 30 H 48 H Blood Pressure 141/67 H Pulse Oximetry 97 96 Oxygen Delivery Method Oxygen Flow Rate 10/17/22 17:30 10/17/22 17:30 10/17/22 17:48 Temperature Pulse Rate 60 61 Respiratory Rate 64 H Blood Pressure 146/73 H Pulse Oximetry 95 92 Oxygen Delivery Method Oxygen Flow Rate 10/17/22 17:49 10/17/22 17:49 10/17/22 18:00 Temperature Pulse Rate 60 Respiratory Rate 26 H Blood Pressure 140/67 148/60 H Pulse Oximetry 90 L Oxygen Delivery Method Oxygen Flow Rate 10/17/22 18:00 10/17/22 18:30 10/17/22 18:30 Temperature Pulse Rate 60 60 Respiratory Rate 44 H 44 H Blood Pressure 140/65 Pulse Oximetry 92 89 L Oxygen Delivery Method Oxygen Flow Rate 10/17/22 19:14 10/17/22 19:30 10/17/22 19:35 Temperature Pulse Rate 59 L 60 Respiratory Rate 20 16 Blood Pressure 148/69 H Pulse Oximetry 95 96 Oxygen Delivery Method Nasal Cannula Oxygen Flow Rate 2 10/17/22 19:35 10/17/22 20:00 10/17/22 20:01 Temperature Pulse Rate 60 60 Respiratory Rate 24 20 Blood Pressure 136/62 Pulse Oximetry 95 93 Oxygen Delivery Method Nasal Cannula Nasal Cannula Oxygen Flow Rate 1 1 10/17/22 20:01 10/17/22 20:30 10/17/22 20:30 Temperature Pulse Rate 60 60 Respiratory Rate 20 20 Blood Pressure 147/67 H Pulse Oximetry 93 95 Oxygen Delivery Method Nasal Cannula Nasal Cannula Oxygen Flow Rate 1 1 10/17/22 21:00 10/17/22 21:00 10/17/22 21:30 Temperature Pulse Rate 60 Respiratory Rate 18 Blood Pressure 148/68 H 147/67 H Pulse Oximetry 97 Oxygen Delivery Method Nasal Cannula Oxygen Flow Rate 1 10/17/22 21:30 10/17/22 22:00 10/17/22 22:00 Temperature Pulse Rate 60 60 Respiratory Rate 21 20 Blood Pressure 149/67 H Pulse Oximetry 96 96 Oxygen Delivery Method Nasal Cannula Nasal Cannula Oxygen Flow Rate 1 1 Oxygen Delivery Method Nasal Cannula Oxygen Flow Rate 1 Narrative Exam Narrative: General: Patient is a well-developed, well-nourished elderly female, confused, disorientated, unable to follow direction, demonstrates no pain and is in no distress at this time. HEENT: Normocephalic, atraumatic, extraocular muscles intact, oral pharynx is clear and mucous membranes are dry. Neck is supple and symmetric, trachea is midline, no adenopathy, no thyroid enlargement, nontender, no masses palpated. Negative for JVD Chest: Breathing without nasal flaring, retractions, tachypneic or labored. Lungs: Auscultation of all lung nguyen , decreased in rt lower lobe. Cardio: Paced bradycardia regular rate and rhythm. Abdomen: Soft nontender, negative for organomegaly, or masses. Bowel sounds are hypoactive present in all 4 quadrants without guarding or rebound, no CVA tenderness. Musculoskeletal: Nontender on physical exam. Muscle tone appear equal & appropriate for age, no deformity, crepitus, effusions, cyanosis, positive bilateral +2 pitting edema to lower extremities, noted moderate swelling of right upper arm, intact radial and pedal pulses are normal. Skin: Warm dry and intact without rashes, ulcerations or petechiae. Neuro: Alert and orientated to self and hospital, altered, sensation to touch intact, no gross deficits noted of cranial nerves. Psych: Patient has a well-kept appearance, confused, unable to follow direction, no hx recall, mental status attitude thought context and judgment are inappropriate for age, unsure if this is patient's dementia baseline. Objective Labs 10/17/22 16:03 10/17/22 16:03 Labs: Laboratory Results - last 24 hr 10/17/22 10/17/22 10/17/22 16:03 16:03 16:03 WBC 7.0 RBC 3.09 L Hgb 8.8 L Hct 26.7 L MCV 86.6 MCH 28.4 MCHC 32.8 RDW 16.4 H Plt Count 257 Neut % (Auto) 79.6 H Lymph % (Auto) 10.[address] [place] % (Auto) 8.2 Eos % (Auto) 1.2 L Baso % (Auto) 1.0 Neut # (Auto) 5600 Lymph # (Auto) [address] [place] # (Auto) 600 Eos # (Auto) 100 Baso # (Auto) 100 PT 18.4 H INR 1.6 H APTT 35 D-Dimer Sodium 130 L Potassium 5.0 Chloride 93 L Carbon Dioxide 24 BUN 18 H Creatinine 1.06 H Estimated GFR 52 L BUN/Creatinine Ratio 17.0 Glucose 128 H Lactate Calcium 8.7 Magnesium 2.3 Total Bilirubin 1.1 AST 31 ALT 21 Alkaline Phosphatase 147 H Total Creatine Kinase 64 CK-MB (CK-2) TNP CK-MB (CK-2) Rel Index TNP Troponin I 0.019 NT-Pro-B Natriuret Pep Total Protein 7.1 Albumin 4.3 Globulin 2.8 Albumin/Globulin Ratio 1.5 Lipase 69 Procalcitonin TSH Urine RBC Urine WBC Ur Squamous Epith Cells Amorphous Sediment Urine Bacteria Ur Culture Indicated? Chlamy pneumoniae PCR Adenovirus (PCR) B. pertussis DNA (PCR) B.parapertussis DNA PCR Coronavirus OC43 (PCR) Coronavirus HKU1 (PCR) Coronavirus 229E (PCR) SARS-CoV-2 (PCR) Coronavirus NL63 (PCR) Human Metapneumovir PCR Influenza Type A (PCR) Influenza Type B (PCR) M. pneumoniae (PCR) Parainfluenza 1 (PCR) Parainfluenza 2 (PCR) Parainfluenza 3 (PCR) Parainfluenza 4 (PCR) RSV (PCR) Entero/Rhino (PCR) 10/17/22 10/17/22 10/17/22 16:03 16:03 16:03 WBC RBC Hgb Hct MCV MCH MCHC RDW Plt Count Neut % (Auto) Lymph % (Auto) [place] % (Auto) Eos % (Auto) Baso % (Auto) Neut # (Auto) Lymph # (Auto) [place] # (Auto) Eos # (Auto) Baso # (Auto) PT INR APTT D-Dimer 1244 H Sodium Potassium Chloride Carbon Dioxide BUN Creatinine Estimated GFR BUN/Creatinine Ratio Glucose Lactate 2.1 Calcium Magnesium Total Bilirubin AST ALT Alkaline Phosphatase Total Creatine Kinase CK-MB (CK-2) CK-MB (CK-2) Rel Index Troponin I NT-Pro-B Natriuret Pep 6550 H Total Protein Albumin Globulin Albumin/Globulin Ratio Lipase Procalcitonin TSH Urine RBC Urine WBC Ur Squamous Epith Cells Amorphous Sediment Urine Bacteria Ur Culture Indicated? Chlamy pneumoniae PCR Adenovirus (PCR) B. pertussis DNA (PCR) B.parapertussis DNA PCR Coronavirus OC43 (PCR) Coronavirus HKU1 (PCR) Coronavirus 229E (PCR) SARS-CoV-2 (PCR) Coronavirus NL63 (PCR) Human Metapneumovir PCR Influenza Type A (PCR) Influenza Type B (PCR) M. pneumoniae (PCR) Parainfluenza 1 (PCR) Parainfluenza 2 (PCR) Parainfluenza 3 (PCR) Parainfluenza 4 (PCR) RSV (PCR) Entero/Rhino (PCR) 10/17/22 10/17/22 10/17/22 16:03 16:03 17:51 WBC RBC Hgb Hct MCV MCH MCHC RDW Plt Count Neut % (Auto) Lymph % (Auto) [place] % (Auto) Eos % (Auto) Baso % (Auto) Neut # (Auto) Lymph # (Auto) [place] # (Auto) Eos # (Auto) Baso # (Auto) PT INR APTT D-Dimer Sodium Potassium Chloride Carbon Dioxide BUN Creatinine Estimated GFR BUN/Creatinine Ratio Glucose Lactate Calcium Magnesium Total Bilirubin AST ALT Alkaline Phosphatase Total Creatine Kinase CK-MB (CK-2) CK-MB (CK-2) Rel Index Troponin I NT-Pro-B Natriuret Pep Total Protein Albumin Globulin Albumin/Globulin Ratio Lipase Procalcitonin 0.08 TSH 1.72 Urine RBC None seen Urine WBC 5-10/hpf H Ur Squamous Epith Cells 5-10 /hpf H Amorphous Sediment 1+ Urine Bacteria Few (2-10) H Ur Culture Indicated? Specimen cultured Chlamy pneumoniae PCR Adenovirus (PCR) B. pertussis DNA (PCR) B.parapertussis DNA PCR Coronavirus OC43 (PCR) Coronavirus HKU1 (PCR) Coronavirus 229E (PCR) SARS-CoV-2 (PCR) Coronavirus NL63 (PCR) Human Metapneumovir PCR Influenza Type A (PCR) Influenza Type B (PCR) M. pneumoniae (PCR) Parainfluenza 1 (PCR) Parainfluenza 2 (PCR) Parainfluenza 3 (PCR) Parainfluenza 4 (PCR) RSV (PCR) Entero/Rhino (PCR) 10/17/22 10/17/22 10/17/22 19:35 21:01 21:53 WBC RBC Hgb Hct MCV MCH MCHC RDW Plt Count Neut % (Auto) Lymph % (Auto) [place] % (Auto) Eos % (Auto) Baso % (Auto) Neut # (Auto) Lymph # (Auto) [place] # (Auto) Eos # (Auto) Baso # (Auto) PT INR APTT D-Dimer Sodium Potassium Chloride Carbon Dioxide BUN Creatinine Estimated GFR BUN/Creatinine Ratio Glucose Lactate 1.2 Calcium Magnesium Total Bilirubin AST ALT Alkaline Phosphatase Total Creatine Kinase CK-MB (CK-2) CK-MB (CK-2) Rel Index Troponin I 0.022 NT-Pro-B Natriuret Pep Total Protein Albumin Globulin Albumin/Globulin Ratio Lipase Procalcitonin TSH Urine RBC Urine WBC Ur Squamous Epith Cells Amorphous Sediment Urine Bacteria Ur Culture Indicated? Chlamy pneumoniae PCR Not detected Adenovirus (PCR) Not detected B. pertussis DNA (PCR) Not detected B.parapertussis DNA PCR Not detected Coronavirus OC43 (PCR) Not detected Coronavirus HKU1 (PCR) Not detected Coronavirus 229E (PCR) Not detected SARS-CoV-2 (PCR) Not detected Coronavirus NL63 (PCR) Not detected Human Metapneumovir PCR Not detected Influenza Type A (PCR) Not detected Influenza Type B (PCR) Not detected M. pneumoniae (PCR) Not detected Parainfluenza 1 (PCR) Not detected Parainfluenza 2 (PCR) Not detected Parainfluenza 3 (PCR) Not detected Parainfluenza 4 (PCR) Not detected RSV (PCR) Not detected Entero/Rhino (PCR) Not detected Assessment & Plan Assessment & Plan narrative: Rhoda Davidson is a 82-year-old female PMH of pulmonary hypertension with chronic respiratory failure on 2L home 02, CHF, breast cancer, osteoporosis, chronic hyponatremia, dementia, anemia, chronic atrial fibrillation, pacer on Eliquis, IDDM depression and insomnia who presented to the ED with spouse complaining of decreasing mental status, patient c/o acute lumbar pain at home to her spouse and right hip pain.? She was admitted to the hospital September 23- with Fall, Na+ 120, supratherapeutic INR, and dens fracture. Patient admitted for ground level fall, resulting in pathological sternum fracture, multiple rib fractures, and thoracic lumbar fractures, altered mental status versus dementia, DUANE, possible UTI. Patient requires hospital admissions for evaluation of her multiple fractures which likely will require conservative care but will be evaluated by Dr. Sifuentes, PT/OT/INSULATION CUTTER, monitoring for bleeding stopping patient's Eliquis also monitoring for developing pneumonia, pneumothorax, acute respiratory distress, gentle hydration for resolution of DUANE, possible UTI with IV antibiotics, with gentle diuresis for CHF, as well as monitoring sodium and H&H. Patient will likely require SNF or rehab placement on discharge. 1. Ground level fall resulting in pathological sternum fracture, multiple rib fractures, thoracic, and lumbar fractures, Right pleural effusion/right lower lobe collapse, acute on chronic, with a hx of frequent falls, present on admission -I suspect the patient has had continued ongoing multiple falls, that both her and her spouse suffer from cognitive impairment versus dementia. I am concerned as to the patient's safety in the home, frequent falls, medications noncompli ance,and failure to use oxygen. Ordered INSULATION CUTTER consult possible APS eval?/community resources -C/ABD/P CT:Large right pleural effusion.? Right lower lobe is collapsed.? Suspect atelectasis in the right middle lobe.? No pneumothorax, positive Cardiomegaly, No aortic dissection or central pulmonary embolism. Sternal fracture.? Right 9-12th rib fractures.? T12 and T11 new compression fractures. Stable L3 compression fracture. No free fluid in the abdomen or pelvis is seen.? No pneumoperitoneum.? Anasarca. -Rt Shoulder Xray:No definite acute trauma at the right shoulder but there is degenerative osteoarthritic change that could obscure clear visualization of a small nondisplaced fracture. -Dr. Sifuentes consult placed, Dr. Sifuentes was consulted in the ED she determined at that time that she would not place a chest tube for the collapsed right lower lobe. -pain management, ice, Voltaren, lidocaine patch -continue tramadol -PT, OT evaluation after Dr. Sifuentes consult -Stop Eliquis -No VTE prophylaxis 2. Altered mental status versus baseline dementia w/depression, acute versus acute on chronic, present on admission -continue sertraline -neuro checks -patient has a pacer unable to get an MRI, ordered head CT for tomorrow 3. DUANE, mild, acute, present on admission -BUN 18, creatinine 1.06, glucose 128, GFR 52, ( BIOMETRICS EXPERIMENTALIST 0.68-0.90, GFR>60). -gentle hydration NS at 60 cc/HR-patient does not appear fluid overloaded. -hold spironolactone-concern for frequent dehydration leading to DUANE in combination with UTI-Consider stopping 4. Possible UTI, acute, present on admission, with hx of urine Strep+Viridians (09/2022) -Rocephin 2 g Q 24 hours -UA positive, culture pending-alter antibiotics based on sensitivity -NS at 60 cc/HR -ED placed Will, maintain -procalcitonin negative, lactate 2.1,no WBC or left shift 5. Pulmonary Hypertension with CHF with chronic respiratory failure on home O2, chronic, with anasarca, chronic, present on admission-stable -not in acute respiratory failure currently -BNP 6550 -C/ABD/P CT:Large right pleural effusion.? Right lower lobe is collapsed. Sridhar ateral +2 pitting edema to lower extremities, decreased breath sounds in right lower lobe. -ED gave 40 IV Lasix, 20 IV daily - monitor for over diuresis -monitoring for increased oxygen demand, pneumo/hemothorax -Initial troponin 0.019, trend x3 -EKG paced at a rate of [address] or T-wave changes. -PT 18.4, INR 1.6- repeat in am Last admit supratherapeutic -continue amlodipine, losartan, metoprolol, hold spironolactone -respiratory consult, nebs as needed 6. Atrial fibrillation, chronic, rate controlled with pacemaker, chronic, present on admission-stable -EKG paced at a rate of sinus fam [address] or T-wave changes. -continue amlodipine, losartan, metoprolol 7 Anemia, mild, chronic, present on admission-stable -H&H 8.8/26.7 (last-Hgb 8.8-9.7) -no evidence of any bleed -trend hemoglobin closely- due to posssible Eliquis use 8. Insulin-dependent type 2 diabetes with hyperlipidemia, acute on chronic, present on admission- controlled -glucose on admit 128 -patient admitted under diabetic protocol monitor for hypoglycemia -last A1c 09/2022 8.0, we will repeat -continue Lantus, low-dose sliding scale -hold Januvia and metformin -continue Lipitor 9. 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 Insomnia, chronic, present on admission -continue Doxylamin 11. Malnutrition, mild, acute on chronic, present on admission -as evidence by BMI 22.4 -patient's malnutrition places them at high risk for medical and surgical complications in relation to acute illness/chronic illness. This increases the difficulty in complexity of medical management and increases the chances poor outcomes such as mortality and morbidity as well as impaired wound healing, and immune suppression. -dietary consult ordered to evaluate and implement steps to improve caloric intake and nutrition. 12. Back pain, chronic, present on admission -continue tramadol 13. Hyponatremia, chronic, present on admission-stable -likely SIADH -on admit sodium 130, baseline range 118-121 -NS@60cc/hr Code status:Full Surrogate decision maker: Lexa VENTURA COVID PCR:Negative DVT/VTE prophylaxis:NO VTE-bleeding risk, SCD's only Disposition: Patient admitted to acute care, expected length of stay greater than 2 midnights. I have utilized all available immediate resources to obtain, update, or review the patient's current medications. Exception-the patient is not eligible for medication reconciliation; the patient is in an emergent medical situation were delaying treatment would jeopardize the patient's health. I confirmed that the patient's advanced care plan is present, Code status is documented and/or surrogate decision maker is listed in the patient's medical record. I have personally reviewed patient's chart notes from PCP, specialists, diagnos tic imaging, and laboratory results. Time Spent With Patient Critical Care time: I spent a total of [] minutes of critical care time on this patient's care today; this time is exclusive of procedural time. Quality VTE Deep Vein Thrombosis/Pulmonary Embolism Present on Admission: No
[2022-10-17] MEDS: AMLODIPINE 5 MG TABLET 10 MG PO (23:10)
[2022-10-17] MEDS: cefTRIAXone 2,000 MG in SODIUM CHLORIDE 0.9% 100 ML 200 MG IV (23:10)
[2022-10-17] MEDS: SODIUM CHLORIDE 0.9% 1,000 ML 60 ML IV (23:10)
[2022-10-17] MEDS: ATORVASTATIN 20 MG TABLET 40 MG PO (23:11)
[2022-10-17] MEDS: LOSARTAN 50 MG TABLET PO (23:11)
[2022-10-17] MEDS: TRAMADOL 50 MG TABLET PO (23:12)
[2022-10-18] VITALS (8 sets, daily range): BP systolic 110–133; BP diastolic 45–63; PULSE 60; RESP 14–20; TEMP 36.1–36.8; O2SAT 90–98
--- NOTE | 2022-10-18 00:11 | DI.CT.S_ITS ---
PROCEDURE: CT HEAD/BRAIN WO CON INDICATIONS: Altered, fall, anti coag, possible head injury TECHNIQUE: Noncontrast 4.5 mm thick angled axial sections acquired from the foramen magnum to the vertex, with coronal and sagittal reformats. For radiation dose reduction, the following was used: automated exposure control, adjustment of mA and/or kV according to patient size. COMPARISON: [facility], CT, CT HEAD/BRAIN WO CON, 09/23/2022, 12:18. [facility], CT, CT HEAD/BRAIN WO CON, 09/19/2022, 11:24. FINDINGS: Image quality: Excellent. CSF spaces: Basal cisterns are patent. No extra-axial fluid collections. The ventricles are symmetric in size and shape. Brain: No intracranial bleeds or masses. There is cerebral volume loss for age, with resultant ventricular and sulcal prominence. There are periventricular and deep white matter chronic small vessel ischemic changes. There is intracranial internal carotid artery atherosclerosis. Skull and face: Calvarium and visualized facial bones appear intact, without suspicious lesions. Sinuses: Visualized sinuses and mastoids are clear. IMPRESSION: Age related microvascular atherosclerotic change is moderate in each hemisphere. No trauma found. Dictated by: Davi Hu M.D. on 10/18/2022 at 1:07 Approved by: Davi Hu M.D. on 10/18/2022 at 1:08
[2022-10-18 04:25] LABS: Add Manual Diff / Slide Review NO; Basophils Absolute Auto 100 /uL (0-100); Basophils Percent Auto 1.2 % (0-2); Eosinophils Absolute Auto 100 /uL (0-450); Eosinophils Percent Auto 1.7 % (2-4); Hematocrit 23.6 % (36-46); Lymphocytes Absolute Auto 900 /uL (1100-4500); Lymphocytes Percent Auto 13.6 % (25-40); Mean Corpuscular HGB Conc 33.9 % (30-36); Mean Corpuscular Hemoglobin 28.9 PG (26-34); Mean Corpuscular Volume 85.2 fL (80-100); Monocytes Absolute Auto 600 /uL (0-900); Monocytes Percent Auto 8.7 % (3-14); Neutrophils Absolute Auto 5000 /uL (1500-7000); Neutrophils Percent Auto 74.8 % (50-75); Platelet Count 237 X10^3/uL (150-400); Red Blood Cell Count 2.77 X10^6/uL (4.0-5.2); Red Cell Distribution Width 15.8 % (11.6-14.8); White Blood Cell Count 6.7 X10^3/uL (4.5-11.0)
[2022-10-18 04:29] LABS: Alanine Aminotransferase 19 IU/L (<35); Albumin 3.7 g/dL (3.5-5.0); Albumin Globulin Ratio 1.5 (1.0-2.8); Alkaline Phosphatase 134 U/L (38-126); Aspartate Aminotransferase 26 IU/L (14-36); BUN Creatinine Ratio 15.8 (6-22); Blood Urea Nitrogen 15 mg/dL (7-17); Carbon Dioxide 23 mmol/L (22-32); Chloride 95 mmol/L (98-107); Estimated Glomerular Filt Rate 60 mL/min (>60); Globulin 2.5 g/dL (1.7-4.1); Glucose 98 mg/dL (80-110); HEMOLYSIS < 15 (0-50); Magnesium 2.2 mg/dL (1.6-2.3); Potassium 4.2 mmol/L (3.4-5.1); Sodium 130 mmol/L (137-145); Total Protein 6.2 g/dL (6.3-8.2)
[2022-10-18 04:37] LABS: Hemoglobin A1C% w Est Avg Glu 7.2 % (4.0-6.0)
[2022-10-18 04:40] LABS: Troponin I 0.022 ng/mL (0.01-0.034)
--- NOTE | 2022-10-18 08:00 | DI.RAD.S_ITS ---
PROCEDURE: XR CHEST 2V INDICATIONS: pleural eff, risk of hemo/pneumothorax-rib/sterum fx TECHNIQUE: 2 views of the chest were acquired. COMPARISON: [facility], CT, CT ANGIO CHEST ABDOMEN PELVIS, 10/17/2022, 18:49. [facility], CR, XR CHEST 1V, 10/17/2022, 16:13. [facility], CR, XR CHEST 2V, 09/23/2022, 12:14. FINDINGS: Surgical changes and devices: None. Lungs and pleura: Lungs are again seen to be free of pneumonia within the left hemithorax, in is again noted. No pleural effusions or pneumothorax. Mediastinum: Mediastinal contours are normal. Heart size is normal. Bones and chest wall: No suspicious bony abnormalities. Soft tissues appear unremarkable. IMPRESSION: Persistent large right pleural effusion, global cardiomegaly again noted. Dictated by: Davi Hu M.D. on 10/18/2022 at 1:45 Approved by: Davi Hu M.D. on 10/18/2022 at 1:48
--- NOTE | 2022-10-18 08:01 | PC.NURSE ---
Addendum entered by Shawna Robins R.N. 10/18/22 18:35: Patient pulled out her paiz catheter. is aware. No new orders. Original Note: Patient is pleasantly confused, she will sit up and yell out and is easily redirected. She has 3+ edema to lower ankles and feet. Some bruising to arms and dry skin to legs. She denies pain and ls are clear upon auscultation.
[2022-10-18] MEDS: MAGNESIUM OXIDE 400 MG TABLET PO ×2 (08:10→21:23)
[2022-10-18] MEDS: SERTRALINE 50 MG TABLET PO (08:10)
[2022-10-18] MEDS: METOPROLOL ER 50 MG TABLET PO (08:10)
[2022-10-18] MEDS: ATORVASTATIN 20 MG TABLET 40 MG PO (08:10)
[2022-10-18] MEDS: AMLODIPINE 5 MG TABLET 10 MG PO (08:10)
[2022-10-18] MEDS: FERROUS SULFATE 325 MG TABLET PO (08:10)
[2022-10-18] MEDS: FUROSEMIDE 20 MG/2 ML VIAL IV (08:11)
--- NOTE | 2022-10-18 10:57 | CM.DANOTE ---
Addendum entered by MANE Colvin 10/18/22 11:15: ADD: Per Surgeon Consult, possible thoracentesis. Original Note: Patient is an 82 yo female who was a Readmit on 10/17/22 for GLF. Per MD, pt with history of dementia, chronic atrial fibrillation on chronic Eliquis, osteoporosis, and breast cancer. Patient has had increased frequency of falls, in fact falling last known when she was last admitted a couple weeks ago from 09/23/22-10/01/22. Ortho had been consulted and patient placed in a hard cervical collar which has been recommended for a total of 12 weeks. Pt progressed with PT and was able to go home with new [facility] referral and Sig Other Adelfo. Per MD, pt now with sternum fx, rib fx, and lumbar fx and awaiting Ortho Consult. PCP: Zuleima Keating Payer: MCR/AARP Patient lives w/ SO in [facility] and can complete most ADLs indp at her baseline. Patient's son Dashawn lives locally in [facility] and can assist as needed. Per RN and , pt has seemed more confused since admission through the ED this visit and Sig Other appears to also be a poor historian regarding pt's medications to alert staff to concern for care and med management at home, unclear if new confusion from both or baseline. PT/OT ordered but no therapies available for initial eval until tomorrow Wednesday10/19/22. CHARU met bedside with pt and explained role and inquired if pt remembers last admission a couple weeks ago and pt states she does not remember but was told by staff. CHARU inquired if [facility] started services with her in the home and she states they are currently working with her. CHARU updated pt that awaiting PT/OT eval tomorrow to determine if home a safe option and may need SNF rehab and inquired if Sig Other will be bedside and pt states Yes and also confirmed SW could call her son and keep him updated. CHARU called [facility] and they confirm they are open to services with pt and that their BILLBOARD ERECTOR HELPER met in the home with pt and sig other a couple days ago and noted SO seems to be taking good care of pt, they have a shellfish weigher and aware of some resources and no noted concerns with home visit. CHARU updated them that pt admitted and possible need for SNF and faxed H&P for review. Plan: SW to follow for further d/c discussion once Sig Other bedside to help evaluate if both pt and SO are having confusion and then likely discussion with son regarding d/c needs. PT/OT to help determine return home with [facility] vs SNF. Discharge Planning/Care Management CM Discharge Assessment Start: 10/18/22 10:53 Freq: Status: Active Protocol: Document 10/18/22 10:53 BF (Rec: 10/18/22 10:57 BF [id number]) Discharge Planning Assessment Assigned Full Time Paramedic MANE Roger DPOA/Assigned Designee Name Sig Other Adelfo and son Dashawn Contact Information [phone] Advance Directives? Yes: POLST Advance Directives on File No History Provided By Patient,Significant Other, Medical Record Has Patient been admitted in last 30 Yes days? Comment last admitted Sep 23-2022 this year after GLF and discharged home with Sig Other and [facility] Prior Living Arrangements House Household Members significant other Type of transporation used prior to Relies on Others admit Independent with ADL's Yes: somewhat Is patient alert and oriented? Yes: some short term memory issues Needs Assistance With Meal Prep,Managing Medications ,Home Chores / Shopping Caregiver for Another No Community Services used prior to Physical Therapy,Home Health admission: Nurse,Social Work Patient/Family Preference [facility],Home with Home Health Comment SNF vs [facility] pending PT/OT eval tomorrow Wednesday Barriers to Discharge No Discharge Plan [facility] Transportation Arrangement Sig Other is available to provide transport at d/c unless SNF needed Referrals Initiated Home Health Additional Comment Open with [facility] since initial referral a couple weeks ago Medicare Choice List Provided Yes Medicare choice list reviewed on patient electronic tablet with SNF/HH Preference Will need to discuss further with Sig Other and son as pt and maybe Sig Other currently seem confused Whiteboard Updated in Patient Room with Yes name and ext. # of Full Time Paramedic Review Status In Process Please Provide Date Initial DC 10/18/22 Assessment Was Performed Next Review Type Continued Stay Review
--- NOTE | 2022-10-18 10:58 | PM.CN ---
History of Present Illness Consult details Date Patient Seen: 10/18/22 Time Patient Seen: 10:58 Chief complaint: Fall Reason for consult: right pleural effusion after fall 4 weeks ago Requesting provider: Tarn Nowak Narrative: Frail 82 yo on anticoagulation, cardiac issues, dementia. Fell a month ago, anemia has not improved. Injuries included rib fractures, right pleural effusion, acute on chronic anemia, Dens fracture, sternal fracture. Complains of fatigue and right hip discomfort. Meds Home Medications and Allergies Home Medications Medication Instructions Recorded Confirmed Type sitagliptin phosphate 100 mg 100 mg PO DAILY ##0 08/20/16 10/17/22 History tablet (Januvia) amlodipine 5 mg tablet (Norvasc) 10 mg PO QDAY ##1 02/17/17 10/17/22 History atorvastatin 20 mg tablet (Lipitor) 40 mg PO QDAY ##0 02/17/17 10/17/22 History metformin 1,000 mg tablet 500 mg PO BID 03/18/18 10/17/22 History alendronate 70 mg tablet (Fosamax) 70 mg PO QWEEK osteoporosis #12 07/17/20 10/17/22 Rx tabs losartan 50 mg tablet 50 mg PO BID 12/27/20 10/17/22 History magnesium oxide-magnesium amino 400 cap PO BID 12/27/20 10/17/22 History acid chelate 300 mg capsule (Magnesium (oxide/AA chelate)) metoprolol succinate 50 mg 50 mg PO DAILY 12/27/20 10/17/22 History tablet,extended release 24 hr sennosides 8.6 mg capsule (senna) 8.6 mg PO BEDTIME 12/27/20 10/17/22 History sertraline 50 mg tablet 50 mg PO DAILY 12/27/20 10/17/22 History spironolactone 25 mg tablet 25 mg PO DAILY 12/27/20 10/17/22 History insulin glargine 100 unit/mL (3 13 unit SUBCUT QAM 03/26/21 10/17/22 History mL) subcutaneous pen (Lantus Solostar U-100 Insulin) doxylamine succinate 25 mg tablet 25 mg PO BEDTIME PRN Sleep 10/17/22 10/17/22 History ferrous sulfate 325 mg (65 mg 325 mg PO DAILY 10/17/22 10/17/22 History iron) tablet (FeroSul) tramadol 50 mg tablet 50 mg PO BID PRN Back Pain 10/17/22 10/17/22 History Allergies Allergy/AdvReac Type Severity Reaction Status Date / Time MYESHA Inhibitors Allergy Unknown UNK. Verified 10/17/22 16:10 [MYESHA INHIBITORS] Review of Systems Review of Systems ROS: Yes All systems reviewed with the patient and are negative except as otherwise documented Exam Vital Signs (past 8 hours): - 10/18/22 08:00 10/18/22 09:13 Temperature 96.9 F L Pulse Rate 60 Respiratory Rate 20 Blood Pressure 116/63 Pulse Oximetry 93 93 Oxygen Delivery Method Nasal Cannula Oxygen Flow Rate 2 1 Fraction of Inspired Oxygen 28 SaO2/FiO2 Ratio 350 Oxygen Delivery Method Nasal Cannula Oxygen Flow Rate 1 Const General: cooperative and frail appearing Nutritional Appearance: underweight Limitations: other limitations (memory limitations) [facility] Head: normocephalic and atraumatic Ears: hearing grossly impaired Nose: external nose normal Face and sinus: normal facial exam Eyes General: appearance normal, both eyes and all related structures Neck Neck: trachea midline Chest Chest: localized rib tenderness with anteroposterior compression (right sided) Resp Effort & Inspection: normal respiratory effort and able to speak in complete sentences Cardio Rate: regular rate Rhythm: abnormal rhythm GI Inspection: normal to inspection Palpation: soft Skin General: atrophy, dry skin and ecchymosis Neuro General: patient alert and patient awake Psych Appearance: grossly normal Judgment: limited Objective Labs 10/18/22 04:09 10/18/22 04:09 Labs: Laboratory Results - last 24 hr 10/17/22 10/17/22 10/17/22 16:03 16:03 16:03 WBC 7.0 RBC 3.09 L Hgb 8.8 L Hct 26.7 L MCV 86.6 MCH 28.4 MCHC 32.8 RDW 16.4 H Plt Count 257 Neut % (Auto) 79.6 H Lymph % (Auto) 10.0 L [place] % (Auto) 8.2 Eos % (Auto) 1.2 L Baso % (Auto) 1.0 Neut # (Auto) 5600 Lymph # (Auto) 700 L [place] # (Auto) 600 Eos # (Auto) 100 Baso # (Auto) 100 PT 18.4 H INR 1.6 H APTT 35 D-Dimer Sodium 130 L Potassium 5.0 Chloride 93 L Carbon Dioxide 24 BUN 18 H Creatinine 1.06 H Estimated GFR 52 L BUN/Creatinine Ratio 17.0 Glucose 128 H Hemoglobin A1c Lactate Calcium 8.7 Magnesium 2.3 Total Bilirubin 1.1 AST 31 ALT 21 Alkaline Phosphatase 147 H Total Creatine Kinase 64 CK-MB (CK-2) TNP CK-MB (CK-2) Rel Index TNP Troponin I 0.019 NT-Pro-B Natriuret Pep Total Protein 7.1 Albumin 4.3 Globulin 2.8 Albumin/Globulin Ratio 1.5 Lipase 69 Procalcitonin TSH Urine RBC Urine WBC Ur Squamous Epith Cells Amorphous Sediment Urine Bacteria Ur Culture Indicated? Chlamy pneumoniae PCR Adenovirus (PCR) B. pertussis DNA (PCR) B.parapertussis DNA PCR Coronavirus OC43 (PCR) Coronavirus HKU1 (PCR) Coronavirus 229E (PCR) SARS-CoV-2 (PCR) Coronavirus NL63 (PCR) Human Metapneumovir PCR Influenza Type A (PCR) Influenza Type B (PCR) M. pneumoniae (PCR) Parainfluenza 1 (PCR) Parainfluenza 2 (PCR) Parainfluenza 3 (PCR) Parainfluenza 4 (PCR) RSV (PCR) Entero/Rhino (PCR) 10/17/22 10/17/22 10/17/22 16:03 16:03 16:03 WBC RBC Hgb Hct MCV MCH MCHC RDW Plt Count Neut % (Auto) Lymph % (Auto) [place] % (Auto) Eos % (Auto) Baso % (Auto) Neut # (Auto) Lymph # (Auto) [place] # (Auto) Eos # (Auto) Baso # (Auto) PT INR APTT D-Dimer 1244 H Sodium Potassium Chloride Carbon Dioxide BUN Creatinine Estimated GFR BUN/Creatinine Ratio Glucose Hemoglobin A1c Lactate 2.1 Calcium Magnesium Total Bilirubin AST ALT Alkaline Phosphatase Total Creatine Kinase CK-MB (CK-2) CK-MB (CK-2) Rel Index Troponin I NT-Pro-B Natriuret Pep 6550 H Total Protein Albumin Globulin Albumin/Globulin Ratio Lipase Procalcitonin TSH Urine RBC Urine WBC Ur Squamous Epith Cells Amorphous Sediment Urine Bacteria Ur Culture Indicated? Chlamy pneumoniae PCR Adenovirus (PCR) B. pertussis DNA (PCR) B.parapertussis DNA PCR Coronavirus OC43 (PCR) Coronavirus HKU1 (PCR) Coronavirus 229E (PCR) SARS-CoV-2 (PCR) Coronavirus NL63 (PCR) Human Metapneumovir PCR Influenza Type A (PCR) Influenza Type B (PCR) M. pneumoniae (PCR) Parainfluenza 1 (PCR) Parainfluenza 2 (PCR) Parainfluenza 3 (PCR) Parainfluenza 4 (PCR) RSV (PCR) Entero/Rhino (PCR) 10/17/22 10/17/22 10/17/22 16:03 16:03 17:51 WBC RBC Hgb Hct MCV MCH MCHC RDW Plt Count Neut % (Auto) Lymph % (Auto) [place] % (Auto) Eos % (Auto) Baso % (Auto) Neut # (Auto) Lymph # (Auto) [place] # (Auto) Eos # (Auto) Baso # (Auto) PT INR APTT D-Dimer Sodium Potassium Chloride Carbon Dioxide BUN Creatinine Estimated GFR BUN/Creatinine Ratio Glucose Hemoglobin A1c Lactate Calcium Magnesium Total Bilirubin AST ALT Alkaline Phosphatase Total Creatine Kinase CK-MB (CK-2) CK-MB (CK-2) Rel Index Troponin I NT-Pro-B Natriuret Pep Total Protein Albumin Globulin Albumin/Globulin Ratio Lipase Procalcitonin 0.08 TSH 1.72 Urine RBC None seen Urine WBC 5-10/hpf H Ur Squamous Epith Cells 5-10 /hpf H Amorphous Sediment 1+ Urine Bacteria Few (2-10) H Ur Culture Indicated? Specimen cultured Chlamy pneumoniae PCR Adenovirus (PCR) B. pertussis DNA (PCR) B.parapertussis DNA PCR Coronavirus OC43 (PCR) Coronavirus HKU1 (PCR) Coronavirus 229E (PCR) SARS-CoV-2 (PCR) Coronavirus NL63 (PCR) Human Metapneumovir PCR Influenza Type A (PCR) Influenza Type B (PCR) M. pneumoniae (PCR) Parainfluenza 1 (PCR) Parainfluenza 2 (PCR) Parainfluenza 3 (PCR) Parainfluenza 4 (PCR) RSV (PCR) Entero/Rhino (PCR) 10/17/22 10/17/22 10/17/22 19:35 21:01 21:53 WBC RBC Hgb Hct MCV MCH MCHC RDW Plt Count Neut % (Auto) Lymph % (Auto) [place] % (Auto) Eos % (Auto) Baso % (Auto) Neut # (Auto) Lymph # (Auto) [place] # (Auto) Eos # (Auto) Baso # (Auto) PT INR APTT D-Dimer Sodium Potassium Chloride Carbon Dioxide BUN Creatinine Estimated GFR BUN/Creatinine Ratio Glucose Hemoglobin A1c Lactate 1.2 Calcium Magnesium Total Bilirubin AST ALT Alkaline Phosphatase Total Creatine Kinase CK-MB (CK-2) CK-MB (CK-2) Rel Index Troponin I 0.022 NT-Pro-B Natriuret Pep Total Protein Albumin Globulin Albumin/Globulin Ratio Lipase Procalcitonin TSH Urine RBC Urine WBC Ur Squamous Epith Cells Amorphous Sediment Urine Bacteria Ur Culture Indicated? Chlamy pneumoniae PCR Not detected Adenovirus (PCR) Not detected B. pertussis DNA (PCR) Not detected B.parapertussis DNA PCR Not detected Coronavirus OC43 (PCR) Not detected Coronavirus HKU1 (PCR) Not detected Coronavirus 229E (PCR) Not detected SARS-CoV-2 (PCR) Not detected Coronavirus NL63 (PCR) Not detected Human Metapneumovir PCR Not detected Influenza Type A (PCR) Not detected Influenza Type B (PCR) Not detected M. pneumoniae (PCR) Not detected Parainfluenza 1 (PCR) Not detected Parainfluenza 2 (PCR) Not detected Parainfluenza 3 (PCR) Not detected Parainfluenza 4 (PCR) Not detected RSV (PCR) Not detected Entero/Rhino (PCR) Not detected 10/18/22 10/18/22 10/18/22 04:09 04:09 04:09 WBC 6.7 RBC 2.77 L Hgb 8.0 L Hct 23.6 L MCV 85.2 MCH 28.9 MCHC 33.9 RDW 15.8 H Plt Count 237 Neut % (Auto) 74.8 Lymph % (Auto) 13.6 L [place] % (Auto) 8.7 Eos % (Auto) 1.7 L Baso % (Auto) 1.2 Neut # (Auto) 5000 Lymph # (Auto) 900 L [place] # (Auto) 600 Eos # (Auto) 100 Baso # (Auto) 100 PT INR APTT D-Dimer Sodium 130 L Potassium 4.2 Chloride 95 L Carbon Dioxide 23 BUN 15 Creatinine 0.95 Estimated GFR 60 BUN/Creatinine Ratio 15.8 Glucose 98 Hemoglobin A1c Lactate Calcium 8.0 L Magnesium 2.2 Total Bilirubin 1.0 AST 26 ALT 19 Alkaline Phosphatase 134 H Total Creatine Kinase CK-MB (CK-2) CK-MB (CK-2) Rel Index Troponin I 0.022 NT-Pro-B Natriuret Pep Total Protein 6.2 L Albumin 3.7 Globulin 2.5 Albumin/Globulin Ratio 1.5 Lipase Procalcitonin TSH Urine RBC Urine WBC Ur Squamous Epith Cells Amorphous Sediment Urine Bacteria Ur Culture Indicated? Chlamy pneumoniae PCR Adenovirus (PCR) B. pertussis DNA (PCR) B.parapertussis DNA PCR Coronavirus OC43 (PCR) Coronavirus HKU1 (PCR) Coronavirus 229E (PCR) SARS-CoV-2 (PCR) Coronavirus NL63 (PCR) Human Metapneumovir PCR Influenza Type A (PCR) Influenza Type B (PCR) M. pneumoniae (PCR) Parainfluenza 1 (PCR) Parainfluenza 2 (PCR) Parainfluenza 3 (PCR) Parainfluenza 4 (PCR) RSV (PCR) Entero/Rhino (PCR) 10/18/22 04:09 WBC RBC Hgb Hct MCV MCH MCHC RDW Plt Count Neut % (Auto) Lymph % (Auto) [place] % (Auto) Eos % (Auto) Baso % (Auto) Neut # (Auto) Lymph # (Auto) [place] # (Auto) Eos # (Auto) Baso # (Auto) PT INR APTT D-Dimer Sodium Potassium Chloride Carbon Dioxide BUN Creatinine Estimated GFR BUN/Creatinine Ratio Glucose Hemoglobin A1c 7.2 H Lactate Calcium Magnesium Total Bilirubin AST ALT Alkaline Phosphatase Total Creatine Kinase CK-MB (CK-2) CK-MB (CK-2) Rel Index Troponin I NT-Pro-B Natriuret Pep Total Protein Albumin Globulin Albumin/Globulin Ratio Lipase Procalcitonin TSH Urine RBC Urine WBC Ur Squamous Epith Cells Amorphous Sediment Urine Bacteria Ur Culture Indicated? Chlamy pneumoniae PCR Adenovirus (PCR) B. pertussis DNA (PCR) B.parapertussis DNA PCR Coronavirus OC43 (PCR) Coronavirus HKU1 (PCR) Coronavirus 229E (PCR) SARS-CoV-2 (PCR) Coronavirus NL63 (PCR) Human Metapneumovir PCR Influenza Type A (PCR) Influenza Type B (PCR) M. pneumoniae (PCR) Parainfluenza 1 (PCR) Parainfluenza 2 (PCR) Parainfluenza 3 (PCR) Parainfluenza 4 (PCR) RSV (PCR) Entero/Rhino (PCR) PFSH Medical History Chronic anticoagulation Chronic atrial fibrillation Chronic hyponatremia Chronic respiratory failure Dementia Depression Insulin dependent type 2 diabetes mellitus Iron deficiency anemia Pacemaker Pulmonary hypertension Surgical History History of permanent cardiac pacemaker placement Social History household members: significant other Tobacco & Substance Use Smoking Status: Never smoker alcohol intake: current Assessment & Plan Assessment & Plan narrative: One month s/p fall, multiple injuries. Persistent anemia, persistent right pleural effusion. Oxygenation not impaired dramatically. Plan: potential thoracentisis with Radiology tomorrow if anticoagulation is appropriate COVID-19 COVID-19 status: Negative Time Spent With Patient Time with patient: 30 to 49 minutes with 50% spent counseling/coordinating care Critical Care time: I spent a total of [] minutes of critical care time on this patient's care today; this time is exclusive of procedural time.
[2022-10-18] MEDS: INSULIN GLARGINE 100 UNIT/ML 3ML PEN 13 UNIT SUBCUT (12:08)
[2022-10-18] MEDS: INSULIN LISPRO 100 UNIT/ML 3ML VIAL SUBCUT ×2 (12:09→16:59)
--- NOTE | 2022-10-18 14:23 | PM.PN.1 ---
Subjective Subjective Date Patient Seen: 10/18/22 Interval history: Per spouse at bedside today her mentation has greatly improved and she appears less short of breath. Patient denies difficulty breathing, chest pain, nausea, vomiting. Exam Vital Signs (past 8 hours): - 10/18/22 08:00 10/18/22 09:13 10/18/22 11:41 Temperature 96.9 F L Pulse Rate 60 60 Respiratory Rate 20 20 Blood Pressure 116/63 Pulse Oximetry 93 93 92 Oxygen Delivery Method Nasal Cannula Nasal Cannula Oxygen Flow Rate 2 1 3.5 10/18/22 12:00 Temperature 98.2 F Pulse Rate 60 Respiratory Rate 18 Blood Pressure 110/45 L Pulse Oximetry 90 L Oxygen Delivery Method Oxygen Flow Rate 2 Fraction of Inspired Oxygen 28 SaO2/FiO2 Ratio 350 Oxygen Delivery Method Nasal Cannula Oxygen Flow Rate 2 Narrative Exam Narrative: General: Patient is a well-developed, well-nourished elderly female, in no distress at this time. HEENT: Normocephalic, atraumatic, extraocular muscles intact, oral pharynx is clear and mucous membranes are moist. No JVD Chest: Breathing without nasal flaring, retractions, tachypneic or labored. Lungs: Auscultation of all lung nguyen clear , decreased in bilateral lower lobes Cardio: Paced bradycardia regular rate and rhythm. Abdomen: S NT ND Musculoskeletal: 1-2 + edema bilaterally in LE, no joint effusionsl. Skin: Warm dry and intact without rashes, ulcerations or petechiae. Neuro: alert, no focal deficits. Objective Labs 10/18/22 04:09 10/18/22 04:09 Labs: Laboratory Results - last 24 hr 10/17/22 10/17/22 10/17/22 16:03 16:03 16:03 WBC 7.0 RBC 3.09 L Hgb 8.8 L Hct 26.7 L MCV 86.6 MCH 28.4 MCHC 32.8 RDW 16.4 H Plt Count 257 Neut % (Auto) 79.6 H Lymph % (Auto) 10.0 L Metcalfe % (Auto) 8.2 Eos % (Auto) 1.2 L Baso % (Auto) 1.0 Neut # (Auto) 5600 Lymph # (Auto) 700 L Metcalfe # (Auto) 600 Eos # (Auto) 100 Baso # (Auto) 100 PT 18.4 H INR 1.6 H APTT 35 D-Dimer Sodium 130 L Potassium 5.0 Chloride 93 L Carbon Dioxide 24 BUN 18 H Creatinine 1.06 H Estimated GFR 52 L BUN/Creatinine Ratio 17.0 Glucose 128 H Hemoglobin A1c Lactate Calcium 8.7 Magnesium 2.3 Total Bilirubin 1.1 AST 31 ALT 21 Alkaline Phosphatase 147 H Total Creatine Kinase 64 CK-MB (CK-2) TNP CK-MB (CK-2) Rel Index TNP Troponin I 0.019 NT-Pro-B Natriuret Pep Total Protein 7.1 Albumin 4.3 Globulin 2.8 Albumin/Globulin Ratio 1.5 Lipase 69 Procalcitonin TSH Urine RBC Urine WBC Ur Squamous Epith Cells Amorphous Sediment Urine Bacteria Ur Culture Indicated? Chlamy pneumoniae PCR Adenovirus (PCR) B. pertussis DNA (PCR) B.parapertussis DNA PCR Coronavirus OC43 (PCR) Coronavirus HKU1 (PCR) Coronavirus 229E (PCR) SARS-CoV-2 (PCR) Coronavirus NL63 (PCR) Human Metapneumovir PCR Influenza Type A (PCR) Influenza Type B (PCR) M. pneumoniae (PCR) Parainfluenza 1 (PCR) Parainfluenza 2 (PCR) Parainfluenza 3 (PCR) Parainfluenza 4 (PCR) RSV (PCR) Entero/Rhino (PCR) 10/17/22 10/17/22 10/17/22 16:03 16:03 16:03 WBC RBC Hgb Hct MCV MCH MCHC RDW Plt Count Neut % (Auto) Lymph % (Auto) Metcalfe % (Auto) Eos % (Auto) Baso % (Auto) Neut # (Auto) Lymph # (Auto) Metcalfe # (Auto) Eos # (Auto) Baso # (Auto) PT INR APTT D-Dimer 1244 H Sodium Potassium Chloride Carbon Dioxide BUN Creatinine Estimated GFR BUN/Creatinine Ratio Glucose Hemoglobin A1c Lactate 2.1 Calcium Magnesium Total Bilirubin AST ALT Alkaline Phosphatase Total Creatine Kinase CK-MB (CK-2) CK-MB (CK-2) Rel Index Troponin I NT-Pro-B Natriuret Pep 6550 H Total Protein Albumin Globulin Albumin/Globulin Ratio Lipase Procalcitonin TSH Urine RBC Urine WBC Ur Squamous Epith Cells Amorphous Sediment Urine Bacteria Ur Culture Indicated? Chlamy pneumoniae PCR Adenovirus (PCR) B. pertussis DNA (PCR) B.parapertussis DNA PCR Coronavirus OC43 (PCR) Coronavirus HKU1 (PCR) Coronavirus 229E (PCR) SARS-CoV-2 (PCR) Coronavirus NL63 (PCR) Human Metapneumovir PCR Influenza Type A (PCR) Influenza Type B (PCR) M. pneumoniae (PCR) Parainfluenza 1 (PCR) Parainfluenza 2 (PCR) Parainfluenza 3 (PCR) Parainfluenza 4 (PCR) RSV (PCR) Entero/Rhino (PCR) 10/17/22 10/17/22 10/17/22 16:03 16:03 17:51 WBC RBC Hgb Hct MCV MCH MCHC RDW Plt Count Neut % (Auto) Lymph % (Auto) Metcalfe % (Auto) Eos % (Auto) Baso % (Auto) Neut # (Auto) Lymph # (Auto) Metcalfe # (Auto) Eos # (Auto) Baso # (Auto) PT INR APTT D-Dimer Sodium Potassium Chloride Carbon Dioxide BUN Creatinine Estimated GFR BUN/Creatinine Ratio Glucose Hemoglobin A1c Lactate Calcium Magnesium Total Bilirubin AST ALT Alkaline Phosphatase Total Creatine Kinase CK-MB (CK-2) CK-MB (CK-2) Rel Index Troponin I NT-Pro-B Natriuret Pep Total Protein Albumin Globulin Albumin/Globulin Ratio Lipase Procalcitonin 0.08 TSH 1.72 Urine RBC None seen Urine WBC 5-10/hpf H Ur Squamous Epith Cells 5-10 /hpf H Amorphous Sediment 1+ Urine Bacteria Few (2-10) H Ur Culture Indicated? Specimen cultured Chlamy pneumoniae PCR Adenovirus (PCR) B. pertussis DNA (PCR) B.parapertussis DNA PCR Coronavirus OC43 (PCR) Coronavirus HKU1 (PCR) Coronavirus 229E (PCR) SARS-CoV-2 (PCR) Coronavirus NL63 (PCR) Human Metapneumovir PCR Influenza Type A (PCR) Influenza Type B (PCR) M. pneumoniae (PCR) Parainfluenza 1 (PCR) Parainfluenza 2 (PCR) Parainfluenza 3 (PCR) Parainfluenza 4 (PCR) RSV (PCR) Entero/Rhino (PCR) 10/17/22 10/17/22 10/17/22 19:35 21:01 21:53 WBC RBC Hgb Hct MCV MCH MCHC RDW Plt Count Neut % (Auto) Lymph % (Auto) Metcalfe % (Auto) Eos % (Auto) Baso % (Auto) Neut # (Auto) Lymph # (Auto) Metcalfe # (Auto) Eos # (Auto) Baso # (Auto) PT INR APTT D-Dimer Sodium Potassium Chloride Carbon Dioxide BUN Creatinine Estimated GFR BUN/Creatinine Ratio Glucose Hemoglobin A1c Lactate 1.2 Calcium Magnesium Total Bilirubin AST ALT Alkaline Phosphatase Total Creatine Kinase CK-MB (CK-2) CK-MB (CK-2) Rel Index Troponin I 0.022 NT-Pro-B Natriuret Pep Total Protein Albumin Globulin Albumin/Globulin Ratio Lipase Procalcitonin TSH Urine RBC Urine WBC Ur Squamous Epith Cells Amorphous Sediment Urine Bacteria Ur Culture Indicated? Chlamy pneumoniae PCR Not detected Adenovirus (PCR) Not detected B. pertussis DNA (PCR) Not detected B.parapertussis DNA PCR Not detected Coronavirus OC43 (PCR) Not detected Coronavirus HKU1 (PCR) Not detected Coronavirus 229E (PCR) Not detected SARS-CoV-2 (PCR) Not detected Coronavirus NL63 (PCR) Not detected Human Metapneumovir PCR Not detected Influenza Type A (PCR) Not detected Influenza Type B (PCR) Not detected M. pneumoniae (PCR) Not detected Parainfluenza 1 (PCR) Not detected Parainfluenza 2 (PCR) Not detected Parainfluenza 3 (PCR) Not detected Parainfluenza 4 (PCR) Not detected RSV (PCR) Not detected Entero/Rhino (PCR) Not detected 10/18/22 10/18/22 10/18/22 04:09 04:09 04:09 WBC 6.7 RBC 2.77 L Hgb 8.0 L Hct 23.6 L MCV 85.2 MCH 28.9 MCHC 33.9 RDW 15.8 H Plt Count 237 Neut % (Auto) 74.8 Lymph % (Auto) 13.6 L Metcalfe % (Auto) 8.7 Eos % (Auto) 1.7 L Baso % (Auto) 1.2 Neut # (Auto) 5000 Lymph # (Auto) 900 L Metcalfe # (Auto) 600 Eos # (Auto) 100 Baso # (Auto) 100 PT INR APTT D-Dimer Sodium 130 L Potassium 4.2 Chloride 95 L Carbon Dioxide 23 BUN 15 Creatinine 0.95 Estimated GFR 60 BUN/Creatinine Ratio 15.8 Glucose 98 Hemoglobin A1c Lactate Calcium 8.0 L Magnesium 2.2 Total Bilirubin 1.0 AST 26 ALT 19 Alkaline Phosphatase 134 H Total Creatine Kinase CK-MB (CK-2) CK-MB (CK-2) Rel Index Troponin I 0.022 NT-Pro-B Natriuret Pep Total Protein 6.2 L Albumin 3.7 Globulin 2.5 Albumin/Globulin Ratio 1.5 Lipase Procalcitonin TSH Urine RBC Urine WBC Ur Squamous Epith Cells Amorphous Sediment Urine Bacteria Ur Culture Indicated? Chlamy pneumoniae PCR Adenovirus (PCR) B. pertussis DNA (PCR) B.parapertussis DNA PCR Coronavirus OC43 (PCR) Coronavirus HKU1 (PCR) Coronavirus 229E (PCR) SARS-CoV-2 (PCR) Coronavirus NL63 (PCR) Human Metapneumovir PCR Influenza Type A (PCR) Influenza Type B (PCR) M. pneumoniae (PCR) Parainfluenza 1 (PCR) Parainfluenza 2 (PCR) Parainfluenza 3 (PCR) Parainfluenza 4 (PCR) RSV (PCR) Entero/Rhino (PCR) 10/18/22 04:09 WBC RBC Hgb Hct MCV MCH MCHC RDW Plt Count Neut % (Auto) Lymph % (Auto) Metcalfe % (Auto) Eos % (Auto) Baso % (Auto) Neut # (Auto) Lymph # (Auto) Metcalfe # (Auto) Eos # (Auto) Baso # (Auto) PT INR APTT D-Dimer Sodium Potassium Chloride Carbon Dioxide BUN Creatinine Estimated GFR BUN/Creatinine Ratio Glucose Hemoglobin A1c 7.2 H Lactate Calcium Magnesium Total Bilirubin AST ALT Alkaline Phosphatase Total Creatine Kinase CK-MB (CK-2) CK-MB (CK-2) Rel Index Troponin I NT-Pro-B Natriuret Pep Total Protein Albumin Globulin Albumin/Globulin Ratio Lipase Procalcitonin TSH Urine RBC Urine WBC Ur Squamous Epith Cells Amorphous Sediment Urine Bacteria Ur Culture Indicated? Chlamy pneumoniae PCR Adenovirus (PCR) B. pertussis DNA (PCR) B.parapertussis DNA PCR Coronavirus OC43 (PCR) Coronavirus HKU1 (PCR) Coronavirus 229E (PCR) SARS-CoV-2 (PCR) Coronavirus NL63 (PCR) Human Metapneumovir PCR Influenza Type A (PCR) Influenza Type B (PCR) M. pneumoniae (PCR) Parainfluenza 1 (PCR) Parainfluenza 2 (PCR) Parainfluenza 3 (PCR) Parainfluenza 4 (PCR) RSV (PCR) Entero/Rhino (PCR) [facility] Medical History Chronic anticoagulation Chronic atrial fibrillation Chronic hyponatremia Chronic respiratory failure Dementia Depression Insulin dependent type 2 diabetes mellitus Iron deficiency anemia Pacemaker Pulmonary hypertension Surgical History History of permanent cardiac pacemaker placement Social History household members: significant other Smoking Status: Never smoker alcohol intake: current Assessment & Plan Assessment & Plan narrative: Rhoda Davidson is a 82-year-old female PMH of pulmonary hypertension with chronic respiratory failure on 2L home 02, CHF, breast cancer, osteoporosis, chronic hyponatremia, dementia, anemia, chronic atrial fibrillation, pacer on Eliquis, IDDM depression and insomnia who presented to the ED with spouse complaining of decreasing mental status, patient c/o acute lumbar pain at home to her spouse and right hip pain.? She was admitted to the hospital September 23- with Fall, Na+ 120, supratherapeutic INR, and dens fracture. Patient admitted for ground level fall, resulting in pathological sternum fracture, multiple rib fractures, and thoracic lumbar fractures, acute encephalopathy, DUANE, and acute cystitis. 1. Ground level fall resulting in pathological sternum fracture, multiple rib fractures, thoracic, and lumbar fractures, Right pleural effusion/right lower lobe collapse, acute on chronic, with a hx of frequent falls, present on admission -no indication for urgent procedures, consider thoracentesis, given age and underlying co-morbidities attempt diuresis first to remove fluid. -if worsening respiratory failure will do more urgent thoracentesis. -PT/OT consultation ordered. 2. acute metabolic encephalopathy with baseline dementia w/depression, acute with chronic dementia, present on admission -continue sertraline -see management as noted below as secondary to sepsis 3.DUANE, mild, acute, present on admission -BUN 18, creatinine 1.06, glucose 128, GFR 52, baseline likely near 0.6 - 0.7. -gentle hydration NS at 60 cc/HR initially, now stopped, likely with acute heart failure will diureses instead. -hold spironolactone for now 4. Sepsis secondary to acute cystitis with metabolic encephalopathy, DUANE (mild), acute on chronic respiratory failure - continue ceftriaxone - follow up cultures - stop IV fluids now as suspect volume overload. 5. Pulmonary Hypertension with CHF with acute on chronic respiratory failure on home O2, chronic, with anasarca, chronic, present on admission-stable -worsened O2 requirements with overnight fluids, increase furosemide to 40 mg IV daily. STop IV fluids. -BNP 6550 -C/ABD/P CT:Large right pleural effusion.? Right lower lobe is collapsed. Bilateral +2 pitting edema to lower extremities, decreased breath sounds in right lower lobe. -possible thoracentesis as discussed above. 6. Atrial fibrillation, chronic, rate controlled with pacemaker, chronic, present on admission-stable -EKG paced at a rate of sinus fam [address] or T-wave changes. -continue amlodipine, losartan, metoprolol 7 Anemia, mild, chronic, present on admission-stable -H&H 8.8/26.7 (last-Hgb 8.8-9.7) -no evidence of any bleed -trend hemoglobin closely- due to posssible Eliquis use 8. Insulin-dependent type 2 diabetes with hyperlipidemia, acute on chronic, present on admission- controlled -glucose on admit 128 -patient admitted under diabetic protocol monitor for hypoglycemia -last A1c 09/2022 8.0, we will repeat -continue Lantus, low-dose sliding scale -hold Januvia and metformin -continue Lipitor 9. 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 Insomnia, chronic, present on admission -continue Doxylamin 11. Malnutrition, mild, acute on chronic, present on admission -as evidence by BMI 22.4 -patient's malnutrition places them at high risk for medical and surgical complications in relation to acute illness/chronic illness. This increases the difficulty in complexity of medical management and increases the chances poor outcomes such as mortality and morbidity as well as impaired wound healing, and immune suppression. -dietary consult ordered to evaluate and implement steps to improve caloric intake and nutrition. 12. Back pain, chronic, present on admission -continue tramadol 13. Hyponatremia, chronic, present on admission-stable -improved from usual sodium in the upper 120s. Code status:Full Surrogate decision maker: Son Claduy VENTURA COVID PCR:Negative DVT/VTE prophylaxis:NO VTE-bleeding risk, SCD's only Disposition: Patient admitted to acute care, expected length of stay greater than 2 midnights. Probable SNF Time Spent With Patient Critical Care time: I spent a total of [] minutes of critical care time on this patient's care today; this time is exclusive of procedural time. Quality VTE Deep Vein Thrombosis/Pulmonary Embolism Present on Admission: No
--- NOTE | 2022-10-18 16:22 | DI.ECHO.S_ITS ---
[facility] +---------+ : : [address] [place] : : : : [id number] : : : : Phone: [phone]+ Echocardiogram Report + + :Name: NELSON TRAMMELL Study Date: 10/19/2022 Height: 67 in : :[facility] ReadingLocation: Weight: 143 lb : : Gender: Female BSA: 1.8 m2 : :: 1940 Age: 82 yrs BP: 146/83 mmHg: :Reason For Study: HEART FAILURE, ASSESS EF : :Ordering Physician: DILLON, : :CIARA SWAIN Performed By: Soo Dickens : :Referring: CIARA CARRANZA : + + Interpretation Summary Limited study to assess left ventricular function. Mild concentric left ventricular hypertrophy with ejection fraction 60-65%. The interventricular septum is flattened, consistent with a right ventricular pressure/volume condition. Moderately dilated right ventricle with mild to moderately reduced right ventricular systolic function. Severe biatrial enlargement. Moderate tricuspid regurgitation. The right ventricular systolic pressure is estimated to be at least 89 mmHg based on an estimated right atrial pressure of 15 mm Hg. Severe pulmonary hypertension. Comparison is made with the echocardiogram of 09/24/2022, pulmonary artery pressure has increased. Procedure: Images were not obtained from all of the standard acoustic windows due to the limited scope of the study. A two-dimensional transthoracic echocardiogram with color flow and Doppler was performed in limited views only to assess left ventricular function.. The study quality was technically adequate. Comparison is made with the echocardiogram of 09/24/2022. The heart rate ranged between 60-68 bpm during the study. Left Ventricle: The left ventricle is normal in size. There is mild concentric left ventricular hypertrophy. The ejection fraction is estimated to be 60-65%. The interventricular septum is flattened, consistent with a right ventricular pressure/volume condition. There are no other obvious focal wall motion abnormalities. Right Ventricle: The right ventricle is moderately dilated. Right ventricular systolic function is mild to moderately reduced. Atria: There is severe biatrial enlargement. Tricuspid Valve: There is moderate tricuspid regurgitation. The right ventricular systolic pressure is estimated to be at least 89 mmHg based on an estimated right atrial pressure of 15 mm Hg. There is severe pulmonary hypertension. Great Vessels: The IVC is dilated (diameter is greater than 2.1 cm) and it collapses less than 50% with a sniff. This suggests a high right atrial pressure of 15 mm Hg. Pericardium/ Pleura There is a trivial pericardial effusion noted. MMode/2D Measurements & Calculations LVIDd: 4.4 cm LA A2 area: 30.6 cm2 LVIDs: 2.5 cm LA A4 area: 33.9 cm2 FS: 42.0 % LA length (vol): 7.3 cm IVSd: 1.1 cm LA vol: 120.5 ml LVPWd: 1.1 cm LA vol index: 68.7 ml/m2 LV kidd. diameter/BSA (cm/m^2): 2.5 LV sys. diameter/BSA (cm/m^2): 1.4 RA long axis: 7.6 cm RVD1 (basal): 4.4 cm RA area: 36.2 cm2 RVD2 (mid): 3.8 cm RA vol: 146.1 ml TAPSE: 1.5 cm RA : 83.3 ml/m2 IVC diam: 2.7 cm Doppler Measurements & Calculations TR max monty: 431.5 cm/sec TR max P.5 mmHg Electronically signed by: Curtis Hernandez on Reading Physician:10/19/2022 09:46 AM
[2022-10-18] MEDS: TRAMADOL 50 MG TABLET PO (19:41)
[2022-10-18] MEDS: cefTRIAXone 2,000 MG in SODIUM CHLORIDE 0.9% 100 ML 200 MG IV (21:23)
[2022-10-18] MEDS: SENNOSIDES 8.6 MG TABLET 17.2 MG PO (21:23)
[2022-10-18] MEDS: LOSARTAN 50 MG TABLET PO (21:23)
[2022-10-18] MEDS: SODIUM CHLORIDE 0.9% FLUSH 10 ML IV (21:24)
[2022-10-18] MEDS: SODIUM CHLORIDE 0.9% 250 ML 21 ML IV (21:25)
--- NOTE | 2022-10-18 23:59 | PC.NURSE ---
Addendum entered by Deandra Lucero R.N. 10/19/22 06:39: Has not voided since patient pulled out catheter previous shift. Bladder scan earlier 54cc and now at 245cc; Ramirez GEORGE, ab. fabrication technician here to do echo. Original Note: Patient is oriented only to self and birthdate. Breath sounds diminished on right. On oxygen at 3.5L/min per NC with sat of 92%. HRR. Denied nausea. BT present and abdomen is soft; had small BM on previous shift. Pulled out catheter toward end of previous shift and has not yet voided. Is able to turn herself in bed and can be impulsive trying to crawl out of bed. Gait not assessed. Complained of right hip pain during assessment and was medicated with Tramadol. Has edema present in left LE and right UE. Scattered bruises noted on bilateral UE. Bilateral calf SCD's applied at start of shift but requested they be removed at 2200 as she wasn't able to sleep. Fall risk score is high and bed alarm is activated. Currently on fluid restriction but is now NPO for procedure in the morning.
[2022-10-19] VITALS (9 sets, daily range): BP systolic 106–146; BP diastolic 40–83; PULSE 60–65; RESP 16–21; TEMP 35.9–36.5; O2SAT 91–96
--- NOTE | 2022-10-19 | DI.US.S_ITS ---
PROCEDURE: US THORACENTESIS INDICATIONS: RIGHT PLEURAL EFFUSION TECHNIQUE: The indications, alternatives, benefits, risks, and complications of the procedure were explained to the patient. Written informed consent was obtained and placed in the chart. The chest was examined sonographically, and an appropriate site was chosen for thoracentesis. The skin was prepared and draped in the usual sterile fashion, and 1% lidocaine was infiltrated from the skin down through the pleural surface. A 19-gauge catheter-covered needle was then introduced into the pleural space, the catheter was advanced and the needle was withdrawn, and thereafter pleural fluid was aspirated. The catheter was then removed and a dressing was applied. COMPARISON: None. FINDINGS: Access site: Right hemithorax. Needle: One-Step centesis catheter with introducer needle. Fluid volume and description: Bloody Fluid sent for diagnostic testin cc Medications: 1% lidocaine for local anaesthesia. Complications: None; post-procedural chest radiograph is pending to assess for pneumothorax. IMPRESSION: Successful ultrasound-guided thoracentesis. Dictated by: Gloria Sullivan M.D. on 10/19/2022 at 19:31 Approved by: Gloria Sullivan M.D. on 10/19/2022 at 19:36
--- NOTE | 2022-10-19 | DI.RAD.S_ITS ---
PROCEDURE: XR CHEST 1V INDICATIONS: Post Thora TECHNIQUE: One view of the chest was acquired. COMPARISON: [facility], , XR CHEST 2V, 10/18/2022, 0:16. FINDINGS: Surgical changes and devices: Right axillary clips and liver cord are noted. Lungs and pleura: Moderate effusion mildly decreased compared to prior exam. No pneumothorax. Mediastinum: Mediastinal contours appear normal. Heart size is enlarged. Bones and chest wall: No suspicious bony lesions. Overlying soft tissues appear unremarkable. IMPRESSION: Right effusion status post thoracentesis without visualized pneumothorax. Dictated by: Gloria Sullivan M.D. on 10/19/2022 at 20:07 Approved by: Gloria Sullivan M.D. on 10/19/2022 at 20:07
[2022-10-19] MEDS: LORazepam 0.5 MG TABLET PO (01:19)
[2022-10-19] MEDS: ACETAMINOPHEN 325 MG TABLET 650 MG PO ×2 (01:31→15:32)
[2022-10-19 06:12] LABS: Add Manual Diff / Slide Review NO; Basophils Absolute Auto 100 /uL (0-100); Basophils Percent Auto 1.4 % (0-2); Eosinophils Absolute Auto 100 /uL (0-450); Eosinophils Percent Auto 0.8 % (2-4); Hematocrit 23.9 % (36-46); Hemoglobin 7.9 g/dL (12.0-16.0); Lymphocytes Absolute Auto 800 /uL (1100-4500); Lymphocytes Percent Auto 11.2 % (25-40); Mean Corpuscular HGB Conc 32.9 % (30-36); Mean Corpuscular Volume 85.2 fL (80-100); Monocytes Absolute Auto 600 /uL (0-900); Monocytes Percent Auto 8.5 % (3-14); Neutrophils Absolute Auto 5600 /uL (1500-7000); Neutrophils Percent Auto 78.1 % (50-75); Platelet Count 237 X10^3/uL (150-400); Red Blood Cell Count 2.81 X10^6/uL (4.0-5.2); Red Cell Distribution Width 15.9 % (11.6-14.8); White Blood Cell Count 7.2 X10^3/uL (4.5-11.0)
[2022-10-19 06:23] LABS: Alanine Aminotransferase 22 IU/L (<35); Albumin 3.8 g/dL (3.5-5.0); Albumin Globulin Ratio 1.5 (1.0-2.8); Alkaline Phosphatase 133 U/L (38-126); Aspartate Aminotransferase 32 IU/L (14-36); BUN Creatinine Ratio 17.3 (6-22); Bilirubin Total 0.8 mg/dL (0.2-1.3); Blood Urea Nitrogen 18 mg/dL (7-17); Carbon Dioxide 24 mmol/L (22-32); Chloride 97 mmol/L (98-107); Estimated Glomerular Filt Rate 54 mL/min (>60); Globulin 2.5 g/dL (1.7-4.1); Glucose 114 mg/dL (80-110); HEMOLYSIS < 15 (0-50); Potassium 4.7 mmol/L (3.4-5.1); Sodium 130 mmol/L (137-145); Total Protein 6.3 g/dL (6.3-8.2)
--- NOTE | 2022-10-19 10:45 | PC.NURSE ---
patient is sleepy, wakens slowly to verbal stimulus. 1-2 PA w/ bed mobility, turned onto her side to prevent breakdown. continues w/ NPO status for thoracentesis. no void on previous shift. bladder scan 80cc. patient appears comfortable, no distention to bladder. bp 106/56, pulse 56. notified of above info + states ok to hold AM meds, and she will more than likely have the thoracentesis today. call to Ultrasound, message left for Cassy that states yes to yamila. Adelfo is in the room visiting. spoke w/ both patient and her . ctm.
--- NOTE | 2022-10-19 11:17 | CM.DPC ---
Addendum entered by MANE Colvin 10/19/22 11:36: ADD: Per MD and SW , no noted concerns for Sig Other care or memory towards need for APS referral and pt/Sig Other are agreeable to care and SNF or HH but preference is SNF. SW also confirmed that [facility] had been in the home prior to admissions and no noted concerns either. Therefore, currently no need of APS report. BF Original Note: DCP SNF Planning: Per MD, pt seems more confused today and may need thoracentesis and not yet medically stable to discharge. PT/OT ordered and pending. SW met bedside with pt and Sig Other and explained role and pt laying in bed and not really participating in discussion and looks worse than when SW saw pt bedside yesterday. Sig Other Adelfo confirms that pt was having some hallucinations yesterday throughout the day when he was bedside and she seems worse and more confused/sedated today. Sig Other able to answer questions appropriately and confirms that he realizes that after pt's last admission and discharge to home with HH, that maybe pt should have discharged to SNF. Sig Other denies that pt or he have any hx of SNF before. SW provided the SNF Choice list via Ipad and paper and Sig Other states pt's mother had been at [facility] before she and based on location, they might prefer [facility] as they live in [facility]. SW discussed that multiple referrals might be needed due to bed availability etc and he was agreeable with referrals to the local SNFs and then make final preference determination based on open beds and SNFs being able to accept. PASRR done in anticipation of SNF. SW made referrals to [facility], [facility], [facility], [facility], [facility], [facility]. Plan: SW to follow for PT/OT eval and recommendations and above SNF reviews and pt progress towards likely need for rehab before safe return home with Sig Other and local supportive son. MANE Colvin
--- NOTE | 2022-10-19 12:12 | PM.CALLCOV.1 ---
Call Coverage Note Note Date of Patient Contact: 10/19/22 Narrative of Care Provided: no surgical intervention required at this time. Please call with issues. Radiology to do thorocentisis of right chest.
--- NOTE | 2022-10-19 13:59 | P.PN_ITS ---
Subjective Subjective Date Patient Seen: 10/19/22 Interval history: Patient a bit hypotensive today, on usual amount of home O2 but still short of breath and tachypnic, more lethargic today. Given need to hold diuretic today, recommend thoracentesis of her R chest to be performed this afternoon. Exam Vital Signs (past 8 hours): - 10/19/22 08:00 10/19/22 10:43 10/19/22 12:00 Temperature 97.3 F L 97.1 F L Pulse Rate 65 60 Respiratory Rate 18 16 Blood Pressure 106/56 L 106/56 L 145/54 H Pulse Oximetry 91 93 Oxygen Flow Rate 2 2 Fraction of Inspired Oxygen 34 SaO2/FiO2 Ratio 270 Oxygen Delivery Method Nasal Cannula Oxygen Flow Rate 2 Narrative Exam Narrative: General: Patient is a well-developed, well-nourished elderly female, in no distress at this time but more lethargic, falls asleep easily HEENT: Normocephalic, atraumatic, extraocular muscles intact, oral pharynx is clear and mucous membranes are moist. No JVD Chest: Breathing without nasal flaring, retractions, tachypneic or labored. Lungs: Auscultation of all lung nguyen clear , decreased in bilateral lower lobes Cardio: Paced bradycardia regular rate and rhythm. Abdomen: S NT ND Musculoskeletal: 1-2 + edema bilaterally in LE, no joint effusionsl. Skin: Warm dry and intact without rashes, ulcerations or petechiae. Neuro: alert but lethargic, no focal deficits. Objective Labs 10/19/22 05:57 10/19/22 05:57 Labs: Laboratory Results - last 24 hr 10/19/22 10/19/22 05:57 05:57 WBC 7.2 RBC 2.81 L Hgb 7.9 L Hct 23.9 L MCV 85.2 MCH 28.0 MCHC 32.9 RDW 15.9 H Plt Count 237 Neut % (Auto) 78.1 H Lymph % (Auto) 11.2 L [place] % (Auto) 8.5 Eos % (Auto) 0.8 L Baso % (Auto) 1.4 Neut # (Auto) 5600 Lymph # (Auto) 800 L [place] # (Auto) 600 Eos # (Auto) 100 Baso # (Auto) 100 Sodium 130 L Potassium 4.7 Chloride 97 L Carbon Dioxide 24 BUN 18 H Creatinine 1.04 Estimated GFR 54 L BUN/Creatinine Ratio 17.3 Glucose 114 H Calcium 8.0 L Total Bilirubin 0.8 AST 32 ALT 22 Alkaline Phosphatase 133 H Total Protein 6.3 Albumin 3.8 Globulin 2.5 Albumin/Globulin Ratio 1.5 [facility] Medical History Chronic anticoagulation Chronic atrial fibrillation Chronic hyponatremia Chronic respiratory failure Dementia Depression Insulin dependent type 2 diabetes mellitus Iron deficiency anemia Pacemaker Pulmonary hypertension Surgical History History of permanent cardiac pacemaker placement Social History household members: significant other Smoking Status: Never smoker alcohol intake: current Assessment & Plan Assessment & Plan narrative: Rhoda Davidson is a 82-year-old female PMH of pulmonary hypertension with chronic respiratory failure on 2L home 02, CHF, breast cancer, osteoporosis, chronic hyponatremia, dementia, anemia, chronic atrial fibrillation, pacer on Eliquis, IDDM depression and insomnia who presented to the ED with spouse complaining of decreasing mental status, patient c/o acute lumbar pain at home to her spouse and right hip pain.? She was admitted to the hospital September 23- with Fall, Na+ 120, supratherapeutic INR, and dens fracture. Patient admitted for ground level fall, resulting in pathological sternum fracture, multiple rib fractures, and thoracic lumbar fractures, acute encephalopathy, DUANE, and acute cystitis/sepsis. She then developed worsened o2 requirements with fluids. IV fluids were stopped, diuretics increased and now soft BP with diuretics held today. Thoracentesis today for R pleural effusion. 1. Ground level fall resulting in pathological sternum fracture, multiple rib fractures, thoracic, and lumbar fractures, Right pleural effusion/right lower lobe collapse, acute on chronic, with a hx of frequent falls, present on admission -thoracentesis today given need to hold diuretics today for soft BP -PT/OT consultation ordered. 2. acute metabolic encephalopathy with baseline dementia w/depression, acute with chronic dementia, present on admission -continue sertraline -see management as noted below as secondary to sepsis 3.DUANE, mild, acute, present on admission -BUN 18, creatinine 1.06, glucose 128, GFR 52, baseline likely near 0.6 - 0.7. -gentle hydration NS at 60 cc/HR initially, now stopped, likely with acute heart failure will diurese instead but needed to hold today for soft blood pressures. -hold spironolactone for now 4. Sepsis secondary to acute cystitis with metabolic encephalopathy, DUANE (mild), acute on chronic respiratory failure - continue ceftriaxone - follow up cultures - stopped IV fluids now as suspect volume overload. 5. Pulmonary Hypertension with R heart failure with acute on chronic respiratory failure on home O2, chronic, with anasarca, chronic, present on admission -worsened O2 requirements with overnight fluids, increased furosemide to 40 mg IV daily and stopped fluids. Needed to hold furosemide. -BNP 6550 -C/ABD/P CT:Large right pleural effusion.? Right lower lobe is collapsed. Bi lateral +2 pitting edema to lower extremities, decreased breath sounds in right lower lobe. -thoracentesis today. 6. Atrial fibrillation, chronic, rate controlled with pacemaker, chronic, present on admission-stable -EKG paced at a rate of sinus fam [address] or T-wave changes. -continue amlodipine, losartan, metoprolol 7 Anemia, mild, chronic, present on admission-stable -H&H 8.8/26.7 (last-Hgb 8.8-9.7) to 7.9 today. -no evidence of any bleed -trend hemoglobin closely 8. Insulin-dependent type 2 diabetes with hyperlipidemia, acute on chronic, present on admission- controlled -glucose on admit 128 -patient admitted under diabetic protocol monitor for hypoglycemia -last A1c 09/2022 8.0, we will repeat -continue Lantus, low-dose sliding scale -hold Januvia and metformin -continue Lipitor 9. 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 Insomnia, chronic, present on admission -continue Doxylamin 11. Malnutrition, mild, acute on chronic, present on admission -as evidence by BMI 22.4 -patient's malnutrition places them at high risk for medical and surgical complications in relation to acute illness/chronic illness. This increases the difficulty in complexity of medical management and increases the chances poor outcomes such as mortality and morbidity as well as impaired wound healing, and immune suppression. -dietary consult ordered to evaluate and implement steps to improve caloric intake and nutrition. 12. Back pain, chronic, present on admission -continue tramadol 13. Hyponatremia, chronic, present on admission-stable -improved from usual sodium in the upper 120s. Code status:Full Surrogate decision maker: Lexa VENTURA EDD PCR:Negative DVT/VTE prophylaxis:NO VTE-bleeding risk, SCD's only Disposition: Patient admitted to acute care, expected length of stay greater than 2 midnights. Probable SNF, timing in 1-2 days with improvement in anemia, BP and respiratory status after thoracentesis today. Time Spent With Patient Critical Care time: I spent a total of [] minutes of critical care time on this patient's care today; this time is exclusive of procedural time. Quality VTE Deep Vein Thrombosis/Pulmonary Embolism Present on Admission: No
[2022-10-19] MEDS: SODIUM CHLORIDE 0.9% FLUSH 10 ML IV ×2 (15:39→21:02)
--- NOTE | 2022-10-19 15:49 | PT-IP ANOTE ---
Received PT orders and reviewed the chart. Pt was admitted 09/23/22 after a fall which resulted in dens fracture. Ortho was consulted. Ortho PA note states Case reviewed w/ Dr Fischer; he recommends keeping pt in [place] collar at all times (including sleeping and bathing) and following up in ortho clinic for repeat imaging. Anticipate 12 weeks total in hard cervical collar with follow up imaging at regular intervals. If there is significant shift of the fracture or inadequate healing, she may require referral to neurosurgery for surgical fixation. Pt is now readmitted after another fall with multiple fractures including sternum, ribs, and T11/T12 compression fractures. Pt does not have [place] collar available at the hospital today. Pt and spouse are stating Dr. Fischer cleared her to not wear the collar. OT called ortho office to verify but unable to verify at this time. Will hold PT evaluation and await clarification on need for [place] collar.
--- NOTE | 2022-10-19 15:58 | OT.IPNOTE ---
Pt was prior here in the hospital on 09/23/22 for closed dens fracture and per consult by ortho- to have the [place] collar on at all times including sleeping and bathing needs for 12 weeks. Pt here for another admission 10/17/22 for right large pleural effusion, sternal and rib fractures. Pt did not have her neck brace on and per pt and her significant other- states just had an ortho appointment and that the doctor ssaid that she no longer had to wear the [place] collar. OT able to call the ortho office to inquire able the [place] collar and per doctor's note per staff nothing was written about not having to wear the collar and mainly note suggested pt have PT for her back issues. Smiley at [facility] to clarify with Dr. Fischer tomorrow and call tomorrow whether pt should be wearing the neck brace or not. Able to pass information to Dr. Marshall and to hold Ot eval until further clarification regarding needs for [place] collar. NO charge
--- NOTE | 2022-10-19 18:50 | PC.NURSE ---
yamila successful, 850cc drained on R side. dressing is CDI. (small bandaid) LS are improved, patients mentation is improved, tolerated OOB to BSC, UOP 300cc. 1900: apap given x 1 for sore lower back w/ good effect. appetite is fair, able to feed herself. patient is oriented to situation, unsure about the date but able to say the year is 2022 and the next holiday is . follows commands, and is more upbeat and energetic. urinated one more time at HS.
[2022-10-19] MEDS: LOSARTAN 50 MG TABLET PO (21:00)
[2022-10-19] MEDS: MAGNESIUM OXIDE 400 MG TABLET PO (21:00)
[2022-10-19] MEDS: cefTRIAXone 2,000 MG in SODIUM CHLORIDE 0.9% 100 ML 200 MG IV (21:01)
[2022-10-19] MEDS: SENNOSIDES 8.6 MG TABLET 17.2 MG PO (21:01)
[2022-10-19] MEDS: SODIUM CHLORIDE 0.9% 250 ML 21 ML IV (21:30)
[2022-10-20] VITALS (12 sets, daily range): BP systolic 101–140; BP diastolic 47–61; PULSE 59–78; RESP 16–64; TEMP 35.8–36.3; O2SAT 91–96
--- NOTE | 2022-10-20 00:05 | PC.NURSE ---
Patient more alert and oriented tonight; able to state name, birthdate and knows she is in the hospital. Breath sounds improved but still diminished in right lobes. On oxygen at 3L/min per [place] (reportedly uses 2L/min at home) with sat of 92%. HR irregular; has hx of afib. Denied nausea. BT present and abdomen is soft. Voided on BSC; denies dysuria. Is able to turn herself in bed. Up to BSC with walker and 1 assist; needs lots of cueing for proper walker use. Refusing SCD's as states she is unable to sleep when they are on; reminded to ankle wave. Still with edema in bilateral LE (left > right) and right UE but appears to have decreased. Denied pain. Fall risk score is high and bed alarm is activated. Continues on fluid restriction.
[2022-10-20] MEDS: TRAMADOL 50 MG TABLET PO ×2 (02:19→17:16)
[2022-10-20 06:11] LABS: Add Manual Diff / Slide Review NO; Basophils Absolute Auto 100 /uL (0-100); Basophils Percent Auto 1.1 % (0-2); Eosinophils Absolute Auto 100 /uL (0-450); Eosinophils Percent Auto 2.1 % (2-4); Hematocrit 22.5 % (36-46); Hemoglobin 7.4 g/dL (12.0-16.0); Lymphocytes Absolute Auto 600 /uL (1100-4500); Lymphocytes Percent Auto 10.2 % (25-40); Mean Corpuscular Hemoglobin 28.2 PG (26-34); Mean Corpuscular Volume 85.4 fL (80-100); Monocytes Absolute Auto 500 /uL (0-900); Monocytes Percent Auto 8.6 % (3-14); Neutrophils Absolute Auto 4800 /uL (1500-7000); Platelet Count 235 X10^3/uL (150-400); Red Blood Cell Count 2.64 X10^6/uL (4.0-5.2); Red Cell Distribution Width 16.3 % (11.6-14.8); White Blood Cell Count 6.2 X10^3/uL (4.5-11.0)
[2022-10-20 06:20] LABS: Alanine Aminotransferase 20 IU/L (<35); Albumin 3.4 g/dL (3.5-5.0); Albumin Globulin Ratio 1.4 (1.0-2.8); Alkaline Phosphatase 126 U/L (38-126); Aspartate Aminotransferase 30 IU/L (14-36); BUN Creatinine Ratio 15.9 (6-22); Bilirubin Total 0.6 mg/dL (0.2-1.3); Blood Urea Nitrogen 14 mg/dL (7-17); Calcium 7.6 mg/dL (8.4-10.2); Carbon Dioxide 22 mmol/L (22-32); Chloride 98 mmol/L (98-107); Estimated Glomerular Filt Rate > 60 mL/min (>60); Globulin 2.4 g/dL (1.7-4.1); Glucose 120 mg/dL (80-110); HEMOLYSIS < 15 (0-50); Potassium 4.5 mmol/L (3.4-5.1); Sodium 128 mmol/L (137-145); Total Protein 5.8 g/dL (6.3-8.2)
--- NOTE | 2022-10-20 07:51 | P.PN_ITS ---
Subjective Subjective Date Patient Seen: 10/20/22 Interval history: Patient's at bedside and his questions were answered. Pain denies pain and is currently better controlled. Hgb dipped to 7.4 today. No obvious bleeding or melena. She is awaiting SNF. Exam Vital Signs (past 8 hours): - 10/20/22 00:00 10/20/22 04:00 Temperature 97.3 F L 96.5 F L Pulse Rate 60 60 Respiratory Rate 18 18 Blood Pressure 127/50 L 132/60 Pulse Oximetry 92 93 Oxygen Flow Rate 3 3 Fraction of Inspired Oxygen 32 SaO2/FiO2 Ratio 287 Oxygen Delivery Method Nasal Cannula Oxygen Flow Rate 3 Narrative Exam Narrative: General: Patient is a well-developed, well-nourished elderly female, in no distress at this time but more lethargic, falls asleep easily HEENT: Normocephalic, atraumatic, extraocular muscles intact, oral pharynx is clear and mucous membranes are moist. No JVD Chest: Breathing without nasal flaring, retractions, tachypneic or labored. Lungs: Auscultation of all lung nguyen clear , decreased in bilateral lower lobes Cardio: Paced bradycardia regular rate and rhythm. Abdomen: S NT ND Musculoskeletal: 1-2 + edema bilaterally in LE, no joint effusionsl. Skin: Warm dry and intact without rashes, ulcerations or petechiae. Neuro: alert but lethargic, no focal deficits. Objective Labs 10/20/22 05:44 10/20/22 05:44 Labs: Laboratory Results - last 24 hr 10/20/22 10/20/22 05:44 05:44 WBC 6.2 RBC 2.64 L Hgb 7.4 L Hct 22.5 L MCV 85.4 MCH 28.2 MCHC 33.0 RDW 16.3 H Plt Count 235 Neut % (Auto) 78.0 H Lymph % (Auto) 10.[address] [place] % (Auto) 8.6 Eos % (Auto) 2.1 Baso % (Auto) 1.1 Neut # (Auto) 4800 Lymph # (Auto) [address] [place] # (Auto) 500 Eos # (Auto) 100 Baso # (Auto) 100 Sodium 128 L Potassium 4.5 Chloride 98 Carbon Dioxide 22 BUN 14 Creatinine 0.88 Estimated GFR > 60 BUN/Creatinine Ratio 15.9 Glucose 120 H Calcium 7.6 L Total Bilirubin 0.6 AST 30 ALT 20 Alkaline Phosphatase 126 Total Protein 5.8 L Albumin 3.4 L Globulin 2.4 Albumin/Globulin Ratio 1.4 [facility] Medical History Chronic anticoagulation Chronic atrial fibrillation Chronic hyponatremia Chronic respiratory failure Dementia Depression Insulin dependent type 2 diabetes mellitus Iron deficiency anemia Pacemaker Pulmonary hypertension Surgical History History of permanent cardiac pacemaker placement Social History household members: significant other Smoking Status: Never smoker alcohol intake: current Assessment & Plan Assessment & Plan narrative: Rhoda Davidson is a 82-year-old female PMH of pulmonary hypertension with chronic respiratory failure on 2L home 02, CHF, breast cancer, osteoporosis, chronic hyponatremia, dementia, anemia, chronic atrial fibrillation, pacer on Eliquis, IDDM depression and insomnia who presented to the ED with spouse complaining of decreasing mental status, patient c/o acute lumbar pain at home to her spouse and right hip pain.? She was admitted to the hospital September 23- with Fall, Na+ 120, supratherapeutic INR, and dens fracture. Patient admitted for ground level fall, resulting in pathological sternum fracture, multiple rib fractures, and thoracic lumbar fractures, acute encephalopathy, DUANE, and acute cystitis/sepsis. She then developed worsened o2 requirements with fluids. IV fluids were stopped, diuretics increased and now soft BP with diuretics held today. Thoracentesis today for R pleural effusion. 1. Ground level fall resulting in pathological sternum fracture, multiple rib fractures, thoracic, and lumbar fractures, Right pleural effusion/right lower lobe collapse, acute on chronic, with a hx of frequent falls, present on admission -s/p bloody thora so likely had hemothorax from falls -PT/OT consultation ordered and rec SNF -avoid blood thinners 2. acute metabolic encephalopathy with baseline dementia w/depression, acute with chronic dementia, present on admission -continue sertraline -mentation improving 3.DUANE, mild, acute, present on admission, resolved -BUN 18, creatinine 1.06, glucose 128, GFR 52, baseline likely near 0.6 - 0.7. -gentle hydration NS at 60 cc/HR initially, now stopped, likely with acute heart failure will diurese instead but needed to hold today for soft blood pressures. -hold spironolactone for now 4. Sepsis secondary to acute cystitis, ruled out - now stopped ceftriaxone due to negative blood and urine cultures - stopped IV fluids now as suspect volume overload. 5. Pulmonary Hypertension with R heart failure with acute on chronic respiratory failure on home O2, chronic, with anasarca, chronic, present on admission -worsened O2 requirements with overnight fluids, increased furosemide to 40 mg IV daily and stopped fluids. Needed to hold furosemide. -BNP 6550 -C/ABD/P CT:Large right pleural effusion.? Right lower lobe is collapsed. Bilateral +2 pitting edema to lower extremities, decreased breath sounds in right lower lobe. -thoracentesis drained 800cc of bloody fluid. 6. Atrial fibrillation, chronic, rate controlled with pacemaker, chronic, present on admission-stable -EKG paced at a rate of sinus fam [address] or T-wave changes. -continue amlodipine, losartan, metoprolol 7 Anemia, mild, chronic, present on admission-stable -H&H 8.8/26.7 (last-Hgb 8.8-9.7) to 7.4 today. -no evidence of any bleed -trend hemoglobin closely -transfuse <7 Hgb 8. Insulin-dependent type 2 diabetes with hyperlipidemia, acute on chronic, present on admission- controlled -glucose on admit 128 -patient admitted under diabetic protocol monitor for hypoglycemia -last A1c 09/2022 8.0, we will repeat -continue Lantus, low-dose sliding scale -hold Januvia and metformin -continue Lipitor 9. 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 Insomnia, chronic, present on admission -continue Doxylamin 11. Malnutrition, mild, acute on chronic, present on admission -as evidence by BMI 22.4 -patient's malnutrition places them at high risk for medical and surgical complications in relation to acute illness/chronic illness. This increases the difficulty in complexity of medical management and increases the chances poor outcomes such as mortality and morbidity as well as impaired wound healing, and immune suppression. -dietary consult ordered to evaluate and implement steps to improve caloric intake and nutrition. 12. Back pain, chronic, present on admission -continue tramadol 13. Hyponatremia, chronic, present on admission-stable -improved from usual sodium in the upper 120s. Code status:Full Surrogate decision maker: Lexa Davidson RADHAJennifer EDD PCR:Negative DVT/VTE prophylaxis:NO VTE-bleeding risk, SCD's only Disposition: SNF pending insurance auth. Time Spent With Patient Critical Care time: I spent a total of [] minutes of critical care time on this patient's care today; this time is exclusive of procedural time. Quality VTE Deep Vein Thrombosis/Pulmonary Embolism Present on Admission: No
[2022-10-20] MEDS: INSULIN GLARGINE 100 UNIT/ML 3ML PEN 13 UNIT SUBCUT (09:05)
[2022-10-20] MEDS: FERROUS SULFATE 325 MG TABLET PO (09:07)
[2022-10-20] MEDS: SERTRALINE 50 MG TABLET PO (09:07)
[2022-10-20] MEDS: FUROSEMIDE 20 MG TABLET PO (09:07)
[2022-10-20] MEDS: MAGNESIUM OXIDE 400 MG TABLET PO ×2 (09:07→20:36)
[2022-10-20] MEDS: ATORVASTATIN 20 MG TABLET 40 MG PO (09:08)
[2022-10-20] MEDS: LOSARTAN 50 MG TABLET PO (09:08)
[2022-10-20] MEDS: AMLODIPINE 5 MG TABLET 10 MG PO (09:08)
[2022-10-20] MEDS: ANASTROZOLE 1 MG TABLET PO (09:08)
[2022-10-20] MEDS: METOPROLOL ER 50 MG TABLET PO (09:09)
[2022-10-20] MEDS: SODIUM CHLORIDE 0.9% FLUSH 10 ML IV ×2 (09:23→21:04)
[2022-10-20] MEDS: INSULIN LISPRO 100 UNIT/ML 3ML VIAL SUBCUT ×2 (12:20→17:18)
--- NOTE | 2022-10-20 13:15 | PT.IIE ---
Current Diagnoses Unspecified fracture of sternum, initial encounter for closed fracture (10/17/22) Surgical History (Last Reviewed 10/18/22 @ 11:01 by Rhoda Sifuentes MD) History of permanent cardiac pacemaker placement Medical History (Last Reviewed 10/18/22 @ 11:01 by Rhoda Sifuentes MD) Chronic anticoagulation Chronic atrial fibrillation Chronic hyponatremia Chronic respiratory failure Dementia Depression Insulin dependent type 2 diabetes mellitus Iron deficiency anemia Pacemaker Pulmonary hypertension Physical Therapy Inpatient Evaluation/Re-Eval M1 PT/OT-IP Prior Functional Status Start: 10/19/22 08:22 Freq: NEEDED Status: Active Protocol: Document 10/20/22 13:15 AB (Rec: 10/20/22 15:12 AB [id number]) Medical Review Prior Functional Status Medical History Reviewed Yes Communication able to make needs known Mobility and Gait pt's partner adelfo in room with pt and provided information: stated that pt is SBA with mobility using a FWW Social History Household Members significant other Living Arrangements House Number of Floors (Floors) One Floor Number of Stairs To Enter/Railing? no steps to enter Home Environment High Toilet,Walk in Shower Home Equipment Front Wheel Walker,Shower Seat without Backrest,Hand Held Shower,Grab Bars Near Toilet, Grab Bars In Shower M2 PT-IP Current Condition Start: 10/19/22 08:22 Freq: NEEDED Status: Active Protocol: Document 10/20/22 13:15 AB (Rec: 10/20/22 15:12 AB [email or web address]) Physical Therapy Current Condition Current Condition Evaluation Date 10/20/22 Treatment Diagnosis GLF; rib and sternal fx; difficulty in walking Onset Date 10/17/22 M3 PT-IP Subjective Start: 10/19/22 08:22 Freq: NEEDED Status: Active Protocol: Document 10/20/22 13:15 AB (Rec: 10/20/22 15:12 AB [email or web address]) Subjective Physical Therapy Visit Type Type Initial Evaluation Visit Start Time 13:15 Visit Stop Time 14:00 Total Visit Minutes 45 Number of CAMPUS MONITOR Visits 0 Physical Therapy Visit Comments Patient Comments agreeable to do PT Therapy Pain Assessment Pain Present Pain Present Denied Pain M4 PT-IP Mobility and Gait Start: 10/19/22 08:22 Freq: NEEDED Status: Active Protocol: Document 10/20/22 13:15 AB (Rec: 10/20/22 15:12 AB [email or web address]) PT-Bed Mobility Assessment Rolling Type of Rolling Log Rolling Level of Assist Standby Assistance Supine to Sit Supine to Sit Minimal Assistance Sit to Supine Sit to Supine Minimal Assistance,1 Person Assistance PT-Transfer Assessment Sit to and From Stand Sit to and from Stand Minimal Assistance,1 Person Assistance,Use of Upper Extremities Equipment Transfer Assistive Device Gait Belt,Front Wheeled Walker Orthotic/Prosthetic Devices or Brace: Yes Comments Mobility Comments pt with h/o hospital admission 09/23/22 to 10/01/22 for GLF and pt had Dens fx and ortho MD ordered [place] collar for 12 weeks. pt admitted again to the hospital with GLF and now with rib fx and sternal fx. pt not wearing her [place] collar and pt's partner Adelfo stated that Dr. Fischer told them that pt does not need to wear the collar anymore. OT called Kwabena Fischer's office for clarification and Dr. Fischer ordered that the [place] collar be worn at all times for 6 more weeks. informed pt and partner. assisted pt with donning of [place] collar. pt's Hgb of 7.4 and Hct [address] Finney , ok to do therapy . completed log roll supine to sit min A and max cues. able to sit on EOB SBA. completed sit to stand min A and ambulated in room using FWW min A ~ 20ft. pt stated that she feels tired. pt went back to bed. sit to supine log roll min A and cues. positioned pt in bed. call light and table placed within reach. Gait Assessment Gait Gait Assistance Required: Minimum Assistance,1 Person Assist Distance (Feet) 20 Able to Maintain Weight Bearing Status Yes During Gait Assistive Devices Assistive Device Gait Belt,Front Wheeled Walker Orthotic/Prosthetic Devices or Brace: No Gait Deviations General Gait Pattern Decreased Stride Length, Decreased Feet Clearance,Step- to Gait Factors Limiting Gait Function Factors Limiting Gait Function Decreased Activity Tolerance, Decreased Strength,Limited Range of Motion,Pain,Poor Balance,Poor Safety Awareness PT-Balance Assessment Sitting Balance and Reactions Static Sitting Balance Ability Good Dynamic Sitting Balance Ability Good Standing Balance and Reactions Static Standing Balance Ability Fair Dynamic Standing Balance Ability Fair Device Used FWW M5 PT-IP Objective Assessments Start: 10/19/22 08:22 Freq: NEEDED Status: Active Protocol: Document 10/20/22 13:15 AB (Rec: 10/20/22 15:12 AB [email or web address]) Orientation Orientation/Cognition Level of Alertness Alert Orientation Name,Place,Situation Language Function Ability No Deficits Noted Safety Awareness Decreased Safety Awareness Memory Description 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 Gross Range of Motion Lower Extremity ROM Assessment Within Functional Limits Strength Lower Extremity Strength Assessment Within Functional Limits Coordination Assessment Gross Coordination Gross Coordination WNL Muscle Tone Muscle Tone WNL Yes M6 PT-IP Treatment Start: 10/19/22 08:22 Freq: NEEDED Status: Active Protocol: Document 10/20/22 13:15 AB (Rec: 10/20/22 15:12 AB [email or web address]) Physical Therapy Treatment Education Education Provided Precautions,Safety M7 PT-IP Assessment and Plan Start: 10/19/22 08:22 Freq: NEEDED Status: Active Protocol: Document 10/20/22 13:15 AB (Rec: 10/20/22 15:12 AB [email or web address]) PT Summary Assessment and Plan Potential Rehabilitation Potential Fair Status of Condition at Evaluation Stable Summary Impairments Pain,ROM,Strength,Balance, Coordination,Sensation,Tone, Cognition,Bed Mobility, Transfers,Gait,Activity Tolerance Assessment Summary pt requiring min A with mobility and pt's partner will be able to assist pt at home. will continue to assess progress and when appropriate, conduct caregiver training. Goals Bed Mobility Goal Standby Assistance Transfer Goal Standby Assistance,Front Wheeled Walker Gait Goal Standby Assistance,Front Wheel Walker Gait Distance 150 Days to Meet Goals 5 Frequency of Treatment Frequency Of Treatment Once a Day Treatment Plan Physical Therapy Treatment Plan Bed Mobility Training,Transfer Training,Gait Training, Therapeutic Exercise,Balance Retraining,Discharge Planning, Hot or Cold Pack,Neuromuscular Re-ed,Coordination Retraining ,Manual Therapy Precautions Cervical Spine Precautions Rigid Collar,No Heavy Lifting, Log Roll Other Precautions falls Recommendations To Nursing Amount of Assist Needed 1 Person Assist Discharge Recommendations PT Discharge Recommendations Home with 29/03 Assist Available,Home Health Transportation Needs at Discharge Private Vehicle
--- NOTE | 2022-10-20 14:23 | OT.IP.EVAL ---
Current Diagnoses Unspecified fracture of sternum, initial encounter for closed fracture (10/17/22) Past Medical History (Last Reviewed 10/18/22 @ 11:01 by Rhoda Sifuentes MD) Chronic anticoagulation Chronic atrial fibrillation Chronic hyponatremia Chronic respiratory failure Dementia Depression Insulin dependent type 2 diabetes mellitus Iron deficiency anemia Pacemaker Pulmonary hypertension Surgical History (Last Reviewed 10/18/22 @ 11:01 by Rhoda Sifuentes MD) History of permanent cardiac pacemaker placement Occupational Therapy Inpatient Evaluation/Re-Eval M1 PT/OT-IP Prior Functional Status Start: 10/19/22 08:22 Freq: NEEDED Status: Active Protocol: Document 10/20/22 14:00 [facility] (Rec: 10/20/22 16:54 [facility] [id number]) Medical Review Prior Functional Status Medical History Reviewed Yes Communication able to make needs known Mobility and Gait pt's partner Adelfo in room with pt and provided information: stated that pt is SBA with mobility using a FWW Activities of Daily Living and IADL's Adelfo states has been assisting pt with all ADl needs at this time but feels that it is too much for him to handle and woudl like for her to go to skilled rehab. Social History Household Members significant other Living Arrangements House Number of Floors (Floors) One Floor Number of Stairs To Enter/Railing? no steps to enter Home Environment High Toilet,Walk in Shower Home Equipment Front Wheel Walker,Shower Seat without Backrest,Hand Held Shower,Grab Bars Near Toilet, Grab Bars In Shower M2 OT-IP Current Condition Start: 10/20/22 16:31 Freq: Status: Active Protocol: Document 10/20/22 14:00 [facility] (Rec: 10/20/22 16:54 [facility] [id number]) Occupational Therapy Current Condition Current Condition Evaluation Date 10/20/22 Treatment Diagnosis GLF, rib and sternal fractures Diagnosis Onset Date 10/17/22 Post Operative Precautions Other Precautions use of [place] collar at all times for 6 weeks, able to clarify with Dr. Fischer's office as when pt was here last , was suppose to have the neck brace on for 12 weeks due to dens fx. Pt's partner states just at Dr. Fischer's office and nothing was said about wearing the neck brace and therefore pt stopped wearing the neck brace. OT able to call 's office to clarify use of [place] collar and still to be worn for 6 more weeks. M3 OT- IP Subjective and Pain Start: 10/20/22 16:31 Freq: Status: Active Protocol: Document 10/20/22 14:00 [facility] (Rec: 10/20/22 16:54 [facility] [id number]) OT- Subjective Occupational Therapy Visit Type Type Initial Evaluation Visit Start Time 14:00 Visit Stop Time 14:23 Total Visit Minutes 23 Occupational Therapy Visit Comments Patient Comments Pt agreed to get to the edge of the bedto brush her teeth. Pt having low HH Hgb 74, HCT 22.5, Dr Finney states okay to work with the pt. Dr. Finney updated regarding [place] collar needs for pt to continue to wear it for 6 more weeks. Patient/Caregiver Goals TO go home, pt's partner wanting her to go to skilled rehab as feel her care in tto much for him at this time. OT Pain Assessment Pain When Pain Assessed During Mobility Pain Present Pain Present Pain Reported Location Right Hip Intensity 8 Scale Used Numeric (0 - 10) M4 OT- IP ADL's Start: 10/20/22 16:31 Freq: Status: Active Protocol: Document 10/20/22 14:00 [facility] (Rec: 10/20/22 16:54 [facility] [id number]) OT [id number] Comments OT Self-Feeding Comments Not at meal time. OT ADL-Grooming General Evaluation Grooming Ability Minimal Assistance Areas Needing Assistance Combing/Brushing Hair OT ADL-Oral Care General Eval Oral Care Ability Standby Assistance Areas of Assistance Retrieving/Set-Up of Items Comments Oral Care Comments Occasional vc for completeness and assist to help hold the basin in front of her to spit. OT ADL-Dressing General Eval Lower Body Dressing Ability Maximum Assistance Comments OT Dressing Comments Pt MAXA for all LB dressing needs. OT ADL-Toileting Comments OT Toileting Comments Not performed. OT ADL-Bathing Comments OT Bathing Comments Not performed. M5 OT- IP IADL's Start: 10/20/22 16:31 Freq: Status: Active Protocol: Document 10/20/22 14:00 [facility] (Rec: 10/20/22 16:54 [facility] [id number]) OT-Instrumental Activities of Daily Living Home Safety Awareness Awareness of Need for Assistance at Home Good Awareness Home Safety Comments Pt's partner has been assisting her for all needs at home. Medication Management Medication Management Caregiver Administers Money Management Money Management Caregiver Provides Assistance Meal Preparation Meal Preparation Caregiver Provides Assist Ground Support Equipment Mechanic Ground Support Equipment Mechanic Caregiver Provides Assist M6 OT- IP Functional Cognition Start: 10/20/22 16:31 Freq: Status: Active Protocol: Document 10/20/22 14:00 [facility] (Rec: 10/20/22 16:54 [facility] [id number]) Cognitive Factors Limiting Selfcare Function Cognitive Ability Level of Alertness Alert Patient Orientation Name,Place,Situation Attention Span Ability Capable of Focused Attention, Capable of Sustained Attention Ability to Follow Commands Able to Follow One Step Commands with Increased Time, Able to Follow One Step Commands with Repetition Memory Description 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 Safety Awareness Underestimates Need for Assistance Cognitive Comments Cognitive Assessment Comments Pt needing vc to follow her cervical precautions. Pt needing step by step commands for ADl needs for completeness . OT- Vision and Hearing OT- Hearing Assessment OT- Hearing Assessment WFL OT- Vision Assessment Visual Acuity Glasses All The Time M7 OT- IP Mobility and Balance Start: 10/20/22 16:31 Freq: Status: Active Protocol: Document 10/20/22 14:00 [facility] (Rec: 10/20/22 16:54 [facility] [id number]) OT- Bed Mobility Assessment Supine to Sit Supine to Sit Assist Minimal Assistance Sit to Supine Sit to Supine Assist Minimal Assistance OT-Transfer Assessment Sit to and From Stand Sit to and from Stand Minimal Assistance,Moderate Assistance Transfers Transfer Ability Minimal Assistance Technique Transfer Destination Bed Comments Mobility Comments BERRY to get her trunk upright and back into bed. MIN/MODA to stand and vc to use her hands to push up from the bed to stand initially. BERRY with FWW to take a few side steps to the head of the bed, pt a little unsteady on her feet. OT- Balance Assessment Sitting Balance and Reactions Static Sitting Balance Ability Good Dynamic Sitting Balance Ability Fair Standing Balance and Reactions Static Standing Balance Ability Fair Dynamic Standing Balance Ability Poor M8 OT- IP Objective Assessments Start: 10/20/22 16:31 Freq: Status: Active Protocol: Document 10/20/22 14:00 [facility] (Rec: 10/20/22 16:54 [facility] [id number]) OT Gross Range of Motion Upper Extremity Range of Motion Assessment Bilaterally Impaired OT Strength Comments Strength Comments BUE 3-/5 to 4-/5 OT- Coordination Assessment Upper Extremity Finger to Nose Test Within Functional Limits M9 OT- IP Assessment and Plan Start: 10/20/22 16:31 Freq: Status: Active Protocol: Document 10/20/22 14:00 [facility] (Rec: 10/20/22 16:54 [facility] [id number]) OT Summary Assessment and Plan Potential Rehabilitation Potential Good Analytic Complexity at Evaluation Moderate Summary OT Impairments Pain,Strength,Balance, Functional Cognition, Functional Mobility,Self- Feeding,Grooming,Dressing, Toileting,Bathing,Toilet Transfers,Shower Transfers, Activity Tolerance Progress Towards Goals Slow Progress due to Medical Issues Assessment Summary Pt MOD complexity and main barriers are pain and fatigue and needing one person assist for all needs. Per partner, he feels that pt's current states is too much for him to handle and prefers her to go to skilled rehab initially. Therefore pending progress pt to go to skilled rehab versus home with 24/7 assist and home health. Goals Self-Feeding Goal Standby Assistance Grooming Goal Standby Assistance Dressing Goal Minimal Assistance Toileting Goal Minimal Assistance Bathing Goal Minimal Assistance Toilet Transfer Goal Independent Shower Transfer Goal Independent Days to Meet Goals 15 Frequency of Treatment Frequency Of Treatment Once a Day Treatment Plan OT Treatment Plan ADL Training,Functional Cognition Training,Functional Mobility,Patient/Family Education,Discharge Planning Other Treatment Recommendations and Next Pt to stand at the sink for Treatment Focus ADl needs with FWW. Discharge Recommendations OT Discharge Recommendations Home with 24/7 Assist Available,Home Health,SNF Rehab,Home vs SNF Transportation Needs at Discharge Private Vehicle,Wheelchair/ Cabulance
[2022-10-20] MEDS: SENNOSIDES 8.6 MG TABLET 17.2 MG PO (20:36)
[2022-10-21] VITALS (8 sets, daily range): BP systolic 109–134; BP diastolic 49–66; PULSE 60; RESP 16–18; TEMP 35.7–36.3; O2SAT 92–97
[2022-10-21] MEDS: TRAMADOL 50 MG TABLET PO ×2 (01:56→12:18)
[2022-10-21 05:04] LABS: Add Manual Diff / Slide Review NO; Basophils Absolute Auto 100 /uL (0-100); Basophils Percent Auto 1.5 % (0-2); Eosinophils Absolute Auto 200 /uL (0-450); Eosinophils Percent Auto 2.9 % (2-4); Hematocrit 22.8 % (36-46); Hemoglobin 7.6 g/dL (12.0-16.0); Lymphocytes Absolute Auto 600 /uL (1100-4500); Lymphocytes Percent Auto 11.9 % (25-40); Mean Corpuscular HGB Conc 33.2 % (30-36); Mean Corpuscular Volume 84.3 fL (80-100); Monocytes Absolute Auto 500 /uL (0-900); Monocytes Percent Auto 9.4 % (3-14); Neutrophils Absolute Auto 3900 /uL (1500-7000); Neutrophils Percent Auto 74.3 % (50-75); Platelet Count 236 X10^3/uL (150-400); Red Blood Cell Count 2.71 X10^6/uL (4.0-5.2); Red Cell Distribution Width 16.2 % (11.6-14.8); White Blood Cell Count 5.3 X10^3/uL (4.5-11.0)
[2022-10-21 05:13] LABS: Alanine Aminotransferase 18 IU/L (<35); Albumin 3.4 g/dL (3.5-5.0); Albumin Globulin Ratio 1.4 (1.0-2.8); Alkaline Phosphatase 120 U/L (38-126); Aspartate Aminotransferase 27 IU/L (14-36); BUN Creatinine Ratio 14.4 (6-22); Bilirubin Total 0.7 mg/dL (0.2-1.3); Blood Urea Nitrogen 13 mg/dL (7-17); Calcium 7.8 mg/dL (8.4-10.2); Carbon Dioxide 26 mmol/L (22-32); Chloride 98 mmol/L (98-107); Estimated Glomerular Filt Rate > 60 mL/min (>60); Globulin 2.4 g/dL (1.7-4.1); Glucose 78 mg/dL (80-110); HEMOLYSIS < 15 (0-50); Potassium 4.5 mmol/L (3.4-5.1); Sodium 127 mmol/L (137-145); Total Protein 5.8 g/dL (6.3-8.2)
[2022-10-21] MEDS: INSULIN GLARGINE 100 UNIT/ML 3ML PEN 13 UNIT SUBCUT (08:33)
[2022-10-21] MEDS: ANASTROZOLE 1 MG TABLET PO (08:34)
[2022-10-21] MEDS: METOPROLOL ER 50 MG TABLET PO (08:34)
[2022-10-21] MEDS: AMLODIPINE 5 MG TABLET 10 MG PO (08:38)
[2022-10-21] MEDS: FUROSEMIDE 20 MG TABLET PO (08:38)
[2022-10-21] MEDS: MAGNESIUM OXIDE 400 MG TABLET PO ×2 (08:38→21:33)
[2022-10-21] MEDS: LOSARTAN 50 MG TABLET PO (08:38)
[2022-10-21] MEDS: FERROUS SULFATE 325 MG TABLET PO (08:38)
[2022-10-21] MEDS: ATORVASTATIN 20 MG TABLET 40 MG PO (08:39)
[2022-10-21] MEDS: SERTRALINE 50 MG TABLET PO (08:39)
[2022-10-21] MEDS: SODIUM CHLORIDE 1,000 MG TABLET 1000 MG PO ×2 (08:39→16:19)
[2022-10-21] MEDS: SODIUM CHLORIDE 0.9% FLUSH 10 ML IV ×2 (08:40→21:33)
[2022-10-21] MEDS: LIDOCAINE PATCH 1 EACH ADH..PATCH TOP (08:56)
--- NOTE | 2022-10-21 11:12 | OT.IP.TRT ---
Current Diagnoses Unspecified fracture of sternum, initial encounter for closed fracture (10/17/22) Occupational Therapy Treatment Note M2 OT-IP Current Condition Start: 10/20/22 16:31 Freq: Status: Active Protocol: Document 10/20/22 14:00 [facility] (Rec: 10/20/22 16:54 [facility] [id number]) Occupational Therapy Current Condition Current Condition Evaluation Date 10/20/22 Treatment Diagnosis GLF, rib and sternal fractures Diagnosis Onset Date 10/17/22 Post Operative Precautions Other Precautions use of [place] coller at all times for 6 weeks, able to clarify with Dr. Fischer's office as when pt was here last , was suppose to have the neck brace on for 12 weeks due to dens fx. Pt's partner states just at Dr. Fischer's office and nothing was said about wearing the neck brace and therefore pt stopped wearing the neck brace. OT able to call 's offie to clarify use of [place] collar and still to be worn for 6 more weeks. M3 OT- IP Subjective and Pain Start: 10/20/22 16:31 Freq: Status: Active Protocol: Document 10/21/22 11:16 [facility] (Rec: 10/21/22 11:24 [facility] [id number]) OT- Subjective Occupational Therapy Visit Type Type Treatment Note Visit Start Time 10:45 Visit Stop Time 11:12 Total Visit Minutes 27 Occupational Therapy Visit Comments Patient Comments Pt working in eating not wanting to get up at this time, able to raise the HOB higher to increase pt;s ease to eat. Pt agreed to work with OT. Patient/Caregiver Goals TO be able to do things for herself. OT Pain Assessment Pain When Pain Assessed At Rest Pain Present Pain Present Denied Pain M4 OT- IP ADL's Start: 10/20/22 16:31 Freq: Status: Active Protocol: Document 10/20/22 14:00 [facility] (Rec: 10/20/22 16:54 [facility] [id number]) OT [id number] Comments OT Self-Feeding Comments Not at meal time. OT ADL-Grooming General Evaluation Grooming Ability Minimal Assistance Areas Needing Assistance Combing/Brushing Hair OT ADL-Oral Care General Eval Oral Care Ability Standby Assistance Areas of Assistance Retrieving/Set-Up of Items Comments Oral Care Comments Occasional vc for completeness and assist to help hold the basin in front of her to spit. OT ADL-Dressing General Eval Lower Body Dressing Ability Maximum Assistance Comments OT Dressing Comments Pt MAXA for all LB dressing needs. OT ADL-Toileting Comments OT Toileting Comments Not performed. OT ADL-Bathing Comments OT Bathing Comments Not performed. M5 OT- IP IADL's Start: 10/20/22 16:31 Freq: Status: Active Protocol: Document 10/20/22 14:00 [facility] (Rec: 10/20/22 16:54 [facility] [id number]) OT-Instrumental Activities of Daily Living Home Safety Awareness Awareness of Need for Assistance at Home Good Awareness Home Safety Comments Pt's partner has been assisting her for all needs at home. Medication Management Medication Management Caregiver Administers Money Management Money Management Caregiver Provides Assistance Meal Preparation Meal Preparation Caregiver Provides Assist Manufacturing Machine Operator Manufacturing Machine Operator Caregiver Provides Assist M6 OT- IP Functional Cognition Start: 10/20/22 16:31 Freq: Status: Active Protocol: Document 10/21/22 11:16 [facility] (Rec: 10/21/22 11:24 [facility] [id number]) Cognitive Factors Limiting Selfcare Function Cognitive Ability Level of Alertness Alert,Confusional State Patient Orientation Name Attention Span Ability Capable of Focused Attention, Unable to Sustain Attention Ability to Follow Commands Able to Follow One Step Commands with Increased Time, Able to Follow One Step Commands with Repetition Memory Description 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 Cognitive Comments Cognitive Assessment Comments Pt a little more confused today and not aware that she is in [place] but aware that she is in the hospital. Pt is aware that she does not think well and educated to try to write things down for herself. Able to talk to pt and her partner of things to be mindful of, items to have and questions to ask when over at skilled rehab. Suggested for pt to be sure to let the staff be aware to ask her about having pain medications prior to therapy especially and be sure to ask. Pt states at times forgets to ask. Pt's partner states will be sure to ask the staff and let staff know of her pain medications needs and that she is forgetful. OT- Balance Assessment Sitting Balance and Reactions Static Sitting Balance Ability Good Dynamic Sitting Balance Ability Fair Standing Balance and Reactions Static Standing Balance Ability Fair Dynamic Standing Balance Ability Poor M8 OT- IP Objective Assessments Start: 10/20/22 16:31 Freq: Status: Active Protocol: Document 10/20/22 14:00 [facility] (Rec: 10/20/22 16:54 [facility] [id number]) OT Gross Range of Motion Upper Extremity Range of Motion Assessment Bilaterally Impaired OT Strength Comments Strength Comments BUE 3-/5 to 4-/5 OT- Coordination Assessment Upper Extremity Finger to Nose Test Within Functional Limits M9 OT- IP Assessment and Plan Start: 10/20/22 16:31 Freq: Status: Active Protocol: Document 10/21/22 11:16 [facility] (Rec: 10/21/22 11:24 [facility] [id number]) OT Summary Assessment and Plan Potential Rehabilitation Potential Good Analytic Complexity at Evaluation Moderate Summary OT Impairments Pain,Strength,Balance, Functional Cognition, Functional Mobility,Self- Feeding,Grooming,Dressing, Toileting,Bathing,Toilet Transfers,Shower Transfers, Activity Tolerance Progress Towards Goals Slow Progress due to Pain,Slow Progress due to Medical Issues,Slow Progress due to Activity Tolerance Assessment Summary Pt on 3L of O2 today and while resting in bed at 96% and trial of RA and after a couple minutes decreased to 91% and O2 replaced back on the pt. Pt after several minutes O2 on 3L back up and at 98%. Once again trial on RA and decreased to 92% after 5 minutes. Pt states feeling tired and did not sleep well. Pt looking to go to skilled rehab today. Goals Self-Feeding Goal Standby Assistance Grooming Goal Standby Assistance Dressing Goal Minimal Assistance Toileting Goal Minimal Assistance Bathing Goal Minimal Assistance Toilet Transfer Goal Independent Shower Transfer Goal Independent Days to Meet Goals 15 Frequency of Treatment Frequency Of Treatment Once a Day Treatment Plan OT Treatment Plan ADL Training,Functional Cognition Training,Functional Mobility,Patient/Family Education,Discharge Planning Discharge Recommendations OT Discharge Recommendations SNF Rehab Transportation Needs at Discharge Wheelchair/Cabulance
--- NOTE | 2022-10-21 11:37 | PT.IPTN ---
Current Diagnoses Unspecified fracture of sternum, initial encounter for closed fracture (10/17/22) Physical Therapy Treatment Note M2 PT-IP Current Condition Start: 10/19/22 08:22 Freq: NEEDED Status: Active Protocol: Document 10/20/22 13:15 AB (Rec: 10/20/22 15:12 AB [id number]) Physical Therapy Current Condition Current Condition Evaluation Date 10/20/22 Treatment Diagnosis GLF; rib and sternal fx; difficulty in walking Onset Date 10/17/22 M3 PT-IP Subjective Start: 10/19/22 08:22 Freq: NEEDED Status: Active Protocol: Document 10/21/22 11:37 AB (Rec: 10/21/22 13:17 AB [email or web address]) Subjective Physical Therapy Visit Type Type Treatment Note Visit Start Time 11:37 Visit Stop Time 12:10 Total Visit Minutes 33 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 0 Physical Therapy Visit Comments Patient Comments agreeable to do PT M4 PT-IP Mobility and Gait Start: 10/19/22 08:22 Freq: NEEDED Status: Active Protocol: Document 10/21/22 11:37 AB (Rec: 10/21/22 13:17 AB [email or web address]) PT-Bed Mobility Assessment Rolling Level of Assist Standby Assistance Supine to Sit Supine to Sit Standby Assistance,Head of Bed Elevated,Bedrails PT-Transfer Assessment Sit to and From Stand Sit to and from Stand Moderate Assistance,Maximum Assistance,1 Person Assistance ,Use of Upper Extremities Equipment Transfer Assistive Device Gait Belt,Front Wheeled Walker Orthotic/Prosthetic Devices or Brace: No Transfers Transfer Destination Chair,Toilet Transfer Technique ambulated Transfer Ability Level of Assist Minimal Assistance,1 Person Assistance,Use of Upper Extremities Comments Mobility Comments O2 sat at rest with 3L/min O2: 92%. completed log roll supine to sit with HOB elevated and use of bed rail SBA and max cues for techniques. completed sit to stand from EOB mod to max A and max cues and ambulated to the chair using FWW min A. O2 sat with 3L/min O2 : 89%. cued pt for deep breathing and O2 sat increased to 96% after resting. pt requested to use the toilet. completed sit to stand from the chair mod A and max cues and ambulated to the toilet using FWW min A. assisted with brief management . completed sit to stand from the toilet using grab bar mod A and pt ambulated to the chair using FWW min A. positioned pt on the chair. call light and table placed within reach. Gait Assessment Gait Gait Assistance Required: Minimum Assistance Distance (Feet) 15 Able to Maintain Weight Bearing Status Yes During Gait Assistive Devices Assistive Device Gait Belt,Front Wheeled Walker Orthotic/Prosthetic Devices or Brace: No Gait Deviations General Gait Pattern Ataxic,Decreased Stride Length ,Decreased Feet Clearance,Step -to Gait Factors Limiting Gait Function Factors Limiting Gait Function Decreased Activity Tolerance, Decreased Strength,Difficulty Following Directions,Limited Range of Motion,Poor Balance, Poor Safety Awareness M5 PT-IP Objective Assessments Start: 10/19/22 08:22 Freq: NEEDED Status: Active Protocol: Document 10/20/22 13:15 AB (Rec: 10/20/22 15:12 AB [email or web address]) Orientation Orientation/Cognition Level of Alertness Alert Orientation Name,Place,Situation Language Function Ability No Deficits Noted Safety Awareness Decreased Safety Awareness Memory Description 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 Gross Range of Motion Lower Extremity ROM Assessment Within Functional Limits Strength Lower Extremity Strength Assessment Within Functional Limits Coordination Assessment Gross Coordination Gross Coordination WNL Muscle Tone Muscle Tone WNL Yes M6 PT-IP Treatment Start: 10/19/22 08:22 Freq: NEEDED Status: Active Protocol: Document 10/21/22 11:37 AB (Rec: 10/21/22 13:17 AB [email or web address]) Physical Therapy Treatment Education Education Provided Safety M7 PT-IP Assessment and Plan Start: 10/19/22 08:22 Freq: NEEDED Status: Active Protocol: Document 10/21/22 11:37 AB (Rec: 10/21/22 13:17 AB [email or web address]) PT Summary Assessment and Plan Potential Rehabilitation Potential Fair Summary Impairments Pain,ROM,Strength,Balance, Coordination,Sensation,Tone, Cognition,Bed Mobility, Transfers,Gait,Activity Tolerance Progress Towards Goals Slow Progress due to Medical Issues,Slow Progress due to Activity Tolerance,Slow Progress - Other Assessment Summary pt requiring mod to max A for sit to stand and min A with ambulation using fWW. pt with decrease safety awareness and will need 24/7 assist. pt will need SNF rehab at this time. will continue to assess progress. Goals Bed Mobility Goal Standby Assistance Transfer Goal Standby Assistance,Front Wheeled Walker Gait Goal Standby Assistance,Front Wheel Walker Gait Distance 150 Days to Meet Goals 5 Frequency of Treatment Frequency Of Treatment Once a Day Treatment Plan Physical Therapy Treatment Plan Bed Mobility Training,Transfer Training,Gait Training, Therapeutic Exercise,Balance Retraining,Discharge Planning, Hot or Cold Pack,Neuromuscular Re-ed,Coordination Retraining ,Manual Therapy Precautions Cervical Spine Precautions Rigid Collar,No Heavy Lifting, Log Roll Other Precautions falls Recommendations To Nursing Amount of Assist Needed 1 Person Assist Discharge Recommendations PT Discharge Recommendations Home with 29/03 Assist Available,Home Health,SNF Rehab,Home vs SNF Transportation Needs at Discharge Private Vehicle
--- NOTE | 2022-10-21 15:22 | P.PN_ITS ---
Subjective Subjective Date Patient Seen: 10/21/22 Interval history: Patient has no complaints. She is awaiting SNF today or tomorrow. Hgb steady at 7.6 today and 7.4 yesterday. Exam Vital Signs (past 8 hours): - 10/21/22 08:34 10/21/22 08:38 10/21/22 08:56 Temperature 96.3 F L Pulse Rate 60 60 60 Respiratory Rate 16 Blood Pressure 110/53 L 118/56 L 118/53 L Pulse Oximetry 94 Oxygen Flow Rate 3 10/21/22 14:40 Temperature 96.4 F L Pulse Rate 60 Respiratory Rate 16 Blood Pressure 113/49 L Pulse Oximetry 95 Oxygen Flow Rate Fraction of Inspired Oxygen 32 SaO2/FiO2 Ratio 287 Oxygen Delivery Method Nasal Cannula Oxygen Flow Rate 3 Narrative Exam Narrative: General: Patient is a well-developed, well-nourished elderly female, in no distress at this time HEENT: Normocephalic, atraumatic, extraocular muscles intact, oral pharynx is clear and mucous membranes are moist. No JVD Chest: Breathing without nasal flaring, retractions, tachypneic or labored. Lungs: Auscultation of all lung nguyen clear , decreased in bilateral lower lobes Cardio: Paced bradycardia regular rate and rhythm. Abdomen: S NT ND Musculoskeletal: 1-2 + edema bilaterally in LE, no joint effusionsl. Skin: Warm dry and intact without rashes, ulcerations or petechiae. Neuro: alert but lethargic, no focal deficits. Objective Labs 10/21/22 04:54 10/21/22 04:54 Labs: Laboratory Results - last 24 hr 10/21/22 10/21/22 04:54 04:54 WBC 5.3 RBC 2.71 L Hgb 7.6 L Hct 22.8 L MCV 84.3 MCH 28.0 MCHC 33.2 RDW 16.2 H Plt Count 236 Neut % (Auto) 74.3 Lymph % (Auto) 11.9 L [place] % (Auto) 9.4 Eos % (Auto) 2.9 Baso % (Auto) 1.5 Neut # (Auto) 3900 Lymph # (Auto) 600 L [place] # (Auto) 500 Eos # (Auto) 200 Baso # (Auto) 100 Sodium 127 L Potassium 4.5 Chloride 98 Carbon Dioxide 26 BUN 13 Creatinine 0.90 Estimated GFR > 60 BUN/Creatinine Ratio 14.4 Glucose 78 L Calcium 7.8 L Total Bilirubin 0.7 AST 27 ALT 18 Alkaline Phosphatase 120 Total Protein 5.8 L Albumin 3.4 L Globulin 2.4 Albumin/Globulin Ratio 1.4 [facility] Medical History Chronic anticoagulation Chronic atrial fibrillation Chronic hyponatremia Chronic respiratory failure Dementia Depression Insulin dependent type 2 diabetes mellitus Iron deficiency anemia Pacemaker Pulmonary hypertension Surgical History History of permanent cardiac pacemaker placement Social History household members: significant other Smoking Status: Never smoker alcohol intake: current Assessment & Plan Assessment & Plan narrative: 1. Ground level fall resulting in pathological sternum fracture, multiple rib f ractures, thoracic, and lumbar fractures, Right pleural effusion/right lower lobe collapse, acute on chronic, with a hx of frequent falls, present on admission -s/p bloody thora so likely had hemothorax from falls -PT/OT consultation ordered and rec SNF -avoid blood thinners 2. acute metabolic encephalopathy with baseline dementia w/depression, acute with chronic dementia, present on admission -continue sertraline -mentation improving 3.DUANE, mild, acute, present on admission, resolved -BUN 18, creatinine 1.06, glucose 128, GFR 52, baseline likely near 0.6 - 0.7. -gentle hydration NS at 60 cc/HR initially, now stopped, likely with acute heart failure will diurese instead but needed to hold today for soft blood pressures. -hold spironolactone for now 4. Sepsis secondary to acute cystitis, ruled out ?- now stopped ceftriaxone due to negative blood and urine cultures ?- stopped IV fluids now as suspect volume overload. 5. Pulmonary Hypertension with R heart failure with acute on chronic respiratory failure on home O2, chronic, with anasarca, chronic,? present on admission -worsened O2 requirements with overnight fluids, increased furosemide to 40 mg IV daily and stopped fluids. Needed to hold furosemide. -BNP 6550 -C/ABD/P CT:Large right pleural effusion.? Right lower lobe is collapsed.? Bilateral +2 pitting edema to lower extremities, decreased breath sounds in right lower lobe. -thoracentesis drained 800cc of bloody fluid. 6. Atrial fibrillation, chronic, rate controlled with pacemaker, chronic, present on admission-stable -EKG paced at a rate of sinus fam [address] or T-wave changes.? -continue amlodipine, losartan, metoprolol 7 Anemia, mild, chronic, present on admission-stable -H&H 8.8/26.7 (last-Hgb 8.8-9.7) to 7.4 today. -no evidence of any bleed -trend hemoglobin closely -transfuse <7 Hgb 8. Insulin-dependent type 2 diabetes with hyperlipidemia, acute on chronic, present on admission- controlled -glucose on admit 128 -patient admitted under diabetic protocol monitor for hypoglycemia -last A1c 09/2022 8.0, we will repeat -continue Lantus, low-dose sliding scale -hold Januvia and metformin -continue Lipitor ? 9. 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 Insomnia, chronic, present on admission -continue Doxylamin 11. Malnutrition, mild, acute on chronic, present on admission -as evidence by BMI 22.4 -patient's malnutrition places them at high risk for medical and surgical complications in relation to acute illness/chronic illness.? This increases the difficulty in complexity of medical management and increases the chances poor outcomes such as mortality and morbidity as well as impaired wound healing, and immune suppression. -dietary consult ordered to evaluate and implement steps to improve caloric intake and nutrition. 12. Back pain, chronic, present on admission -continue tramadol 13. Hyponatremia, chronic, present on admission-stable -improved from usual sodium in the upper 120s. Code status:Full Surrogate decision maker: Lexa Davidson RADHAJennifer COVID PCR:Negative DVT/VTE prophylaxis:NO VTE-bleeding risk, SCD's only Disposition:? SNF on 10/22. Time Spent With Patient Critical Care time: I spent a total of [] minutes of critical care time on this patient's care today; this time is exclusive of procedural time. Quality VTE Deep Vein Thrombosis/Pulmonary Embolism Present on Admission: No
[2022-10-21] MEDS: ACETAMINOPHEN 325 MG TABLET 650 MG PO (16:19)
[2022-10-21] MEDS: INSULIN LISPRO 100 UNIT/ML 3ML VIAL SUBCUT (17:14)
[2022-10-21] MEDS: SENNOSIDES 8.6 MG TABLET 17.2 MG PO (21:33)
[2022-10-22 03:40] VITALS: BP 121/51; PULSE 60; RESP 17; TEMP 35.8; O2SAT 93
--- NOTE | 2022-10-22 07:09 | PM.DS.1 ---
History of Present Illness History of Present Illness Date Patient Seen: 10/22/22 Time Patient Seen: 21:30 Chief complaint: Fall Narrative: Rhoda Davidson is a 82-year-old female PMH of pulmonary hypertension with chronic respiratory failure on 2L home 02, CHF, breast cancer, osteoporosis, chronic hyponatremia, dementia, anemia, chronic atrial fibrillation, pacer on Eliquis, IDDM depression and insomnia who presented to the ED with spouse complaining of decreasing mental status, patient c/o acute lumbar pain at home to her spouse and right hip pain.? She was admitted to the hospital September 23- with Fall, Na+ 120, supratherapeutic INR, and dens fracture.? The spouse provided much of the HPI in the ED but Dr. Monroy found the spouse to be a poor historian and possibly cognitively impaired as he verbalized that the patient is not on home oxygen, unclear as to whether she is taking Eliquis was unable to reconcile any of her medications, and firmly stated that she had had no falls. When I interviewed patient for ED department she seemed equally confused disorientated unable to follow direction reflexion of her dementia, it is unclear if this is her baseline or altered mental status. upon physical exam the patient she denied any pain or discomfort, the patient was even being moved about and repositioned as x-ray was removing boards from underneath her and she verbalized no pain or discomfort. Neither the ED nor myself are able to obtain accurate HPI, ROS, medical hx/family hx, accurate medication reconciliation due to altered mental status/cognitive impairment/dementia of both the patient and her spouse. On admit 98.9, 140/65, 60, 16, 96% on 2l/NC-again from September adm it is documented patient has chronic respiratory failure and is on 2L/NC at home. Patient's Eliquis had been stopped initially on previous admit due to her frequent falls and injury but then had been restarted, patient's spouse was unclear as to whether she was still taking Eliquis. H&H 8.8/26.7 (last-Hgb 8.8-9.7), no WBC or left shift, initial lactate 2.1, procalcitonin is negative, respiratory panel is negative. Sodium 130, chloride 93 BUN 18, creatinine 1.06, glucose 128, GFR 52, (last: Na+ 118-121, SENIOR ESTIMATOR 0.68-0.90, GFR>60). Initial troponin 0.019, EKG paced at a rate of 60 or T-wave. PT 18.4, INR 1.6, dimer 1244, C/Abd/P-CTA is negative for PE, Positive Large right pleural effusion.? Right lower lobe is collapsed, possible atelectasis in the right middle lobe.? Sternal fracture.? Right 9-12th rib fractures.? T12 and T11 new compression fractures. Stable L3 compression fracture. Rt Shoulder Xray:No definite acute trauma at the right shoulder but there is degenerative osteoarthritic change that could obscure clear visualization of a small nondisplaced fracture. Patient admitted for ground level fall, resulting in pathological sternum fracture, multiple rib fractures, and thoracic lumbar fractures, altered mental status versus dementia, DUANE. Discharge Providers Provider Date of admission: 10/17/22 21:01 Discharge Date: 10/22/22 Primary care physician: Zuleima Keating PA-C Consults: 10/17/22 21:20 Consult to Physician Routine Comment: Consulting Provider: Rhoda Sifuentes Reason for consultation: Multiple rib & sternum fx Has provider been notified: Yes 10/17/22 21:21 Consult to Occupational Therapy Evaluate & Treat Comment: After Bear [place]arton Physician Instructions: Evaluate and treat Consult to Physical Therapy Evaluate & Treat Comment: After Bear barton Physician Instructions: Evaluate and Treat 10/17/22 22:39 Consult to MERCHANDISE PLANNING MANAGER - Supervisor Toy [employer] Routine Comment: Concerned home safety/pt&spouse dementia? [facility] MERCHANDISE PLANNING MANAGER Consult needed for:: Community Health Res Need APS/CPS Crisis Referral 10/17/22 22:40 Consult to Dietitian, Adult Routine Comment: Reason For Exam: BMI 22.4, freq falls Discharge provider: Sourav Finney DO Summary Hospital Course Discharge Diagnosis: 1. Ground level fall resulting in pathological sternum fracture, multiple rib fractures, thoracic, and lumbar fractures, Right pleural effusion/right lower lobe collapse, acute on chronic, with a hx of frequent falls, present on admission -s/p bloody thora so likely had hemothorax from falls -PT/OT consultation ordered and rec SNF -avoid blood thinners 2. acute metabolic encephalopathy with baseline dementia w/depression, acute with chronic dementia, present on admission -continue sertraline -mentation improving 3.DUANE, mild, acute, present on admission, resolved -BUN 18, creatinine 1.06, glucose 128, GFR 52, baseline likely near 0.6 - 0.7. -gentle hydration NS at 60 cc/HR initially, now stopped, likely with acute heart failure will diurese instead but needed to hold today for soft blood pressures. -hold spironolactone for now 4. Sepsis secondary to acute cystitis, ruled out ?- now stopped ceftriaxone due to negative blood and urine cultures ?- stopped IV fluids now as suspect volume overload. 5. Pulmonary Hypertension with R heart failure with acute on chronic respiratory failure on home O2, chronic, with anasarca, chronic,? present on admission -worsened O2 requirements with overnight fluids, increased furosemide to 40 mg IV daily and stopped fluids. Needed to hold furosemide. -BNP 6550 -C/ABD/P CT:Large right pleural effusion.? Right lower lobe is collapsed.? Bilateral +2 pitting edema to lower extremities, decreased breath sounds in right lower lobe. -thoracentesis drained 800cc of bloody fluid. 6. Atrial fibrillation, chronic, rate controlled with pacemaker, chronic, present on admission-stable -EKG paced at a rate of sinus fam [address] or T-wave changes.? -continue amlodipine, losartan, metoprolol 7 Anemia, mild, chronic, present on admission-stable -H&H 8.8/26.7 (last-Hgb 8.8-9.7) to 7.4 today. -no evidence of any bleed -trend hemoglobin closely -transfuse <7 Hgb 8. Insulin-dependent type 2 diabetes with hyperlipidemia, acute on chronic, present on admission- controlled -glucose on admit 128 -patient admitted under diabetic protocol monitor for hypoglycemia -last A1c 09/2022 8.0, we will repeat -continue Lantus, low-dose sliding scale -hold Januvia and metformin -continue Lipitor ? 9. 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 Insomnia, chronic, present on admission -continue Doxylamin 11. Malnutrition, mild, acute on chronic, present on admission -as evidence by BMI 22.4 -patient's malnutrition places them at high risk for medical and surgical complications in relation to acute illness/chronic illness.? This increases the difficulty in complexity of medical management and increases the chances poor outcomes such as mortality and morbidity as well as impaired wound healing, and immune suppression. -dietary consult ordered to evaluate and implement steps to improve caloric intake and nutrition. 12. Back pain, chronic, present on admission -continue tramadol 13. Hyponatremia, chronic, present on admission-stable -improved from usual sodium in the upper 120s. Hospital Course: Rhoda Davidson is a 82-year-old female PMH of pulmonary hypertension with chronic respiratory failure on 2L home 02, CHF, breast cancer, osteoporosis, chronic hyponatremia, dementia, anemia, chronic atrial fibrillation, pacer on Eliquis, IDDM depression and insomnia who presented to the ED with spouse complaining of decreasing mental status, patient c/o acute lumbar pain at home to her spouse and right hip pain.? She was admitted to the hospital September 23- with Fall, Na+ 120, supratherapeutic INR, and dens fracture. Patient admitted for ground level fall, resulting in pathological sternum fracture, multiple rib fractures, and thoracic lumbar fractures, acute encephalopathy, DUANE, and acute cystitis/sepsis. She then developed worsened o2 requirements with fluids. IV fluids were stopped, diuretics increased. Underwent thora of right pleural effusion which drained 800cc of bloody fluid. Patient continued to have weakness and immobility so discharged to SNF. Salt tabs prescribed on dc due to downtrending sodium. Time Spent with Patient Time spent: Greater than 30 minutes Exam Vital Signs (past 8 hours): - 10/21/22 00:46 10/21/22 05:00 Temperature 96.7 F L 97.3 F L Pulse Rate 60 60 Respiratory Rate 16 16 Blood Pressure 109/57 L 118/56 L Pulse Oximetry 92 94 Oxygen Flow Rate 3 0 Fraction of Inspired Oxygen 32 SaO2/FiO2 Ratio 287 Oxygen Delivery Method Nasal Cannula Oxygen Flow Rate 0 Narrative Exam Narrative: General: Patient is a well-developed, well-nourished elderly female, in no distress at this time but more lethargic, falls asleep easily HEENT: Normocephalic, atraumatic, extraocular muscles intact, oral pharynx is clear and mucous membranes are moist. No JVD Chest: Breathing without nasal flaring, retractions, tachypneic or labored. Lungs: Auscultation of all lung nguyen clear , decreased in bilateral lower lobes Cardio: Paced bradycardia regular rate and rhythm. Abdomen: S NT ND Musculoskeletal: 1-2 + edema bilaterally in LE, no joint effusionsl. Skin: Warm dry and intact without rashes, ulcerations or petechiae. Neuro: alert but lethargic, no focal deficits. Objective Labs 10/21/22 04:54 10/21/22 04:54 Labs: Laboratory Results - last 24 hr 10/21/22 10/21/22 04:54 04:54 WBC 5.3 RBC 2.71 L Hgb 7.6 L Hct 22.8 L MCV 84.3 MCH 28.0 MCHC 33.2 RDW 16.2 H Plt Count 236 Neut % (Auto) 74.3 Lymph % (Auto) 11.9 L [place] % (Auto) 9.4 Eos % (Auto) 2.9 Baso % (Auto) 1.5 Neut # (Auto) 3900 Lymph # (Auto) 600 L [place] # (Auto) 500 Eos # (Auto) 200 Baso # (Auto) 100 Sodium 127 L Potassium 4.5 Chloride 98 Carbon Dioxide 26 BUN 13 Creatinine 0.90 Estimated GFR > 60 BUN/Creatinine Ratio 14.4 Glucose 78 L Calcium 7.8 L Total Bilirubin 0.7 AST 27 ALT 18 Alkaline Phosphatase 120 Total Protein 5.8 L Albumin 3.4 L Globulin 2.4 Albumin/Globulin Ratio 1.4 [facility] Medical History Chronic anticoagulation Chronic atrial fibrillation Chronic hyponatremia Chronic respiratory failure Dementia Depression Insulin dependent type 2 diabetes mellitus Iron deficiency anemia Pacemaker Pulmonary hypertension Surgical History History of permanent cardiac pacemaker placement Social History household members: significant other Smoking Status: Never smoker alcohol intake: current Discharge Plan Discharge Plan Patient Disposition: SNF Discharge orders & Medications Prescriptions: New sodium chloride 1,000 mg Tablet,Soluble 1,000 mg PO BIDWM 30 Days Qty: 30 0RF Continued Januvia 100 mg tablet 100 mg PO DAILY Qty: 0 amlodipine [Norvasc] 5 MG tablet 10 mg PO QDAY Qty: 1 atorvastatin [Lipitor] 20 MG tablet 40 mg PO QDAY Qty: 0 metformin 1,000 mg Tablet 500 mg PO BID alendronate [Fosamax] 70 mg Tablet 70 mg PO QWEEK Qty: 12 2RF Rx Instructions: 1 tab by mouth once weekly on empty stomach. Do not sit or lie down for 30 mins after taking. insulin glargine [Lantus Solostar U-100 Insulin] 100 unit/mL (3 mL) insulin pen 13 unit SUBCUT QAM ferrous sulfate [FeroSul] 325 mg (65 mg iron) tablet 325 mg PO DAILY Label Comments: TAKE 1 TABLET BY MOUTH DAILY doxylamine succinate 25 mg Tablet 25 mg PO BEDTIME PRN (Reason: Sleep) tramadol 50 mg tablet 50 mg PO BID PRN (Reason: Back Pain) 30 Days Qty: 30 0RF losartan 50 mg Tablet 50 mg PO BID metoprolol succinate 50 mg tablet extended release 24 hr 50 mg PO DAILY spironolactone 25 mg tablet 25 mg PO DAILY sertraline 50 mg Tablet 50 mg PO DAILY Magnesium (oxide/AA chelate) 300 mg Capsule 400 cap PO BID senna 8.6 mg Capsule 8.6 mg PO BEDTIME Rx Instructions: every 48 hours Follow up/Referrals: Zuleima Keating, PACarmella [Primary Care Provider] - 2 Weeks Diet/Activity/Treatments Diet: Carb-consistent/Diabetic Diet comment: Fluid restriction of 1.5L per day [facility] Rehab type: Physical therapy and Occupational therapy Visit Report/Discharge Packet Instructions: DI for Anemia of Chronic Disease, DI for Pulmonary Arterial Hypertension-Adult Stand Alone Forms: Patient Portal/API Discharge Data Primary Care Provider: Zuleima Keating Quality VTE Deep Vein Thrombosis/Pulmonary Embolism Present on Admission: No
[2022-10-22 07:45] VITALS: BP 126/58; PULSE 60; RESP 18; TEMP 35.8; O2SAT 96
[2022-10-22] MEDS: SODIUM CHLORIDE 1,000 MG TABLET 1000 MG PO (08:51)
[2022-10-22] MEDS: MAGNESIUM OXIDE 400 MG TABLET PO (08:51)
[2022-10-22 08:52] VITALS: BP 126/58; PULSE 60
[2022-10-22] MEDS: METOPROLOL ER 50 MG TABLET PO (08:52)
[2022-10-22] MEDS: ATORVASTATIN 20 MG TABLET 40 MG PO (08:52)
[2022-10-22] MEDS: AMLODIPINE 5 MG TABLET 10 MG PO (08:52)
[2022-10-22] MEDS: TRAMADOL 50 MG TABLET PO (08:53)
[2022-10-22 08:54] VITALS: BP 126/58; PULSE 60
[2022-10-22] MEDS: SERTRALINE 50 MG TABLET PO (08:54)
[2022-10-22] MEDS: FUROSEMIDE 20 MG TABLET PO (08:54)
[2022-10-22] MEDS: ANASTROZOLE 1 MG TABLET PO (08:54)
[2022-10-22] MEDS: FERROUS SULFATE 325 MG TABLET PO (08:54)
[2022-10-22] MEDS: LOSARTAN 50 MG TABLET PO (08:54)
[2022-10-22] MEDS: LIDOCAINE PATCH 1 EACH ADH..PATCH TOP (08:54)
[2022-10-22] MEDS: INSULIN GLARGINE 100 UNIT/ML 3ML PEN 13 UNIT SUBCUT (08:55)
[2022-10-22] MEDS: SODIUM CHLORIDE 0.9% FLUSH 10 ML IV (08:55)
--- NOTE | 2022-10-22 09:36 | OT.IP.TRT ---
Current Diagnoses Unspecified fracture of sternum, initial encounter for closed fracture (10/17/22) Occupational Therapy Treatment Note M2 OT-IP Current Condition Start: 10/20/22 16:31 Freq: Status: Discharge Protocol: Document 10/20/22 14:00 [facility] (Rec: 10/20/22 16:54 [facility] [id number]) Occupational Therapy Current Condition Current Condition Evaluation Date 10/20/22 Treatment Diagnosis GLF, rib and sternal fractures Diagnosis Onset Date 10/17/22 Post Operative Precautions Other Precautions use of [place] collar at all times for 6 weeks, able to clarify with Dr. Fischer's office as when pt was here last , was suppose to have the neck brace on for 12 weeks due to dens fx. Pt's partner states just at Dr. Fischer's office and nothing was said about wearing the neck brace and therefore pt stopped wearing the neck brace. OT able to call 's offie to clarify use of [place] collar and still to be worn for 6 more weeks. M3 OT- IP Subjective and Pain Start: 10/20/22 16:31 Freq: Status: Discharge Protocol: Document 10/22/22 09:20 [facility] (Rec: 10/22/22 13:48 [facility] [id number]) OT- Subjective Occupational Therapy Visit Type Type Treatment Note Visit Start Time 09:20 Visit Stop Time 09:36 Total Visit Minutes 16 Occupational Therapy Visit Comments Patient Comments Pt agreed to do grooming needs . Patient/Caregiver Goals TO get better. OT Pain Assessment Pain When Pain Assessed At Rest Pain Present Pain Present Pain Reported Location Right Hip Intensity 7 Scale Used Numeric (0 - 10) M4 OT- IP ADL's Start: 10/20/22 16:31 Freq: Status: Discharge Protocol: Document 10/22/22 09:20 [facility] (Rec: 10/22/22 13:48 [facility] [id number]) OT ADL-Oral Care General Eval Oral Care Ability Standby Assistance Areas of Assistance Retrieving/Set-Up of Items Comments Oral Care Comments Assist to hold the basin in place. Pt able to do rest of her oral care needs on her own . M5 OT- IP IADL's Start: 10/20/22 16:31 Freq: Status: Discharge Protocol: Document 10/20/22 14:00 [facility] (Rec: 10/20/22 16:54 [facility] [id number]) OT-Instrumental Activities of Daily Living Home Safety Awareness Awareness of Need for Assistance at Home Good Awareness Home Safety Comments Pt's partner has been assisting her for all needs at home. Medication Management Medication Management Caregiver Administers Money Management Money Management Caregiver Provides Assistance Meal Preparation Meal Preparation Caregiver Provides Assist Surfacing Machine Operator Surfacing Machine Operator Caregiver Provides Assist M6 OT- IP Functional Cognition Start: 10/20/22 16:31 Freq: Status: Discharge Protocol: Document 10/22/22 09:20 [facility] (Rec: 10/22/22 13:48 [facility] [id number]) Cognitive Factors Limiting Selfcare Function Cognitive Ability Level of Alertness Alert,Confusional State Patient Orientation Name Attention Span Ability Capable of Focused Attention, Unable to Sustain Attention Ability to Follow Commands Able to Follow One Step Commands with Increased Time, Able to Follow One Step Commands with Repetition Memory Description 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 Cognitive Comments Cognitive Assessment Comments Pt did not sleep well and needing more reminders through oral care needs. Able to go over precautions of not to flex her neck for oral care and to spit into the basin. M7 OT- IP Mobility and Balance Start: 10/20/22 16:31 Freq: Status: Discharge Protocol: Document 10/20/22 14:00 [facility] (Rec: 10/20/22 16:54 [facility] [id number]) OT- Bed Mobility Assessment Supine to Sit Supine to Sit Assist Minimal Assistance Sit to Supine Sit to Supine Assist Minimal Assistance OT-Transfer Assessment Sit to and From Stand Sit to and from Stand Minimal Assistance,Moderate Assistance Transfers Transfer Ability Minimal Assistance Technique Transfer Destination Bed Comments Mobility Comments BERRY to get her trunk upright and back into bed. MIN/MODA to stand and vc to use her hands to push up from the bed to stand initially. BERRY with FWW to take a few side steps to the head of the bed, pt a little unstaedy on her feet. OT- Balance Assessment Sitting Balance and Reactions Static Sitting Balance Ability Good Dynamic Sitting Balance Ability Fair Standing Balance and Reactions Static Standing Balance Ability Fair Dynamic Standing Balance Ability Poor M8 OT- IP Objective Assessments Start: 10/20/22 16:31 Freq: Status: Discharge Protocol: Document 10/20/22 14:00 [facility] (Rec: 10/20/22 16:54 [facility] [id number]) OT Gross Range of Motion Upper Extremity Range of Motion Assessment Bilaterally Impaired OT Strength Comments Strength Comments BUE 3-/5 to 4-/5 OT- Coordination Assessment Upper Extremity Finger to Nose Test Within Functional Limits M9 OT- IP Assessment and Plan Start: 10/20/22 16:31 Freq: Status: Discharge Protocol: Document 10/22/22 09:20 [facility] (Rec: 10/22/22 13:48 [facility] [id number]) OT Summary Assessment and Plan Potential Rehabilitation Potential Good Analytic Complexity at Evaluation Moderate Summary OT Impairments Pain,Strength,Balance, Functional Cognition, Functional Mobility,Self- Feeding,Grooming,Dressing, Toileting,Bathing,Toilet Transfers,Shower Transfers, Activity Tolerance Progress Towards Goals Slow Progress due to Pain,Slow Progress due to Cognition Assessment Summary Pt still on O2 and very tired today as states did not sleep well due to her pain. pt going to skilled rehab today. Goals Self-Feeding Goal Standby Assistance Grooming Goal Standby Assistance Dressing Goal Minimal Assistance Toileting Goal Minimal Assistance Bathing Goal Minimal Assistance Toilet Transfer Goal Independent Shower Transfer Goal Independent Days to Meet Goals 15 Frequency of Treatment Frequency Of Treatment Once a Day Treatment Plan OT Treatment Plan ADL Training,Functional Cognition Training,Functional Mobility,Patient/Family Education,Discharge Planning Discharge Recommendations OT Discharge Recommendations [facility] Re[facility]
[2022-10-22 10:12] LABS: COVID19 -Nasal RAPID Negative (Negative)
--- NOTE | 2022-10-22 11:32 | PT.IPTN ---
Current Diagnoses Unspecified fracture of sternum, initial encounter for closed fracture (10/17/22) Physical Therapy Treatment Note M2 PT-IP Current Condition Start: 10/19/22 08:22 Freq: NEEDED Status: Active Protocol: Document 10/22/22 11:05 SP (Rec: 10/22/22 11:54 SP [id number]) Physical Therapy Current Condition Current Condition Evaluation Date 10/20/22 Treatment Diagnosis GLF; rib and sternal fx; difficulty in walking Onset Date 10/17/22 M3 PT-IP Subjective Start: 10/19/22 08:22 Freq: NEEDED Status: Active Protocol: Document 10/22/22 11:05 SP (Rec: 10/22/22 11:54 SP [id number]) Subjective Physical Therapy Visit Type Type Treatment Note Visit Start Time 11:05 Visit Stop Time 11:32 Total Visit Minutes 27 Notes [employer] initiated CGT w/, he provided support during tx for STS and gait w/ FWW. Vitals seated chair resting: BP 110/ 59 HR 60 98% on 2.5 L NC W/mobility: 93% on 1L w/mobility: 88% on RA, 1L breath improved resting Mid 90s. Number of [employer] Visits 1 Physical Therapy Visit Comments Patient Comments agreeable to do PT Therapy Pain Assessment Pain When Pain Assessed At Rest Pain Present Pain Present Pain Reported Location low back Intensity 7 Scale Used 7/10 resting, less with mobility Description With Movement Pain Behaviors Facial Grimacing Pain Management Techniques Distraction,Modification of Treatment,Re-positioning, Timing of Activity with Medications M4 PT-IP Mobility and Gait Start: 10/19/22 08:22 Freq: NEEDED Status: Active Protocol: Document 10/22/22 11:05 SP (Rec: 10/22/22 11:54 SP [id number]) PT-Transfer Assessment Sit to and From Stand Sit to and from Stand Moderate Assistance,1 Person Assistance,Use of Upper Extremities Equipment Transfer Assistive Device Gait Belt,Front Wheeled Walker Orthotic/Prosthetic Devices or Brace: No Transfers Transfer Destination Chair Transfer Technique ambulated w/ FWW Transfer Ability Level of Assist Contact Guard Assistance, Minimal Assistance,1 Person Assistance,Use of Upper Extremities Comments Mobility Comments Pt improved SaO2 mid 90s on 1L during mobility, decreased to 88% on RA, notified nursing reduced to 1L. Pt requires Mod A STS wFWW for trunk support to come to standing [employer] initially and SO during initiating CGT and cues push from chair and reach back sit for safety and physical assist slower mobility. 3 laps in room (seated rest after 2 laps due to tiring and O2 recovery ), [employer] managed O2 tubing. Pt demonstrates little trunk sways but no LOB during gait w /FWW CG/ Min A and cues for proximity to FWW including pivot turns. Pt returned to chair, requested keeping BLEs down on floor. [employer] notified nursing recommendation of use of chair alarm for safety fall risk, nurse stated pt uses call light appropriately for assistance. Pt had call light and all needs in reach before left. Gait Assessment Gait Gait Assistance Required: Contact Guard Assist,Minimum Assistance,1 Person Assist Distance (Feet) 45 Able to Maintain Weight Bearing Status Yes During Gait Assistive Devices Assistive Device Gait Belt,Front Wheeled Walker Orthotic/Prosthetic Devices or Brace: No Gait Deviations General Gait Pattern Antalgic,Ataxic,Decreased Stride Length,Decreased Feet Clearance,Flexed Trunk,Lateral Trunk Lean,Step-to Gait Factors Limiting Gait Function Factors Limiting Gait Function Decreased Activity Tolerance, Decreased Strength,Difficulty Following Directions,Limited Range of Motion,Poor Balance, Poor Safety Awareness Comments Gait Comments see mobility comments. Stair Climbing Assessment Comments Stair Climbing Comments no stairs need to assess PT-Balance Assessment Sitting Balance and Reactions Static Sitting Balance Ability Good Dynamic Sitting Balance Ability Fair Standing Balance and Reactions Static Standing Balance Ability Fair Dynamic Standing Balance Ability Poor Device Used FWW M5 PT-IP Objective Assessments Start: 10/19/22 08:22 Freq: NEEDED Status: Active Protocol: Document 10/20/22 13:15 AB (Rec: 10/20/22 15:12 AB [id number]) Orientation Orientation/Cognition Level of Alertness Alert Orientation Name,Place,Situation Language Function Ability No Deficits Noted Safety Awareness Decreased Safety Awareness Memory Description 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 Gross Range of Motion Lower Extremity ROM Assessment Within Functional Limits Strength Lower Extremity Strength Assessment Within Functional Limits Coordination Assessment Gross Coordination Gross Coordination WNL Muscle Tone Muscle Tone WNL Yes M6 PT-IP Treatment Start: 10/19/22 08:22 Freq: NEEDED Status: Active Protocol: Document 10/22/22 11:05 SP (Rec: 10/22/22 11:54 SP [id number]) Physical Therapy Treatment Education Education Provided Safety M7 PT-IP Assessment and Plan Start: 10/19/22 08:22 Freq: NEEDED Status: Active Protocol: Document 10/22/22 11:05 SP (Rec: 10/22/22 11:54 SP [id number]) PT Summary Assessment and Plan Potential Rehabilitation Potential Fair Status of Condition at Evaluation Stable Summary Impairments Pain,ROM,Strength,Balance, Coordination,Sensation,Tone, Cognition,Bed Mobility, Transfers,Gait,Activity Tolerance Progress Towards Goals Slow Progress due to Pain,Slow Progress due to Activity Tolerance Assessment Summary Pt requires Mod A STS w/ FWW and Min A for gait w/ FWW mobiltiy due to unsteady trunk sways and safety cues proximiity to FWW. IMproved SaO2 1L during mobility, high 80s on RA. Notified nursing. Pt will require SNF for progress in strength and safety techniques for mobility . Goals Bed Mobility Goal Standby Assistance Transfer Goal Standby Assistance,Front Wheeled Walker Gait Goal Standby Assistance,Front Wheel Walker Gait Distance 150 Days to Meet Goals 5 Frequency of Treatment Frequency Of Treatment Once a Day Treatment Plan Physical Therapy Treatment Plan Bed Mobility Training,Transfer Training,Gait Training, Therapeutic Exercise,Balance Retraining,Discharge Planning, Hot or Cold Pack,Neuromuscular Re-ed,Coordination Retraining ,Manual Therapy Other Recommendations and Next Treatment bed mob, transfers w/ FWW, Focus gait further distance. Check SaO2. Nursing notified baseline 2L at home . Precautions Cervical Spine Precautions Rigid Collar,No Heavy Lifting, Log Roll Other Precautions falls Recommendations To Nursing Amount of Assist Needed 1 Person Assist Discharge Recommendations PT Discharge Recommendations Home with / Assist Available,Home Health,SNF Rehab,Home vs SNF Transportation Needs at Discharge Private Vehicle
--- NOTE | 2022-10-22 12:18 | CM.DPNOTE ---
DC Note Discharge to [facility] today, patient and SO Adelfo remain agreeable to plan Transport p/u at approx. 1300, RN spencer Stiles CMA, kindly agreed to coordinate this DCP, all DC ppk faxed including completed and signed PASRR JW
[2022-10-22] MEDS: INSULIN LISPRO 100 UNIT/ML 3ML VIAL SUBCUT (12:22)
--- NOTE | 2022-10-22 13:22 | PC.NURSE ---
Pt discharged to [facility] at 1300, escorted off floor in wheelchair, accompanied by facility staff and spouse. IV removed, discharge packet including scripts and POLST form given to facility staff. Report called to Gwen at [facility] at 1245, . All belongings left with patient.
== END 2022-10-22 13:28 | DRG 564 ==
LOC: ED 17:59 → AC 21:01
PROVIDERS: Emergency Medicine; Admitting Provider Nurse Practitioner Family; Emergency Provider Emergency Medicine; PCP Student in an Organized Health Care Education/Training Program; Referring Provider Emergency Medicine; Visit Provider Nurse Practitioner Family
DX: S22.20XA Unspecified fracture of sternum, initial encounter for closed fracture (principal); G93.41 Metabolic encephalopathy; J96.20 Acute and chronic respiratory failure, unspecified whether with hypoxia or hypercapnia; S22.41XA Multiple fractures of ribs, right side, initial encounter for closed fracture; S22.089A Unspecified fracture of T11-T12 vertebra, initial encounter for closed fracture; S32.039A Unspecified fracture of third lumbar vertebra, initial encounter for closed fracture; N17.9 Acute kidney failure, unspecified; I48.20 Chronic atrial fibrillation, unspecified; E44.1 Mild protein-calorie malnutrition; F03.93 Unspecified dementia, unspecified severity, with mood disturbance; E87.1 Hypo-osmolality and hyponatremia; J90 Pleural effusion, not elsewhere classified; J98.19 Other pulmonary collapse; R29.6 Repeated falls; I27.20 Pulmonary hypertension, unspecified; E11.9 Type 2 diabetes mellitus without complications; E78.5 Hyperlipidemia, unspecified; C50.912 Malignant neoplasm of unspecified site of left female breast; C50.911 Malignant neoplasm of unspecified site of right female breast; G47.00 Insomnia, unspecified; G89.29 Other chronic pain; M54.9 Dorsalgia, unspecified; D64.9 Anemia, unspecified; I50.9 Heart failure, unspecified; W18.30XA Fall on same level, unspecified, initial encounter; Z68.22 Body mass index [BMI] 22.0-22.9, adult; Z79.4 Long term (current) use of insulin; Z95.0 Presence of cardiac pacemaker; Z79.01 Long term (current) use of anticoagulants; Z79.84 Long term (current) use of oral hypoglycemic drugs; Z99.81 Dependence on supplemental oxygen
CPT/HCPCS: 32555; 36415; 70450; 71045; 71046; 71275; 73030; 74174; 80053; 81003; 81015; 82550; 82962; 83036; 83605; 83690; 83735; 83880; 84145; 84443; 84484; 85025; 85379; 85610; 85730; 87040; 87086; 87633; 87635; 93005; 93307; 94760; 96374; 97116; 97161; 97166; 97530; 97535; 99232; 99285; C9803; J0696; J1815; J1940; Q9967

== ENCOUNTER → 2022-12-10 08:56 | Outpatient (CLI) | payer MEDICARE, SELFPAY ==
[2022-10-17 22:18] VITALS: BMI 22.4
[2022-12-10 11:24] LABS: Hematocrit 28.5 % (36-46); Hemoglobin 9.5 g/dL (12.0-16.0)
[2022-12-10 11:37] LABS: Alanine Aminotransferase 14 IU/L (<35); Albumin 4.4 g/dL (3.5-5.0); Albumin Globulin Ratio 1.6 (1.0-2.8); Alkaline Phosphatase 75 U/L (38-126); Aspartate Aminotransferase 23 IU/L (14-36); BUN Creatinine Ratio 17.3 (6-22); Bilirubin Total 0.8 mg/dL (0.2-1.3); Blood Urea Nitrogen 18 mg/dL (7-17); Calcium 9.4 mg/dL (8.4-10.2); Carbon Dioxide 24 mmol/L (22-32); Chloride 96 mmol/L (98-107); Cholesterol 135 mg/dL (140-199); Estimated Glomerular Filt Rate 54 mL/min (>60); Globulin 2.7 g/dL (1.7-4.1); Glucose 136 mg/dL (80-110); HDL Cholesterol 48 mg/dL (40-60); HEMOLYSIS < 15 (0-50); LDL Cholesterol Calculated 64 mg/dL (<100); Magnesium 2.1 mg/dL (1.6-2.3); Sodium 131 mmol/L (137-145); Total Protein 7.1 g/dL (6.3-8.2); Triglycerides 117 mg/dL (35-150)
[2022-12-10 11:40] LABS: Potassium 5.4 mmol/L (3.4-5.1)
[2022-12-10 12:16] LABS: Creatinine Urine Random 55.1 mg/dL
[2022-12-10 12:21] LABS: Microalbumi Creatinin Ratio Ur 90.7 ug/mg CR (<30)
[2022-12-12 10:19] LABS: Cholesterol, Total 135 mg/dL (100-199); HDL-Cholesterol 43 mg/dL (>39); HDL-Particle (Total) 24.3 umol/L (>=30.5); Historical Reading Comment: (.); LDL Particle 936 nmol/L (<1000); LDL Size 21.2 nm (>20.5); LDL-Cholsterol 71 mg/dL (0-99); LP-IR Score 31 (<=45); Small LDL- Particle 486 nmol/L (<=527); Triglycerides 116 mg/dL (0-149)
== END ==
PROVIDERS: Specialist; PCP Student in an Organized Health Care Education/Training Program; Referring Provider Internal Medicine Nephrology; Visit Provider Internal Medicine Nephrology
DX: I48.20 Chronic atrial fibrillation, unspecified (principal); E78.00 Pure hypercholesterolemia, unspecified; I50.812 Chronic right heart failure; N18.32 Chronic kidney disease, stage 3b; E11.22 Type 2 diabetes mellitus with diabetic chronic kidney disease; Z79.4 Long term (current) use of insulin; E11.69 Type 2 diabetes mellitus with other specified complication; I99.9 Unspecified disorder of circulatory system; I10 Essential (primary) hypertension
CPT/HCPCS: 36415; 80053; 80061; 80069; 82043; 82570; 83704; 83735; 85014; 85018

== ENCOUNTER → 2022-12-15 12:51 | Outpatient (CLI) | payer MEDICARE, SELFPAY ==
[2022-10-17 22:18] VITALS: BMI 22.4
[2022-12-15 14:07] LABS: BUN Creatinine Ratio 24.5 (6-22); Blood Urea Nitrogen 26 mg/dL (7-17); Calcium 10.3 mg/dL (8.4-10.2); Carbon Dioxide 22 mmol/L (22-32); Chloride 95 mmol/L (98-107); Estimated Glomerular Filt Rate 52 mL/min (>60); Glucose 159 mg/dL (80-110); HEMOLYSIS < 15 (0-50); Potassium 4.8 mmol/L (3.4-5.1); Sodium 132 mmol/L (137-145)
== END ==
PROVIDERS: PCP Student in an Organized Health Care Education/Training Program; Referring Provider Internal Medicine Nephrology; Visit Provider Internal Medicine Nephrology
DX: E87.5 Hyperkalemia (principal)
CPT/HCPCS: 36415; 80048

== ENCOUNTER → 2023-02-06 08:07 | Outpatient (CLI) | payer MEDICARE, SELFPAY ==
[2022-10-17 22:18] VITALS: BMI 22.4
[2023-02-06 08:49] LABS: Add Manual Diff / Slide Review NO; Basophils Absolute Auto 100 /uL (0-100); Basophils Percent Auto 1.3 % (0-2); Eosinophils Absolute Auto 100 /uL (0-450); Eosinophils Percent Auto 1.4 % (2-4); Hematocrit 30.3 % (36-46); Hemoglobin 10.3 g/dL (12.0-16.0); Lymphocytes Absolute Auto 1000 /uL (1100-4500); Lymphocytes Percent Auto 19.5 % (25-40); Mean Corpuscular Hemoglobin 30.5 PG (26-34); Mean Corpuscular Volume 89.5 fL (80-100); Monocytes Absolute Auto 400 /uL (0-900); Neutrophils Absolute Auto 3700 /uL (1500-7000); Neutrophils Percent Auto 69.8 % (50-75); Platelet Count 191 X10^3/uL (150-400); Red Blood Cell Count 3.38 X10^6/uL (4.0-5.2); Red Cell Distribution Width 19.6 % (11.6-14.8); White Blood Cell Count 5.3 X10^3/uL (4.5-11.0)
[2023-02-06 09:13] LABS: Cholesterol 115 mg/dL (140-199); HDL Cholesterol 36 mg/dL (40-60); LDL Cholesterol Calculated 60 mg/dL (<100); Triglycerides 97 mg/dL (35-150)
[2023-02-06 09:14] LABS: Alanine Aminotransferase 18 IU/L (<35); Albumin 4.6 g/dL (3.5-5.0); Albumin Globulin Ratio 1.9 (1.0-2.8); Alkaline Phosphatase 73 U/L (38-126); Aspartate Aminotransferase 25 IU/L (14-36); BUN Creatinine Ratio 20.8 (6-22); Bilirubin Total 1.8 mg/dL (0.2-1.3); Blood Urea Nitrogen 20 mg/dL (7-17); Calcium 9.7 mg/dL (8.4-10.2); Carbon Dioxide 26 mmol/L (22-32); Chloride 97 mmol/L (98-107); Estimated Glomerular Filt Rate 59 mL/min (>60); Globulin 2.4 g/dL (1.7-4.1); Glucose 123 mg/dL (80-110); HEMOLYSIS < 15 (0-50); Potassium 5.1 mmol/L (3.4-5.1); Sodium 133 mmol/L (137-145)
== END ==
PROVIDERS: PCP Student in an Organized Health Care Education/Training Program; Referring Provider Specialist; Visit Provider Physician Assistant Medical
DX: D64.9 Anemia, unspecified (principal); I48.20 Chronic atrial fibrillation, unspecified; E11.69 Type 2 diabetes mellitus with other specified complication; N18.31 Chronic kidney disease, stage 3a; E87.1 Hypo-osmolality and hyponatremia
CPT/HCPCS: 36415; 80053; 80061; 85025

== ENCOUNTER → 2023-02-08 09:16 | Outpatient (CLI) | payer MEDICARE, SELFPAY ==
[2022-10-17 22:18] VITALS: BMI 22.4
--- NOTE | 2023-02-08 | DI.ECHO.S_ITS ---
[facility]---------+ [facility] +---------+ : : [address] [place] : : : : [id number] : : : : Phone: [phone]+ Echocardiogram Report + + :Name: NELSON TRAMMELL Study Date: 02/08/2023 Height: 67 in : :[facility] ReadingLocation: Weight: 111 lb : : Gender: Female BSA: 1.6 m2 : :: 1940 Age: 82 yrs BP: 155/78 mmHg: :Reason For Study: CHRONIC RIGHT HEART FAILURE : :Ordering Physician: HARINDER, : :SAVITA Performed By: Soo Dickens : :Referring: SAVITA PIZANO : + + Interpretation Summary Left ventricular systolic function remains normal but slightly less dynamic with an estimated EF of 55 to 60% with a mild dyssynchronous contraction pattern and a flattened interventricular septum that appears unchanged. Left ventricular size remains normal with mild LVH, both unchanged. There is evidence of increased filling pressures, likely higher compared to her previous studies. The right ventricle remains moderately enlarged and moderately hypokinetic but similar to the previous exam. There is severe pulmonary hypertension with the right ventricular systolic pressure estimated at 93 mmHg with a CVP of 15 mmHg, similar to the previous exam. There is marked biatrial enlargement but similar in size to the previous study. There is borderline anterior mitral valve leaflet prolapse with probable moderate to severe mitral regurgitation that is more prominent on today's exam but less well imaged on previous studies. There is moderate to severe tricuspid regurgitation that appears unchanged. There has been resolution of the previous pleural effusion seen. The patient remained in a ventricularly paced rhythm at 60 bpm with underlying atrial fibrillation, essentially unchanged from the previous study. Procedure: A two-dimensional transthoracic echocardiogram with color flow and Doppler was performed. The study quality was technically good. Comparison is made with the echocardiogram of 10/19/2022. The patient remained in a ventricularly paced rhythm with underlying atrial fibrillation at 60 bpm, essentially unchanged from the previous study. Left Ventricle: The left ventricle is normal in size. The estimated left ventricular end diastolic volume is 67 ml. There is mild concentric left ventricular hypertrophy. This is unchanged compared to the previous study. Left ventricular systolic function is low normal. The ejection fraction is estimated to be 55-60%. There is a mild dyssynchronous contraction pattern, consistent with a conduction abnormality. The interventricular septum is flattened, consistent with a right ventricular pressure/volume condition. This is slightly less dynamic compared to the previous study. Diastolic function could not be accurately assessed due to atrial fibrillation. Filling pressures are likely significantly elevated based on E/E' ratios and higher compared to the study of 09/24/2022. Right Ventricle: The right ventricle is moderately dilated. Right ventricular systolic function is moderately reduced. This is unchanged compared to the previous study. Atria: There is marked biatrial enlargement. This is similar compared to the previous study. There is no Doppler evidence for an interatrial shunt. Mitral Valve: There is mild to moderate mitral annular calcification. The mitral valve leaflets appear moderately thickened, but open well. There is a flat closure plane of the the mitral valve leaflets. There is borderline mitral valve prolapse. There is prolapse of the anterior mitral valve leaflet. There is moderate to severe mitral regurgitation. This is more prominent compared to the previous study. Aortic Valve: The aortic valve is trileaflet. The aortic valve is mildly calcified. The aortic valve opens well. There is no aortic valve stenosis. No aortic regurgitation is present. Tricuspid Valve: The tricuspid valve leaflets are thickened and/or calcified, but open well. There is moderate to severe tricuspid regurgitation. This is unchanged compared to the previous study. There is severe pulmonary hypertension. The right ventricular systolic pressure is estimated to be at least 93 mmHg based on an estimated right atrial pressure of 15 mm Hg. Pulmonic Valve: The pulmonic valve leaflets are thin and pliable; valve motion is normal. There is trace pulmonic regurgitation. Great Vessels: The aortic root is normal size. The dimensions of the ascending aorta are normal. The IVC is dilated (diameter is greater than 2.1 cm) and it collapses less than 50% with a sniff. This suggests a high right atrial pressure of 15 mm Hg. Pericardium/ Pleura There is no pericardial effusion. There is no pleural effusion. The previously seen pleural effusion is no longer present. MMode/2D Measurements & Calculations LVIDd: 4.7 cm LVOT diam: 2.0 cm LVIDs: 3.1 cm Ao root diam: 3.0 cm FS: 34.5 % asc Aorta Diam: 3.1 cm IVSd: 1.3 cm LVPWd: 1.1 cm LV kidd. diameter/BSA (cm/m^2): 3.0 LV sys. diameter/BSA (cm/m^2): 1.9 LA A2 area: 28.7 cm2 RA long axis: 7.4 cm LA A4 area: 35.1 cm2 RA area: 30.0 cm2 LA length (vol): 7.1 cm RA vol: 103.3 ml LA vol: 120.3 ml RA : 65.6 ml/m2 LA vol index: 76.4 ml/m2 IVC diam: 2.9 cm RVD1 (basal): 4.5 cm RVD2 (mid): 3.9 cm TAPSE: 1.2 cm Doppler Measurements & Calculations Ao V2 max: 118.4 cm/sec LVOT Max Leonardo: 60.3 cm/sec Ao V2 mean: 85.7 cm/sec LV V1 max P.5 mmHg Ao max P.6 mmHg LV V1 VTI: 12.6 cm Ao mean P.2 mmHg MATEUSZ(I,D): 1.5 cm2 Ao V2 VTI: 25.4 cm MATEUSZ(V,D): 1.5 cm2 sev ratio: 0.49 MATEUSZ indexed to BSA (cm^2/m^2): 0.95 MV E max leonardo: 127.6 cm/sec TR max leonardo: 434.1 cm/sec MV A max leonardo: 2.6 cm/sec TR max P.2 mmHg MV E/A: 48.8 PA V2 max: 84.0 cm/sec Med Peak E' Leonardo: 3.8 cm/sec PA V2 mean: 58.2 cm/sec E/E' med: 33.9 PA mean P.5 mmHg Lat Peak E' Leonardo: 4.5 cm/sec PA pr(Accel): 61.9 mmHg E/E' lat: 28.5 E/e' average: 31.2 MV dec time: 0.16 sec MR ERO: 0.26 cm2 MR PISA: 4.6 cm2 SV(LVOT): 38.1 ml MR flow rate: 140.1 cm3/sec MR PISA radius: 0.85 cm Reading Physician:11:35 AM
== END ==
PROVIDERS: PCP Student in an Organized Health Care Education/Training Program; Referring Provider Specialist; Visit Provider Specialist
DX: I27.20 Pulmonary hypertension, unspecified (principal); I50.812 Chronic right heart failure; I08.1 Rheumatic disorders of both mitral and tricuspid valves
CPT/HCPCS: 93306

== ENCOUNTER → 2023-09-11 11:30 | Outpatient (CLI) | payer MEDICARE, SELFPAY ==
[2022-10-17 22:18] VITALS: BMI 22.4
--- NOTE | 2023-09-11 | DI.CT.S_ITS ---
PROCEDURE: CT ABDOMEN PELVIS W CON INDICATIONS: ACUTE HEPATITIS / ABNORMAL LIVER FUNCTION TECHNIQUE: After the administration of intravenous contrast, axial sections acquired from the lung bases to the pubic symphysis. Coronal and sagittal reformats were performed. For radiation dose reduction, the following was used: automated exposure control, adjustment of mA and/or kV according to patient size. COMPARISON: CT angio chest abdomen 10/17/2022. FINDINGS: Image quality: Diagnostic. Lower Chest: Cardiomegaly with severely dilated right atrium. Moderate right pleural effusion with subjacent atelectasis. Trace left pleural effusion. ABDOMEN: Liver: No solid mass. Contrast reflux into the hepatic veins. Gallbladder: No radiopaque gallstones or wall thickening. Biliary ducts: No biliary dilation. Pancreas: No ductal dilation. Spleen: Size is within normal limits. Adrenal Glands: No adrenal nodules. Kidneys and Ureters: No hydronephrosis. No solid mass. No complex renal cystic lesion which requires follow up. Stomach and Bowel: Normal colonic caliber, without significant wall thickening. Peritoneum: No abnormal intraperitoneal fluid. No free air. Ventral Wall: No hernia. Anasarca. Abdominal Nodes: No retroperitoneal or mesenteric adenopathy by size criteria. Vessels: Aorta is normal in size. Dilated IVC with reflux into the hepatic veins. Aorto bi iliac atherosclerotic calcifications. PELVIS: Pelvic Organs: Unremarkable. Bladder: Unremarkable. Pelvic Nodes: No enlarged lymph nodes. Miscellaneous: No inguinal hernias are seen. Bones: Chronic compression deformities of L3. Chronic compression deformity of T12 with progressive central height loss since 10/17/2022. IMPRESSION: Cardiomegaly with dilated right atrium, right pleural effusion and dilated IVC with reflux into the hepatic veins likely reflecting right heart failure. No focal hepatic abnormality visualized. Stable compression deformity of L3, progressive central height loss of chronic compression deformity of T12 vertebral body since 2 left 43. Approved by: Юлия Villalobos M.D. on 09/12/2023 at 20:24
== END ==
LOC: CT 11:31
PROVIDERS: PCP Student in an Organized Health Care Education/Training Program; Referring Provider Internal Medicine; Visit Provider Internal Medicine
DX: R94.5 Abnormal results of liver function studies (principal); I51.7 Cardiomegaly; J90 Pleural effusion, not elsewhere classified; M43.8X4 Other specified deforming dorsopathies, thoracic region; M43.8X6 Other specified deforming dorsopathies, lumbar region
CPT/HCPCS: 74177; Q9967

== ENCOUNTER 2023-09-27 11:15 | Inpatient (IN) | payer MEDICARE, SELFPAY ==
[2022-10-17 22:18] VITALS: BMI 22.4
[2023-09-27] VITALS (23 sets, daily range): BP systolic 81–184; BP diastolic 48–95; PULSE 59–97; RESP 13–22; TEMP 35.7–36.2; O2SAT 94–99; BMI 28.3
--- NOTE | 2023-09-27 11:14 | DI.CT.S_ITS ---
PROCEDURE: CT HEAD/BRAIN WO CON INDICATIONS: GLF/HEAD INJURY ON ELIQUIS TECHNIQUE: Noncontrast 4.5 mm thick angled axial sections acquired from the foramen magnum to the vertex, with coronal and sagittal reformats. For radiation dose reduction, the following was used: automated exposure control, adjustment of mA and/or kV according to patient size. COMPARISON: None. FINDINGS: Image quality: Diagnostic. CSF spaces: Basal cisterns are patent. No extra-axial fluid collections. The ventricles are symmetric in size and shape. Brain: No intracranial bleeds or masses. There is cerebral volume loss for age, with resultant ventricular and sulcal prominence. There are moderate to severe periventricular and deep white matter chronic small vessel ischemic changes. There is intracranial internal carotid artery atherosclerosis. Skull and face: Calvarium and visualized facial bones appear intact, without suspicious lesions. Posterior right parietal subgaleal hematoma. Sinuses: Visualized sinuses and mastoids are clear. IMPRESSION: 1. No acute intracranial pathology. 2. Age-related volume loss and moderate to severe small vessel ischemic change. 3. Subgaleal hematoma. Dictated by: Jose Dangelo M.D. on 09/27/2023 at 12:42 Approved by: Jose Dangelo M.D. on 09/27/2023 at 12:44
--- NOTE | 2023-09-27 11:14 | DI.CT.S_ITS ---
PROCEDURE: CT CERVICAL SPINE WO CON INDICATIONS: GLF/HEAD INJURY ON ELIQUIS TECHNIQUE: Noncontrast 3 mm thick sections acquired from the skull base to the T4 level. Sagittal and coronal reformats were then constructed. For radiation dose reduction, the following was used: automated exposure control, adjustment of mA and/or kV according to patient size. COMPARISON: [facility], CT, CT CERVICAL SPINE WO CON, 09/23/2022, 12:18. FINDINGS: Image quality: Excellent. Bones: Again noted is an oblique type 2 dens fracture which has developed mildly increased displacement and angulation at the fracture site. Additionally, there are bilateral lateral mass subluxations at C1-C2. No additional fractures or dislocations identified. Multilevel facet arthropathy. Unchanged mild anterolisthesis of C5 on C6 and severe disc height loss at C6-C7. Soft tissues: Prevertebral soft tissues are normal in thickness. No paravertebral hematomas. No apical pneumothoraces. Increase in right pleural effusion, moderately large, with increased Hounsfield density of 38.5 consistent with hemorrhagic fluid. Suspect a probable right rib fracture, not imaged on this study. IMPRESSION: 1. Slight interval increase in displacement and development of angulation at the type 2 dens fracture site. Additionally, there are bilateral lateral mass subluxations at C1-C2. No additional fractures identified. 2. Interval increase in right pleural effusion, moderately large, with increased density suggesting hemorrhage is present. Consider chest CT to check for rib fractures. Comment: Findings were discussed with Dr. Ellis at the time of study dictation on 09/27/2023 at 1237 hours. Dictated by: Jose Dangelo M.D. on 09/27/2023 at 12:32 Approved by: Jose Dangelo M.D. on 09/27/2023 at 12:42
--- NOTE | 2023-09-27 11:37 | ED.HEATRA ---
HPI - Head Injury General Chief complaint: Trauma Stated complaint: Fall, head injury Time Seen by Provider: 09/27/23 11:15 Source: patient Mode of arrival: Ambulatory History of Present Illness HPI Narrative: 83-year-old female with history of dementia presents by EMS from home for head injury at home on [facility] [facility]. Patient had a ground level trip and fall, struck the back of her head against the ground. Unknown loss of consciousness. EMS reports that caregiver at home told them that patient is in her current baseline mental status, which is oriented to self only. Patient is awake, alert, no acute distress. He does have a laceration on the back of her head. Related Data Home Medications Medication Instructions Recorded Confirmed atorvastatin 20 mg tablet (Lipitor) 40 mg PO QDAY ##0 02/17/17 09/27/23 insulin lispro 100 unit/mL 2 unit SUBCUT TID 09/27/23 09/28/23 subcutaneous pen (Humalog KwikPen (U-100) Insulin) metoprolol succinate 100 mg 100 mg PO DAILY 09/27/23 09/27/23 tablet,extended release 24 hr Complete 1 tab PO DAILY 09/28/23 09/28/23 cholecalciferol (vitamin D3) 50 50 mcg PO DAILY 09/28/23 09/28/23 mcg (2,000 unit) capsule ferrous sulfate 325 mg (65 mg 325 mg PO DAILY 09/28/23 09/28/23 iron) tablet insulin glargine 100 unit/mL (3 10 unit SUBCUT DAILY 09/28/23 09/28/23 mL) subcutaneous pen (Lantus Solostar U-100 Insulin) magnesium 400 mg PO BID 09/28/23 09/28/23 vancomycin 125 mg capsule 125 mg PO DAILY 09/28/23 09/28/23 vit B cmplx #9-FA-vit C-vit E 1 tab PO DAILY 09/28/23 09/28/23 Previous Rx's Medication Instructions Recorded cephalexin 250 mg capsule 250 mg PO Q8H #12 caps 09/29/23 furosemide 20 mg tablet (Lasix) 40 mg (2 x 20 mg) PO BID #60 tabs 09/29/23 Allergies Allergy/AdvReac Type Severity Reaction Status Date / Time MYESHA Inhibitors Allergy Unknown UNK. Verified 10/17/22 16:10 [MYESHA INHIBITORS] Review of Systems Review of Systems Narrative: unable to assess due to dementia Patient History Medical History Depression Iron deficiency anemia Pulmonary hypertension Insulin dependent type 2 diabetes mellitus Chronic anticoagulation Chronic atrial fibrillation Dementia Chronic hyponatremia Chronic respiratory failure Pacemaker Surgical History History of permanent cardiac pacemaker placement Social History household members: significant other Smoking Status: Never smoker alcohol intake: current Smoking Status: Never smoker alcohol intake frequency: a few times a week Alcohol type: hard liquor Substance Use Type: does not use Exam Initial Vital Signs Initial Vital Signs: Vital Signs Temperature 96.3 F L 09/27/23 11:16 Pulse Rate 60 09/27/23 11:16 Respiratory Rate 18 09/27/23 11:16 Blood Pressure 184/91 H 09/27/23 11:16 Pulse Oximetry 99 09/27/23 11:16 Oxygen Delivery Method Room Air 09/27/23 11:16 ? Const: Awake, alert, no acute distress, frail Head: hematoma R forehead Eyes: PERRL, EOMI, conjunctiva normal ENT: Atraumatic, dentition normal, mucous membranes moist Cardiac: regular rate, regular rhythm RESP: unlabored, decreased breath sounds R side GI: Atraumatic, soft, nontender MSK: Atraumatic, full range of motion, pulses equal Skin: Warm, Dry, hematoma R forehead Neuro: AO x1 (baseline per son at bedside), CN II-XII grossly intact, moves all extremities Psych: affect normal, mood normal, not suicidal, not homicidal Course Orders Ordered: Discontinued Medications Acetaminophen (Acetaminophen 325 Mg Tablet) 975 mg PO NOW ONE Stop: 09/27/23 11:16 Last Admin: 09/27/23 12:13 Dose: 975 mg Documented By: RB Acetaminophen (Acetaminophen 325 Mg Tablet) 650 mg PO Q6H PRN PRN Reason: Fever/Mild Pain (1-3) Al Hydrox/Mg Hydrox/Simethicone (Mag Hydrox/Alum/Simeth 30 Ml Udc) 30 ml PO Q6HR PRN PRN Reason: Dyspepsia Atorvastatin Calcium (Atorvastatin 20 Mg Tablet) 40 mg PO DAILY [facility] Last Admin: 09/29/23 10:31 Dose: 40 mg Documented By: Admin: 09/28/23 11:21 Dose: 40 mg Documented By: CLL Diphtheria/Tetanus/Acell Pertussis (Tet,Diph,Pertuss(Acell),Vac/Pf 0.5 Ml Syringe) 0.5 ml IM .ONCE ONE Stop: 09/27/23 11:16 Last Admin: 09/27/23 12:14 Dose: 0.5 ml Documented By: RB Furosemide (Furosemide 40 Mg/4 Ml Vial) 40 mg IV NOW ONE Stop: 09/27/23 17:14 Last Admin: 09/27/23 17:23 Dose: 40 mg Documented By: TLS Furosemide (Furosemide 40 Mg/4 Ml Vial) 40 mg IV DAILY [facility] Last Admin: 09/29/23 10:31 Dose: 40 mg Documented By: Admin: 09/28/23 10:01 Dose: 40 mg Documented By: KRUNAL Furosemide (Furosemide 40 Mg Tablet) 40 mg PO NOW ONE Stop: 09/29/23 10:57 Last Admin: 09/29/23 11:06 Dose: 40 mg Documented By: OSIEL Heparin Sodium (Porcine) (Heparin 5,000 Unit/Ml Vial) 5,000 unit SUBCUT BID STARR Sodium Chloride (Normal Saline 0.45%) 1,000 mls @ 50 mls/hr IV CONT [facility] Last Admin: 09/27/23 23:07 Dose: Not Given Documented By: AM Ceftriaxone Sodium 1,000 mg/ (Sodium Chloride) 100 mls @ 200 mls/hr IV Q24H [facility] Stop: 09/29/23 16:44 Last Infusion: 09/28/23 17:27 Dose: Infused Documented By: Admin: 09/28/23 16:23 Dose: 200 mls/hr Documented By: Infusion: 09/27/23 18:24 Dose: Infused Documented By: Infusion: 09/27/23 16:49 Dose: 0 mls/hr Documented By: Admin: 09/27/23 16:43 Dose: 200 mls/hr Documented By: RB Dextrose (D10w) 100 mls @ 1,200 mls/hr IV PRN PRN PRN Reason: Hypoglycemia Doxycycline Hyclate 100 mg/ (Sodium Chloride) 100 mls @ 100 mls/hr IV Q12H [facility] Last Admin: 09/28/23 05:43 Dose: 100 mls/hr Documented By: Infusion: 09/27/23 18:54 Dose: Infused Documented By: Admin: 09/27/23 17:54 Dose: 100 mls/hr Documented By: HANNA Insulin Glargine (Insulin Glargine 100 Unit/Ml 3ml Pen) 10 unit SUBCUT DAILY [facility] Last Admin: 09/29/23 10:33 Dose: 10 unit Documented By: OSIEL Co-signed By: WATSON Admin: 09/28/23 12:12 Dose: 10 unit Documented By: KRUNAL Co-signed By: HEATHER Insulin Human Lispro (Insulin Lispro 100 Unit/Ml 3ml Vial) 0 unit SUBCUT ACHS [facility]; Protocol Last Admin: 09/29/23 11:58 Dose: 2 unit Documented By: OSIEL Co-signed By: WATSON Admin: 09/29/23 07:54 Dose: Not Given Documented By: Admin: 09/28/23 21:13 Dose: Not Given Documented By: Admin: 09/28/23 17:23 Dose: 2 unit Documented By: JACE Co-signed By: HEATHER Admin: 09/28/23 12:12 Dose: 1 unit Documented By: KRUNAL Co-signed By: HEATHER Admin: 09/28/23 08:42 Dose: Not Given Documented By: Admin: 09/27/23 21:44 Dose: 3 unit Documented By: GABRIELLA Co-signed By: EDI Admin: 09/27/23 17:23 Dose: 2 unit Documented By: HANNA Co-signed By: LIZZY Lorazepam (Lorazepam 2 Mg/Ml Inj) 0.25 mg IV Q4HR PRN PRN Reason: Anxiety Last Admin: 09/29/23 01:33 Dose: 0.25 mg Documented By: Admin: 09/28/23 01:13 Dose: 0.25 mg Documented By: AM Losartan Potassium (Losartan 25 Mg Tablet) 25 mg PO DAILY [facility] Last Admin: 09/29/23 10:31 Dose: 25 mg Documented By: Admin: 09/28/23 11:21 Dose: 25 mg Documented By: KRUNAL Metoprolol Succinate (Metoprolol Er 50 Mg Tablet) 100 mg PO DAILY [facility] Last Admin: 09/29/23 10:31 Dose: 100 mg Documented By: Admin: 09/28/23 11:21 Dose: 100 mg Documented By: KRUNAL Naloxone HCl (Naloxone 0.4 Mg/Ml Vial) 0.2 mg IV Q2MIN PRN PRN Reason: Opiate Reversal Olanzapine (Olanzapine 10 Mg Vial) 10 mg IM NOW ONE Stop: 09/28/23 03:25 Last Admin: 09/28/23 04:47 Dose: Not Given Documented By: AM Olanzapine (Olanzapine 10 Mg Vial) 10 mg IM NOW ONE Stop: 09/28/23 04:01 Olanzapine (Olanzapine 10 Mg Vial) 10 mg IM NOW [facility] Stop: 09/28/23 04:01 Potassium Chloride (Potassium Chloride 10 Meq Tab) 10 meq PO DAILY [facility] Last Admin: 09/29/23 10:31 Dose: 10 meq Documented By: Admin: 09/28/23 11:21 Dose: 10 meq Documented By: KRUNAL Quetiapine Fumarate (Quetiapine 25 Mg Tablet) 12.5 mg PO NOW ONE Stop: 09/27/23 20:39 Last Admin: 09/27/23 21:43 Dose: 12.5 mg Documented By: GABRIELLA Sennosides (Sennosides 8.6 Mg Tablet) 17.2 mg PO BEDTIME [facility] Last Admin: 09/28/23 21:15 Dose: 17.2 mg Documented By: Admin: 09/27/23 21:42 Dose: 17.2 mg Documented By: GABRIELLA Vancomycin HCl (Vancomycin 125 Mg Capsule) 125 mg PO DAILY [facility] Last Admin: 09/29/23 10:31 Dose: 125 mg Documented By: Admin: 09/28/23 11:21 Dose: 125 mg Documented By: KRUNAL Vital Signs Vital signs: Vital Signs - 8 hr 09/27/23 11:16 09/27/23 11:16 09/27/23 11:18 Temperature 96.3 F L Pulse Rate 60 97 H 60 Respiratory Rate 18 22 17 Blood Pressure 184/91 H Pulse Oximetry 99 97 95 Oxygen Delivery Method Room Air 09/27/23 11:18 09/27/23 11:22 09/27/23 11:22 Temperature Pulse Rate 60 Respiratory Rate 19 Blood Pressure 81/48 L 184/91 H Pulse Oximetry 95 Oxygen Delivery Method 09/27/23 11:30 09/27/23 11:30 09/27/23 11:49 Temperature Pulse Rate 60 60 Respiratory Rate 17 13 Blood Pressure 175/82 H Pulse Oximetry 96 94 Oxygen Delivery Method 09/27/23 11:49 09/27/23 12:00 09/27/23 12:00 Temperature Pulse Rate 60 Respiratory Rate 14 Blood Pressure 174/85 H 174/95 H Pulse Oximetry 96 Oxygen Delivery Method 09/27/23 12:30 09/27/23 12:30 09/27/23 13:12 Temperature Pulse Rate 60 60 Respiratory Rate 19 Blood Pressure 171/92 H Pulse Oximetry 96 Oxygen Delivery Method 09/27/23 13:14 09/27/23 13:14 09/27/23 13:23 Temperature Pulse Rate 59 L Respiratory Rate 15 Blood Pressure 164/89 H 155/88 H Pulse Oximetry 96 Oxygen Delivery Method 09/27/23 13:23 09/27/23 13:30 09/27/23 13:30 Temperature Pulse Rate 59 L 59 L Respiratory Rate 14 15 Blood Pressure 153/82 H Pulse Oximetry 97 97 Oxygen Delivery Method 09/27/23 13:45 09/27/23 13:45 09/27/23 14:00 Temperature Pulse Rate 59 L 59 L Respiratory Rate 13 19 Blood Pressure 154/85 H Pulse Oximetry 97 96 Oxygen Delivery Method 09/27/23 14:00 09/27/23 14:15 09/27/23 14:15 Temperature Pulse Rate 59 L Respiratory Rate 13 Blood Pressure 153/78 H 146/83 H Pulse Oximetry 95 Oxygen Delivery Method Room Air 09/27/23 14:30 09/27/23 14:30 09/27/23 14:45 Temperature Pulse Rate 59 L 59 L Respiratory Rate 14 13 Blood Pressure 139/80 Pulse Oximetry 98 95 Oxygen Delivery Method 09/27/23 14:45 09/27/23 15:00 09/27/23 15:00 Temperature Pulse Rate 59 L Respiratory Rate 14 Blood Pressure 136/72 154/95 H Pulse Oximetry 96 Oxygen Delivery Method 09/27/23 15:15 09/27/23 15:15 Temperature Pulse Rate 59 L Respiratory Rate 20 Blood Pressure 148/86 H Pulse Oximetry 96 Oxygen Delivery Method MDM - Head Injury Differential Diagnosis Differential diagnosis: Likely concussion without loss of consciousness, epidural hematoma and closed head injury Lab Data 09/29/23 05:44 09/29/23 05:44 Labs: Lab Results 09/27/23 09/27/23 Range/Units 11:30 12:48 WBC 9.1 (4.5-11.0) X10^3/uL RBC 2.70 L (4.0-5.2) X10^6/uL Hgb 10.2 L (12.0-16.0) g/dL Hct 28.7 L (36-46) % MCV 106.3 H (80-100) fL MCH 37.8 H (26-34) PG MCHC 35.5 (30-36) % RDW 13.6 (11.6-14.8) % Plt Count 138 L (150-400) X10^3/uL Neut % (Auto) Not Reportable Lymph % (Auto) Not Reportable Frio % (Auto) Not Reportable Eos % (Auto) Not Reportable Baso % (Auto) Not Reportable Lymph # (Auto) Not Reportable Frio # (Auto) Not Reportable Baso # (Auto) Not Reportable Total Counted 100 Seg Neutrophils % 88.0 H (38-70) % Band Neutrophils % 1.0 L (3-7) % Lymphocytes % (Manual) 5.0 L (25-45) % Monocytes % (Manual) 3.0 (2-11) % Eosinophils % (Manual) 1.0 L (2-4) % Basophils % (Manual) 2.0 H (0-1) % Neutrophils # (Manual) 8099 H (4997-9204) /uL Nucleated RBCs 1 H ( - 0) #/Diff RBC Morphology See below Poikilocytosis 1+ H Macrocytosis 1+ H Sodium 120 L (137-145) mmol/L Potassium 4.5 (3.4-5.1) mmol/L Chloride 86 L (98-107) mmol/L Carbon Dioxide 24 (22-32) mmol/L BUN 40 H (7-17) mg/dL Creatinine 1.29 H (0.52-1.04) mg/dL Estimated GFR 41 L (>60) mL/min BUN/Creatinine Ratio 31.0 H (6-22) Glucose 215 H (80-110) mg/dL Calcium 9.2 (8.4-10.2) mg/dL Total Bilirubin 1.1 (0.2-1.3) mg/dL AST 62 H (14-36) IU/L ALT 40 H (<35) IU/L Alkaline Phosphatase 168 H (38-126) U/L Total Protein 6.4 (6.3-8.2) g/dL Albumin 3.8 (3.5-5.0) g/dL Globulin 2.6 (1.7-4.1) g/dL Albumin/Globulin Ratio 1.5 (1.0-2.8) Urine Color Yellow Urine Appearance Sl cloudy Urine pH 6.5 (4.5-8.0) Ur Specific Chloride 1.015 (1.000-1.035) Urine Protein 1+ H (Negative) Urine Glucose (UA) Negative (Negative) g/dL Urine Ketones Negative (NEGATIVE) Urine Occult Blood 2+ H (Negative) Urine Nitrate Positive H (Negative) Urine Bilirubin Negative (NEGATIVE) Urine Urobilinogen 0.2 (0.2) E.U./dL Ur Leukocyte Esterase 3+ H (NEGATIVE) Urine RBC 1-5/hpf (0-5/HPF) Urine WBC 10-30/hpf H (0-5/HPF) Ur Squamous Epith Cells 5-10 /hpf H (0-5/HPF) Urine Bacteria Many (>30) H (None) Ur Culture Indicated? Specimen cultured Vol Urine Centrifuged Low vol <10ml (spun) A Treatment and disposition Social Determinants of Health that impact treatment or disposition: dementia Code Status and discussions:: Wants treatment, goal of comfort Shared decision making:: with son at bedside MDM Narrative Medical decision making narrative: Patient presenting for head injury. Patient is pleasantly demented, denies pain, cooperative with staff. Uncertain when last tetanus shot was administered, updated here in the emergency department. Patient's son arrived at bedside, he states that his mother has been weaker than usual over the last few days. He states that she did fall out of bed several days ago but they did not seek medical care at that time because there did not appear to be any obvious injury. I received a call from the radiologist stating that patient has previously seen C2 dens fracture is still present and slightly more angulated. It appears that the patient's last CT scan was in September of 2022. At that time neurosurgery recommended outpatient follow up. I discussed the CT results with son at bedside, he states that the patient wear a C-collar for 5-6 weeks but afterwards she was cleared by 1 of her physicians and C-collar was removed. The never were able to see Neurosurgery. Son states that patient has had decline with multiple medical problems over the years. He states that patient's primary goal is comfort and even if neurosurgery were to be recommended they do not think that they would pursue surgical care. Patient placed in C-collar for stabilization. Neurosurgery recommended MRI to see if the displacement of the C2 fracture is acute or chronic. Unfortunately patient was unable to obtain MRI due to her pacemaker. In addition, family states that they would highly likely not pursue surgery even if it were an option due to patient's primary goal of comfort. CT chest shows multiple right-sided rib fractures with pleural effusion, this could be from patient's fall today, or from the fall from her bed several days ago. Patient is resting comfortably in bed, saturating well on room air, no acute distress. Laboratory work significant for sodium 130, stable hemoglobin 10.2, creatinine 1.3, chronic. Based on patient's numerous injuries as well as hyponatremia plan to admit patient for further treatment. Discharge Plan Departure Patient Disposition: Admitted as Observation Clinical Impression: Acute hyponatremia, Multiple rib fractures, Pleural effusion, Pacemaker, C2 cervical fracture Admit Date/Time: 09/27/23 15:29 Admit Provider: Ezra Li
[2023-09-27] MEDS: ACETAMINOPHEN 325 MG TABLET 975 MG PO (12:13)
[2023-09-27] MEDS: TET,DIPH,PERTUSS(ACELL),VAC/PF 0.5 ML SYRINGE IM (12:14)
[2023-09-27 12:37] LABS: Hematocrit 28.7 % (36-46); Hemoglobin 10.2 g/dL (12.0-16.0); Mean Corpuscular HGB Conc 35.5 % (30-36); Mean Corpuscular Hemoglobin 37.8 PG (26-34); Mean Corpuscular Volume 106.3 fL (80-100); Red Cell Distribution Width 13.6 % (11.6-14.8); White Blood Cell Count 9.1 X10^3/uL (4.5-11.0)
--- NOTE | 2023-09-27 12:37 | DI.CT.S_ITS ---
PROCEDURE: CT CHEST WO CON INDICATIONS: ABNORMAL FINDINGS ON CERVICAL CT TECHNIQUE: Noncontrast 5 mm thick sections acquired from the pulmonary apices to the posterior costophrenic angles. 1 mm lung window, 5 mm thick coronal and sagittal and 7 mm axial MIP reformats were then acquired. For radiation dose reduction, the following was used: automated exposure control, adjustment of mA and/or kV according to patient size. COMPARISON: [facility], CT, CT CERVICAL SPINE WO CON, 09/27/2023, 11:45. [facility], CT, CT ANGIO CHEST ABDOMEN PELVIS, 10/17/2022, 18:49. FINDINGS: Image quality: Diagnostic. Lower Neck: No enlarged lymph nodes. Thyroid: No thyroid nodules which require sonographic follow up, per consensus guidelines. Axillae: No enlarged lymph nodes. Chest Wall: Mildly displaced fractures of the right 12th, 11th, 10th, 9th, and 8th ribs, which appear acute/subacute Bones: Unremarkable. Lungs and Pleura: No pneumothorax . There is a moderate right pleural effusion. Trace left pleural effusion is present. Moderate bilateral ground-glass pulmonary opacity. Mild diffuse reticulonodular pulmonary opacity. Heart: Heart size is enlarged. Leadless pacer within the right ventricle. There is calcification of the coronary vasculature. No pericardial effusion. Thoracic Vessels: The aorta and pulmonary arteries demonstrate normal size. Mediastinum and Marie: No enlarged lymph nodes. Esophagus: No wall thickening. No hiatal hernia. Upper Abdomen: Visualized upper abdomen solid organs and bowel loops appear normal. IMPRESSION: 1. Bilateral edema versus pneumonia. 2. Right pleural effusion. 3. Coronary artery disease. Cardiomegaly. 4. Right rib fractures. Dictated by: Jonah Foster M.D. on 09/27/2023 at 13:59 Approved by: Jonah Foster M.D. on 09/27/2023 at 14:02
[2023-09-27 12:39] LABS: Alanine Aminotransferase 40 IU/L (<35); Albumin 3.8 g/dL (3.5-5.0); Albumin Globulin Ratio 1.5 (1.0-2.8); Alkaline Phosphatase 168 U/L (38-126); Aspartate Aminotransferase 62 IU/L (14-36); Bilirubin Total 1.1 mg/dL (0.2-1.3); Blood Urea Nitrogen 40 mg/dL (7-17); Calcium 9.2 mg/dL (8.4-10.2); Carbon Dioxide 24 mmol/L (22-32); Chloride 86 mmol/L (98-107); Estimated Glomerular Filt Rate 41 mL/min (>60); Globulin 2.6 g/dL (1.7-4.1); Glucose 215 mg/dL (80-110); HEMOLYSIS < 15 (0-50); Potassium 4.5 mmol/L (3.4-5.1); Sodium 120 mmol/L (137-145); Total Protein 6.4 g/dL (6.3-8.2)
[2023-09-27 12:41] LABS: Add Manual Diff / Slide Review YES
[2023-09-27 12:56] LABS: Macrocytosis 1+; Neutrophils Absolute Manual 8099 /uL (3000-5900); Nucleated Red Blood Cells 1 #/Diff; Total Cells Counted 100
[2023-09-27 12:57] LABS: Poikilocytosis 1+
[2023-09-27 12:58] LABS: Platelet Count 138 X10^3/uL (150-400)
--- NOTE | 2023-09-27 12:59 | PC.NURSE ---
Provider saw patient at bed side upon entry into the department. Patient denied any c-spine tenderness or pain upon initial assessment. Provider asked this RN to place a c-collar on patient and c-collar was placed. Patient continues to deny any pain.
--- NOTE | 2023-09-27 13:21 | PC.NURSE ---
This RN went with patient to get chest CT and provided head stabilization during transfers.
[2023-09-27 13:35] LABS: Appearance Urine UA SL CLOUDY; Bilirubin Urine UA NEGATIVE (NEGATIVE); Color Urine UA YELLOW; Glucose Urine UA NEGATIVE (Negative); Ketones Urine UA NEGATIVE (NEGATIVE); Leukocyte Esterase Urine UA 3+ (NEGATIVE); Nitrite Urine UA POSITIVE (Negative); Occult Blood Urine UA 2+ (Negative); Protein Urine UA 1+ (Negative); Specific Gravity Urine UA 1.015 (1.000-1.035); Urobilinogen Urine UA 0.2 E.U./dL (0.2)
[2023-09-27 13:37] LABS: pH Urine UA 6.5 (4.5-8.0)
[2023-09-27 13:47] LABS: Bacteria Urine Many (>30); Culture Indicated Urine Specimen Cultured; RBC Urine 1-5/HPF (0-5/HPF); Squamous Epithelial Cell Urine 5-10 /HPF (0-5/HPF); Urine Volume Low Vol <10mL (spun); WBC Urine 10-30/HPF (0-5/HPF)
--- NOTE | 2023-09-27 14:10 | PC.NURSE ---
APARTMENT ASSISTANT MANAGER NOTE: autumn placed pt education given
--- NOTE | 2023-09-27 15:42 | P.HP_ITS ---
History of Present Illness History of Present Illness Date Patient Seen: 09/27/23 Time Patient Seen: 15:42 Date of Onset of Symptoms: 09/27/23 Chief complaint: Fall, head injury Narrative: The patient is an 83-year-old female with a history of dementia who presented after a fall at home. She does take chronic anticoagulation, Eliquis. She did strike the back of her head. In the emergency department she was at her baseline and had a negative head CT. She did have a small laceration on the back of her head. She was also noted to have multiple subacute rib fractures as well as a subacute C2 dens fracture. The situation was discussed with neurosurgery who recommended no acute interventions. Additionally, the patient's family noted they would not support surgery if offered likely. They do note a recent history of increased falls and she has been admitted in the past with falls and fractures. She was also noted to have a sodium of 120 with a baseline of 130. She lives with a caregiver and has a known history of recurrent hyponatremia. She also has pulmonary hypertension with anasarca and home oxygen, as well as atrial fibrillation on chronic anticoagulation. She also has chronic insulin-dependent diabetes and a history of breast cancer for which she has been taking anastrozole. The patient's son, Obie, presents most of the history. The patient has relatively significant cognitive impairment. She does however deny any pain including head, neck or chest. He notes her history of multiple fractures including an old, previously identified neck fracture. The patient is in a C- spine collar upon her arrival. She is moving arms and legs without difficulty. He notes that she would stopped her Lasix upon a discharge from a hospital in the past and has had progressive swelling. She is quite anasarca today. He notes she has been eating and drinking without difficulty. [facility] Medical History Depression Iron deficiency anemia Pulmonary hypertension Insulin dependent type 2 diabetes mellitus Chronic anticoagulation Chronic atrial fibrillation Dementia Chronic hyponatremia Chronic respiratory failure Pacemaker Surgical History History of permanent cardiac pacemaker placement Social History household members: significant other Smoking Status: Never smoker alcohol intake: current Meds Home Medications and Allergies Home Medications Medication Instructions Recorded Confirmed Type sitagliptin phosphate 100 mg 100 mg PO DAILY ##0 08/20/16 10/17/22 History tablet (Januvia) amlodipine 5 mg tablet (Norvasc) 10 mg PO QDAY ##1 02/17/17 10/17/22 History atorvastatin 20 mg tablet (Lipitor) 40 mg PO QDAY ##0 02/17/17 10/17/22 History metformin 1,000 mg tablet 500 mg PO BID 03/18/18 10/17/22 History alendronate 70 mg tablet (Fosamax) 70 mg PO QWEEK osteoporosis #12 07/17/20 10/17/22 Rx tabs losartan 50 mg tablet 50 mg PO BID 12/27/20 10/17/22 History magnesium oxide-magnesium amino 400 cap PO BID 12/27/20 10/17/22 History acid chelate 300 mg capsule (Magnesium (oxide/AA chelate)) metoprolol succinate 50 mg 50 mg PO DAILY 12/27/20 10/17/22 History tablet,extended release 24 hr sennosides 8.6 mg capsule (senna) 8.6 mg PO BEDTIME 12/27/20 10/17/22 History sertraline 50 mg tablet 50 mg PO DAILY 12/27/20 10/17/22 History spironolactone 25 mg tablet 25 mg PO DAILY 12/27/20 10/17/22 History insulin glargine 100 unit/mL (3 13 unit SUBCUT QAM 03/26/21 10/17/22 History mL) subcutaneous pen (Lantus Solostar U-100 Insulin) doxylamine succinate 25 mg tablet 25 mg PO BEDTIME PRN Sleep 10/17/22 10/17/22 History ferrous sulfate 325 mg (65 mg 325 mg PO DAILY 10/17/22 10/17/22 History iron) tablet (FeroSul) tramadol 50 mg tablet 50 mg PO BID PRN Back Pain 30 days 10/21/22 Rx #30 tabs Allergies Allergy/AdvReac Type Severity Reaction Status Date / Time MYESHA Inhibitors Allergy Unknown UNK. Verified 10/17/22 16:10 [MYESHA INHIBITORS] Review of Systems Review of Systems Narrative: All else reviewed and otherwise noncontributory except as noted in the history and physical. Exam Vital Signs (past 8 hours): - 09/27/23 11:16 09/27/23 11:16 09/27/23 11:18 Temperature 96.3 F L Pulse Rate 60 97 H 60 Respiratory Rate 18 22 17 Blood Pressure 184/91 H Pulse Oximetry 99 97 95 Oxygen Delivery Method Room Air 09/27/23 11:18 09/27/23 11:22 09/27/23 11:22 Temperature Pulse Rate 60 Respiratory Rate 19 Blood Pressure 81/48 L 184/91 H Pulse Oximetry 95 Oxygen Delivery Method 09/27/23 11:30 09/27/23 11:30 09/27/23 11:49 Temperature Pulse Rate 60 60 Respiratory Rate 17 13 Blood Pressure 175/82 H Pulse Oximetry 96 94 Oxygen Delivery Method 09/27/23 11:49 09/27/23 12:00 09/27/23 12:00 Temperature Pulse Rate 60 Respiratory Rate 14 Blood Pressure 174/85 H 174/95 H Pulse Oximetry 96 Oxygen Delivery Method 09/27/23 12:30 09/27/23 12:30 09/27/23 13:12 Temperature Pulse Rate 60 60 Respiratory Rate 19 Blood Pressure 171/92 H Pulse Oximetry 96 Oxygen Delivery Method 09/27/23 13:14 09/27/23 13:14 09/27/23 13:23 Temperature Pulse Rate 59 L Respiratory Rate 15 Blood Pressure 164/89 H 155/88 H Pulse Oximetry 96 Oxygen Delivery Method 09/27/23 13:23 09/27/23 13:30 09/27/23 13:30 Temperature Pulse Rate 59 L 59 L Respiratory Rate 14 15 Blood Pressure 153/82 H Pulse Oximetry 97 97 Oxygen Delivery Method 09/27/23 13:45 09/27/23 13:45 09/27/23 14:00 Temperature Pulse Rate 59 L 59 L Respiratory Rate 13 19 Blood Pressure 154/85 H Pulse Oximetry 97 96 Oxygen Delivery Method 09/27/23 14:00 09/27/23 14:15 09/27/23 14:15 Temperature Pulse Rate 59 L Respiratory Rate 13 Blood Pressure 153/78 H 146/83 H Pulse Oximetry 95 Oxygen Delivery Method Room Air 09/27/23 14:30 09/27/23 14:30 09/27/23 14:45 Temperature Pulse Rate 59 L 59 L Respiratory Rate 14 13 Blood Pressure 139/80 Pulse Oximetry 98 95 Oxygen Delivery Method 09/27/23 14:45 09/27/23 15:00 09/27/23 15:00 Temperature Pulse Rate 59 L Respiratory Rate 14 Blood Pressure 136/72 154/95 H Pulse Oximetry 96 Oxygen Delivery Method Oxygen Delivery Method Room Air Narrative Exam Narrative: NAD, pleasant, fluent speech. She is somewhat impaired when trying to answer specific medical questions. HEENT is atraumatic other than her posterior laceration. Her pupils are symmetric, EOMI, gaze is conjugate. There is no facial droop, oropharynx is unremarkable and mucosa is fairly normal. She has in a C-collar, her trachea is midline. Lungs are clear, normal rate and effort. Heart is irregular, no murmur. Abdomen is soft, and flat. Extremities normal for pitting edema to the knees in both legs and to the elbows in both arms. Skin is notable for multiple bruises including a large bruise over the lateral aspect of her right forearm. Her joints are unremarkable. She moves arms and legs without difficulty. Objective ECG Impression: Atrial fibrillation Imaging CT scan - chest: Radiologist's impression: 1. Bilateral edema versus pneumonia. 2. Right pleural effusion. 3. Coronary artery disease. Cardiomegaly. 4. Right rib fractures. CT scan - head: Radiologist's impression: 1. No acute intracranial pathology. 2. Age-related volume loss and moderate to severe small vessel ischemic change. 3. Subgaleal hematoma. Cervical Spine CT: Radiologist's impression: 1. Slight interval increase in displacement and development of angulation at the type 2 dens fracture site. Additionally, there are bilateral lateral mass subluxations at C1-C2. No additional fractures identified. 2. Interval increase in right pleural effusion, moderately large, with increased density suggesting hemorrhage is present. Consider chest CT to check for rib fractures. Labs 09/27/23 11:30 09/27/23 16:10 Labs: Laboratory Results - last 24 hr 09/27/23 09/27/23 11:30 12:48 WBC 9.1 RBC 2.70 L Hgb 10.2 L Hct 28.7 L MCV 106.3 H MCH 37.8 H MCHC 35.5 RDW 13.6 Plt Count 138 L Neut % (Auto) Not Reportable Lymph % (Auto) Not Reportable [place] % (Auto) Not Reportable Eos % (Auto) Not Reportable Baso % (Auto) Not Reportable Lymph # (Auto) Not Reportable [place] # (Auto) Not Reportable Baso # (Auto) Not Reportable Total Counted 100 Seg Neutrophils % 88.0 H Band Neutrophils % 1.0 L Lymphocytes % (Manual) 5.0 L Monocytes % (Manual) 3.0 Eosinophils % (Manual) 1.0 L Basophils % (Manual) 2.0 H Neutrophils # (Manual) 8099 H Nucleated RBCs 1 H RBC Morphology See below Poikilocytosis 1+ H Macrocytosis 1+ H Sodium 120 L Potassium 4.5 Chloride 86 L Carbon Dioxide 24 BUN 40 H Creatinine 1.29 H Estimated GFR 41 L BUN/Creatinine Ratio 31.0 H Glucose 215 H Calcium 9.2 Total Bilirubin 1.1 AST 62 H ALT 40 H Alkaline Phosphatase 168 H Total Protein 6.4 Albumin 3.8 Globulin 2.6 Albumin/Globulin Ratio 1.5 Urine Color Yellow Urine Appearance Sl cloudy Urine pH 6.5 Ur Specific [place] 1.015 Urine Protein 1+ H Urine Glucose (UA) Negative Urine Ketones Negative Urine Occult Blood 2+ H Urine Nitrate Positive H Urine Bilirubin Negative Urine Urobilinogen 0.2 Ur Leukocyte Esterase 3+ H Urine RBC 1-5/hpf Urine WBC 10-30/hpf H Ur Squamous Epith Cells 5-10 /hpf H Urine Bacteria Many (>30) H Ur Culture Indicated? Specimen cultured Vol Urine Centrifuged Low vol <10ml (spun) A Assessment & Plan Assessment & Plan narrative: 1. Ground level fall with head contusion and extracranial hematoma, present on admission and active. 2. Acute on chronic hyponatremia with a sodium of 120, present on admission and active. 3. C2 cervical fracture, likely subacute to chronic. Present on admission and stable. 4. Multiple rib fractures and right pleural effusion, present on admission and active. 5. Atrial fibrillation on chronic Eliquis, present on admission and stable. 6. Probable urinary tract infection, present on admission and active. 7. Chronic anemia, present on admission and stable. 8. Insulin-dependent diabetes, present on admission and stable. 9. Chronic hypoxic respiratory failure, present on admission and stable. 10. Breast cancer, bilateral. 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 Plan: -Lasix 40 IV x1, q.8 hour BMPs. Believe that she has hypervolemic hyponatremia. -monitor oxygenation and pain. It appears that her fractures may all be old. -we will monitor her sodium closely. -we will confirm if she is still taking Eliquis, she has likely not a very good candidate to continue Eliquis in the future. -correctional insulin and monitor glucose. -ceftriaxone IV Q 24 hours for urine tract infection, follow cultures. -monitor hemoglobin. Monitor for evidence of clinical bleeding. -physical therapy, occupational therapy evals and incentive spirometer. She is DNR, this is confirmed today with her proxy and son Obie. She is admitted inpatient status, estimated necessity for 2 midnights of hospital level surfaces. She also has a POLST which confirms DNR. Time Spent With Patient Time with patient: 30 to 49 minutes with 50% spent counseling/coordinating care Quality MIPS - Admit I confirm the patient?s Advance Care Plan is present, Code status is documented, Surrogate decision maker is in patient?s record [If Yes, STOP here]: Yes
[2023-09-27 16:38] LABS: Blood Urea Nitrogen 39 mg/dL (7-17); Carbon Dioxide 26 mmol/L (22-32); Chloride 86 mmol/L (98-107); Estimated Glomerular Filt Rate 41 mL/min (>60); HEMOLYSIS < 15 (0-50); Potassium 4.6 mmol/L (3.4-5.1); Sodium 121 mmol/L (137-145)
[2023-09-27 16:39] LABS: Glucose 139 mg/dL (80-110)
[2023-09-27] MEDS: cefTRIAXone 1,000 MG in SODIUM CHLORIDE 0.9% 100 ML 200 MG IV (16:43)
[2023-09-27 16:58] LABS: NT-proBNP (BNP-Adult 18+) 16100 pg/mL (<450)
[2023-09-27] MEDS: FUROSEMIDE 40 MG/4 ML VIAL IV (17:23)
[2023-09-27] MEDS: INSULIN LISPRO 100 UNIT/ML 3ML VIAL SUBCUT ×2 (17:23→21:44)
[2023-09-27] MEDS: DOXYCYCLINE 100 MG in SODIUM CHLORIDE 0.9% 100 ML IV (17:54)
[2023-09-27 21:18] LABS: Sodium Urine Random 44 mmol/L (30-90)
[2023-09-27] MEDS: SENNOSIDES 8.6 MG TABLET 17.2 MG PO (21:42)
[2023-09-27] MEDS: QUETIAPINE 25 MG TABLET 12.5 MG PO (21:43)
[2023-09-28] VITALS: BP 154/72; PULSE 64; RESP 20; TEMP 35.9; O2SAT 97
[2023-09-28 00:11] LABS: BUN Creatinine Ratio 28.5 (6-22); Blood Urea Nitrogen 39 mg/dL (7-17); Calcium 8.9 mg/dL (8.4-10.2); Carbon Dioxide 27 mmol/L (22-32); Chloride 87 mmol/L (98-107); Estimated Glomerular Filt Rate 38 mL/min (>60); Glucose 187 mg/dL (80-110); HEMOLYSIS < 15 (0-50); Potassium 4.2 mmol/L (3.4-5.1); Sodium 122 mmol/L (137-145)
[2023-09-28] MEDS: LORazepam 2 MG/ML INJ 0.25 MG IV (01:13)
[2023-09-28 04:00] VITALS: BP 160/93; PULSE 87; RESP 20; TEMP 36; O2SAT 92
[2023-09-28 05:14] LABS: Add Manual Diff / Slide Review NO; Basophils Absolute Auto 100 /uL (0-100); Basophils Percent Auto 1.3 % (0-2); Eosinophils Absolute Auto 100 /uL (0-450); Eosinophils Percent Auto 1.4 % (2-4); Hematocrit 26.7 % (36-46); Hemoglobin 9.3 g/dL (12.0-16.0); Lymphocytes Absolute Auto 600 /uL (1100-4500); Lymphocytes Percent Auto 9.7 % (25-40); Mean Corpuscular HGB Conc 34.9 % (30-36); Mean Corpuscular Hemoglobin 37.2 PG (26-34); Mean Corpuscular Volume 106.7 fL (80-100); Monocytes Absolute Auto 400 /uL (0-900); Monocytes Percent Auto 6.4 % (3-14); Neutrophils Absolute Auto 5000 /uL (1500-7000); Neutrophils Percent Auto 81.2 % (50-75); Platelet Count 114 X10^3/uL (150-400); Red Cell Distribution Width 13.7 % (11.6-14.8); White Blood Cell Count 6.1 X10^3/uL (4.5-11.0)
[2023-09-28] MEDS: DOXYCYCLINE 100 MG in SODIUM CHLORIDE 0.9% 100 ML IV (05:43)
[2023-09-28 08:00] VITALS: BP 152/69; PULSE 63; RESP 16; TEMP 35.7; O2SAT 93
--- NOTE | 2023-09-28 08:55 | PC.NURSE ---
Addendum entered by Shawna Robins R.N. 09/28/23 13:19: Patient is no longer using the soft wrist restraints. She has been up in her chair with one to one neonatal critical care nurse. in room. Patient will grab at her neck brace and iv lines but is told not to touch then she does listen. Resting comfortably after lunch. Original Note: Assess- Patient is alert and oriented to self and faces. She has a neck brace in place and also a pacemaker. No tele is present, patient was tearing it off and pulling at the leads. She has soft wrist restraints on and she is tolerating these well. S.O. is hear until around 1000am and then he has to have radiation. RESIDENTIAL TREATMENT STAFF is sitting with patient and she is resting at this time, patient ate well at breakfast.
--- NOTE | 2023-09-28 09:20 | P.PN_ITS ---
Subjective Subjective Interval history: She is sleeping comfortably. No issues overnight. Met with at bedside, discussed another midnight being medically necessary for diuresis and treatment of hyponatremia as well as assessment of pain and gait stability. Exam Vital Signs (past 8 hours): - 09/28/23 04:00 09/28/23 08:00 Temperature 96.8 F L 96.2 F L Pulse Rate 87 63 Respiratory Rate 20 16 Blood Pressure 160/93 H 152/69 H Pulse Oximetry 92 93 Oxygen Flow Rate 0 Oxygen Delivery Method Room Air Oxygen Flow Rate 0 Narrative Exam Narrative: NAD, comfortable in appearance. Neck is supple, normal JVP. Lungs are clear with normal effort and rate. Heart is regular without murmur. Abdomen is soft, flat. Extremities are normal for edema as arms. Objective Labs 09/28/23 04:44 09/27/23 23:50 Labs: Laboratory Results - last 24 hr 09/27/23 09/27/23 09/27/23 11:30 12:48 16:10 WBC 9.1 RBC 2.70 L Hgb 10.2 L Hct 28.7 L MCV 106.3 H MCH 37.8 H MCHC 35.5 RDW 13.6 Plt Count 138 L Neut % (Auto) Not Reportable Lymph % (Auto) Not Reportable [place] % (Auto) Not Reportable Eos % (Auto) Not Reportable Baso % (Auto) Not Reportable Neut # (Auto) Lymph # (Auto) Not Reportable [place] # (Auto) Not Reportable Eos # (Auto) Baso # (Auto) Not Reportable Total Counted 100 Seg Neutrophils % 88.0 H Band Neutrophils % 1.0 L Lymphocytes % (Manual) 5.0 L Monocytes % (Manual) 3.0 Eosinophils % (Manual) 1.0 L Basophils % (Manual) 2.0 H Neutrophils # (Manual) 8099 H Nucleated RBCs 1 H RBC Morphology See below Poikilocytosis 1+ H Macrocytosis 1+ H Sodium 120 L 121 L Potassium 4.5 4.6 Chloride 86 L 86 L Carbon Dioxide 24 26 BUN 40 H 39 H Creatinine 1.29 H 1.30 H Estimated GFR 41 L 41 L BUN/Creatinine Ratio 31.0 H 30.0 H Glucose 215 H 139 H Calcium 9.2 9.0 Total Bilirubin 1.1 AST 62 H ALT 40 H Alkaline Phosphatase 168 H NT-Pro-B Natriuret Pep 56648 H Total Protein 6.4 Albumin 3.8 Globulin 2.6 Albumin/Globulin Ratio 1.5 Urine Color Yellow Urine Appearance Sl cloudy Urine pH 6.5 Ur Specific [place] 1.015 Urine Protein 1+ H Urine Glucose (UA) Negative Urine Ketones Negative Urine Occult Blood 2+ H Urine Nitrate Positive H Urine Bilirubin Negative Urine Urobilinogen 0.2 Ur Leukocyte Esterase 3+ H Urine RBC 1-5/hpf Urine WBC 10-30/hpf H Ur Squamous Epith Cells 5-10 /hpf H Urine Bacteria Many (>30) H Ur Culture Indicated? Specimen cultured Vol Urine Centrifuged Low vol <10ml (spun) A Ur Random Sodium 09/27/23 09/27/23 09/28/23 19:55 23:50 04:44 WBC 6.1 RBC 2.50 L Hgb 9.3 L Hct 26.7 L MCV 106.7 H MCH 37.2 H MCHC 34.9 RDW 13.7 Plt Count 114 L Neut % (Auto) 81.2 H Lymph % (Auto) 9.7 L [place] % (Auto) 6.4 Eos % (Auto) 1.4 L Baso % (Auto) 1.3 Neut # (Auto) 5000 Lymph # (Auto) 600 L [place] # (Auto) 400 Eos # (Auto) 100 Baso # (Auto) 100 Total Counted Seg Neutrophils % Band Neutrophils % Lymphocytes % (Manual) Monocytes % (Manual) Eosinophils % (Manual) Basophils % (Manual) Neutrophils # (Manual) Nucleated RBCs RBC Morphology Poikilocytosis Macrocytosis Sodium 122 L Potassium 4.2 Chloride 87 L Carbon Dioxide 27 BUN 39 H Creatinine 1.37 H Estimated GFR 38 L BUN/Creatinine Ratio 28.5 H Glucose 187 H Calcium 8.9 Total Bilirubin AST ALT Alkaline Phosphatase NT-Pro-B Natriuret Pep Total Protein Albumin Globulin Albumin/Globulin Ratio Urine Color Urine Appearance Urine pH Ur Specific [place] Urine Protein Urine Glucose (UA) Urine Ketones Urine Occult Blood Urine Nitrate Urine Bilirubin Urine Urobilinogen Ur Leukocyte Esterase Urine RBC Urine WBC Ur Squamous Epith Cells Urine Bacteria Ur Culture Indicated? Vol Urine Centrifuged Ur Random Sodium 44 PFSH Medical History Depression Iron deficiency anemia Pulmonary hypertension Insulin dependent type 2 diabetes mellitus Chronic anticoagulation Chronic atrial fibrillation Dementia Chronic hyponatremia Chronic respiratory failure Pacemaker Surgical History History of permanent cardiac pacemaker placement Social History household members: significant other Smoking Status: Never smoker alcohol intake: current Assessment & Plan Assessment & Plan narrative: 1. Ground level fall with head contusion and extracranial hematoma, present on admission and active. 2. Acute on chronic hyponatremia with a sodium of 120, present on admission and active. 3. C2 cervical fracture, likely subacute to chronic. Present on admission and stable. 4. Multiple rib fractures and right pleural effusion, present on admission and active. 5. Atrial fibrillation on chronic Eliquis, present on admission and stable. 6. Probable urinary tract infection, present on admission and active. 7. Chronic anemia, present on admission and stable. 8. Insulin-dependent diabetes, present on admission and stable. 9. Chronic hypoxic respiratory failure, present on admission and stable. 10. Breast cancer, bilateral. 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 Plan: -repeat Lasix 40 IV x1, q.8 hour BMPs. Believe that she has hypervolemic hyponatremia. -monitor oxygenation and pain. It appears that her fractures may all be old. -we will monitor her sodium closely. -we will confirm if she is still taking Eliquis, she has likely not a very good candidate to continue Eliquis in the future. -correctional insulin and monitor glucose. -ceftriaxone IV Q 24 hours for urine tract infection, follow cultures. -monitor hemoglobin. Monitor for evidence of clinical bleeding. -physical therapy, occupational therapy evals and incentive spirometer. -we will also monitor for effective diuresis with her degree of clinical anasarca. Met with her at the bedside this morning. He agrees with the plan. She is DNR, this is confirmed today with her proxy and son Obie. She is admitted inpatient status, estimated necessity for 2 midnights of hospital level surfaces. She also has a POLST which confirms DNR. The patient is admitted to inpatient status, anticipate an additional midnight and medically necessary hospital level care for diuresis and monitoring and treatment of hyponatremia as well as assessment of gait stability. Quality VTE Deep Vein Thrombosis/Pulmonary Embolism Present on Admission: No
--- NOTE | 2023-09-28 09:55 | PT.IIE ---
Surgical History (Last Reviewed 09/27/23 @ 15:45 by Ezra Li MD) History of permanent cardiac pacemaker placement Medical History (Last Reviewed 09/27/23 @ 15:45 by Ezra Li MD) Chronic anticoagulation Chronic atrial fibrillation Chronic hyponatremia Chronic respiratory failure Dementia Depression Insulin dependent type 2 diabetes mellitus Iron deficiency anemia Pacemaker Pulmonary hypertension Physical Therapy Inpatient Evaluation/Re-Eval M1 PT/OT-IP Prior Functional Status Start: 09/28/23 11:01 Freq: NEEDED Status: Active Protocol: Document 09/28/23 09:55 AB (Rec: 09/28/23 11:21 AB [id number]) Medical Review Prior Functional Status Medical History Reviewed Yes Communication able to answer some questions but inconsistent Mobility and Gait limited infor obtained from pt and some info retrieved from previous hospital admissions: pt stated that she uses a FWW for ambulation; from previous admissions: pt uses a FWW with SBA and her partner Adelfo assists her when needed Prior Functional Level (Other details) pt was admitted 09/23/22 to s/p fall sustaining a Dens fx Social History Household Members significant other Living Arrangements House Number of Floors (Floors) One Floor Number of Stairs To Enter/Railing? no steps to enter Home Environment High Toilet,Walk in Shower Home Equipment Front Wheel Walker,Shower Seat without Backrest,Hand Held Shower,Grab Bars Near Toilet, Grab Bars In Shower M2 PT-IP Current Condition Start: 09/28/23 11:01 Freq: NEEDED Status: Active Protocol: Document 09/28/23 09:55 AB (Rec: 09/28/23 11:21 AB [id number]) Physical Therapy Current Condition Current Condition Evaluation Date 09/28/23 Treatment Diagnosis s/p fall w/head contusion; C2 fx; difficulty in walking Onset Date 09/27/23 M3 PT-IP Subjective Start: 09/28/23 11:01 Freq: NEEDED Status: Active Protocol: Document 09/28/23 09:55 AB (Rec: 09/28/23 11:21 AB [id number]) Subjective Physical Therapy Visit Type Type Initial Evaluation Visit Start Time 09:55 Visit Stop Time 10:24 Total Visit Minutes 29 Number of SECURITY RISK ANALYST Visits 0 Physical Therapy Visit Comments Patient Comments requested to use the toilet Therapy Pain Assessment Pain Present Pain Present Denied Pain M4 PT-IP Mobility and Gait Start: 09/28/23 11:01 Freq: NEEDED Status: Active Protocol: Document 09/28/23 09:55 AB (Rec: 09/28/23 11:21 AB [id number]) PT-Bed Mobility Assessment Supine to Sit Supine to Sit Maximum Assistance,1 Person Assistance,Head of Bed Elevated,Bedrails PT-Transfer Assessment Sit to and From Stand Sit to and from Stand Moderate Assistance,Maximum Assistance,1 Person Assistance ,Use of Upper Extremities Equipment Transfer Assistive Device Gait Belt,Front Wheeled Walker Orthotic/Prosthetic Devices or Brace: Yes Transfers Transfer Destination Toilet Transfer Technique ambulated Transfer Ability Level of Assist Moderate Assistance,1 Person Assistance,Use of Upper Extremities Comments Mobility Comments pt supine in bed and initially sleepy but agreed to do PT and requested to use the toilet. completed supine to sit log roll max A and max cues. able to sit on EOB CGA. completed sit to stand mod A from EOB and ambulated to the toilet using fWW mod A and cues for safety. pt with increase posterior trunk lean requiring mod A for steadiness . mod to max A for controlled descent to the toilet. completed sit to stand from the toilet max A and max cues using grab bar. pt needed assistance with hygiene care and brief management. ambulated from the toilet to the chair using FWW mod A. positioned pt on the chair. call light and table placed within reach. Left pt with NAC in room. pt is on 1:1 supervision at this time. Gait Assessment Gait Gait Assistance Required: Moderate Assistance Distance (Feet) 12 Able to Maintain Weight Bearing Status Yes During Gait Assistive Devices Assistive Device Gait Belt,Front Wheeled Walker Orthotic/Prosthetic Devices or Brace: Yes Gait Deviations General Gait Pattern Decreased Stride Length, Decreased Feet Clearance,Step- to Gait Factors Limiting Gait Function Factors Limiting Gait Function Decreased Activity Tolerance, Decreased Strength,Difficulty Following Directions,Limited Range of Motion,Poor Balance, Poor Safety Awareness PT-Balance Assessment Sitting Balance and Reactions Static Sitting Balance Ability Good Dynamic Sitting Balance Ability Fair Standing Balance and Reactions Static Standing Balance Ability Poor Dynamic Standing Balance Ability Poor Device Used FWW M5 PT-IP Objective Assessments Start: 09/28/23 11:01 Freq: NEEDED Status: Active Protocol: Document 09/28/23 09:55 AB (Rec: 09/28/23 11:21 AB [id number]) Orientation Orientation/Cognition Level of Alertness Confusional State Orientation Name Safety Awareness Decreased Safety Awareness Memory Description 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,Intermediate Impaired Gross Range of Motion Lower Extremity ROM Assessment Within Functional Limits Strength Lower Extremity Strength Assessment Within Functional Limits Muscle Tone Muscle Tone WNL Yes M6 PT-IP Treatment Start: 09/28/23 11:01 Freq: NEEDED Status: Active Protocol: Document 09/28/23 09:55 AB (Rec: 09/28/23 11:21 AB [id number]) Physical Therapy Treatment Education Education Provided Precautions,Safety M7 PT-IP Assessment and Plan Start: 09/28/23 11:01 Freq: NEEDED Status: Active Protocol: Document 09/28/23 09:55 AB (Rec: 09/28/23 11:21 AB [id number]) PT Summary Assessment and Plan Potential Rehabilitation Potential Fair Status of Condition at Evaluation Evolving Summary Impairments Pain,ROM,Strength,Balance, Coordination,Sensation,Tone, Cognition,Bed Mobility, Transfers,Gait,Activity Tolerance Assessment Summary pt is an 83 y/o F who presented to the ED after a fall and sustaining head contusion. pt with h/o falls: 09/19/22, 09/23/22 sustaining C2 Dens fx and rib fx. From imaging: increase displacement of C2 fx noted. pt on aspen collar. pt requiring mod to max A with mobility using FWW and requires max cues with all tasks. pt has poor safety awareness affecting mobility and is a high fall risk. pt also has a dx of dementia affecting current mobility level. pt will need 24/7 assist at this time. d/c plan depending if family will be able to provide assist to pt: SNF vs home with 24/7 and HHPT . Goals Bed Mobility Goal Standby Assistance Transfer Goal Standby Assistance,Front Wheeled Walker Gait Goal Standby Assistance,Front Wheel Walker Gait Distance 50 Other Goals improve bed mobility, transfers and ambulation using FWW 150 ft SBA Days to Meet Goals 10 Frequency of Treatment Frequency Of Treatment Once a Day Treatment Plan Physical Therapy Treatment Plan Bed Mobility Training,Transfer Training,Gait Training, Therapeutic Exercise,Balance Retraining,Discharge Planning, Hot or Cold Pack,Neuromuscular Re-ed,Coordination Retraining Precautions Cervical Spine Precautions Rigid Collar,No Heavy Lifting, Log Roll Recommendations To Nursing Amount of Assist Needed 2 Person Assist Discharge Recommendations PT Discharge Recommendations Home with 24/7 Assist Available,Home Health,SNF Rehab,Home vs SNF Transportation Needs at Discharge Private Vehicle,Wheelchair/ Cabulance
[2023-09-28] MEDS: FUROSEMIDE 40 MG/4 ML VIAL IV (10:01)
--- NOTE | 2023-09-28 10:38 | OT.IP.EVAL ---
Current Diagnoses Hypo-osmolality and hyponatremia (09/27/23) Past Medical History (Last Reviewed 09/27/23 @ 15:45 by Ezra Li MD) Chronic anticoagulation Chronic atrial fibrillation Chronic hyponatremia Chronic respiratory failure Dementia Depression Insulin dependent type 2 diabetes mellitus Iron deficiency anemia Pacemaker Pulmonary hypertension Surgical History (Last Reviewed 09/27/23 @ 15:45 by Ezra Li MD) History of permanent cardiac pacemaker placement Occupational Therapy Inpatient Evaluation/Re-Eval M1 PT/OT-IP Prior Functional Status Start: 09/28/23 12:12 Freq: NEEDED Status: Active Protocol: Document 09/28/23 12:12 [facility] (Rec: 09/28/23 12:40 [facility] [id number]) Medical Review Prior Functional Status Medical History Reviewed Yes Communication able to answer some questions but inconsistent Mobility and Gait Able to talk to pt's SO, Adelfo and he states 10 days ago able to walk with fww and SBA and recently gotten very weak and needing assist for all needs. Activities of Daily Living and IADL's Prior to getting weak per SO, pt able to do her ADL's, but now he is having to assist her for at least 50%. Prior Functional Level (Other details) pt was admitted 09/23/22 to s/p fall sustaining a Dens fx Social History Household Members significant other Living Arrangements House Number of Floors (Floors) One Floor Number of Stairs To Enter/Railing? Pt has two steps up to the TV room and has bilateral rails and her SO to assist her. Home Environment High Toilet,Walk in Shower Home Equipment Front Wheel Walker,Shower Seat without Backrest,Hand Held Shower,Grab Bars Near Toilet, Grab Bars In Shower Additional Social History Comment Pt has caregivers that come to assist with IADL needs for 5x /week for 8 hours. M2 OT-IP Current Condition Start: 09/28/23 12:12 Freq: Status: Active Protocol: Document 09/28/23 12:12 [facility] (Rec: 09/28/23 12:40 [facility] [id number]) Occupational Therapy Current Condition Current Condition Evaluation Date 09/28/23 Treatment Diagnosis Fall, hyponatremia Diagnosis Onset Date 09/27/23 Post Operative Precautions Cervical Spine Precautions Rigid Collar,No Heavy Lifting, Log Roll M3 OT- IP Subjective and Pain Start: 09/28/23 12:12 Freq: Status: Active Protocol: Document 09/28/23 12:12 [facility] (Rec: 09/28/23 12:40 [facility] [id number]) OT- Subjective Occupational Therapy Visit Type Type Initial Evaluation Visit Start Time 10:38 Visit Stop Time 10:58 Total Visit Minutes 20 Occupational Therapy Visit Comments Patient Comments Pt very drowsy but agreed to work with OT. Patient/Caregiver Goals To go home. OT Pain Assessment Pain When Pain Assessed At Rest Pain Present Pain Present Denied Pain M4 OT- IP ADL's Start: 09/28/23 12:12 Freq: Status: Active Protocol: Document 09/28/23 12:12 [facility] (Rec: 09/28/23 12:40 [facility] [id number]) OT [id number] Comments OT Self-Feeding Comments Noted small particles on food in her mouth after oral needs. Talked to nursing about possibly downgrading her food to eat as it would be easier to eat and swallow. Also encourage pt to be more upright when eating. Also informed nursing staff. OT ADL-Grooming General Evaluation Areas Needing Assistance Retrieving/Set-up of Grooming Items OT ADL-Oral Care General Eval Oral Care Ability Minimal Assistance Areas of Assistance Brushing Teeth Devices Oral Care Devices Sponge/Foam Tipped Swab, Toothbrush Comments Oral Care Comments Pt needing assist for completeness to help brush her mouth out. Cues to brush her tongue. Pt not able to follow commands to rinse her mouth out. M5 OT- IP IADL's Start: 09/28/23 12:12 Freq: Status: Active Protocol: Document 09/28/23 12:12 [facility] (Rec: 09/28/23 12:40 [facility] [id number]) OT-Instrumental Activities of Daily Living Deficits IADL Deficits Identified Deficits Home Safety Awareness Awareness of Need for Assistance at Home Decreased Awareness Home Safety Comments Pt very drowsy and needing step by step commands to follow for ADl and mobility needs. Medication Management Medication Management Caregiver Administers Money Management Money Management Caregiver Provides Assistance Meal Preparation Meal Preparation Caregiver Provides Assist Custody Officer Custody Officer Caregiver Provides Assist Driving Driving Caregiver Provides Assist M6 OT- IP Functional Cognition Start: 09/28/23 12:12 Freq: Status: Active Protocol: Document 09/28/23 12:12 [facility] (Rec: 09/28/23 12:40 [facility] [id number]) Cognitive Factors Limiting Selfcare Function Cognitive Ability Level of Alertness Confusional State,Drowsy Patient Orientation Name Attention Span Ability Capable of Focused Attention, Unable to Sustain Attention Ability to Follow Commands Able to Follow One Step Commands with Increased Time, Able to Follow One Step Commands with Repetition Memory Description 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,Custodial Impaired,Working Impaired Cognitive Comments Cognitive Assessment Comments Pt needing step by step commands to follow. Pt drowsy and confused. Pt not able to follow commands to rinse her mouth and spit it out into the basin. Pt's glasses and hearing aid at home and therefore making it hard for pt to understand directions as well. OT- Vision and Hearing OT- Hearing Assessment OT- Hearing Assessment Hearing Impaired,Use of Hearing Aids OT- Vision Assessment Visual Acuity Glasses All The Time,No Vision Aides At Hospital M7 OT- IP Mobility and Balance Start: 09/28/23 12:12 Freq: Status: Active Protocol: Document 09/28/23 12:12 [facility] (Rec: 09/28/23 12:40 [facility] [id number]) OT-Transfer Assessment Sit to and From Stand Sit to and from Stand Moderate Assistance Comments Mobility Comments Pt able to come to stand with MODA X 1 to the FWW. Pt tends to grab the FWW to stand. VC to push up on the armrests of the recliner when coming to stand. OT- Balance Assessment Sitting Balance and Reactions Static Sitting Balance Ability Good Dynamic Sitting Balance Ability Fair Standing Balance and Reactions Static Standing Balance Ability Poor M8 OT- IP Objective Assessments Start: 09/28/23 12:12 Freq: Status: Active Protocol: Document 09/28/23 12:12 [facility] (Rec: 09/28/23 12:40 [facility] [id number]) OT Gross Range of Motion Upper Extremity Range of Motion Assessment Left Impaired OT Strength Comments Strength Comments BUE distally 4-/5. NT upper BUE due to rib and dens fx. M9 OT- IP Assessment and Plan Start: 09/28/23 12:12 Freq: Status: Active Protocol: Document 09/28/23 12:12 [facility] (Rec: 09/28/23 12:40 [facility] [id number]) OT Summary Assessment and Plan Potential Rehabilitation Potential Good Analytic Complexity at Evaluation Moderate Summary OT Impairments Strength,Balance,Functional Cognition,Functional Mobility, Self-Feeding,Grooming,Dressing ,Toileting,Bathing,Toilet Transfers,Shower Transfers, Activity Tolerance Progress Towards Goals Slow Progress due to Medical Issues,Slow Progress due to Activity Tolerance,Slow Progress due to Cognition Assessment Summary Pt MOD complexity and main barriers are decreased ability to follow commands, decreased strength and endurance and now needing 1person assist for all ADl and mobility needs. Pt at this time will benefit from home with 24/7 assist and home health as pt progresses. At pt's current level would benefit from SNF, however pt better candidate to go home due to her dementia and already have caregiver and supportive family. Goals Grooming Goal Standby Assistance Dressing Goal Minimal Assistance Toileting Goal Minimal Assistance Bathing Goal Minimal Assistance Toilet Transfer Goal Standby Assistance Shower Transfer Goal Minimal Assistance Days to Meet Goals 10 Frequency of Treatment Frequency Of Treatment Once a Day Treatment Plan OT Treatment Plan ADL Training,Functional Cognition Training,Functional Mobility,Patient/Family Education,Discharge Planning Discharge Recommendations OT Discharge Recommendations Home with 24/7 Assist Available,Home Health,SNF Rehab,Home vs SNF Transportation Needs at Discharge Private Vehicle,Wheelchair/ Cabulance
--- NOTE | 2023-09-28 10:58 | OT.IP.EVAL ---
Current Diagnoses Hypo-osmolality and hyponatremia (09/27/23) Past Medical History (Last Reviewed 09/27/23 @ 15:45 by Ezra Li MD) Chronic anticoagulation Chronic atrial fibrillation Chronic hyponatremia Chronic respiratory failure Dementia Depression Insulin dependent type 2 diabetes mellitus Iron deficiency anemia Pacemaker Pulmonary hypertension Surgical History (Last Reviewed 09/27/23 @ 15:45 by Ezra Li MD) History of permanent cardiac pacemaker placement Occupational Therapy Inpatient Evaluation/Re-Eval M1 PT/OT-IP Prior Functional Status Start: 09/28/23 12:12 Freq: NEEDED Status: Active Protocol: Document 09/28/23 12:12 [facility] (Rec: 09/28/23 12:40 [facility] [id number]) Medical Review Prior Functional Status Medical History Reviewed Yes Communication able to answer some questions but inconsistent Mobility and Gait Able to talk to pt's SO and he states 10 days ago able to walk with fww and SBA and recently gotten very weak and needing assist for all needs. Activities of Daily Living and IADL's Prior to getting weak per SO, pt able to do her ADL's, but now he is having to assist her for at least 50%. Prior Functional Level (Other details) pt was admitted 09/23/22 to s/p fall sustaining a Dens fx Social History Household Members significant other Living Arrangements House Number of Floors (Floors) One Floor Number of Stairs To Enter/Railing? Pt has two steps up to the TV room and has bilateral rails and her SO to assist her. Home Environment High Toilet,Walk in Shower Home Equipment Front Wheel Walker,Shower Seat without Backrest,Hand Held Shower,Grab Bars Near Toilet, Grab Bars In Shower Additional Social History Comment Pt has caregivers that come to assist with IADL needs for 5x /week for 8 hours. M2 OT-IP Current Condition Start: 09/28/23 12:12 Freq: Status: Active Protocol: Document 09/28/23 12:12 [facility] (Rec: 09/28/23 12:40 [facility] [id number]) Occupational Therapy Current Condition Current Condition Evaluation Date 09/28/23 Treatment Diagnosis Fall, hyponatremia Diagnosis Onset Date 09/27/23 Post Operative Precautions Cervical Spine Precautions Rigid Collar,No Heavy Lifting, Log Roll M3 OT- IP Subjective and Pain Start: 09/28/23 12:12 Freq: Status: Active Protocol: Document 09/28/23 12:12 [facility] (Rec: 09/28/23 12:40 [facility] [id number]) OT- Subjective Occupational Therapy Visit Type Type Initial Evaluation Visit Start Time 10:38 Visit Stop Time 10:58 Total Visit Minutes 20 Occupational Therapy Visit Comments Patient Comments Pt very drowsy but agreed to work with OT. Patient/Caregiver Goals To go home. OT Pain Assessment Pain When Pain Assessed At Rest Pain Present Pain Present Denied Pain M4 OT- IP ADL's Start: 09/28/23 12:12 Freq: Status: Active Protocol: Document 09/28/23 12:12 [facility] (Rec: 09/28/23 12:40 [facility] [id number]) OT MIX-Ftgi-Vsmckps Comments OT Self-Feeding Comments Noted small particles on food in her mouth after oral needs. Talked to nursing about possibly downgrading her food to eat as it would be easier to eat and swallow. Also encourage pt to be more upright when eating. Also informed nursing staff. OT ADL-Grooming General Evaluation Areas Needing Assistance Retrieving/Set-up of Grooming Items OT ADL-Oral Care General Eval Oral Care Ability Minimal Assistance Areas of Assistance Brushing Teeth Devices Oral Care Devices Sponge/Foam Tipped Swab, Toothbrush Comments Oral Care Comments Pt needing assist for completeness to help brush her mouth out. Cues to brush her tongue. Pt not able to follow commands to rinse her mouth out. M5 OT- IP IADL's Start: 09/28/23 12:12 Freq: Status: Active Protocol: Document 09/28/23 12:12 [facility] (Rec: 09/28/23 12:40 [facility] [id number]) OT-Instrumental Activities of Daily Living Deficits IADL Deficits Identified Deficits Home Safety Awareness Awareness of Need for Assistance at Home Decreased Awareness Home Safety Comments Pt very drowsy and needing step by step commands to follow for ADl and mobility needs. Medication Management Medication Management Caregiver Administers Money Management Money Management Caregiver Provides Assistance Meal Preparation Meal Preparation Caregiver Provides Assist Valve Seater Operator Valve Seater Operator Caregiver Provides Assist Driving Driving Caregiver Provides Assist M6 OT- IP Functional Cognition Start: 09/28/23 12:12 Freq: Status: Active Protocol: Document 09/28/23 12:12 [facility] (Rec: 09/28/23 12:40 [facility] [id number]) Cognitive Factors Limiting Selfcare Function Cognitive Ability Level of Alertness Confusional State,Drowsy Patient Orientation Name Attention Span Ability Capable of Focused Attention, Unable to Sustain Attention Ability to Follow Commands Able to Follow One Step Commands with Increased Time, Able to Follow One Step Commands with Repetition Memory Description 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,Catheter Builder Impaired,Working Impaired Cognitive Comments Cognitive Assessment Comments Pt needing step by step commands to follow. Pt drowsy and confused. Pt not able to follow commands to rinse her mouth and spit it out into the basin. OT- Vision and Hearing OT- Hearing Assessment OT- Hearing Assessment OT- Vision Assessment Pt wears bifocals Visual Acuity M7 OT- IP Mobility and Balance Start: 09/28/23 12:12 Freq: Status: Active Protocol: Document 09/28/23 12:12 [facility] (Rec: 09/28/23 12:40 [facility] [id number]) OT-Transfer Assessment Sit to and From Stand Sit to and from Stand Moderate Assistance Comments Mobility Comments Pt able to come to stand with MODA X 1 to the FWW. Pt tends to grab the FWW to stand. VC to push up on the armrests of the recliner when coming to stand. OT- Balance Assessment Sitting Balance and Reactions Static Sitting Balance Ability Good Dynamic Sitting Balance Ability Fair Standing Balance and Reactions Static Standing Balance Ability Poor M8 OT- IP Objective Assessments Start: 09/28/23 12:12 Freq: Status: Active Protocol: Document 09/28/23 12:12 [facility] (Rec: 09/28/23 12:40 [facility] [id number]) OT Gross Range of Motion Upper Extremity Range of Motion Assessment Left Impaired OT Strength Comments Strength Comments BUE distally 4-/5. NT upper BUE due to rib and dens fx. M9 OT- IP Assessment and Plan Start: 09/28/23 12:12 Freq: Status: Active Protocol: Document 09/28/23 12:12 [facility] (Rec: 09/28/23 12:40 [facility] [id number]) OT Summary Assessment and Plan Potential Rehabilitation Potential Good Analytic Complexity at Evaluation Moderate Summary OT Impairments Strength,Balance,Functional Cognition,Functional Mobility, Self-Feeding,Grooming,Dressing ,Toileting,Bathing,Toilet Transfers,Shower Transfers, Activity Tolerance Progress Towards Goals Slow Progress due to Medical Issues,Slow Progress due to Activity Tolerance,Slow Progress due to Cognition Assessment Summary Pt MOD complexity and main barriers are decreased ability to follow commands, decreased strength and endurance and now needing 1person assist for all ADl and mobility needs. Pt at this time will benefit from home with 24/7 assist and home health as pt progresses. At pt's current level would benefit from SNF, however pt better candidate to go home due to her dementia and already has caregiver and supportive family. Goals Grooming Goal Standby Assistance Dressing Goal Minimal Assistance Toileting Goal Minimal Assistance Bathing Goal Minimal Assistance Toilet Transfer Goal Standby Assistance Shower Transfer Goal Minimal Assistance Days to Meet Goals 10 Frequency of Treatment Frequency Of Treatment Once a Day Treatment Plan OT Treatment Plan ADL Training,Functional Cognition Training,Functional Mobility,Patient/Family Education,Discharge Planning Discharge Recommendations OT Discharge Recommendations Home with 24/7 Assist Available,Home Health,SNF Rehab,Home vs SNF Transportation Needs at Discharge Private Vehicle,Wheelchair/ Cabulance
[2023-09-28] MEDS: LOSARTAN 25 MG TABLET PO (11:21)
[2023-09-28] MEDS: METOPROLOL ER 50 MG TABLET 100 MG PO (11:21)
[2023-09-28] MEDS: ATORVASTATIN 20 MG TABLET 40 MG PO (11:21)
[2023-09-28] MEDS: POTASSIUM CHLORIDE 10 MEQ TAB PO (11:21)
[2023-09-28] MEDS: VANCOMYCIN 125 MG CAPSULE PO (11:21)
[2023-09-28 12:00] VITALS: BP 92/70; PULSE 60; RESP 16; TEMP 36.2; O2SAT 95
[2023-09-28] MEDS: INSULIN GLARGINE 100 UNIT/ML 3ML PEN 10 UNIT SUBCUT (12:12)
[2023-09-28] MEDS: INSULIN LISPRO 100 UNIT/ML 3ML VIAL SUBCUT ×2 (12:12→17:23)
--- NOTE | 2023-09-28 13:10 | CM.DANOTE ---
Initial DCP Assessment Visit Reviewed EMR and team rounds for pt's medical status and initial anticipated d/c needs. Met briefly with pt at bedside, she was found to be alert, being fed her meal by the CRM TECHNICAL LEAD, very confusional. Will plan to f/u with pt's son tomorrow once pt has had some more time to clear and improve. Payor: Medicare PCP: Zuleima Keating Pt is a 83 year-old F with a hx of dementia brought to the ED last evening via EMS following a GLF resulting in a head injury at home. Pt fell and struck the back of her head on the ground, she is also on Eliquis. Pt is oriented to self only at baseline, uses a FWW with SBA at home for mobility. ED evaluation showed a R-pleural effusion, head contusion, extracranial hematoma, hyponatremic, Afib, UTI, chronic hypoxic respiratory failure. CT imaging also showed multiple R-rib fractures. She was started on IV ABO's in the ED, and admitted for further evaluation and tx. Pt's proxy is her son, Dashawn, and she lives with her long-time significant other, Adelfo. DCP will continue to follow and assist with evolving d/c plan, which at this time is home w/HH vs. SNF rehab. Discharge Planning/Care Management CM Discharge Assessment Start: 09/28/23 12:58 Freq: Status: Active Protocol: Document 09/28/23 12:58 [facility] (Rec: 09/28/23 13:02 [facility] [id number]) Discharge Planning Assessment Assigned Shift Nurse Manager MANE Reddy Advance Directives? Yes: SABRINA Advance Directives on File No History Provided By Patient,Medical Record Expected Length of Stay 2 Has Patient been admitted in last 30 No days? Prior Living Arrangements House Household Members significant other Type of transporation used prior to Relies on Others admit Independent with ADL's No: modified independent w/cg assistance Is patient alert and oriented? No: Pt cognitively impaired at baseline, oriented only to self. Needs Assistance With Bathing,Eating,Grooming,Meal Prep,Managing Medications,Home Chores / Shopping Caregiver for Another No Comment N/A DME Already Rented / Owned FWW / Walker Patient/Family Preference Senior Living Facility,Home with Home Health Comment Home w/HH vs. SNF Rehab- pending improvement with IV ABO's, mentation, and working with therapies. Barriers to Discharge No Discharge Plan Home Transportation Arrangement Sig Other is available to provide transport at d/c unless SNF needed Additional Comment Pending final recommendations for d/c disposition. If patient plan is home with home health No : Has signed face to face form been completed? If patient plan is SNF: Has PASSR been No completed? Whiteboard Updated in Patient Room with Yes name and ext. # of Shift Nurse Manager Review Status In Process Please Provide Date Initial DC 09/28/23 Assessment Was Performed
[2023-09-28 16:00] VITALS: BP 162/87; PULSE 83; RESP 20; TEMP 36.4; O2SAT 92
[2023-09-28] MEDS: cefTRIAXone 1,000 MG in SODIUM CHLORIDE 0.9% 100 ML 200 MG IV (16:23)
--- NOTE | 2023-09-28 16:34 | ST.IPCSEOM ---
Visit Care Team Role Provider Type Zuleima Keating PA-C Primary Care Provider Physician Game Protector Specialty: Medical Address: [place], [address] Email: [email or web address] Tran Ellis MD Emergency Provider Physician Specialty: Emergency Medicine Address: [facility] [address] [place] [address], [address] Email: [email or web address] Ezra Li MD Admit Provider Physician Attending Provider Specialty: Internal Medicine Address: [address] [place] [address] [place], [address] Email: [email or web address] Diagnoses Hypo-osmolality and hyponatremia (09/27/23) Past Medical History (Last Reviewed 09/27/23 @ 15:45 by Ezra Li MD) Chronic anticoagulation (Medical) Chronic atrial fibrillation (Medical) Chronic hyponatremia (Medical) Sodium 118-121 Chronic respiratory failure (Medical) 2L home 02n/c Dementia (Medical) Depression (Medical) Insulin dependent type 2 diabetes mellitus (Medical) Iron deficiency anemia (Medical) Pacemaker (Medical) Pulmonary hypertension (Medical) Speech-Language Pathology Swallow Evaluation SALESPERSON CORSETS Clinical Swallow Evaluation Start: 09/28/23 16:17 Freq: Status: Active Protocol: Document 09/28/23 16:18 MA (Rec: 09/28/23 16:34 MA [id number]) Clinical Swallow Evaluation Session Time Visit Start Time 16:00 Visit Stop Time 16:30 Total Visit Minutes 30 Visit Information Visit Number Initial evaluation Referral Referring Provider Dr. Ezra Li Reason for Referral Difficulties swallowing, pocketing food Setting Assessment Location Acute Care Visit Type Note Type Initial evaluation Next Note Type Next Note Type Treatment Note Patient Information Identification Type Name,Wristband History Per H&P: The patient is an 83- year-old female with a history of dementia who presented after a fall at home. She does take chronic anticoagulation, Eliquis. She did strike the back of her head. In the emergency department she was at her baseline and had a negative head CT. She did have a small laceration on the back of her head. She was also noted to have multiple subacute rib fractures as well as a subacute C2 dens fracture. The situation was discussed with neurosurgery who recommended no acute interventions. Additionally, the patient's family noted they would not support surgery if offered likely. They do note a recent history of increased falls and she has been admitted in the past with falls and fractures. She was also noted to have a sodium of 120 with a baseline of 130. She lives with a caregiver and has a known history of recurrent hyponatremia. She also has pulmonary hypertension with anasarca and home oxygen, as well as atrial fibrillation on chronic anticoagulation. She also has chronic insulin-dependent diabetes and a history of breast cancer for which she has been taking anastrozole. The patient's son, Obie, presents most of the history. The patient has relatively significant cognitive impairment. She does however deny any pain including head, neck or chest. He notes her history of multiple fractures including an old, previously identified neck fracture. The patient is in a C-spine collar upon her arrival. She is moving arms and legs without difficulty. He notes that she would stopped her Lasix upon a discharge from a hospital in the past and has had progressive swelling. She is quite anasarca today. He notes she has been eating and drinking without difficulty. PMHx Depression Iron deficiency anemia Pulmonary hypertension Insulin dependent type 2 diabetes mellitus Chronic anticoagulation Chronic atrial fibrillation Dementia Chronic hyponatremia Chronic respiratory failure Pacemaker Patient referred for ST evaluation d/t nursing/OT reporting Pt with difficulties masticating food, taking meds crushed in applesauce and with food pocketed in mouth after meal. Subjective Observations Pt laying in bed, awake and alert. ST positioned Pt upright in bed utilizing bed controls. Pt with neck brace in place and needed to be sat up very upright in order for head to be in neutral position . Pt oriented to name and city . Pt with hx of dementia. Reported by Patient/Caregiver Other Symptoms Difficulty swallowing pills, Difficulty swallowing solids Comment Pocketing solids Current Diet Regular (IDDSI 7) Baseline Feeding Method Needs some assistance The IDDSI Framework Protocol: IDDSI.1 Objective Assessment Mental Status Alert,Cooperative,Confused Oral Integrity WFL Dentition Within normal limits Lip Function Mild impairment Tongue Function Mild impairment Jaw Closing Reduced range of motion Comment ST unable to complete formal oral motor exam d/t Pt with cognitive deficits impacting ability to follow directions. However, informally Pt demonstrated lingual and labial weakness and reduced jaw ROM given neck brace, which ST suspects is impacting ability to masticate food. Food and Liquid Trials Position During Assessment Upright (90 degrees) Liquids Trialed Thin (IDDSI 0) Solid Trials Purred (IDDSI 4),Soft & Bite- sized (IDDSI 6) Administration Type Straw,Self-feeding,Needs some assistance Oral Impairment Moderately impaired Oral Phase Comments Pt consumed 4 oz of pudding, 1 /2 of a soft oatmeal raisin bar, and 4 oz of thin water via straw. Pt will slight hand tremor, however able to drink from cup when cued and eat finger food of oatmeal bar. She required assistance eating pudding. For thin water via straw, Pt demonstrated adequate suction, good oral acceptance and containment. For oatmeal bar Pt demonstrated occasiona large bites, prolonged mastication, slow mastication with poor bolus formation and control, extended ap transport, piecemeal deglutition, mild diffuse oral stasis. For pudding Pt demonstrated prolonged bolus formation however adequate control with extended ap transport, mild oral stasis. Pharyngeal Impairment Mildly impaired Pharyngeal Phase Comments Pt with suspected delay in swallow with all PO trials. Pt demonstrated no overt s/s of aspiration with all trials. ST unable to comment on pharyngeal phase d/t neck brace in place. Fatigue/Endurance Mild fatigue The IDDSI Framework Protocol: IDDSI.1 Findings Swallowing Function Oropharyngeal phase dysphagia Severity of Swallow Impairment Moderately impaired Contributing Factors to Swallow Mastication inefficiency Impairment Prognosis Fair Based on Cognitive status Comment Pt presents with moderate oral phase dysphagia and suspected mild pharyngeal phase dysphagia. Recommendations Instrumental Assessment No Swallowing Treatment Yes Frequency Daily while inpatient Recommended Solids Minced & Moist (IDDSI 5) Recommended Liquids Thin (IDDSI 0) Other Recommendations ST recommends IDDSI 5/IDDSI 0 with implementation of safe swallowing strategies in place , which are stated below. ST communicated recommendations with nursing and SUPERVISOR TOY ASSEMBLY. ST recommends Pt sit upright with head in neutral position with feeding assistance/ supervision. Safety Precautions/Swallowing Supervision needed for all Recommendations meals,Remain upright (90 degrees) during all oral intake,Upright position at least 30 minutes after meals, Small bites and sips when eating,Slow rate; swallow between bites,Alternate liquids and solids,1 to 1 feeding assistance,Strict oral care after intake,Check for pocketing Medication Recommendations Crushed in Carrier Education Patient/Caregiver Education Family/caregivers expressed understanding of evaluation, Family/caregivers require further education/training Goals Short-term Goals . STG 1: Patient will tolerate therapeutic PO trials of IDDSI /// with no clinical s/s of dysphagia 100% of the time in order to consume least restrictive diet. STG 2: Patient will tolerate thin liquids with no clinical s/s of aspiration 100% of the time in order to consume least restrictive diet. Long-term Goals LTG: Patient will tolerate safest and most efficient diet with no clinical s/s of aspiration or dysphagia 100% of the time in order to consume least restrictive diet .
[2023-09-28 19:55] VITALS: BP 128/86; PULSE 74; RESP 16; TEMP 37.1; O2SAT 96
[2023-09-28] MEDS: SENNOSIDES 8.6 MG TABLET 17.2 MG PO (21:15)
[2023-09-29] VITALS: BP 130/66; PULSE 72; RESP 17; TEMP 37; O2SAT 98
[2023-09-29] MEDS: LORazepam 2 MG/ML INJ 0.25 MG IV (01:33)
[2023-09-29 04:00] VITALS: BP 126/80; PULSE 74; RESP 16; TEMP 37.1; O2SAT 97
[2023-09-29 06:17] LABS: Add Manual Diff / Slide Review NO; Basophils Absolute Auto 100 /uL (0-100); Basophils Percent Auto 1.5 % (0-2); Eosinophils Absolute Auto 100 /uL (0-450); Eosinophils Percent Auto 2.3 % (2-4); Hematocrit 24.9 % (36-46); Hemoglobin 8.7 g/dL (12.0-16.0); Lymphocytes Absolute Auto 600 /uL (1100-4500); Lymphocytes Percent Auto 10.8 % (25-40); Mean Corpuscular HGB Conc 34.7 % (30-36); Mean Corpuscular Hemoglobin 36.9 PG (26-34); Mean Corpuscular Volume 106.2 fL (80-100); Monocytes Absolute Auto 300 /uL (0-900); Monocytes Percent Auto 6.6 % (3-14); Neutrophils Absolute Auto 4000 /uL (1500-7000); Neutrophils Percent Auto 78.8 % (50-75); Platelet Count 103 X10^3/uL (150-400); Red Blood Cell Count 2.34 X10^6/uL (4.0-5.2); Red Cell Distribution Width 13.7 % (11.6-14.8); White Blood Cell Count 5.1 X10^3/uL (4.5-11.0)
[2023-09-29 08:00] VITALS: BP 155/95; PULSE 69; RESP 18; TEMP 35.9; O2SAT 94
--- NOTE | 2023-09-29 09:32 | ST.IPTN ---
Visit Care Team Role Provider Type Zuleima Keating PA-C Primary Care Provider Physician Nursing Home Administrator Address: [place], [address] Tran Ellis MD Emergency Provider Physician Address: [address] [place], [address] Ezra Li MD Admit Provider Physician Attending Provider Address: [address] [place] [address] [place], [address] HADOOP DEVELOPER Treatment Note HADOOP DEVELOPER Treatment Note Start: 09/29/23 09:01 Freq: Status: Active Protocol: Document 09/29/23 09:18 MA (Rec: 09/29/23 09:32 MA [id number]) Speech Pathology Treatment Note Session Time Total Visit Minutes 20 Setting Treatment Setting Acute Care Visit Type Note Type Initial Evaluation General Information Patient History Per H&P: The patient is an 83- year-old female with a history of dementia who presented after a fall at home. She does take chronic anticoagulation, Eliquis. She did strike the back of her head. In the emergency department she was at her baseline and had a negative head CT. She did have a small laceration on the back of her head. She was also noted to have multiple subacute rib fractures as well as a subacute C2 dens fracture. The situation was discussed with neurosurgery who recommended no acute interventions. Additionally, the patient's family noted they would not support surgery if offered likely. They do note a recent history of increased falls and she has been admitted in the past with falls and fractures. She was also noted to have a sodium of 120 with a baseline of 130. She lives with a caregiver and has a known history of recurrent hyponatremia. She also has pulmonary hypertension with anasarca and home oxygen, as well as atrial fibrillation on chronic anticoagulation. She also has chronic insulin-dependent diabetes and a history of breast cancer for which she has been taking anastrozole. The patient's son, Obie, presents most of the history. The patient has relatively significant cognitive impairment. She does however deny any pain including head, neck or chest. He notes her history of multiple fractures including an old, previously identified neck fracture. The patient is in a C-spine collar upon her arrival. She is moving arms and legs without difficulty. He notes that she would stopped her Lasix upon a discharge from a hospital in the past and has had progressive swelling. She is quite anasarca today. He notes she has been eating and drinking without difficulty. PMHx Depression Iron deficiency anemia Pulmonary hypertension Insulin dependent type 2 diabetes mellitus Chronic anticoagulation Chronic atrial fibrillation Dementia Chronic hyponatremia Chronic respiratory failure Pacemaker Patient referred for ST evaluation d/t nursing/OT reporting Pt with difficulties masticating food, taking meds crushed in applesauce and with food pocketed in mouth after meal. Subjective Observations/Patient Presentation Pt sitting upright in bed with breakfast meal. Pt present during session. Nursing reports Pt discharging home today with Pt having questions in regards to current diet. Objective Treatment Activities Caregiver education on safe swallowing strategies and diet , PO trials Assessment Assessment of Improvement ST provided Pt educational handouts of safe swallowing strategies and information on recommended diet. ST emphasized importance of ensuring Pt head in neutral position when eating. ST educated Pt on IDDSI 5 minced and moist diet. ST assessed swallow function with PO trials of soft solids and thin liquids. Pt consumed fried eggs cut into small pieces and water via straw. Pt able to feed self after set up assistance. For eggs, Pt demonstrated occasiona large bites, prolonged/disorganized mastication, adequate bolus formation, extended ap transport, piecemeal deglutition, mild oral stasis, no overt s/s of aspiration. For thin liquids Pt demonstrated no overt s/s of aspiration. ST recommends IDDSI 5 minced and moist with thin liquids. Plan Provided Patient/Caregiver Instruction Home Exercise Program, Questions/Concerns
[2023-09-29 10:25] LABS: BUN Creatinine Ratio 30.2 (6-22); Blood Urea Nitrogen 39 mg/dL (7-17); Calcium 8.3 mg/dL (8.4-10.2); Carbon Dioxide 26 mmol/L (22-32); Chloride 91 mmol/L (98-107); Estimated Glomerular Filt Rate 41 mL/min (>60); Glucose 124 mg/dL (80-110); HEMOLYSIS 52 (0-50); Potassium 3.8 mmol/L (3.4-5.1); Sodium 123 mmol/L (137-145)
[2023-09-29] MEDS: FUROSEMIDE 40 MG/4 ML VIAL IV (10:31)
[2023-09-29] MEDS: VANCOMYCIN 125 MG CAPSULE PO (10:31)
[2023-09-29] MEDS: METOPROLOL ER 50 MG TABLET 100 MG PO (10:31)
[2023-09-29] MEDS: LOSARTAN 25 MG TABLET PO (10:31)
[2023-09-29] MEDS: ATORVASTATIN 20 MG TABLET 40 MG PO (10:31)
[2023-09-29] MEDS: POTASSIUM CHLORIDE 10 MEQ TAB PO (10:31)
[2023-09-29] MEDS: INSULIN GLARGINE 100 UNIT/ML 3ML PEN 10 UNIT SUBCUT (10:33)
[2023-09-29] MEDS: FUROSEMIDE 40 MG TABLET PO (11:06)
--- NOTE | 2023-09-29 11:17 | CM.DPC ---
DCP Cont. Reviewed EMR and team rounds for status updates. Plan is for pt t d/c today, [facility] with transport her home. This SCHOOL SUPERVISOR entered order for resumption of Home Health Services, with [facility]. Called [facility] and updated them of discharge. No further d/c planning needs identified at this time.
--- NOTE | 2023-09-29 11:30 | OT.IP.TRT ---
Current Diagnoses Hypo-osmolality and hyponatremia (09/27/23) Occupational Therapy Treatment Note M2 OT-IP Current Condition Start: 09/28/23 12:12 Freq: Status: Active Protocol: Document 09/28/23 12:12 [facility] (Rec: 09/28/23 12:40 [facility] [id number]) Occupational Therapy Current Condition Current Condition Evaluation Date 09/28/23 Treatment Diagnosis Fall, hyponatremia Diagnosis Onset Date 09/27/23 Post Operative Precautions Cervical Spine Precautions Rigid Collar,No Heavy Lifting, Log Roll M3 OT- IP Subjective and Pain Start: 09/28/23 12:12 Freq: Status: Active Protocol: Document 09/29/23 11:30 [facility] (Rec: 09/29/23 12:28 [facility] [id number]) OT- Subjective Occupational Therapy Visit Type Type Treatment Note Visit Start Time 11:30 Visit Stop Time 11:45 Occupational Therapy Visit Comments Patient Comments Pt just getting to the recliner but agreed to get up for OT. Patient/Caregiver Goals TO go home. OT Pain Assessment Pain When Pain Assessed At Rest Pain Present Pain Present Pain Reported M6 OT- IP Functional Cognition Start: 09/28/23 12:12 Freq: Status: Active Protocol: Document 09/29/23 11:30 [facility] (Rec: 09/29/23 12:28 [facility] [id number]) Cognitive Factors Limiting Selfcare Function Cognitive Ability Level of Alertness Confusional State Patient Orientation Name Attention Span Ability Capable of Focused Attention, Unable to Sustain Attention Ability to Follow Commands Able to Follow One Step Commands with Increased Time, Able to Follow One Step Commands with Repetition Memory Description 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,[place] Impaired,Working Impaired Cognitive Comments Cognitive Assessment Comments Pt still mainly orientated to name only. Pt continues to need step by step instructions to as still slow to process. M7 OT- IP Mobility and Balance Start: 09/28/23 12:12 Freq: Status: Active Protocol: Document 09/29/23 11:30 [facility] (Rec: 09/29/23 12:28 [facility] [id number]) OT-Transfer Assessment Sit to and From Stand Sit to and from Stand Moderate Assistance Comments Mobility Comments Pt continues to need MODA to stand from lower surfaces and once on her feet needing less assist. Pt still needing assist to help sequence through tasks at this time especially for safety awareness and hand placement when coming to stand. OT- Balance Assessment Sitting Balance and Reactions Static Sitting Balance Ability Good Dynamic Sitting Balance Ability Fair Standing Balance and Reactions Static Standing Balance Ability Fair Dynamic Standing Balance Ability Fair M8 OT- IP Objective Assessments Start: 09/28/23 12:12 Freq: Status: Active Protocol: Document 09/28/23 12:12 [facility] (Rec: 09/28/23 12:40 [facility] [id number]) OT Gross Range of Motion Upper Extremity Range of Motion Assessment Left Impaired OT Strength Comments Strength Comments BUE distally 4-/5. NT upper BUE due to rib and dens fx. M9 OT- IP Assessment and Plan Start: 09/28/23 12:12 Freq: Status: Active Protocol: Document 09/29/23 11:30 [facility] (Rec: 09/29/23 12:28 [facility] [id number]) OT Summary Assessment and Plan Potential Rehabilitation Potential Good Analytic Complexity at Evaluation Moderate Summary OT Impairments Strength,Balance,Functional Cognition,Functional Mobility, Self-Feeding,Grooming,Dressing ,Toileting,Bathing,Toilet Transfers,Shower Transfers, Activity Tolerance Progress Towards Goals Slow Progress due to Medical Issues,Slow Progress due to Cognition Assessment Summary Pt still having difficulties to follow commands and come from sit to stand from lower surfaces. Pt would benefit from skilled rehab versus home witn2/ assist at this time and pt needing assist for all ADl and mobility needs. Goals Grooming Goal Standby Assistance Dressing Goal Minimal Assistance Toileting Goal Minimal Assistance Bathing Goal Minimal Assistance Toilet Transfer Goal Standby Assistance Shower Transfer Goal Minimal Assistance Days to Meet Goals 9 Frequency of Treatment Frequency Of Treatment Once a Day Treatment Plan OT Treatment Plan ADL Training,Functional Cognition Training,Functional Mobility,Patient/Family Education,Discharge Planning Discharge Recommendations OT Discharge Recommendations Home with 29/03 Assist Available,Home Health,SNF Rehab,Home vs SNF Transportation Needs at Discharge Private Vehicle,Wheelchair/ Cabulance
--- NOTE | 2023-09-29 11:57 | PM.PN.1 ---
Subjective Subjective Interval history: She is awakened in no distress. She denies neck or back pain. She also denies dyspnea. Exam Vital Signs (past 8 hours): - 09/29/23 04:00 09/29/23 07:45 09/29/23 08:00 Temperature 98.8 F 96.7 F L Pulse Rate 74 69 Respiratory Rate 16 18 Blood Pressure 126/80 155/95 H Pulse Oximetry 97 94 Oxygen Delivery Method Room Air Oxygen Flow Rate 0 Oxygen Delivery Method Room Air Oxygen Flow Rate 0 Narrative Exam Narrative: NAD, fluent speech. Neck is free of midline tenderness with palpation. Lungs are clear, normal rate and effort. Heart is regular, no murmur. Abdomen is soft, nontender. Extremities and arms with 2+ edema, improving. Objective Labs 09/29/23 05:44 09/29/23 05:44 Labs: Laboratory Results - last 24 hr 09/29/23 05:44 WBC 5.1 RBC 2.34 L Hgb 8.7 L Hct 24.9 L MCV 106.2 H MCH 36.9 H MCHC 34.7 RDW 13.7 Plt Count 103 L Neut % (Auto) 78.8 H Lymph % (Auto) 10.[address] [place] % (Auto) 6.6 Eos % (Auto) 2.3 Baso % (Auto) 1.5 Neut # (Auto) 4000 Lymph # (Auto) [address] [place] # (Auto) 300 Eos # (Auto) 100 Baso # (Auto) 100 Sodium 123 L Potassium 3.8 Chloride 91 L Carbon Dioxide 26 BUN 39 H Creatinine 1.29 H Estimated GFR 41 L BUN/Creatinine Ratio 30.2 H Glucose 124 H Calcium 8.3 L PFSH Medical History Depression Iron deficiency anemia Pulmonary hypertension Insulin dependent type 2 diabetes mellitus Chronic anticoagulation Chronic atrial fibrillation Dementia Chronic hyponatremia Chronic respiratory failure Pacemaker Surgical History History of permanent cardiac pacemaker placement Social History household members: significant other Smoking Status: Never smoker alcohol intake: current Assessment & Plan Assessment & Plan narrative: 1. Ground level fall with head contusion and extracranial hematoma, present on admission and active. 2. Acute on chronic hyponatremia with a sodium of 120, present on admission and active. Hyponatremia is slowly improving. 3. C2 cervical fracture, likely subacute to chronic. Present on admission and stable. First present in September of 2022. 4. Multiple rib fractures and right pleural effusion, present on admission and active. 5. Atrial fibrillation on chronic Eliquis, present on admission and stable. 6. Probable urinary tract infection, present on admission and active. 7. Chronic anemia, present on admission and stable. 8. Insulin-dependent diabetes, present on admission and stable. 9. Chronic hypoxic respiratory failure, present on admission and stable. 10. Breast cancer, bilateral. 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 Plan: -she keeps pulling her IV, we will try Lasix 40 p.o. b.i.d. and if she is slow improvement of the sodium she may be stable for discharge home tomorrow with close labs to follow up. -she denies pain. It appears that her fractures may all be old. -we will monitor her sodium closely. Ur Na 28, Cr slightly up with diuresis. Will ose PO lasix, stop IV (pulls IV out). -she has been taking Eliquis, she has likely not a very good candidate to continue Eliquis in the future. -correctional insulin and monitor glucose. -ceftriaxone IV Q 24 hours for urine tract infection, follow cultures. Urine culture reveals Klebsiella and E coli which are both sensitive to ceftriaxone. -monitor hemoglobin. Monitor for evidence of clinical bleeding. Rleativiely stable. -physical therapy, occupational therapy evals and incentive spirometer. -She has some gailt instability, has and extensive care giving at home. Quality VTE Deep Vein Thrombosis/Pulmonary Embolism Present on Admission: No
[2023-09-29] MEDS: INSULIN LISPRO 100 UNIT/ML 3ML VIAL SUBCUT (11:58)
[2023-09-29 12:00] VITALS: BP 158/91; PULSE 60; RESP 18; TEMP 36; O2SAT 99
--- NOTE | 2023-09-29 13:32 | CM.DPC ---
Addendum entered and electronically signed by MANE García 09/29/23 13:51: Update: Pt will d/c home today with family. Per family request, placed a hospice referral and faxed clinicals for OP f/u. Called [facility] with her updated status. Original Note: DCP Cont. Reviewed EMR and team rounds for status updates. Per Hospitalist, pt will be ready for d/c tomorrow. Called [facility] to update them of discharge. Will continue to monitor for any further evolving d/c needs.
--- NOTE | 2023-09-29 13:59 | P.DS_ITS ---
History of Present Illness History of Present Illness Chief complaint: Fall, head injury Narrative: The patient is an 83-year-old female with a history of dementia who presented after a fall at home. She does take chronic anticoagulation, Eliquis. She did strike the back of her head. In the emergency department she was at her baseline and had a negative head CT. She did have a small laceration on the back of her head. She was also noted to have multiple subacute rib fractures as well as a subacute C2 dens fracture. The situation was discussed with neurosurgery who recommended no acute interventions. Additionally, the patient's family noted they would not support surgery if offered likely. They do note a recent history of increased falls and she has been admitted in the past with falls and fractures. She was also noted to have a sodium of 120 with a baseline of 130. She lives with a caregiver and has a known history of recurrent hyponatremia. She also has pulmonary hypertension with anasarca and home oxygen, as well as atrial fibrillation on chronic anticoagulation. She also has chronic insulin-dependent diabetes and a history of breast cancer for which she has been taking anastrozole. The patient's son, Obie, presents most of the history. The patient has relatively significant cognitive impairment. She does however deny any pain including head, neck or chest. He notes her history of multiple fractures including an old, previously identified neck fracture. The patient is in a C- spine collar upon her arrival. She is moving arms and legs without difficulty. He notes that she would stopped her Lasix upon a discharge from a hospital in the past and has had progressive swelling. She is quite anasarca today. He notes she has been eating and drinking without difficulty. Discharge Providers Provider Date of admission: 09/27/23 15:29 Discharge Date: 09/29/23 Primary care physician: Zuleima Keating PA-C Consults: 09/27/23 15:42 Consult to Occupational Therapy Evaluate & Treat Comment: Physician Instructions: Evaluate and treat Consult to Physical Therapy Evaluate & Treat Comment: Physician Instructions: Evaluate and Treat 09/28/23 11:40 Consult to Speech Therapy Evaluate & Treat Comment: Physician Instructions: Evaluate and treat 09/29/23 11:16 Consult to Home Health Routine Comment: Resume Services with [facility] Reason For Exam: Home Health Services Discharge provider: Ezra Li MD Summary Hospital Course Discharge Diagnosis: 1. Ground level fall with head contusion and extracranial hematoma, present on admission and active. 2. Acute on chronic hyponatremia with a sodium of 120, present on admission and active. Hyponatremia is slowly improving. 3. C2 cervical fracture, likely subacute to chronic. Present on admission and stable. First present in September of 2022. 4. Multiple rib fractures and right pleural effusion, present on admission and active. 5. Atrial fibrillation on chronic Eliquis, present on admission and stable. 6. Probable urinary tract infection, present on admission and active. 7. Chronic anemia, present on admission and stable. 8. Insulin-dependent diabetes, present on admission and stable. 9. Chronic hypoxic respiratory failure, present on admission and stable. 10. Breast cancer, bilateral. 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 11. Pulmonary hypertension (ECHO 09/28), present on admission and active. 12. Acute diastolic heart failure, present on admission and active. . 13. DUANE, present on admission and active. Hospital Course: This pleasant 83-year-old female was admitted with a fall. She had a contusion and laceration in the back of her head. She is on chronic Eliquis, this we stopped at the time of discharge given her risk of falls. The patient had imaging which was negative for intracranial abnormality. A cervical CT revealed her previously known C2 fracture which occurred about 1 year ago. She was initially placed in a cervical collar, this is removed. She also had multiple rib fractures noted which were also likely chronic. The patient had no pain complaints over the next day whether be neck pain chest pain or rib pain. She was treated for urine tract infection with Klebsiella and E coli which was sensitive to cephalosporins. She will be converted to oral cephalexin at the time of discharge. She was also anasarca with a history of pulmonary hypertension and diastolic heart failure. The patient had gross anasarca upon presentation and had been off diuretics for some time and then just recently restarted at a lower dose of 20 a day. Her sodium was 120 and improved to about 123 with IV Lasix for a day and a half. The patient has severe dementia and kept pulling her IV. I had a family conference with the patient's in son on the day of discharge and it was quite clear at that point that they were really trying to progress towards care at home, comfort based and likely with hospice support. They were quite comfortable taking her home on the day of discharge because they want her be more comfortable and understand that a sodium of 123 is suboptimal but may or may not improve with Lasix at a more aggressive dose at home orally for the next 2 days. She has labs scheduled on Wednesday which is 2 days from the time of discharge. They also understand that her renal function may worsen. Her losartan will be discontinued due to renal function abnormality at the time of discharge as well. Social work will recontact hospice, they were evaluated about on 1-2 months ago and did not meet criteria. At this time the patient seems likely to meet criteria based on heart failure and dementia criteria. The patient is do not resuscitate. Status at Discharge Cognitive/behavioral status at discharge: at baseline, confused Functional status at discharge: uses cane/walker Overall status at discharge: patient is progressing back to baseline Time Spent with Patient Time spent: Greater than 30 minutes Exam Vital Signs (past 8 hours): - 09/29/23 07:45 09/29/23 08:00 09/29/23 12:00 Temperature 96.7 F L 96.8 F L Pulse Rate 69 60 Respiratory Rate 18 18 Blood Pressure 155/95 H 158/91 H Pulse Oximetry 94 99 Oxygen Delivery Method Room Air Oxygen Flow Rate 0 Oxygen Delivery Method Room Air Oxygen Flow Rate 0 Narrative Exam Narrative: Neck is free of midline tenderness with palpation. Lungs are clear, normal rate and effort. Heart is regular, no murmur. Abdomen is soft, nontender. Extremities and arms with 2+ edema, improving. Objective Imaging CT scan - head: Radiologist's impression: 1. No acute intracranial pathology. 2. Age-related volume loss and moderate to severe small vessel ischemic change. 3. Subgaleal hematoma. CT scan - chest: Radiologist's impression: 1. Bilateral edema versus pneumonia. 2. Right pleural effusion. 3. Coronary artery disease. Cardiomegaly. 4. Right rib fractures. Cervical spine CT: Radiologist's impression: 1. Slight interval increase in displacement and development of angulation at the type 2 dens fracture site. Additionally, there are bilateral lateral mass subluxations at C1-C2. No additional fractures identified. 2. Interval increase in right pleural effusion, moderately large, with increased density suggesting hemorrhage is present. Consider chest CT to check for rib fractures. Labs 09/29/23 05:44 09/29/23 05:44 Labs: Laboratory Results - last 24 hr 09/29/23 05:44 WBC 5.1 RBC 2.34 L Hgb 8.7 L Hct 24.9 L MCV 106.2 H MCH 36.9 H MCHC 34.7 RDW 13.7 Plt Count 103 L Neut % (Auto) 78.8 H Lymph % (Auto) 10.8 L [place] % (Auto) 6.6 Eos % (Auto) 2.3 Baso % (Auto) 1.5 Neut # (Auto) 4000 Lymph # (Auto) 600 L [place] # (Auto) 300 Eos # (Auto) 100 Baso # (Auto) 100 Sodium 123 L Potassium 3.8 Chloride 91 L Carbon Dioxide 26 BUN 39 H Creatinine 1.29 H Estimated GFR 41 L BUN/Creatinine Ratio 30.2 H Glucose 124 H Calcium 8.3 L PFSH Medical History Depression Iron deficiency anemia Pulmonary hypertension Insulin dependent type 2 diabetes mellitus Chronic anticoagulation Chronic atrial fibrillation Dementia Chronic hyponatremia Chronic respiratory failure Pacemaker Surgical History History of permanent cardiac pacemaker placement Social History household members: significant other Smoking Status: Never smoker alcohol intake: current Discharge Assessment & Plan Assessment and Plan Assessment: 1. Ground level fall with head contusion and extracranial hematoma, present on admission and active. 2. Acute on chronic hyponatremia with a sodium of 120, present on admission and active. Hyponatremia is slowly improving. 3. C2 cervical fracture, likely subacute to chronic. Present on admission and stable. First present in September of 2022. 4. Multiple rib fractures and right pleural effusion, present on admission and active. 5. Atrial fibrillation on chronic Eliquis, present on admission and stable. 6. Probable urinary tract infection, present on admission and active. 7. Chronic anemia, present on admission and stable. 8. Insulin-dependent diabetes, present on admission and stable. 9. Chronic hypoxic respiratory failure, present on admission and stable. 10. Breast cancer, bilateral. 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 11. Pulmonary hypertension (ECHO 09/28), present on admission and active. 12. Acute diastolic heart failure, present on admission and active. . 13. DUANE, present on admission and active. Plan of Treatment: Discharge home to the care of her family. Hospice will be re-contacted for another assessment. We will use Lasix 40 mg p.o. b.i.d. for the next 2 days with labs on Wednesday. We will likely then be able to cut down to 20 or 40 mg a day. We will stop Eliquis, she has a fall risk and the risks appeared to be greater than the benefits. We will also stop her losartan given her issues with acute kidney injury and sensitivity to diuresis. Patient's family is aware of her poor prognosis, they reinforced comfort based care with dignity and being at home. She is do not resuscitate. She will also be on cephalexin for 4 more days for her urine tract infection. Discharge Plan Discharge Plan Patient Disposition: Home Provider Discharge Comment: Family wants at home, understand sodium was 123 and that her renal function will likely worsen with attempts at home diuresis. Will re-engage hospice. She is do not resuscitate and they are really moving towards comfort and staying at home and hoping to enlist hospice for home. Discharge orders & Medications Prescriptions: New cephalexin 250 mg capsule 250 mg PO Q8H Qty: 12 0RF furosemide [Lasix] 40 mg tablet 40 mg PO BID Qty: 60 0RF Rx Instructions: For the next 2 days, then once a day until follow up on Wednesday labs. Continued atorvastatin [Lipitor] 20 MG tablet 40 mg PO QDAY Qty: 0 metoprolol succinate 100 mg tablet extended release 24 hr 100 mg PO DAILY insulin lispro [Humalog KwikPen Insulin] 100 unit/mL insulin pen 2 unit SUBCUT TID Patient Comments: [NO ORIGINAL SIG] ferrous sulfate 325 mg (65 mg iron) Tablet 325 mg PO DAILY insulin glargine [Lantus Solostar U-100 Insulin] 100 unit/mL (3 mL) Insulin Pen 10 unit SUBCUT DAILY magnesium 400 mg PO BID vit B cmplx #9-FA-vit C-vit E 1 tab PO DAILY Complete 1 tab PO DAILY vancomycin 125 mg Capsule 125 mg PO DAILY Rx Instructions: just until the 06 of October, then order will change to 2-3 times per week. cholecalciferol (vitamin D3) 50 mcg (2,000 unit) Capsule 50 mcg PO DAILY Discontinued losartan 25 mg tablet 25 mg PO DAILY furosemide 20 mg tablet 20 mg PO DAILY potassium chloride 10 mEq tablet,ER particles/crystals 10 meq PO DAILY Eliquis 2.5 mg tablet 2.5 mg PO BID Follow up/Referrals: Zuleima Keating PA-C [Primary Care Provider] - Diet/Activity/Treatments Diet: Diet as Tolerated Activity: as tolerated Skin/Wound/Dressing Care Report to your healthcare provider any signs of infection, such as:: chills, fever, night sweats and increased pain Visit Report/Discharge Packet Instructions: Anemia: How Food and Vitamins Can Help, Neck Fracture, DI for Heart Failure, DI for Rib Fracture, DI for Iron Deficiency Anemia-Adult, DI for Hyponatremia, How to Prevent Falls, DI for Neck Pain, Palliative Care: Heart Failure Stand Alone Forms: Congestive Heart Failure, Patient Portal/API Discharge Data Primary Care Provider: Zuleima Keating Quality VTE Deep Vein Thrombosis/Pulmonary Embolism Present on Admission: No
--- NOTE | 2023-09-29 14:42 | PT.IPTN ---
Current Diagnoses Hypo-osmolality and hyponatremia (09/27/23) Physical Therapy Treatment Note M2 PT-IP Current Condition Start: 09/28/23 11:01 Freq: NEEDED Status: Active Protocol: Document 09/28/23 09:55 AB (Rec: 09/28/23 11:21 AB [id number]) Physical Therapy Current Condition Current Condition Evaluation Date 09/28/23 Treatment Diagnosis s/p fall w/head contusion; C2 fx; difficulty in walking Onset Date 09/27/23 M3 PT-IP Subjective Start: 09/28/23 11:01 Freq: NEEDED Status: Active Protocol: Document 09/29/23 14:42 AB (Rec: 09/29/23 14:42 AB [id number]) Subjective Physical Therapy Visit Type Type Administrative Note Notes checked with nurse and stated that pt will be going home and planning on hospice care. checked pt and pt was asleep. pt's spouse in room and wants pt to just rest and for PT not to wake pt up. spouse confirmed that pt is planning to have hospice care on d/c. stated that he has a caregiver that comes in to assist them. talked with hospitalist and agreed to d/c pt from PT. M7 PT-IP Assessment and Plan Start: 09/28/23 11:01 Freq: NEEDED Status: Active Protocol: Document 09/29/23 14:42 AB (Rec: 09/29/23 14:42 AB [id number]) PT Summary Assessment and Plan Frequency of Treatment Frequency Of Treatment Discharge
--- NOTE | 2023-09-29 15:11 | PC.NURSE ---
Discharge: Pt feels ready to d/c to home, spouse feels he is able to care for her. SS has made referals for pt to first and then later for hospice. She didn't initially qualify for hospice previously, but her condition has changed enough the doctor requested them to eval her again. Scripts were sent to [facility] in [facility] and pt's spouse is aware. MD came down to see patient and spouse and he discussed d/c plan with them and gave d/c instructions. Discharge packet reviewed w/spouse and pt. Questions answered. Pt d/c to home via auto w/spouse.
== END 2023-09-29 15:20 | disposition home health service (06) | DRG 640 ==
LOC: ED 14:59 → AC 16:52
PROVIDERS: Admitting Provider Hospitalist; Emergency Provider Emergency Medicine; PCP Student in an Organized Health Care Education/Training Program; Visit Provider Hospitalist
DX: E87.1 Hypo-osmolality and hyponatremia (principal); I50.31 Acute diastolic (congestive) heart failure; S22.41XA Multiple fractures of ribs, right side, initial encounter for closed fracture; S12.100A Unspecified displaced fracture of second cervical vertebra, initial encounter for closed fracture; N39.0 Urinary tract infection, site not specified; J96.11 Chronic respiratory failure with hypoxia; S01.81XA Laceration without foreign body of other part of head, initial encounter; I48.91 Unspecified atrial fibrillation; E11.9 Type 2 diabetes mellitus without complications; C50.912 Malignant neoplasm of unspecified site of left female breast; C50.911 Malignant neoplasm of unspecified site of right female breast; I27.20 Pulmonary hypertension, unspecified; B96.1 Klebsiella pneumoniae [K. pneumoniae] as the cause of diseases classified elsewhere; B96.20 Unspecified Escherichia coli [E. coli] as the cause of diseases classified elsewhere; D63.0 Anemia in neoplastic disease; F03.C0 Unspecified dementia, severe, without behavioral disturbance, psychotic disturbance, mood disturbance, and anxiety; W01.0XXA Fall on same level from slipping, tripping and stumbling without subsequent striking against object, initial encounter; Z66 Do not resuscitate; Z79.01 Long term (current) use of anticoagulants; Z79.4 Long term (current) use of insulin; Z23 Encounter for immunization
CPT/HCPCS: 36415; 70450; 71250; 72125; 80048; 80053; 81001; 82962; 83880; 84300; 85007; 85025; 87077; 87086; 87186; 90471; 92526; 92610; 93005; 96365; 97162; 97166; 97530; 97535; 99285; 90715; J0696; J1815; J1940; J2060